=== PATIENT | male | born 1960 | race Caucasian/White ===

== ENCOUNTER 2024-09-21 01:57 | Inpatient (IN) | payer MEDICARE, SELFPAY ==
[2024-09-20 20:35] VITALS: BP 150/52; BMI 21.8
[2024-09-20 20:38] VITALS: BP 150/52
[2024-09-20 20:47] LABS: % Basophils 0.3 % (0-2); % Eosinophils 0.1 % (0-6); % Immature Granulocytes 0.7 % (0-0.5); % Lymphocytes 2.8 % (20.5-51.1); % Monocytes 12.5 % (1.7-9.3); % Neutrophils 83.6 % (42.2-75.2); Absolute Immature Granulocytes 0.1 10^3/uL (0-0.05); Absolute Lymphocytes 0.3 10^3/uL (1.2-3.4); Absolute Monocytes 1.5 10^3/uL (0.1-0.6); Absolute Neutrophils 10.2 10^3/uL (1.4-6.5); Hematocrit 26.8 % (39.0-52.0); Hemoglobin 9.3 g/dL (13.0-18.0); Mean Corp Hgb Conc. 34.7 g/dL (33.0-37.0); Mean Corpuscular Hgb 34.1 pg (27.0-31.0); Mean Corpuscular Volume 98.2 fL (80.0-94.0); Mean Platelet Volume 9.6 fL (7.4-10.4); Nucleated Red Blood Cells % 0 % (-); Platelet Count 142 10^3/uL (130-400); Red Blood Cell Count 2.73 10^6/uL (4.70-6.10); White Blood Cell Count 12.2 10^3/uL (4.8-10.8)
--- NOTE | 2024-09-20 20:51 | ED.GENMED ---
History of Present Illness
<Aline Escalante PA-C - Last Filed: 09/21/24 03:09>
General
Chief Complaint: Weakness
Source: patient
Exam Limitations: none
Time Seen by Provider: 09/20/24 20:35
Nursing documentation reviewed up to this point in time: agreed with
History of Present Illness
History of Present Illness:
This is a 64-year-old male with past medical history of CHF, end-stage renal disease on dialysis MWF, metastatic squamous cell cancer on chemo presenting today with concern altered mental status and fever. Family reports that he was just
discharged from [facility] yesterday and stayed there for a week for shortness of breath and high blood pressure. [facility] when his family went to visit him and started to notice that he felt warm and was not
acting right. Patient's family member took his temperature at the time he notices temperature was 100.1. He started to appear lethargic fatigue. They noticed he was hypoxic in the high 80s to low 90s on room air and was placed on 2 L via nasal
cannula. Usually does not wear oxygen at baseline. Patient reports that he has diffuse bodyaches and mild shortness of breath but he denies chest pain, trouble swallowing. Family also reports that when they visited, he had an episode of vomiting
as well. He denies any dark tarry stools, denies any rectal bleeding. Patient makes minimal urine at baseline
Past History
<Aline Escalante PA-C - Last Filed: 09/21/24 03:09>
Past History
ED Past Medical History: CHF, HTN and Renal failure (on dialysis)
Social History
Tobacco: Smoker (cigars)
Alcohol: None
Personal: Single
Living: with roommate
Employment: Not employed
Review of Systems
<Aline Escalante PA-C - Last Filed: 09/21/24 03:09>
Review of Systems
All Other Systems: ROS reviewed and negative except as documented in HPI and ROS
Phy Exam
<Aline Escalante PA-C - Last Filed: 09/21/24 03:09>
Physical Exam
Physical Exam:
General: Patient is chronically ill appearing, but in no acute distress
Skin: Warm and dry, no rashes or lesions
Head: Normocephalic, atraumatic
Eyes: Sclera non-icteric. EOMs intact.
Cardiac: Regular rate and rhythm, systolic murmur noted
Peripheral Vascular: No lower extremity swelling or edema
Pulm: Normal respiratory effort, no wheezes, rales, rhonchi
Abdomen: No abdominal tenderness to palpation
Musculoskeletal: No pain with range of motion of the bilateral lower extremities, no palpable bony deformities
Neuro: CN II-XII intact, no focal neurologic deficits.
Psychiatric: Appropriate mood and affect.
Course
<Aline Escalante PA-C - Last Filed: 09/21/24 03:09>
Orders/Labs/Results
Orders:
Orders
09/20/24 20:41
Alcohol Urgent
Complete Blood Count/With Diff Urgent
Comprehensive Metabolic Panel Urgent
Lipase Urgent
Comment: ADD ON
09/20/24 21:12
CR Chest - 2 Views Urgent
Comment:
Reason For Exam: hypoxia, shortness of breath,
09/20/24 21:13
Add On- LAB Urgent
Tests Added?: lipase
CT Head W/o Iv Contrast Urgent
Comment:
Reason For Exam: altered mental status
09/20/24 21:24
US Abdomen Complete/Upper Urgent
Comment:
Reason For Exam: vomiting, elevated lfts
09/20/24 21:42
COVID-19 Antigen Urgent
Source: Nasal Swab
Influenza A+B Rapid Molecular Urgent
FLAKO Source: Nasal Swab
Specimen Description:
09/20/24 22:36
Acetaminophen [Tylenol] 1,000 mg .ROUTE .STK-MED ONE
09/20/24 22:38
Acetaminophen [Tylenol] 1,000 mg PO NOW STA
09/20/24 22:41
Acetaminophen [Tylenol/Feverall] 650 mg .ROUTE .STK-MED ONE
09/20/24 22:43
Acetaminophen [Tylenol/Feverall] 650 mg RECTAL NOW STA
09/20/24 22:46
CT Abd/pel Without Iv Or Oral Urgent
Comment:
Reason For Exam: fever, vomiting, transient belly pain
09/20/24 22:59
Blood Culture Routine
FLAKO Source: Blood/Venous
Specimen Description:
Blood Culture Urgent
FLAKO Source: Blood/Venous
Specimen Description:
Rapid Strep Group A Urgent
FLAKO Source: Throat/Pharynx
Specimen Description:
Date Specimen was Collected: 09/20/24
Time Specimen was Collected: 22:57
09/20/24 23:10
Lactic Acid Q4H
Comment: CANCEL 2nd LACTIC ACID IF 1st LACTIC ACID IS LESS THAN 2
09/20/24 23:44
Urinalysis Reflex To Culture Urgent
Date Specimen was Collected: 09/20/24
Time Specimen was Collected: 23:42
Urine Microscopic Reflex Cult Urgent
09/21/24 00:06
Cefepime HCl [Maxipime] 2,000 mg IV NOW STA
09/21/24 00:19
Vancomycin [Vancocin] 1,500 mg 0.9% Sodium Chloride 500 ml [Nss] 500 ml IV NOW
09/21/24 00:37
Sterile Water [Sterile Water For Injection] 10 ml .ROUTE .STK-MED ONE
09/21/24 00:42
Ammonia Urgent
09/21/24 01:30
Admit/Transfer Patient As Directed
Co-Sign Provider:
Level of Care: Inpatient admission
Assign to:: IMU- Intermediate Care
Physician / Group: hospitalist
Diagnosis: fever with encephalopathy
Reason for Hospitalization: fever
Expected length of stay greater than two midnights?: Yes
ELOS- Estimated Length of Stay in days: 2
I certify the patient meets the requirements for IP care: Yes
PRN Pain Medication Management As Directed
May give lesser potent ordered pain med per pt: Yes
preference::
Protocol:: Medication orders for pain may be administered in a
manner that supports deferring to patient preference
when the pt is:
- Requesting an ordered lesser potent pain medication.
Least to most potent pain medications are defined
as: acetaminophen < NSAID < tramadol < opioids
(morphine, oxycodone, hydromorphone).
- Requesting a lesser dose of the same medication IF
ORDERED.
- Requesting a less intrusive route of administration
if both routes are prescribed by the provider (PO <
IV).
09/21/24 01:32
Code Status As Directed
Resuscitation Status: Full Code
09/21/24 01:39
Add On- LAB Stat
Tests Added?: alcohol level
09/21/24 02:45
Acetaminophen [Tylenol/Feverall] 650 mg RECTAL Q6HPRN PRN
Ondansetron Injectable [Zofran] 4 mg IV Q6HPRN PRN
VANCOMYCIN Pharmacy to Dose [VANCOCIN Pharmacy to Dose] 1 each Pharmacy To Prepare [Call Pharmacy To Prepare] 0 ml IV PER PROTOCOL
09/21/24 02:45
Consult Notification Routine
Specialty to Notify: Gastroenterology
Consult Notification Routine
Specialty to Notify: Infectious Disease
Consult Notification Routine
Specialty to Notify: Nephrology
GASTROINTESTINAL CONSULT Routine
Consulting Provider: Lukas Martinez
Was physician already notified: No
Reason for consult: Transaminitis of unknown etiology
INFECTIOUS DISEASE CONSULT Routine
Consulting Provider: Kristel Martin
Was physician already notified: No
Reason for consult: fever with unknown source
NEPHROLOGY CONSULT Routine
Consulting Provider: Issac Hernandez
Was physician already notified: No
Reason for consult: ESRD M/W/F here for fever, source undetermined
Legionella Urinary Antigen Routine
FLAKO Source: Urine
Specimen Description:
Respiratory Culture/Gram Stain Urgent
FLAKO Source: Sputum
Specimen Description:
Strep pneumoniae Antigen Routine
FLAKO Source: Urine
Specimen Description:
Activity As Directed
Activity Level: Out of Bed-Early Mobility
Intake/ Output As Directed
Frequency: Per unit guidelines
Vital Signs As Directed
Frequency: Per unit guidelines
Weight As Directed
Frequency: Once
Comment: on admission
O2 Therapy [RESP] Routine
Nasal Cannula Liter Flow: 2 LPM
Titrate/Wean O2 to maintain O2 sat greater than (%): 93
Special Instructions: Wean as tolerated
Pulse Ox/cont/shift [RESP] Routine
Quantity: 1
Special Instructions: notify provider if SPO2 < 91%
Pt Eval And Treat Routine
Activity Level: With Assistance
Speech Therapy Eval & Treat Routine
DX Deep Vein Thrombosis Video Routine
09/21/24 Breakfast
NPO
Allow oral meds: Yes
Allow clear liquids: Sips of Clears
Basic Metabolic Panel IN AM
Complete Blood Count/No Diff IN AM
Hepatitis A Antibody, Total IN AM
Hepatitis A IgM Antibody IN AM
Hepatitis B Core Ab, IgM IN AM
Hepatitis B Core Ab, Total IN AM
Hepatitis B Surface Antibody IN AM
Hepatitis B Surface Antigen IN AM
Hepatitis C Antibody IN AM
LFT [Xgnny-Ketu-Hllojvg] IN AM
Lactate Level [Lactic Acid] IN AM
Lipid Profile [Cardiovascular Evaluation] IN AM
Procalcitonin IN AM
PCT Algorithmm Indication: Respiratory
MetroNIDAZOLE 500 MG/100 ML [Flagyl 500 mg] 100 ml IV Q12H
09/21/24 08:00
Amlodipine [Norvasc] 10 mg PO DAILY
Aspirin Low Dose EC [Aspir Low (Enteric Coated)] 81 mg PO BID
Atorvastatin [Lipitor] 80 mg PO DAILY
Clonidine [Catapres] 0.2 mg PO TID
Heparin 5,000 units SC Q8
ISOSORBIDE MONOnitrate ER [Imdur (Extended Release)] 30 mg PO DAILY
Metoprolol Xl [Toprol Xl] 50 mg PO BID
Tamsulosin [Flomax] 0.4 mg PO BID
Valsartan [Diovan] 320 mg PO DAILY
ferric citrate [Auryxia] See Dose Instructions PO BID
vibegron [Gemtesa] See Dose Instructions PO DAILY
09/21/24 18:00
Cefepime HCl [Maxipime] 1,000 mg IV QPM
Abnormal Lab Results
09/20/24 09/20/24 09/20/24
20:41 23:10 23:44
WBC 12.2 H 10^3/uL
(4.8-10.8)
RBC 2.73 L 10^6/uL
(4.70-6.10)
Hgb 9.3 L g/dL
(13.0-18.0)
Hct 26.8 L %
(39.0-52.0)
MCV 98.2 H fL
(80.0-94.0)
MCH 34.1 H pg
(27.0-31.0)
RDW 17.0 H %
(11.5-14.5)
Abs Immat Gran (auto) 0.1 H 10^3/uL
(0-0.05)
Absolute Neuts (auto) 10.2 H 10^3/uL
(1.4-6.5)
Absolute Lymphs (auto) 0.3 L 10^3/uL
(1.2-3.4)
Absolute Monos (auto) 1.5 H 10^3/uL
(0.1-0.6)
Immature Gran % 0.7 H %
(0-0.5)
Neutrophils % 83.6 H %
(42.2-75.2)
Lymphocytes % 2.8 L %
(20.5-51.1)
Monocytes % 12.5 H %
(1.7-9.3)
Sodium 128 L mmol/L
(135-145)
Chloride 93 L mmol/L
(98-107)
BUN 51 H mg/dl
(9-20)
Creatinine 4.8 H* mg/dL
(0.7-1.3)
Glucose 128 H mg/dl
(70-99)
Lactic Acid 0.5 L mmol/L
(0.7-2.0)
AST 336 H U/L
(17-59)
ALT 186 H U/L
(0-50)
Alkaline Phosphatase 127 H U/L
(38-126)
Ammonia
Total Protein 5.8 L g/dl
(6.3-8.2)
Albumin 3.4 L g/dl
(3.5-5.0)
Ur Occult Blood Reflex 4+ A
(Negative)
Urine RBC 7-10 A /HPF
(0-2)
Urine Bacteria (Reflex) Few A
(Negative)
Urine Glucose 1+ A
(Negative)
Urine Albumin (Reflex) 3+ A
(Neg - Trace)
09/21/24
00:42
WBC
RBC
Hgb
Hct
MCV
MCH
RDW
Abs Immat Gran (auto)
Absolute Neuts (auto)
Absolute Lymphs (auto)
Absolute Monos (auto)
Immature Gran %
Neutrophils %
Lymphocytes %
Monocytes %
Sodium
Chloride
BUN
Creatinine
Glucose
Lactic Acid
AST
ALT
Alkaline Phosphatase
Ammonia < 9 L umol/L
(9-30)
Total Protein
Albumin
Ur Occult Blood Reflex
Urine RBC
Urine Bacteria (Reflex)
Urine Glucose
Urine Albumin (Reflex)
09/20/24 20:41
09/20/24 20:41
Vital Signs
Initial and Last Documented VS:
Initial Vital Signs
Temp Pulse Resp BP Pulse Ox
98.8 F 73 24 150/52 99
09/20/24 20:35 09/20/24 20:35 09/20/24 20:35 09/20/24 20:35 09/20/24 20:35
Last Documented Vital Signs
Temp Pulse Resp BP Pulse Ox
101.3 F H 74 17 148/54 99
09/21/24 00:51 09/21/24 02:00 09/21/24 02:00 09/21/24 02:00 09/21/24 02:00
<Raymodn Hunter, DO - Last Filed: 09/20/24 23:03>
Orders/Labs/Results
Orders:
Orders
09/20/24 20:41
Alcohol Urgent
Complete Blood Count/With Diff Urgent
Comprehensive Metabolic Panel Urgent
Lipase Urgent
Comment: ADD ON
09/20/24 21:12
CR Chest - 2 Views Urgent
Comment:
Reason For Exam: hypoxia, shortness of breath,
09/20/24 21:13
Add On- LAB Urgent
Tests Added?: lipase
CT Head W/o Iv Contrast Urgent
Comment:
Reason For Exam: altered mental status
09/20/24 21:24
US Abdomen Complete/Upper Urgent
Comment:
Reason For Exam: vomiting, elevated lfts
09/20/24 21:42
COVID-19 Antigen Urgent
Source: Nasal Swab
Influenza A+B Rapid Molecular Urgent
FLAKO Source: Nasal Swab
Specimen Description:
09/20/24 22:36
Acetaminophen [Tylenol] 1,000 mg .ROUTE .STK-MED ONE
09/20/24 22:38
Acetaminophen [Tylenol] 1,000 mg PO NOW STA
09/20/24 22:41
Acetaminophen [Tylenol/Feverall] 650 mg .ROUTE .STK-MED ONE
09/20/24 22:43
Acetaminophen [Tylenol/Feverall] 650 mg RECTAL NOW STA
09/20/24 22:46
CT Abd/pel Without Iv Or Oral Urgent
Comment:
Reason For Exam: fever, vomiting, transient belly pain
09/20/24 22:59
Blood Culture Routine
FLAKO Source: Blood/Venous
Specimen Description:
Blood Culture Urgent
FLAKO Source: Blood/Venous
Specimen Description:
Rapid Strep Group A Urgent
FLAKO Source: Throat/Pharynx
Specimen Description:
Date Specimen was Collected: 09/20/24
Time Specimen was Collected: 22:57
09/20/24 23:10
Lactic Acid Q4H
Comment: CANCEL 2nd LACTIC ACID IF 1st LACTIC ACID IS LESS THAN 2
09/20/24 23:44
Urinalysis Reflex To Culture Urgent
Date Specimen was Collected: 09/20/24
Time Specimen was Collected: 23:42
Urine Microscopic Reflex Cult Urgent
09/21/24 00:06
Cefepime HCl [Maxipime] 2,000 mg IV NOW STA
09/21/24 00:19
Vancomycin [Vancocin] 1,500 mg 0.9% Sodium Chloride 500 ml [Nss] 500 ml IV NOW
09/21/24 00:37
Sterile Water [Sterile Water For Injection] 10 ml .ROUTE .STK-MED ONE
09/21/24 00:42
Ammonia Urgent
09/21/24 01:30
Admit/Transfer Patient As Directed
Co-Sign Provider:
Level of Care: Inpatient admission
Assign to:: IMU- Intermediate Care
Physician / Group: hospitalist
Diagnosis: fever with encephalopathy
Reason for Hospitalization: fever
Expected length of stay greater than two midnights?: Yes
ELOS- Estimated Length of Stay in days: 2
I certify the patient meets the requirements for IP care: Yes
PRN Pain Medication Management As Directed
May give lesser potent ordered pain med per pt: Yes
preference::
Protocol:: Medication orders for pain may be administered in a
manner that supports deferring to patient preference
when the pt is:
- Requesting an ordered lesser potent pain medication.
Least to most potent pain medications are defined
as: acetaminophen < NSAID < tramadol < opioids
(morphine, oxycodone, hydromorphone).
- Requesting a lesser dose of the same medication IF
ORDERED.
- Requesting a less intrusive route of administration
if both routes are prescribed by the provider (PO <
IV).
09/21/24 01:32
Code Status As Directed
Resuscitation Status: Full Code
09/21/24 01:39
Add On- LAB Stat
Tests Added?: alcohol level
09/21/24 02:45
Acetaminophen [Tylenol/Feverall] 650 mg RECTAL Q6HPRN PRN
Ondansetron Injectable [Zofran] 4 mg IV Q6HPRN PRN
VANCOMYCIN Pharmacy to Dose [VANCOCIN Pharmacy to Dose] 1 each Pharmacy To Prepare [Call Pharmacy To Prepare] 0 ml IV PER PROTOCOL
09/21/24 02:45
Consult Notification Routine
Specialty to Notify: Gastroenterology
Consult Notification Routine
Specialty to Notify: Infectious Disease
Consult Notification Routine
Specialty to Notify: Nephrology
GASTROINTESTINAL CONSULT Routine
Consulting Provider: Lukas Martinez
Was physician already notified: No
Reason for consult: Transaminitis of unknown etiology
INFECTIOUS DISEASE CONSULT Routine
Consulting Provider: Kristel Martin
Was physician already notified: No
Reason for consult: fever with unknown source
NEPHROLOGY CONSULT Routine
Consulting Provider: Issac Hernandez
Was physician already notified: No
Reason for consult: ESRD M/W/F here for fever, source undetermined
Legionella Urinary Antigen Routine
FLAKO Source: Urine
Specimen Description:
Respiratory Culture/Gram Stain Urgent
FLAKO Source: Sputum
Specimen Description:
Strep pneumoniae Antigen Routine
FLAKO Source: Urine
Specimen Description:
Activity As Directed
Activity Level: Out of Bed-Early Mobility
Intake/ Output As Directed
Frequency: Per unit guidelines
Vital Signs As Directed
Frequency: Per unit guidelines
Weight As Directed
Frequency: Once
Comment: on admission
O2 Therapy [RESP] Routine
Nasal Cannula Liter Flow: 2 LPM
Titrate/Wean O2 to maintain O2 sat greater than (%): 93
Special Instructions: Wean as tolerated
Pulse Ox/cont/shift [RESP] Routine
Quantity: 1
Special Instructions: notify provider if SPO2 < 91%
Pt Eval And Treat Routine
Activity Level: With Assistance
Speech Therapy Eval & Treat Routine
DX Deep Vein Thrombosis Video Routine
09/21/24 Breakfast
NPO
Allow oral meds: Yes
Allow clear liquids: Sips of Clears
Basic Metabolic Panel IN AM
Complete Blood Count/No Diff IN AM
Hepatitis A Antibody, Total IN AM
Hepatitis A IgM Antibody IN AM
Hepatitis B Core Ab, IgM IN AM
Hepatitis B Core Ab, Total IN AM
Hepatitis B Surface Antibody IN AM
Hepatitis B Surface Antigen IN AM
Hepatitis C Antibody IN AM
LFT [Enjkg-Awav-Yohvthu] IN AM
Lactate Level [Lactic Acid] IN AM
Lipid Profile [Cardiovascular Evaluation] IN AM
Procalcitonin IN AM
PCT Algorithmm Indication: Respiratory
MetroNIDAZOLE 500 MG/100 ML [Flagyl 500 mg] 100 ml IV Q12H
09/21/24 08:00
Amlodipine [Norvasc] 10 mg PO DAILY
Aspirin Low Dose EC [Aspir Low (Enteric Coated)] 81 mg PO BID
Atorvastatin [Lipitor] 80 mg PO DAILY
Clonidine [Catapres] 0.2 mg PO TID
Heparin 5,000 units SC Q8
ISOSORBIDE MONOnitrate ER [Imdur (Extended Release)] 30 mg PO DAILY
Metoprolol Xl [Toprol Xl] 50 mg PO BID
Tamsulosin [Flomax] 0.4 mg PO BID
Valsartan [Diovan] 320 mg PO DAILY
ferric citrate [Auryxia] See Dose Instructions PO BID
vibegron [Gemtesa] See Dose Instructions PO DAILY
09/21/24 18:00
Cefepime HCl [Maxipime] 1,000 mg IV QPM
Abnormal Lab Results
09/20/24 09/20/24 09/20/24
20:41 23:10 23:44
WBC 12.2 H 10^3/uL
(4.8-10.8)
RBC 2.73 L 10^6/uL
(4.70-6.10)
Hgb 9.3 L g/dL
(13.0-18.0)
Hct 26.8 L %
(39.0-52.0)
MCV 98.2 H fL
(80.0-94.0)
MCH 34.1 H pg
(27.0-31.0)
RDW 17.0 H %
(11.5-14.5)
Abs Immat Gran (auto) 0.1 H 10^3/uL
(0-0.05)
Absolute Neuts (auto) 10.2 H 10^3/uL
(1.4-6.5)
Absolute Lymphs (auto) 0.3 L 10^3/uL
(1.2-3.4)
Absolute Monos (auto) 1.5 H 10^3/uL
(0.1-0.6)
Immature Gran % 0.7 H %
(0-0.5)
Neutrophils % 83.6 H %
(42.2-75.2)
Lymphocytes % 2.8 L %
(20.5-51.1)
Monocytes % 12.5 H %
(1.7-9.3)
Sodium 128 L mmol/L
(135-145)
Chloride 93 L mmol/L
(98-107)
BUN 51 H mg/dl
(9-20)
Creatinine 4.8 H* mg/dL
(0.7-1.3)
Glucose 128 H mg/dl
(70-99)
Lactic Acid 0.5 L mmol/L
(0.7-2.0)
AST 336 H U/L
(17-59)
ALT 186 H U/L
(0-50)
Alkaline Phosphatase 127 H U/L
(38-126)
Ammonia
Total Protein 5.8 L g/dl
(6.3-8.2)
Albumin 3.4 L g/dl
(3.5-5.0)
Ur Occult Blood Reflex 4+ A
(Negative)
Urine RBC 7-10 A /HPF
(0-2)
Urine Bacteria (Reflex) Few A
(Negative)
Urine Glucose 1+ A
(Negative)
Urine Albumin (Reflex) 3+ A
(Neg - Trace)
09/21/24
00:42
WBC
RBC
Hgb
Hct
MCV
MCH
RDW
Abs Immat Gran (auto)
Absolute Neuts (auto)
Absolute Lymphs (auto)
Absolute Monos (auto)
Immature Gran %
Neutrophils %
Lymphocytes %
Monocytes %
Sodium
Chloride
BUN
Creatinine
Glucose
Lactic Acid
AST
ALT
Alkaline Phosphatase
Ammonia < 9 L umol/L
(9-30)
Total Protein
Albumin
Ur Occult Blood Reflex
Urine RBC
Urine Bacteria (Reflex)
Urine Glucose
Urine Albumin (Reflex)
09/20/24 20:41
09/20/24 20:41
Vital Signs
Initial and Last Documented VS:
Initial Vital Signs
Temp Pulse Resp BP Pulse Ox
98.8 F 73 24 150/52 99
09/20/24 20:35 09/20/24 20:35 09/20/24 20:35 09/20/24 20:35 09/20/24 20:35
Last Documented Vital Signs
Temp Pulse Resp BP Pulse Ox
101.3 F H 74 17 148/54 99
09/21/24 00:51 09/21/24 02:00 09/21/24 02:00 09/21/24 02:00 09/21/24 02:00
<Aline Escalante PA-C - Last Filed: 09/21/24 03:09>
MDM/Problems Addressed
Differential Diagnosis Includes:
ddx include pneumonia, UTI, bacteremia, cholecystitis
MDM/Problems Addressed:
This is a 64-year-old male with past medical history of CHF, end-stage renal disease on dialysis MWF, metastatic squamous cell cancer on chemo presenting today with concern altered mental status and fever. On exam he is acutely ill-appearing. He
has a rectal fever of 101.3. He has a leukocytosis. His LFTs are elevated. Based on CAT scan, urine, and chest x-ray, is not clear etiology to his fever at this time at this time, bacteremia definitely a possibility. Suspect hypoxia and new
oxygen requirement likely related to pleural effusions and CHF. CT of the head negative for any acute intracranial abnormality. Will refer for admission start antibiotics.
Chronic conditions affecting care:
chf, htn, hlp, metastatic cancer
<Aline Escalante PA-C - Last Filed: 09/21/24 03:09>
*Radiology
Radiology exam reviewed: preliminary read by ED provider (no acute abnormality)
*Pulse Oximetry
Patient hypoxic: yes
*Critical Care Note
Total Time (30-74mins, 75-104mins- exclusive of procedures): Not Applicable
Data Reviewed
Review of Other/Old Records Reveals: Records (Reviewed previous records, reviewed discharge summary from 01/25/2022 patient seen for dyspnea seen for acute heart failure exacerbation)
ED Attending Note
<Aline Escalante PA-C - Last Filed: 09/21/24 03:09>
-
Portions of this chart may have been created with voice recognition software.� Occasional wrong word or��sound alike� substitutions may have occurred due to the inherent limitations of voice recognition software.
<Raymond Hunter DO - Last Filed: 09/20/24 23:03>
ED Attending Note
Patient seen and examined by attending physician: Yes
ED Attending Note:
I reviewed and agree with history and treatment plan by Aline Escalante. My exam revealed 64-year-old male ill-appearing, AV fistula left arm, lungs clear. Fever of unclear etiology. Chest x-ray, CT head, ultrasound abdomen no acute findings.
Will treat with empiric antibiotics, admit to hospitalist. CT abdomen pelvis pending.
Discharge Plan
Departure
Patient Disposition: Admit
Date of Disposition: 09/21/24
Time of Disposition: 01:01
Admit to: Med/Surg
Presentation/result/management discussed w/ accepting MD/DO: Hospitalist
Condition: Fair
Discharge Problem:
Fever of unknown origin, Hyponatremia
Interventions
Interventions:
*Risk Screen - Suicide Last Done: 09/20/24 20:35
*General Assessment Last Done: 09/20/24 20:35
*Neglect/Abuse Screening Last Done: 09/20/24 20:35
*ED- Fall Risk Assessment Last Done: 09/20/24 20:35
*ED COVID-19 Vaccine History Last Done: 09/20/24 20:35
*Nursing Disposition Last Done: 09/21/24 02:15
ED- Cardiac Assessment Last Done: 09/20/24 20:57
ED- Neurological Assessment Last Done: 09/20/24 20:43
ED- Pulmonary Assessment Last Done: 09/20/24 20:57
Discharge Date and Time
Discharge Date/Time: 09/21/24 02:35
[2024-09-20 21:00] VITALS: BP 148/48
[2024-09-20 21:07] LABS: ALT (SGPT) 186 U/L (0-50); AST (SGOT) 336 U/L (17-59); Albumin 3.4 g/dl (3.5-5.0); Alkaline Phosphatase 127 U/L (38-126); Blood Urea Nitrogen 51 mg/dl (9-20); Calcium 10.2 mg/dl (8.4-10.2); Carbon Dioxide 23 mmol/L (22-30); Chloride 93 mmol/L (98-107); Estimated Creatinine Clearance 14 ml/min; Glucose 128 mg/dl (70-99); Potassium 4.6 mmol/L (3.5-5.1); Sodium 128 mmol/L (135-145); Total Bilirubin 0.7 mg/dl (0.2-1.3); Total Protein 5.8 g/dl (6.3-8.2); eGFR 12.79
[2024-09-20 21:28] LABS: Lipase 39 U/L (23-300)
[2024-09-20 22:05] LABS: COVID-19 Antigen Negative (Negative)
[2024-09-20] MEDS: TYLENOL/FEVERALL 650 MG RECTAL (22:43)
[2024-09-20 22:50] VITALS: BP 164/57
[2024-09-20 23:56] LABS: Lactic Acid 0.5 mmol/L (0.7-2.0)
[2024-09-21] VITALS (33 sets, daily range): BP systolic 115–197; BP diastolic 43–95; PULSE 63; O2SAT 100; BMI 20.8
[2024-09-21 00:11] LABS: Urine Albumin 3+ (Neg - Trace); Urine Bilirubin Negative (Negative); Urine Character Clear (Clear); Urine Color Yellow; Urine Glucose 1+ (Negative); Urine Ketone Negative (Negative); Urine Leukocyte Negative (Negative); Urine Nitrite Negative (Negative); Urine Occult Blood 4+ (Negative); Urine Urobilinogen Negative (Neg - 1+)
[2024-09-21] MEDS: MAXIPIME 2000 MG IV (00:43)
[2024-09-21] MEDS: VANCOCIN 530 MG IV (00:50)
[2024-09-21 00:55] LABS: Urine Amorphous Seen
[2024-09-21 00:56] LABS: Urine Bacteria Few (Negative)
--- NOTE | 2024-09-21 00:56 | EDRN ---
Pt's friend, Itz, requesting call from case management when pt is ready for rehab. Itz's phone number is [phone].
[2024-09-21 01:06] LABS: Ammonia < 9 umol/L (9-30)
--- NOTE | 2024-09-21 01:15 | HPS.HSE ---
Family Physician
-
Family Physician: Shamar Allen
Chief Complaint
-
Fever, weakness
History of Present Illness
This is a 64-year-old with past medical history significant for hypertension, hyperlipidemia, history of renal disease on hemodialysis Tuesday, BPH, diastolic CHF who presents to the emergency department with fever and weakness.
Patient unable to provide any history. He is arousable but immediately goes back to sleep. [facility]. Patient has history of squamous cell carcinoma with mets, ESRD on dialysis Tuesday and Tuesday and was
recently discharged from [facility] 2 days ago for uncontrolled hypertension and shortness of breath. Was transferred to rehab. 1 day after arrival in rehab he started having fever and altered mental status. According to son the patient has
been more sleepy and difficulty to arouse at night but worked more awake during the day. Could not elevate any localizing symptoms. Patient unable to give me any additional history.
In the emergency department he was febrile to 101.3, blood pressure was 140/50 with a pulse of 68 and he was satting at 100% on 2 L. Initial studies shows negative COVID and flu test. Chest x-ray shows no acute infiltrates with abnormal vessel
caliber. CT of the head was negative for any acute intracranial process. There was an old lacunar infarct which is unchanged from prior. He had a white count of 12.2, hemoglobin was 9.3 with a plate of 43. Sodium was 128 potassium 4.6 chloride
and bicarb were normal. BUN and creatinine were 51 and 4.8 consistent with his ESRD. Glucose was normal. He had elevations in AST 336 and ALT 26 with alk phos of 126.
Medical History
Past Medical History
Past Medical History: Reports Other
Additional Past Medical History:
Hypertension
ESRD on HD
Past Surgical History: Reports Other
Additional Past Surgical History:
LUE AVF
Bilateral Wrist ORIF
Lumbar Surgery x 2
Spine Stimulator
Multiple Skin Cancer Excisions
Social History
Tobacco: Smoker (Current every day smoker. 2 cigars.)
Alcohol: None
Drug: None
Family History
Family History: Not pertinent and Other (Father: COPD Mother: CAD)
Allergies / Home Medications
Allergies reflects when Allergies were last updated in [employer].
Home Medications with original date entered in [employer]
Allergy/Medication List:
Allergies
Allergy/AdvReac Type Severity Reaction Status Date / Time
No Known Allergies Allergy Verified 04/10/22 07:05
Home Medications
clonidine HCl 0.2 mg tablet 0.2 mg PO TID #90 tabs 01/25/22
amlodipine 10 mg tablet 10 mg PO DAILY 09/20/24
aspirin 81 mg tablet,delayed release 81 mg PO BID 09/20/24
atorvastatin 80 mg tablet 80 mg PO DAILY 09/20/24
epoetin raina-epbx 4,000 unit/mL injection solution (Retacrit) 4,000 unit SC MOWEFR 09/20/24
ferric citrate 210 mg iron tablet (Auryxia) 210 mg PO BID 09/20/24
isosorbide mononitrate 30 mg tablet,extended release 24 hr 30 mg PO DAILY 09/20/24
magnesium oxide 400 mg PO HS 09/20/24
metoprolol succinate 50 mg tablet,extended release 24 hr 50 mg PO BID 09/20/24
mirtazapine 15 mg tablet 15 mg PO HS 09/20/24
ropinirole 0.25 mg tablet 0.25 mg PO HS 09/20/24
tamsulosin 0.4 mg capsule 0.4 mg PO BID 09/20/24
trospium 20 mg tablet 20 mg PO BID 09/20/24
valsartan 320 mg tablet 320 mg PO DAILY 09/20/24
vibegron 75 mg tablet (Gemtesa) 75 mg PO DAILY 09/20/24
Review of Systems
-
Unable to obtain full review of systems at this time due to: Patient Non-verbal
Physical Exam
Vital Signs
Vital Signs
Temp Pulse Resp BP Pulse Ox
101.3 F H 68 16 146/48 100
09/21/24 00:51 09/21/24 00:45 09/21/24 00:45 09/21/24 00:00 09/21/24 00:45
Physical Exam
General: No Apparent Distress and Appears Chronically Ill
HEENT: NormoCephalic, Anicteric, Moist mucous membranes, Neck Nontender and Oxygen; No Pharyngeal Erythema
Respiratory: Clear
Cardiac: S1/S2 and Regular Rhythm
Breast: Deferred by me
GI: Soft, Non Tender, Non Distended and Normal Bowel Sounds
Rectal: Deferred by Provider
Genito-urinary: No costovertebral tender
Musculoskeletal: No Clubbing, No Cyanosis and No Edema
Skin: Warm
Neuro: Nonfocal/grossly intact and Other (obtunded. GCS = 9)
Hematologic/Lymphatic: No Lymphadenopathy
Psych: Calm
Laboratory Results
-
09/20/24 20:41
09/20/24 20:41
Laboratory Results
Lactic Acid Cancelled 09/21/24 03:15
Total Bilirubin 0.7 mg/dl (0.2-1.3) 09/20/24 20:41
AST 336 U/L (17-59) H 09/20/24 20:41
ALT 186 U/L (0-50) H 09/20/24 20:41
Alkaline Phosphatase 127 U/L (38-126) H 09/20/24 20:41
Lipase 39 U/L (23-300) 09/20/24 20:41
Data Reviewed
-
Diagnostic Radiology: Image Personally Visualized and interpreted
CT Scan: Report Reviewed by me
Ultrasound: Report Reviewed by me
Medical Tests (Nuc Med, Echo, EKG etc): Image Personally Visualized and interpreted
Lab Data: Labs Reviewed by me
Old Records: Reviewed
Impression/Plan
-
IMPRESSION:
64-year-old male with end-stage renal disease on hemodialysis Tuesday was [facility] with episode of fever and altered mental status. Workup in the ED is unremarkable with respect to the fever and source of
infection. UA was clear, chest x-ray shows no acute infiltrates, CT of the head was negative, COVID and flu test were negative. He has elevated LFTs however the CT of the abdomen pelvis shows normal liver and gallbladder without any ascites and no
evidence of appendicitis or diverticulitis however this is without contrast. A right upper abdominal ultrasound shows some stones and sludge in the gallbladder but no gallbladder wall thickening or pericholecystic fluid. Negative sonographic
Quintana sign. My abdominal exam was likewise benign. He is on 2 L likely because of his mental status but lungs are clear and he shows no infiltrates. U/A ngative. Appears quite chronically ill.
PLAN:
1. Fever - Unknown source with associated hypoactive encephalopathy
- admit to IMU due to poor mental status
- blood cultures sent
- source given h/o ESRD on HD could possibly remain blood stream infection, check esr/crp for endocarditis
- check procalcitonin for respiratory infection
- IV vancomycin and cefepime/flagyl for now
- consider LP in am if negative cultures and no improvement
- Infectious disease consultation
2. Encephalopathy - Toxic metabolic suspected. Ammonia negative. No offending drugs
- monitor airway protection in IMU for now
- abx as above
- npo for now
- speech and swallow eval in am
3. Transaminitis - Unclear etiology. AST/ALT ratio with negative bili suggestive of ETOH but no known h/o. No ductal changes, small stones and sludge. Cannot rule out transient gall stones. ?congestive hepatopathy
- check etoh level
- tylenol level
- acute hepatitis panel
- trend LFTs
- additional viral panel per GI
- GI consult.
4. ESRD
- nephrology consult for HD tomorrow
- npo for now
- continue bp management
5. HTN
- continue bp management per home regimen with hold parameters
DVT PPX - heparin sq
Code status - Full Code
[2024-09-21 02:14] LABS: Alcohol None Detected
[2024-09-21] MEDS: OFIRMEV 100 IV (03:06)
[2024-09-21 04:43] LABS: Hematocrit 26.3 % (39.0-52.0); Hemoglobin 9.3 g/dL (13.0-18.0); Mean Corp Hgb Conc. 35.4 g/dL (33.0-37.0); Mean Corpuscular Volume 98.9 fL (80.0-94.0); Mean Platelet Volume 10.3 fL (7.4-10.4); Platelet Count 149 10^3/uL (130-400); Red Blood Cell Count 2.66 10^6/uL (4.70-6.10); Red Cell Dist. Width 16.7 % (11.5-14.5); White Blood Cell Count 13.5 10^3/uL (4.8-10.8)
[2024-09-21 05:00] LABS: Lactic Acid 0.7 mmol/L (0.7-2.0)
[2024-09-21 05:11] LABS: ALT (SGPT) 214 U/L (0-50); AST (SGOT) 333 U/L (17-59); Albumin 3.2 g/dl (3.5-5.0); Alkaline Phosphatase 126 U/L (38-126); Blood Urea Nitrogen 55 mg/dl (9-20); Calcium 10.1 mg/dl (8.4-10.2); Carbon Dioxide 23 mmol/L (22-30); Chloride 95 mmol/L (98-107); Direct Bilirubin 0.6 mg/dl (0.0-0.4); Estimated Creatinine Clearance 13 ml/min; Glucose 101 mg/dl (70-99); HDL Cholesterol 45 mg/dl; LDL Cholesterol, Calculated 50 mg/dl; Potassium 4.8 mmol/L (3.5-5.1); Sodium 129 mmol/L (135-145); Total Bilirubin 0.8 mg/dl (0.2-1.3); Total Cholesterol 121 mg/dl (50-199); Total Protein 5.5 g/dl (6.3-8.2); Triglyceride 134 mg/dl (10-149); Very Low Density Lipoprotein 26 mg/dl (0-30); eGFR 11.62
[2024-09-21 05:12] LABS: Procalcitonin 7.64 ng/ml (0.0-0.25)
[2024-09-21 05:33] LABS: Hepatitis B Surface Antigen Negative (Negative)
[2024-09-21] MEDS: FLAGYL 500 MG 100 IV (05:33)
[2024-09-21 05:39] LABS: Hepatitis A IgM Antibody Negative (Negative); Hepatitis B Core Ab, IgM Negative (Negative)
[2024-09-21 05:51] LABS: Hepatitis A Antibody, Total Negative (Negative); Hepatitis B Surface Antibody Negative; Hepatitis C Antibody Negative (Negative)
--- NOTE | 2024-09-21 05:56 | PTCARENOTE ---
Received pt from ED at 02:28. Pt aaox3, lethargic/drowsy. Able to answer some questions but quickly falls back asleep. NSR on monitor. Murmur noted. Lungs diminished on RA, SaO2 95%. Oliguric d/t ESRD. +bowel sounds. Stage 2 pressure sore in gluteal
cleft. Silicone border foam applied. Rectal temp upon arrival 101.5. Pt with chills/rigors. Orders received for IV offirmev. IV offirmev given. Repeat rectal temp 101.1. Pt states he feels 'a little better', appears slightly diaphoretic and without
chills/rigors. PATROL JUDGE notified via tiger text.
--- NOTE | 2024-09-21 06:32 | PTCARENOTE ---
Orders received for cooling blanket to keep pt temp below 100.4F.
--- NOTE | 2024-09-21 07:13 | CON.GI ---
Consultation
-
Date/Time Consultation Performed: 09/21/24
Performing Provider: Trent Martinez MD
Reason for Consultation: elevated LFT
Medical History
Chief Complaint / HPI
Chief Complaint: Fever
History of Present Illness:
The patient is a 64-year-old male with past medical history as noted who presents from rehab with fever. He was recently hospitalized at [facility] with hypertension and shortness of breath, went to rehab though was found to have somnolence and
fever. He has had persistent fevers here with a Tmax of 101.5. He is somnolent though arousable and appropriate. He denies any significant abdominal pain. He states that he is never had any GI issues in the past. He was eating well and states
that he has a 'cast iron stomach '. No reports of diarrhea, melena or hematochezia.
Past Medical History
Past Medical History: Other (Diastolic CHF, end-stage renal disease on hemodialysis, hypertension, high cholesterol, metastatic squamous cell carcinoma)
Past Surgical History: Other (Spinal stimulator, skin cancer excisions, lumbar surgery, wrist surgery)
Social History
Tobacco: Smoker
Alcohol: None
Drug: None
Family History
Family History: Reviewed & Not Pertinent
Allergies / Home Medications
Allergy/AdvReac Type Severity Reaction Status Date / Time
No Known Allergies Allergy Verified 04/10/22 07:05
�Medication �Instructions �Recorded
clonidine HCl 0.2 mg tablet 0.2 mg PO TID #90 tabs 01/25/22
amlodipine 10 mg tablet 10 mg PO DAILY 09/20/24
aspirin 81 mg tablet,delayed 81 mg PO BID 09/20/24
release
atorvastatin 80 mg tablet 80 mg PO DAILY 09/20/24
epoetin raina-epbx 4,000 unit/mL 4,000 unit SC MOWEFR 09/20/24
injection solution (Retacrit)
ferric citrate 210 mg iron tablet 210 mg PO BID 09/20/24
(Auryxia)
isosorbide mononitrate 30 mg 30 mg PO DAILY 09/20/24
tablet,extended release 24 hr
magnesium oxide 400 mg PO HS 09/20/24
metoprolol succinate 50 mg 50 mg PO BID 09/20/24
tablet,extended release 24 hr
mirtazapine 15 mg tablet 15 mg PO HS 09/20/24
ropinirole 0.25 mg tablet 0.25 mg PO HS 09/20/24
tamsulosin 0.4 mg capsule 0.4 mg PO BID 09/20/24
trospium 20 mg tablet 20 mg PO BID 09/20/24
valsartan 320 mg tablet 320 mg PO DAILY 09/20/24
vibegron 75 mg tablet (Gemtesa) 75 mg PO DAILY 09/20/24
Review of Systems
-
All other systems: A 12 pt ROS was Negative except as stated above in HPI
Vital Signs
Temp Pulse Resp BP Pulse Ox
101.1 F H 74 17 148/54 95
09/21/24 05:40 09/21/24 02:00 09/21/24 02:00 09/21/24 02:00 09/21/24 04:01
Physical Exam
Exam
General: NAD, oriented though somnolent
HEENT: MMM, anicteric, no lymphadenopathy
Heart: Regular, 4/6 systolic murmurs
Lungs: CTA bilaterally
Abdomen: normal bowel sounds, soft, no tenderness, no rebound or guarding, no masses, bruits or ascites, minimal ecchymoses at site of probable heparin injections
Extremeties: no edema
Skin: no rashes
Results
WBC 13.5 10^3/uL (4.8-10.8) H 09/21/24 04:13
Hgb 9.3 g/dL (13.0-18.0) L 09/21/24 04:13
Hct 26.3 % (39.0-52.0) L 09/21/24 04:13
MCV 98.9 fL (80.0-94.0) H 09/21/24 04:13
Plt Count 149 10^3/uL (130-400) 09/21/24 04:13
Absolute Neuts (auto) 10.2 10^3/uL (1.4-6.5) H 09/20/24 20:41
Sodium 129 mmol/L (135-145) L 09/21/24 04:13
Potassium 4.8 mmol/L (3.5-5.1) 09/21/24 04:13
Chloride 95 mmol/L (98-107) L 09/21/24 04:13
Carbon Dioxide 23 mmol/L (22-30) 09/21/24 04:13
BUN 55 mg/dl (9-20) H 09/21/24 04:13
Creatinine 5.2 mg/dL (0.7-1.3) H* 09/21/24 04:13
Calcium 10.1 mg/dl (8.4-10.2) 09/21/24 04:13
Total Bilirubin 0.8 mg/dl (0.2-1.3) 09/21/24 04:13
AST 333 U/L (17-59) H 09/21/24 04:13
ALT 214 U/L (0-50) H 09/21/24 04:13
Alkaline Phosphatase 126 U/L (38-126) 09/21/24 04:13
Lipase 39 U/L (23-300) 09/20/24 20:41
Hepatitis A IgM Ab Negative (Negative) 09/21/24 04:13
Hepatitis A Ab Total Negative (Negative) 09/21/24 04:13
Hep Bs Antibody Negative 09/21/24 04:13
Hep B Core IgM Ab Negative (Negative) 09/21/24 04:13
Hepatitis C Antibody Negative (Negative) 09/21/24 04:13
Diagnostic Image Results:
Preliminary CT scan reports no acute abnormality within the abdomen pelvis, normal gallbladder and appendix, moderate stool burden.
Ultrasound showed small gallbladder stones and sludge though no wall thickening.
Prior GI Procedures:
EGD:
Colonoscopy:
Assessment / Plan
-
1. Elevated LFTs: In a predominant necroinflammatory pattern, in the setting of fever, with no significant abdominal pain and benign exam, with no suggestion of cholecystitis or duct dilation on imaging, likely reactionary and secondary to systemic
infection. Given his loud murmur concern for endocarditis/bacteremia. Flu and COVID were negative. At this point will await hepatitis panel, culture data and continue to trend LFTs and supportive care. Primary GI source of infection including
cholecystitis seems much less likely.
-
-
Thank you for consultation and allowing me to participate in the patient's care. Please call the search engine optimization strategist GI physician during the after hours with any questions or concerns.
[2024-09-21] MEDS: CATAPRES 0.2 MG PO ×3 (08:35→20:58)
[2024-09-21] MEDS: IMDUR (EXTENDED RELEASE) 30 MG PO (08:35)
[2024-09-21] MEDS: FLOMAX 0.4 MG PO ×2 (08:36→20:55)
[2024-09-21] MEDS: LIPITOR 80 MG PO (08:36)
[2024-09-21] MEDS: NORVASC 10 MG PO (08:36)
[2024-09-21] MEDS: HEPARIN 5000 UNITS SC ×2 (08:36→17:14)
[2024-09-21] MEDS: ASPIR LOW (ENTERIC COATED) 81 MG PO ×2 (08:36→20:55)
[2024-09-21] MEDS: TOPROL XL 50 MG PO ×2 (08:36→20:55)
[2024-09-21] MEDS: DIOVAN 320 MG PO (08:36)
--- NOTE | 2024-09-21 08:40 | W.PN.HOSP.TC ---
Today's Communication/Plan
-
IV antibiotics. ID consult
Assessment / Plan
Assessment / Plan
Physical exam:
General: Acutely ill
HEENT: Normocephalic, Atraumatic and Moist Mucous Membranes
Respiratory: Clear to Auscultation; Negative Wheezes, Rales or Rhonchi
Cardiac: Regular Rhythm and S1/S2
GI: Soft, Nontender and Nondistended
Musculoskeletal: No Clubbing, No Cyanosis and No Edema
Neuro: Awake, Alert and Oriented, no gross neurological deficit
Psych: Calm
A/P:
1. Fever - Unknown source with associated hypoactive encephalopathy
- admit to IMU. Some improvement noted
- blood cultures sent
- source given h/o ESRD on HD could possibly remain blood stream infection, check esr/crp for endocarditis
- checked procalcitonin and elevated at 7.64 but also end-stage renal disease
- IV vancomycin and cefepime/flagyl for now
- Infectious disease consultation
2. Encephalopathy - Toxic metabolic suspected. Ammonia negative. No offending drugs
- monitor airway protection in IMU for now
- abx as above
- speech and swallow eval--> okay to start diet today
3. Elevated LFTs
- check etoh level and undetectable
- acute hepatitis panel pending
- trend LFTs
- additional viral panel per GI
- GI consult appreciated
4. ESRD
- nephrology consult for HD--> plan for HD this afternoon
- continue bp management
5. HTN
- continue bp management per home regimen with hold parameters
DVT PPX - heparin sq
Code status - Full Code
Anticipated Discharge: > 48 hours
Subjective/Interval History
-
Date of Service: September 21, 2024
Patient is alert this morning. Patient feels tired overall. No fever.
Objective Data
-
Labs:
Laboratory Results
09/20/24 09/21/24
20:41 04:13
WBC 12.2 H 13.5 H
Hgb 9.3 L 9.3 L
Hct 26.8 L 26.3 L
Plt Count 142 149
Sodium 128 L 129 L
Potassium 4.6 4.8
Chloride 93 L 95 L
Carbon Dioxide 23 23
BUN 51 H 55 H
Creatinine 4.8 H* 5.2 H*
Glucose 128 H 101 H
Calcium 10.2 10.1
Total Bilirubin 0.7 0.8
AST 336 H 333 H
ALT 186 H 214 H
Alkaline Phosphatase 127 H 126
Vital Signs:
Vital Signs
Temp Pulse Resp BP Pulse Ox
101.1 F H 62 18 144/55 90
09/21/24 05:40 09/21/24 08:36 09/21/24 06:00 09/21/24 08:36 09/21/24 06:00
--- NOTE | 2024-09-21 09:10 | W.CON.NEPH ---
Consultation
-
Date/Time Consultation Requested: 09/21/2024 7:00 AM
Date/Time Consultation Performed: 09/21/2024 9:10 AM
Requesting Provider: Dr. Goncalves
Performing Provider: Dr. Mace
Reason for Consultation: End-stage renal disease
Medical History
-
Chief Complaint: End-stage renal disease
History of Present Illness:
The patient is a 64-year-old male with a past medical history of end-stage renal disease every Tuesday and Tuesday. He has a history of multidrug resistant hypertension maintained on amlodipine clonidine, metoprolol, and valsartan. He is
maintained on statin therapy beta-brent therapy and Imdur in the setting of coronary artery disease. The patient presented to the emergency room with fever and weakness. The patient was barely arousable at time of arrival to the emergency room.
He had recently been discharged at [facility] 2 days prior for uncontrolled hypertension and shortness of breath. He was then transferred to a rehab. 1 day after arrival to the rehab he started having fevers and altered mental status. In the
emergency room he was febrile at 101.3 and viral serologies were negative. Blood cultures are pending and nephrology was consulted for end-stage renal disease management. Of note, patient reported to me that he has been treated with chemotherapy
at [facility] for basal cell carcinoma. He stated that he stopped his chemotherapy approximately 2 weeks ago when he developed sudden significant swelling in all 4 extremities.
Past Medical History
ESRD
Multidrug-resistant hypertension
Anemia
Nephrolithiasis
Has history of spinal cord
Left upper extremity AV
Bilateral wrist ORIF
History of lumbar surgery
Multiple skin cancer excision
Social History
No current tobacco or alcohol abuse
Family History
Family History: Not Pertinent
Allergies / Home Medications
Allergy/AdvReac Type Severity Reaction Status Date / Time
No Known Allergies Allergy Verified 04/10/22 07:05
�Medication �Instructions �Recorded �Confirmed �Type
clonidine HCl 0.2 mg tablet 0.2 mg PO TID #90 tabs 01/25/22 09/20/24 Rx
amlodipine 10 mg tablet 10 mg PO DAILY 09/20/24 09/20/24 History
aspirin 81 mg tablet,delayed 81 mg PO BID 09/20/24 09/20/24 History
release
atorvastatin 80 mg tablet 80 mg PO DAILY 09/20/24 09/20/24 History
epoetin raina-epbx 4,000 unit/mL 4,000 unit SC MOWEFR 09/20/24 09/20/24 History
injection solution (Retacrit)
ferric citrate 210 mg iron tablet 210 mg PO BID 09/20/24 09/20/24 History
(Auryxia)
isosorbide mononitrate 30 mg 30 mg PO DAILY 09/20/24 09/20/24 History
tablet,extended release 24 hr
magnesium oxide 400 mg PO HS 09/20/24 09/20/24 History
metoprolol succinate 50 mg 50 mg PO BID 09/20/24 09/20/24 History
tablet,extended release 24 hr
mirtazapine 15 mg tablet 15 mg PO HS 09/20/24 09/20/24 History
ropinirole 0.25 mg tablet 0.25 mg PO HS 09/20/24 09/20/24 History
tamsulosin 0.4 mg capsule 0.4 mg PO BID 09/20/24 09/20/24 History
trospium 20 mg tablet 20 mg PO BID 09/20/24 09/20/24 History
valsartan 320 mg tablet 320 mg PO DAILY 09/20/24 09/20/24 History
vibegron 75 mg tablet (Gemtesa) 75 mg PO DAILY 09/20/24 09/20/24 History
Review of Systems
-
All other systems: Negative unless noted
Constitutional: Fever and Other (Weakness)
Neurological: Other (Decreased mental status on presentation)
Physical Exam
Vital Signs
Vital Signs
Temp Pulse Resp BP Pulse Ox
98.5 F 62 18 144/55 90
09/21/24 08:45 09/21/24 08:36 09/21/24 06:00 09/21/24 08:36 09/21/24 06:00
Lab Results
09/21/24 04:13
09/21/24 04:13
WBC 13.5 10^3/uL (4.8-10.8) H 09/21/24 04:13
RBC 2.66 10^6/uL (4.70-6.10) L 09/21/24 04:13
Hgb 9.3 g/dL (13.0-18.0) L 09/21/24 04:13
Hct 26.3 % (39.0-52.0) L 09/21/24 04:13
Plt Count 149 10^3/uL (130-400) 09/21/24 04:13
Sodium 129 mmol/L (135-145) L 09/21/24 04:13
Potassium 4.8 mmol/L (3.5-5.1) 09/21/24 04:13
Chloride 95 mmol/L (98-107) L 09/21/24 04:13
Carbon Dioxide 23 mmol/L (22-30) 09/21/24 04:13
BUN 55 mg/dl (9-20) H 09/21/24 04:13
Creatinine 5.2 mg/dL (0.7-1.3) H* 09/21/24 04:13
eGFR 11.62 09/21/24 04:13
Glucose 101 mg/dl (70-99) H 09/21/24 04:13
Calcium 10.1 mg/dl (8.4-10.2) 09/21/24 04:13
Albumin 3.2 g/dl (3.5-5.0) L 09/21/24 04:13
Physical Exam
General: AOx3, cachectic, NAD
HEENT: PERRL, EOMI, Anicteric, Conjunctivae Clear, Ear/Nose Intact, Hearing Normal, Oropharynx Clear/Moist, Dentition Intact, Facial Symmetry, Neck Supple, Neck: Trachea Midline, No JVD and No Thyromegaly, no Bruits
Respiratory: Clear to auscultation bilaterally with normal lung exersion
Cardiac: S1/S2 and Regular Rate/Rhythm
Breast: Deferred by me
Abdomen: Soft, Nontender, Nondistended, Normal Bowel Sounds and No Hepatosplenomegaly
Rectal: Deferred by Provider
Genito-urinary: No Costovertebral Tenderness
Extremities: No Clubbing, No Cyanosis and No Edema
Skin: No Rash or open lesions
Neuro: Nonfocal/Grossly Intact, CN II-XII (Intact) and Strength (Musculoskeletal exam 5 out of 5 both upper and lower extremities)
Hematologic/Lymphatic: No Cervical Lymphadenopathy, No Submandibular Lymphadenopathy and No Supraclavicular Lymphadenopathy
Psych: Mood/afflect flat, Insight/judgement good and Appropriate
Vascular: plus 1 pedal and radial pulses
Vascular Access: AVF (Left upper extremity: Good thrill and bruit)
Assessment/Plan
-
Impression:
ESRD MWF
Fever of unknown origin
Encephalopathy
Multidrug resistant hypertension
Elevated LFTs
Anemia of chronic kidney disease
Basal cell carcinoma metastatic origin: last chemotherapy 2 weeks prior from [facility]
Plan:
Hemodialysis will be provided today orders provided
KAYLA therapy will be provided for anemia of chronic kidney disease
Blood cultures pending re: fever of unknown origin no readily identified source at this time
Broad-spectrum antibiotics were provided appropriate renal dosage
Maintain current oral antihypertensive medications for blood pressure control in addition to dry weight on dialysis
Fluid restriction to be placed for hyponatremia in setting of ESRD
--- NOTE | 2024-09-21 10:40 | PTOTSP ---
Dysphagia Evaluation
Patient with history of dysphagia w/ recent video swallow study at [facility] (results unknown; contacted [employer] dept. for details). Patient with acute on chronic dysphagia risk factors including encephalopathy and squamous cell cancer with
mets on chemo.
W/ clinical bedside swallow eval, oral stage suspected to be WFL. Mild signs/reports concerning for pharyngeal dysphagia though cannot determine severity bedside.
Recommend:
1. IDDSI Level 5 Minced and Moist Solids, Thin Liquids
2. Medications: as best tolerated
3. General aspiration and reflux precautions
4. Oral care 3-5x daily
5. Dysphagia tx at the acute care level to determine if/when diet advancement appropriate and/or if repeat video swallow study warranted
--- NOTE | 2024-09-21 11:16 | PHA.VAN.IN ---
Assessment
- Assessment
Renal Function: Patient has ESRD, on chronic Hemodialysis
Hemodialysis Schedule: MWF
Maximum Temperature: 101.1
Minimum Temperature: 98.5
Concomitant Antimicrobials: cefepime
Plan
- Plan
Initial / Loading Dose: vancomycin 1500 mg x 1
Maintenance Regimen: dose by level- vancomycin 500 mg on 09/21 post dialysis
MRSA Screen: Ordered per protocol
Pharmacokinetics Vancomycin I
- -
Patient Age: 64
Patient Sex: Male
Vancomycin Day #: 1
Indication: Pulmonary/Respiratory
Requesting Provider: Dr. Myrick
Pertinent Antimicrobial Allergies:
nkda
Height / Weight:
Height 5 ft 7 in
Actual Weight 60.1 kg
IBW in k.1
Pertinent Past Medical History: basal cell carcinoma
- Vital Signs / Lab Results
Temp Pulse Resp BP Pulse Ox
98.5 F 62 15 144/55 97
09/21/24 08:45 09/21/24 08:36 09/21/24 08:00 09/21/24 08:36 09/21/24 08:00
Lab Results - Hematology
09/20/24 09/21/24
20:41 04:13
WBC 12.2 H 13.5 H
Lab Results - Chemistry
09/20/24 09/21/24
20:41 04:13
BUN 51 H 55 H
Creatinine 4.8 H* 5.2 H*
Estimated Creat Clear 14 13
Albumin 3.4 L 3.2 L
09/20/24 09/21/24 09/21/24
23:10 03:15 04:13
Lactic Acid 0.5 L Cancelled 0.7
Lab Results - Urine
09/20/24
23:44
Urine Nitrite (Reflex) Negative
Leukocyte Esterase Rfl Negative
Urine WBC (Reflex) 3-5
Ur Squamous Epith Cells 6-10
Urine Bacteria (Reflex) Few A
Microbiology Results
09/20/24 22:59 Streptococcus Rapid Screen - Final
Throat/Pharynx Rapid Strep Screen (Group A) Negative
09/20/24 21:42 Influenza Types A & B (PRIYA) - Final
Nasal Swab Negative for Influenza A & B, NAAT
Negative results must be combined with clinical observations
and patient history.
Nucleic Acid Amplification test (NAAT)performed on the
[employer] platform.
--- NOTE | 2024-09-21 12:05 | CON.ID ---
Consultation
-
Date/Time Consultation Requested: September 21, 2024 0245
Date/Time Consultation Performed: September 21 2024 1200
Requesting Provider: Dr. Joe Myrick
Performing Provider: Dr. Tayler Bliss
Reason for Consultation: Fever with unknown source
Chief Complaint / Past History
Chief Complaint
Weakness
History of Present Illness
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
was recently hospitalized at [facility] for a week due to hypertension and then was discharged to rehab. When he arrived at rehab, patient noted to be febrile with decreased mental status. He was therefore sent to [facility] yesterday.
Temperature was 101.2, white count of 12.2. Lactic acid normal. LFTs elevated. Head CT no acute pathology. CT of the abdomen pelvis no acute pathology. Chest x-ray no opacification. He is currently on vancomycin, cefepime, metronidazole.
Patient reports he has not been feeling well since being on oral chemotherapy. He complains of edema of upper and lower extremities. He complains of weakness. He has not been able to keep his food down with emesis especially with acidic foods.
He has chronic cough for 6 months. No headache. No sore throat. No sinus congestion. No chest pain. No abdominal pain or diarrhea. He makes very little urine.
Past History
Additional Past Medical History:
ESRD on HD via LUE AVF
Skin Cancer SCC with mets to lymph nodes and left upper lung failed immunetherpy, now on oral chemo at [facility]
HTN
HLD
HFpEF
Bilateral Wrist ORIF
Spine stimulator
Lumbar surgery x 2
Skin cancer excision.
Allergy History:
No Known Allergies Allergy (Verified 04/10/22 07:05)
Medications Reviewed: Yes
Current Antibiotics:
Vancomycin
Cefepime
Metronidazole
Social History
Tobacco: Smoker (2 cigs a day)
Alcohol: None
Living: Retirement
Family History
Family History: Not Pertinent
Review of Systems
Review of Systems
General: Change in Appetite
HEENT: Negative Sinus Problems, Headache or Pharyngitis
Cardiovascular: Edema; Negative Chest Pain
Gasteroenterology: Vomiting; Negative Diarrhea
Genital / Urological: Negative Flank Pain
Endocrine: Weakness and Fatigue
Neurological: Negative Dizziness
All systems: All other systems were reviewed and were negative
Vital Signs
Temp Pulse Resp BP Pulse Ox
98.5 F 59 19 128/50 100
09/21/24 08:45 09/21/24 11:22 09/21/24 11:22 09/21/24 11:22 09/21/24 11:22
Selected Entries
09/21/24
03:10
Temp 101.5 F H
Physical Exam
Physical Exam
Constitutional: Chronically Ill
Head: Other (No frontal or max or sinus tenderness)
Eyes: No Conjunctival Hemorrhage and Sclera Anicteric
Pharynx: Benign
Cardiovascular: Regular Rate, S1/S2 and Murmur
Pulmonary: Clear
Gastrointestinal: Soft, Non Tender, Non Distended and Normal Bowel Sounds
Extremities: Edema (Upper and lower extremities)
Neurological: AO x 3; Negative Meningeal Signs
Lab / Diagnostic Study Results
09/21/24 04:13
09/21/24 04:13
Abs Immat Gran (auto) 0.1 10^3/uL (0-0.05) H 09/20/24 20:41
Absolute Neuts (auto) 10.2 10^3/uL (1.4-6.5) H 09/20/24 20:41
Absolute Lymphs (auto) 0.3 10^3/uL (1.2-3.4) L 09/20/24 20:41
Absolute Monos (auto) 1.5 10^3/uL (0.1-0.6) H 09/20/24 20:41
Absolute Basos (auto) 0.0 10^3/uL (0-0.2) 09/20/24 20:41
Immature Gran % 0.7 % (0-0.5) H 09/20/24 20:41
Neutrophils % 83.6 % (42.2-75.2) H 09/20/24 20:41
Lymphocytes % 2.8 % (20.5-51.1) L 09/20/24 20:41
Monocytes % 12.5 % (1.7-9.3) H 09/20/24 20:41
Eosinophils % 0.1 % (0-6) 09/20/24 20:41
Basophils % 0.3 % (0-2) 09/20/24 20:41
Lactic Acid 0.7 mmol/L (0.7-2.0) 09/21/24 04:13
Procalcitonin 7.64 ng/ml (0.0-0.25) H* 09/21/24 04:13
Ur Squamous Epith Cells 6-10 /LPF (Few) 09/20/24 23:44
Microbiology Results
Micro:
09/20/24 22:59 Streptococcus Screen (FLAKO) - Preliminary
Throat/Pharynx Culture in Progress
Streptococcus Rapid Screen - Final
Rapid Strep Screen (Group A) Negative
09/21/24 04:18 MRSA Screen - Pending
Nose
09/20/24 22:59 Blood Culture - Pending
Blood/Venous
09/20/24 22:59 Blood Culture - Pending
Blood/Venous
09/20/24 21:42 Influenza Types A & B (PRIYA) - Final
Nasal Swab Negative for Influenza A & B, NAAT
Negative results must be combined with clinical observations
and patient history.
Nucleic Acid Amplification test (NAAT)performed on the
[employer] NOW platform.
09/20/24 CT a/p: No acute CT abnormalities identified to explain the patient's symptoms . No evidence of intestinal obstruction, bowel inflammatory process, nephrolithiasis, hydronephrosis, cholecystitis, or abscess formation. Trace bilateral
pleural effusions, left greater than right. Minimal bibasilar airspace consolidation, most likely representing subsegmental atelectasis. Pneumonia should be excluded clinically. Mild diffuse soft tissue anasarca. Aneurysm of the abdominal aorta,
measuring up to 3.5 cm in diameter. Heavy arterial vascular calcification diffusely. Mild bilateral renal cortical atrophy. Multiple cystic lesions, including bilateral hyperattenuating renal lesions, which may represent hemorrhagic cysts but are
incompletely characterized without IV contrast. Consider elective renal ultrasound to further characterize.
09/20/24 ABD US: Small gallbladder stones and sludge. No gallbladder wall thickening or findings to suggest biliary tract dilatation. Negative sonographic Quintana's sign.
09/20/[address]: Small old lacunar infarct again seen in the left caudate head. No acute intracranial abnormality.
Assessment / Plan
# Fever
# Leukocytosis
# Toxic metabolic encephalopathy resolved
# Skin ca SCC with mets to LN, AJITH on po chemo at [facility]
# ESRD on HD via LUE AVF
- Ordered TTE for heart murmur (unknown if new )
- Follow blood cx's
-Can continue Vanco, cefepime.
-DC metronidazole,
-Follow temps, wbc
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
ESRD on HD via LUE AVF
Skin Cancer SCC with mets to lymph nodes and left upper lung failed immunetherpy, now on oral chemo at [facility]
HTN
HLD
HFpEF
Bilateral Wrist ORIF
Spine stimulator
Lumbar surgery x 2
Skin cancer excision.
--- NOTE | 2024-09-21 13:13 | W.PN.NEPH.HD ---
Assessment
-
patient seen on HD
sbp 145 at current u/f
HD via AVF
Progress Note - Hemodialysis
-
Date of Service: September 21, 2024
Duration: 30 minutes and 3 hours
Potassium Bath: 2
Opti-Dialyzer: 160
Ultrafiltration: Other (1 to 2 kg)
Blood Flow: 400
Dialysate Flow: 600
Heparin: none
EPO: 6K
[2024-09-21] MEDS: RETACRIT 4000 UNITS IV (14:11)
--- NOTE | 2024-09-21 16:30 | CM ---
Patient from [facility] with Hx ESRD on HD with Dx Fever, hypoactive encephalopathy, Elevated LFTs. O2 2L. Receiving IV Abx. PT/OT; required assist of 2, recommend skilled rehab.
Spoke with Adm Jennas [facility];
the patient came to their facility from [facility] and was only there for 24-36 hrs before he was sent to .
He was there for short term rehab.
The patient resides with a friend in a 2 story house with 2nd floor setup and was independent prior to his last hospital admission and drives.
Patient was scheduled to be transported from [facility] to [facility] for HD.
Jenna shares that patient had recently made a decision to stop chemo.
Jenna needs to be contacted prior to the patient returning.
The for report [phone], fax [phone].
Plan follow up with patient to confirm agreement to return to [facility] for rehab.
[2024-09-21] MEDS: STERILE WATER FOR INJECTION 10 ML IV (17:15)
[2024-09-21] MEDS: MAXIPIME 1000 MG IV (17:15)
[2024-09-21] MEDS: VANCOCIN HCL 500 MG 100 IV (17:15)
[2024-09-21] MEDS: TYLENOL 650 MG PO (17:55)
--- NOTE | 2024-09-21 18:15 | PTCARENOTE ---
Dr. Goncalves made aware that patients rectal temp is 100.5 and patient symptomatic stating that he is 'freezing'. MD ordered PO tylenol. PO tylenol given per order. Care ongoing.
--- NOTE | 2024-09-21 18:15 | PTCARENOTE ---
Patient AOx3. Patient lethargic/drowsy at times but arouses to voice. HD completed during shift. Patient is oliguric. BP stable NSR-Sinus dee on monitor. Murmur noted. Echo completed during shift. Patient on 2L NC. Speech consult and recommended
for IDDSI 5. Patients family at bedside throughout shift. Frequent rectal temps done throughout shift. Call chery within reach, bed in lowest position, and bed of wheels locked.
--- NOTE | 2024-09-21 19:42 | PTCARENOTE ---
Patient febrile at 102.1 rectally after Tylenol administration. Cooling blanket applied with rectal probe in place. Patient was able to eat dinner. Slightly drowsy at the moment but arousable to verbal stimuli. Son at bedside. Call chery within reach.
[2024-09-22] VITALS (17 sets, daily range): BP systolic 106–189; BP diastolic 28–71; BMI 20.7
[2024-09-22] MEDS: HEPARIN 5000 UNITS SC ×3 (01:58→17:36)
[2024-09-22] MEDS: TYLENOL 650 MG PO ×2 (02:05→12:31)
[2024-09-22 04:58] LABS: Hematocrit 26.4 % (39.0-52.0); Hemoglobin 8.8 g/dL (13.0-18.0); Mean Corp Hgb Conc. 33.3 g/dL (33.0-37.0); Mean Corpuscular Hgb 33.2 pg (27.0-31.0); Mean Corpuscular Volume 99.6 fL (80.0-94.0); Mean Platelet Volume 10.2 fL (7.4-10.4); Platelet Count 143 10^3/uL (130-400); Red Blood Cell Count 2.65 10^6/uL (4.70-6.10); Red Cell Dist. Width 17.2 % (11.5-14.5)
[2024-09-22 05:11] LABS: ALT (SGPT) 191 U/L (0-50); AST (SGOT) 234 U/L (17-59); Albumin 2.9 g/dl (3.5-5.0); Alkaline Phosphatase 142 U/L (38-126); Blood Urea Nitrogen 37 mg/dl (9-20); Calcium 9.8 mg/dl (8.4-10.2); Carbon Dioxide 29 mmol/L (22-30); Chloride 96 mmol/L (98-107); Estimated Creatinine Clearance 18 ml/min; Glucose 108 mg/dl (70-99); Potassium 3.7 mmol/L (3.5-5.1); Sodium 132 mmol/L (135-145); Total Bilirubin 0.7 mg/dl (0.2-1.3); Total Protein 5.2 g/dl (6.3-8.2); eGFR 18.69
[2024-09-22 05:35] LABS: % Basophils 0.7 % (0-2); % Eosinophils 1.1 % (0-6); % Immature Granulocytes 0.9 % (0-0.5); % Lymphocytes 12.3 % (20.5-51.1); % Monocytes 16.3 % (1.7-9.3); % Neutrophils 68.7 % (42.2-75.2); Absolute Basophils 0.1 10^3/uL (0-0.2); Absolute Eosinophils 0.1 10^3/uL (0-0.7); Absolute Immature Granulocytes 0.1 10^3/uL (0-0.05); Absolute Monocytes 1.3 10^3/uL (0.1-0.6); Absolute Neutrophils 5.5 10^3/uL (1.4-6.5); Nucleated Red Blood Cells % 0 % (-)
--- NOTE | 2024-09-22 07:29 | W.PN.HOSP.TC ---
Today's Communication/Plan
-
IV antibiotics. Repeat blood cultures. MRI of the brain
Assessment / Plan
Assessment / Plan
Physical exam:
General: Acutely ill
HEENT: Normocephalic, Atraumatic and Moist Mucous Membranes
Respiratory: Clear to Auscultation; Negative Wheezes, Rales or Rhonchi
Cardiac: Regular Rhythm and S1/S2, systolic murmur
GI: Soft, Nontender and Nondistended
Musculoskeletal: No Clubbing, No Cyanosis and No Edema
Neuro: Awake, Alert and Oriented, generalized weakness,?RUE weakness.
Psych: Calm
A/P:
Sepsis due to Staphylococcus aureus bacteremia:
Blood cultures with Staph aureus
Repeat blood cultures
Continue IV antibiotics per ID (on IV cefepime and discontinued vancomycin)
ID consulted appreciated
Waiting for echocardiogram
Plan for MRI of the brain-discussed with nephrology and okay from neurostandpoint especially with newer agents of gadolinium. Discussed with radiology and they would prefer within 24 hours of dialysis. Patient has a spine stimulator so we will
need to figure out details prior to test.
Discussed with son over the phone today
End-stage renal disease on hemodialysis:
Hemodialysis per nephrology-neck session on Tuesday
History of skin cancer with mets to lymph nodes and left upper lobe lung on chemotherapy/immunotherapy
Hypertension:
Antihypertensives adjustment as needed
Toxic metabolic encephalopathy:
Likely related to current infection but needs to rule out stroke and or embolic events of the brain
Continue to monitor
Diet per speech therapy
CT of the head unremarkable
Plan for MRI if possible
Elevated LFTs:
Continue to monitor trend
GI input appreciated and GI does not feel obstructive pattern or source of infection
Hyponatremia:
Fluid restriction and dialysis
Anemia of chronic disease:
KAYLA
Monitor hemoglobin closely
Hyperlipidemia:
Hold statin due to elevated LFTs
BPH:
On Flomax
History of aortic stenosis:
Update echo
DVT prophylaxis:
Heparin SQ
CODE STATUS:
Full code
Total time spent on today's encounter was 52 minutes which included time spent in counseling the patient/family regarding diagnosis and treatment plan as listed above, goals of care, and symptom management. Case was discussed with nursing staff,
specialists, and care coordinators/case management. All labs and imaging personally reviewed by me. Remainder the time spent in detailed review of previous records, lab data, imaging, and other medical provider documentation.
Anticipated Discharge: > 48 hours
Subjective/Interval History
-
Date of Service: September 22, 2024
Patient alert but fluctuates with lethargy on and off per RN report. Generalized weakness and some in right upper extremity also fluctuating. Afebrile today
Objective Data
-
Labs:
Laboratory Results
09/22/24
03:42
WBC 8.0
Hgb 8.8 L
Hct 26.4 L
Plt Count 143
Sodium 132 L
Potassium 3.7
Chloride 96 L
Carbon Dioxide 29
BUN 37 H
Creatinine 3.5 H
Glucose 108 H
Calcium 9.8
Total Bilirubin 0.7
AST 234 H
ALT 191 H
Alkaline Phosphatase 142 H
Vital Signs:
Vital Signs
Temp Pulse Resp BP Pulse Ox
97.9 F 58 14 153/55 100
09/22/24 07:29 09/22/24 06:00 09/22/24 06:00 09/22/24 06:00 09/22/24 06:00
I&O
09/21/24 09/22/24 09/23/24
06:59 06:59 06:59
Output Total 450 / 450
Balance -450 / -450
--- NOTE | 2024-09-22 08:05 | W.PN.GI.CBS2 ---
Today's Communication / Plan
-
Please see assessment and plan for details.
Assessment / Plan
-
1. Elevated LFTs: In a predominant necroinflammatory pattern, in the setting of fever, with no significant abdominal pain and benign exam, with no suggestion of cholecystitis or duct dilation on imaging, likely reactionary and secondary to systemic
infection, blood cultures now positive for Staph aureus. Given his loud murmur concern for endocarditis with bacteremia. Hepatitis panel negative, LFTs are improving.
At this point we will hold on further GI workup, will sign off for now, please call back with any further questions.
Subjective
Subjective
Date of Service: September 22, 2024
Patient feeling better, fever curve decreasing, blood cultures positive for Staph aureus. Is more alert this morning, denies any abdominal pain.
Objective
Data Reviewed
Laboratory Data:
Laboratory Results
09/22/24 03:42
09/22/24 03:42
Laboratory Results
Total Bilirubin 0.7 mg/dl (0.2-1.3) 09/22/24 03:42
AST 234 U/L (17-59) H 09/22/24 03:42
ALT 191 U/L (0-50) H 09/22/24 03:42
Alkaline Phosphatase 142 U/L (38-126) H 09/22/24 03:42
Lipase 39 U/L (23-300) 09/20/24 20:41
Vital Signs and I&O:
Vital Signs
Temp Pulse Resp BP Pulse Ox
97.9 F 58 14 153/55 100
09/22/24 07:29 09/22/24 06:00 09/22/24 06:00 09/22/24 06:00 09/22/24 06:00
I&O
09/21/24 09/22/24 09/23/24
06:59 06:59 06:59
Output Total 450 / 450
Balance -450 / -450
Physical Exam
Physical Exam
General: NAD
Abdomen: normal bowel sounds, soft, no tenderness, no masses or bruits, no ascites
--- NOTE | 2024-09-22 09:07 | W.PN.NEPH.PH ---
Today's Communication / Plan
-
Next dialysis will be provided for Tuesday
Provide IV hydralazine as needed
Vancomycin provided for staph bacteremia
Assessment/Plan
-
Impression:
ESRD MWF
Fever of unknown origin
Encephalopathy
Multidrug resistant hypertension
Elevated LFTs
Anemia of chronic kidney disease
Basal cell carcinoma metastatic origin: last chemotherapy 2 weeks prior from [place]
Staph bacteremia
Plan:
Hemodialysis will be provided on Tuesday
KAYLA therapy will be provided for anemia of chronic kidney disease
Blood cultures pending re: fever of unknown origin no readily identified source at this time
Broad-spectrum antibiotics were provided appropriate renal dosage
Maintain current oral antihypertensive medications for blood pressure control in addition to dry weight on dialysis, will provide IV hydralazine as needed
Fluid restriction to be placed for hyponatremia in setting of ESRD
Antibiotic therapy directed at Staph bacteremia with vancomycin
-
-
Date of Service: September 22, 2024
CC / HPI / ROS
-
Chief Complaint:
ESRD
History of Present Illness:
ESRD Tuesday from
Blood pressure remains chronically elevated on multidrug
Review of Systems:
No chest pain or shortness of breath
Febrile
Labs
-
Labs:
WBC 8.0 10^3/uL (4.8-10.8) 09/22/24 03:42
RBC 2.65 10^6/uL (4.70-6.10) L 09/22/24 03:42
Hgb 8.8 g/dL (13.0-18.0) L 09/22/24 03:42
Hct 26.4 % (39.0-52.0) L 09/22/24 03:42
Plt Count 143 10^3/uL (130-400) 09/22/24 03:42
Sodium 132 mmol/L (135-145) L 09/22/24 03:42
Potassium 3.7 mmol/L (3.5-5.1) 09/22/24 03:42
Chloride 96 mmol/L (98-107) L 09/22/24 03:42
Carbon Dioxide 29 mmol/L (22-30) 09/22/24 03:42
BUN 37 mg/dl (9-20) H 09/22/24 03:42
Creatinine 3.5 mg/dL (0.7-1.3) H 09/22/24 03:42
eGFR 18.69 09/22/24 03:42
Glucose 108 mg/dl (70-99) H 09/22/24 03:42
Calcium 9.8 mg/dl (8.4-10.2) 09/22/24 03:42
Albumin 2.9 g/dl (3.5-5.0) L 09/22/24 03:42
Physical Exam
-
Vital Signs:
Vital Signs
Temp Pulse Resp BP Pulse Ox
97.9 F 63 18 189/65 100
09/22/24 07:29 09/22/24 08:00 09/22/24 08:00 09/22/24 08:00 09/22/24 08:00
Cardiovascular:: Regular rate and rhythm
Respiratory:: Bilateral: Coarse
Lung Excursion:: Normal
Abdomen:: Nontender and Soft
Bowel Sounds:: Normal
Extremity Edema:: None: Bilateral:
Sampson Catheter: No
Other Findings::
LUE AV fistula
[2024-09-22] MEDS: DIOVAN 320 MG PO (09:25)
[2024-09-22] MEDS: ASPIR LOW (ENTERIC COATED) 81 MG PO ×2 (09:25→21:14)
[2024-09-22] MEDS: IMDUR (EXTENDED RELEASE) 30 MG PO (09:25)
[2024-09-22] MEDS: TOPROL XL 50 MG PO ×2 (09:25→21:12)
[2024-09-22] MEDS: NORVASC 10 MG PO (09:25)
[2024-09-22] MEDS: CATAPRES 0.2 MG PO (09:27)
[2024-09-22] MEDS: FLOMAX 0.4 MG PO ×2 (09:27→21:12)
[2024-09-22] MEDS: LIPITOR 80 MG PO (09:29)
--- NOTE | 2024-09-22 10:28 | W.PN.ID1 ---
Date of Service
Date of Service: September 22, 2024
Today's Communication
RUE weakness. Recommend MRI brain to assess for embolic CVA.
Assessment / Plan
# S. aureus bacteremia
# Fever
# Leukocytosis - resolved
# Toxic metabolic encephalopathy resolved
# Skin ca SCC with mets to LN, AJITH on po chemo at [facility]
# ESRD on HD via LUE AVF
# hx Aortic stenosis
- Ordered TTE on 09/21, not yet done
- Repeat blood cx's x 2 in am
- RUE weakness. Recommend MRI brain to assess for embolic CVA.
-DC Vancomycin
-Continue cefepime.
-Follow temps
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
ESRD on HD via LUE AVF
Skin Cancer SCC with mets to lymph nodes and left upper lung failed immunetherpy, now on oral chemo at [facility]
HTN
HLD
HFpEF
Aortic stenosis
Bilateral Wrist ORIF
Spine stimulator
Lumbar surgery x 2
Skin cancer excision.
Chief Complaint
-: Fever and Bacteremia
Subjective / Review of Systems
c/o RUE weakness. Spilled his coffee today.
Vital Signs / Physical Exam
Vital Signs
Vital Signs
Temp Pulse Resp BP Pulse Ox
97.9 F 63 18 189/65 100
09/22/24 07:29 09/22/24 08:00 09/22/24 08:00 09/22/24 08:00 09/22/24 08:00
Physical Exam
Constitutional: Acutely Ill and Chronically Ill
Eyes: Sclera Anicteric
Cardiovascular: Regular Rate, S1/S2 and Murmur
Gastrointestinal: Soft, Non Tender, Non Distended and Normal Bowel Sounds
Genito-Urinary: Negative CVA Tenderness
Extremities: Negative Edema
Neurological: AO x 3; Negative Meningeal Signs
Objective Data
Lab Data
Lab Results
09/22/24 03:42
09/22/24 03:42
Estimated Creat Clear 18 ml/min 09/22/24 03:42
Lactic Acid 0.7 mmol/L (0.7-2.0) 09/21/24 04:13
Total Bilirubin 0.7 mg/dl (0.2-1.3) 09/22/24 03:42
AST 234 U/L (17-59) H 09/22/24 03:42
ALT 191 U/L (0-50) H 09/22/24 03:42
Alkaline Phosphatase 142 U/L (38-126) H 09/22/24 03:42
Most recent labs reviewed.
Micro Results:
09/20/24 22:59 Streptococcus Screen (FLAKO) - Final
Throat/Pharynx No Beta Hemolytic Streptococci Isolated
Streptococcus Rapid Screen - Final
Rapid Strep Screen (Group A) Negative
09/21/24 04:18 MRSA Screen - Final
Nose No Methicillin Resistant Staphylococcus aureus isolated.
09/22/24 03:57 Legionella Urinary Antigen - Final
Urine Negative for Legionella pneumophila Serogroup 1 antigen.
A negative result does not rule out the possiblity of
Legionella infection due to other serogroups or species of
Legionella. Clinical correlation is recommended.
Streptococcus pneumoniae Antigen (M - Final
Negative for Streptococcus pneumoniae antigen.
A negative result does not exclude infection with
Streptococcus pneumoniae. Clinical correlation is
recommended.
09/20/24 22:59 Blood Culture - Preliminary
Blood/Venous Staphylococcus aureus
Gram Stain - Final
09/20/24 22:59 Blood Culture - Preliminary
Blood/Venous Positive culture in progress
Gram Stain - Final
09/20/24 21:42 Influenza Types A & B (PRIYA) - Final
Nasal Swab Negative for Influenza A & B, NAAT
Negative results must be combined with clinical observations
and patient history.
Nucleic Acid Amplification test (NAAT)performed on the
[employer] NOW platform.
09/20/24 CT a/p: No acute CT abnormalities identified to explain the patient's symptoms . No evidence of intestinal obstruction, bowel inflammatory process, nephrolithiasis, hydronephrosis, cholecystitis, or abscess formation. Trace bilateral
pleural effusions, left greater than right. Minimal bibasilar airspace consolidation, most likely representing subsegmental atelectasis. Pneumonia should be excluded clinically. Mild diffuse soft tissue anasarca. Aneurysm of the abdominal aorta,
measuring up to 3.5 cm in diameter. Heavy arterial vascular calcification diffusely. Mild bilateral renal cortical atrophy. Multiple cystic lesions, including bilateral hyperattenuating renal lesions, which may represent hemorrhagic cysts but are
incompletely characterized without IV contrast. Consider elective renal ultrasound to further characterize.
09/20/24 ABD US: Small gallbladder stones and sludge. No gallbladder wall thickening or findings to suggest biliary tract dilatation. Negative sonographic Quintana's sign.
09/20/[address]: Small old lacunar infarct again seen in the left caudate head. No acute intracranial abnormality.
Care Review
Plan reviewed with: Physician (Dr. Goncalves)
[2024-09-22] MEDS: MAXIPIME 1000 MG IV (17:36)
[2024-09-22] MEDS: STERILE WATER FOR INJECTION 10 ML IV (17:36)
--- NOTE | 2024-09-22 23:27 | PTCARENOTE ---
Pt received from previous RN. Pt AAOx3. Drowsy, arousable to verbal stimuli. Family at bedside visiting. pt had large soft BM on BSC. afebrile a this time, cooling blanket off, temp 98.3 orally. Assessment as documented. Call light in reach.
[2024-09-23] VITALS (16 sets, daily range): BP systolic 121–195; BP diastolic 41–69; BMI 20.5
[2024-09-23] MEDS: HEPARIN 5000 UNITS SC ×4 (00:52→22:57)
[2024-09-23] MEDS: APRESOLINE 10 MG IV (03:59)
[2024-09-23 05:56] LABS: % Basophils 0.7 % (0-2); % Eosinophils 2.1 % (0-6); % Immature Granulocytes 0.5 % (0-0.5); % Lymphocytes 13.7 % (20.5-51.1); % Monocytes 17.2 % (1.7-9.3); % Neutrophils 65.8 % (42.2-75.2); Absolute Basophils 0.1 10^3/uL (0-0.2); Absolute Eosinophils 0.2 10^3/uL (0-0.7); Absolute Lymphocytes 1.2 10^3/uL (1.2-3.4); Absolute Monocytes 1.5 10^3/uL (0.1-0.6); Absolute Neutrophils 5.8 10^3/uL (1.4-6.5); Hematocrit 29.4 % (39.0-52.0); Hemoglobin 10.1 g/dL (13.0-18.0); Mean Corp Hgb Conc. 34.4 g/dL (33.0-37.0); Mean Corpuscular Hgb 34.1 pg (27.0-31.0); Mean Corpuscular Volume 99.3 fL (80.0-94.0); Mean Platelet Volume 10.3 fL (7.4-10.4); Nucleated Red Blood Cells % 0 % (-); Platelet Count 171 10^3/uL (130-400); Red Blood Cell Count 2.96 10^6/uL (4.70-6.10); Red Cell Dist. Width 16.9 % (11.5-14.5); White Blood Cell Count 8.9 10^3/uL (4.8-10.8)
[2024-09-23 06:39] LABS: ALT (SGPT) 207 U/L (0-50); AST (SGOT) 250 U/L (17-59); Albumin 3.2 g/dl (3.5-5.0); Alkaline Phosphatase 186 U/L (38-126); Blood Urea Nitrogen 62 mg/dl (9-20); Calcium 10.3 mg/dl (8.4-10.2); Carbon Dioxide 25 mmol/L (22-30); Chloride 94 mmol/L (98-107); Estimated Creatinine Clearance 14 ml/min; Glucose 90 mg/dl (70-99); Potassium 4.2 mmol/L (3.5-5.1); Sodium 131 mmol/L (135-145); Total Bilirubin 0.8 mg/dl (0.2-1.3); Total Protein 5.7 g/dl (6.3-8.2); eGFR 13.46
--- NOTE | 2024-09-23 08:22 | W.PN.NEPH.PH ---
Today's Communication / Plan
-
dialysis tomorrow
Assessment/Plan
-
Impression:
ESRD MWF
Fever of unknown origin
Encephalopathy
Multidrug resistant hypertension
Elevated LFTs
Anemia of chronic kidney disease
Basal cell carcinoma metastatic origin: last chemotherapy 2 weeks prior from [facility]
Staph bacteremia
Plan:
Hemodialysis will be provided on Tuesday, orders provided
KAYLA therapy will be provided for anemia of chronic kidney disease
Blood cultures pending re: fever of unknown origin no readily identified source at this time
Broad-spectrum antibiotics were provided appropriate renal dosage
Maintain current oral antihypertensive medications for blood pressure control in addition to dry weight on dialysis, will provide IV hydralazine as needed
Fluid restriction placed for hyponatremia in setting of ESRD
Antibiotic therapy directed at Staph bacteremia with cefepime
-
-
Date of Service: September 23, 2024
CC / HPI / ROS
-
Chief Complaint:
ESRD
History of Present Illness:
ESRD Tuesday
Blood pressure remains chronically elevated on multidrug
remains
Review of Systems:
No chest pain or shortness of breath
Febrile
Labs
-
Labs:
WBC 8.9 10^3/uL (4.8-10.8) 09/23/24 05:39
RBC 2.96 10^6/uL (4.70-6.10) L 09/23/24 05:39
Hgb 10.1 g/dL (13.0-18.0) L 09/23/24 05:39
Hct 29.4 % (39.0-52.0) L 09/23/24 05:39
Plt Count 171 10^3/uL (130-400) 09/23/24 05:39
Sodium 131 mmol/L (135-145) L 09/23/24 05:39
Potassium 4.2 mmol/L (3.5-5.1) 09/23/24 05:39
Chloride 94 mmol/L (98-107) L 09/23/24 05:39
Carbon Dioxide 25 mmol/L (22-30) 09/23/24 05:39
BUN 62 mg/dl (9-20) H 09/23/24 05:39
Creatinine 4.6 mg/dL (0.7-1.3) H* 09/23/24 05:39
eGFR 13.46 09/23/24 05:39
Glucose 90 mg/dl (70-99) 09/23/24 05:39
Calcium 10.3 mg/dl (8.4-10.2) H 09/23/24 05:39
Albumin 3.2 g/dl (3.5-5.0) L 09/23/24 05:39
Physical Exam
-
Vital Signs:
Vital Signs
Temp Pulse Resp BP Pulse Ox
97.9 F 76 13 172/69 99
09/23/24 03:00 09/23/24 06:01 09/23/24 06:01 09/23/24 06:01 09/23/24 06:01
Cardiovascular:: Regular rate and rhythm
Respiratory:: Bilateral: CTA
Lung Excursion:: Normal
Abdomen:: Nontender and Soft
Bowel Sounds:: Normal
Extremity Edema:: None: Bilateral:
Sampson Catheter: No
[2024-09-23] MEDS: DIOVAN 320 MG PO (08:52)
[2024-09-23] MEDS: FLOMAX 0.4 MG PO (08:55)
[2024-09-23] MEDS: NORVASC 10 MG PO (08:55)
[2024-09-23] MEDS: ASPIR LOW (ENTERIC COATED) 81 MG PO (08:55)
[2024-09-23] MEDS: IMDUR (EXTENDED RELEASE) 30 MG PO (08:55)
[2024-09-23] MEDS: TOPROL XL 50 MG PO (08:56)
--- NOTE | 2024-09-23 08:58 | W.PN.HOSP.TC ---
Today's Communication/Plan
-
IV antibiotics. Chest x-ray. Oxygen supplementation.
Assessment / Plan
Assessment / Plan
Physical exam:
General: Acutely ill
HEENT: Normocephalic, Atraumatic and Moist Mucous Membranes
Respiratory: Coarse crackles in the bases; Negative Wheezes or Rhonchi
Cardiac: Regular Rhythm and S1/S2, systolic murmur
GI: Soft, Nontender and Nondistended
Musculoskeletal: No Clubbing, No Cyanosis and No Edema
Neuro: Awake, Alert alternating with lethargy on and off and remains oriented, generalized weakness, RUE weakness.
Psych: Calm
A/P:
Sepsis due to Staphylococcus aureus bacteremia:
Blood cultures with Staph aureus
Repeat blood cultures
Continue IV antibiotics per ID (on IV cefepime and discontinued vancomycin)
ID consulted appreciated
Waiting for echocardiogram
WBC 13.5-->8.9
Discussed with son over the phone yesterday
Discussed with ex- at bedside today
Will have him n.p.o. for today and plan to do swallowing study tomorrow in the setting of concerns for active aspiration.
Acute hypoxic respiratory failure:
Worsening hypoxia suspect related to aspiration pneumonia
Obtain chest x-ray
I was going to add anaerobic coverage with metronidazole but ID recommends to hold off.
Continue supplemental oxygen
If there is an element of volume overload he will receive hemodialysis tomorrow.
Will have him n.p.o. for today and plan to do swallowing study tomorrow in the setting of concerns for active aspiration.
Right upper extremity weakness and toxic-metabolic encephalopathy:
Could be related to current infection but needs to rule out stroke and or embolic events of the brain
CT head unremarkable upon admission
Plan for MRI of the brain-discussed with nephrology and okay from neuro standpoint especially with newer agents of gadolinium. Discussed with radiology and they would prefer within 24 hours of dialysis. Patient has a spine stimulator so we will
need to figure out details prior to test. Request has been sent to Kuldeep and family also looking for information.
End-stage renal disease on hemodialysis:
Hemodialysis per nephrology-neck session on Tuesday
History of skin cancer with mets to lymph nodes and left upper lobe lung on chemotherapy/immunotherapy
Hypertension:
Antihypertensives adjustment have been done by nephrology.
Continue to monitor and adjust accordingly.
Elevated LFTs:
Continue to monitor trend
GI input appreciated and GI does not feel obstructive pattern or source of infection
Hyponatremia:
Fluid restriction and dialysis
Anemia of chronic disease:
KAYLA
Monitor hemoglobin closely
Hyperlipidemia:
Hold statin due to elevated LFTs
BPH:
On Flomax
History of aortic stenosis:
Update echo
DVT prophylaxis:
Heparin SQ
CODE STATUS:
Full code
Total time spent on today's encounter was 52 minutes which included time spent in counseling the patient/family regarding diagnosis and treatment plan as listed above, goals of care, and symptom management. Case was discussed with nursing staff,
specialists, and care coordinators/case management. All labs and imaging personally reviewed by me. Remainder the time spent in detailed review of previous records, lab data, imaging, and other medical provider documentation.
Anticipated Discharge: > 48 hours
Subjective/Interval History
-
Date of Service: September 23, 2024
Patient more short of breath and hypoxic this morning. Mental status fluctuated as well. Afebrile
Objective Data
-
Labs:
Laboratory Results
09/23/24
05:39
WBC 8.9
Hgb 10.1 L
Hct 29.4 L
Plt Count 171
Sodium 131 L
Potassium 4.2
Chloride 94 L
Carbon Dioxide 25
BUN 62 H
Creatinine 4.6 H*
Glucose 90
Calcium 10.3 H
Total Bilirubin 0.8
AST 250 H
ALT 207 H
Alkaline Phosphatase 186 H
Vital Signs:
Vital Signs
Temp Pulse Resp BP Pulse Ox
98.1 F 76 13 172/69 99
09/23/24 07:31 09/23/24 06:01 09/23/24 06:01 09/23/24 06:01 09/23/24 06:01
I&O
09/22/24 09/23/24 09/24/24
06:59 06:59 06:59
Output Total 450 / 450 425 / 425
Balance -450 / -450 -425 / -425
--- NOTE | 2024-09-23 10:22 | PTCARENOTE ---
Pt with difficulty swallowing pills with sips of water, coughing. Improved once pills whole crushed in applesauce. Pt placed on 2L overnight as he desaturated while asleep. Increased to 4L this AM.While eating breakfast pt's O2 sat dropped to 70s on
4L NC. Increased to 6L, Notified Dr. Goncalves. Stat chest X ray ordered.
--- NOTE | 2024-09-23 11:27 | W.PN.ID1 ---
Date of Service
Date of Service: September 23, 2024
Today's Communication
TTE tomorrow.
MRI brain pending.
Continue cefepime.
Assessment / Plan
# S. aureus (MSSA) bacteremia
# Fever - resolved
# Leukocytosis - resolved
# Hypoxia
# Toxic metabolic encephalopathy resolved
# Skin ca SCC with mets to LN, AJITH on po chemo at [facility]
# ESRD on HD via [facility] AV[facility]
# hx Aortic stenosis
- Suspect IE
- Ordered TTE on 09/21, to be done tomorrow.
- New CHF on CXR is concern
- RUE weakness. Awaiting MRI brain to assess for embolic CVA.
- Follow repeat blood cx's x 2
-Continue cefepime (has ENGINEERING GEOLOGIST penetration as compared to cefazolin)
-Follow closely
#Conditions SCANNING TECH
ESRD on HD via LUE AVF
Skin Cancer SCC with mets to lymph nodes and left upper lung failed immunetherpy, now on oral chemo at [facility]
HTN
HLD
HFpEF
Aortic stenosis
Bilateral Wrist ORIF
Spine stimulator
Lumbar surgery x 2
Skin cancer excision.
Chief Complaint
-: Fever and Bacteremia
Subjective / Review of Systems
Feels weak.
Vital Signs / Physical Exam
Vital Signs
Vital Signs
Temp Pulse Resp BP Pulse Ox
98.1 F 61 13 176/60 98
09/23/24 07:31 09/23/24 08:56 09/23/24 06:01 09/23/24 08:56 09/23/24 10:10
Physical Exam
Constitutional: Acutely Ill and Chronically Ill
Eyes: Sclera Anicteric
Cardiovascular: Regular Rate, S1/S2 and Murmur
Pulmonary: Rales
Gastrointestinal: Soft, Non Tender and Non Distended
Genito-Urinary: Negative CVA Tenderness
Extremities: Edema
Neurological: AO x 3
Objective Data
Lab Data
Lab Results
09/23/24 05:39
09/23/24 05:39
Estimated Creat Clear 14 ml/min 09/23/24 05:39
Lactic Acid 0.7 mmol/L (0.7-2.0) 09/21/24 04:13
Total Bilirubin 0.8 mg/dl (0.2-1.3) 09/23/24 05:39
AST 250 U/L (17-59) H 09/23/24 05:39
ALT 207 U/L (0-50) H 09/23/24 05:39
Alkaline Phosphatase 186 U/L (38-126) H 09/23/24 05:39
Most recent labs reviewed.
Micro Results:
09/20/24 22:59 Blood Culture - Final
Blood/Venous S aureus-Methicillin Sensitive
Gram Stain - Final
09/20/24 22:59 Blood Culture - Final
Blood/Venous S aureus-Methicillin Sensitive
Gram Stain - Final
09/23/24 06:34 Blood Culture - Pending
Blood/Venous
09/23/24 05:39 Blood Culture - Pending
Blood/Venous
09/20/24 22:59 Streptococcus Screen (FLAKO) - Final
Throat/Pharynx No Beta Hemolytic Streptococci Isolated
Streptococcus Rapid Screen - Final
Rapid Strep Screen (Group A) Negative
09/21/24 04:18 MRSA Screen - Final
Nose No Methicillin Resistant Staphylococcus aureus isolated.
09/22/24 03:57 Legionella Urinary Antigen - Final
Urine Negative for Legionella pneumophila Serogroup 1 antigen.
A negative result does not rule out the possiblity of
Legionella infection due to other serogroups or species of
Legionella. Clinical correlation is recommended.
Streptococcus pneumoniae Antigen (M - Final
Negative for Streptococcus pneumoniae antigen.
A negative result does not exclude infection with
Streptococcus pneumoniae. Clinical correlation is
recommended.
09/20/24 21:42 Influenza Types A & B (PRIYA) - Final
Nasal Swab Negative for Influenza A & B, NAAT
Negative results must be combined with clinical observations
and patient history.
Nucleic Acid Amplification test (NAAT)performed on the
[employer] platform.
09/23/24 CXR: Diffusely increased interstitial markings, increasing from previous radiograph 3 days ago. Findings are highly suggestive of interstitial pulmonary edema pattern.
09/20/24 CT a/p: No acute CT abnormalities identified to explain the patient's symptoms . No evidence of intestinal obstruction, bowel inflammatory process, nephrolithiasis, hydronephrosis, cholecystitis, or abscess formation. Trace bilateral
pleural effusions, left greater than right. Minimal bibasilar airspace consolidation, most likely representing subsegmental atelectasis. Pneumonia should be excluded clinically. Mild diffuse soft tissue anasarca. Aneurysm of the abdominal aorta,
measuring up to 3.5 cm in diameter. Heavy arterial vascular calcification diffusely. Mild bilateral renal cortical atrophy. Multiple cystic lesions, including bilateral hyperattenuating renal lesions, which may represent hemorrhagic cysts but are
incompletely characterized without IV contrast. Consider elective renal ultrasound to further characterize.
09/20/24 ABD US: Small gallbladder stones and sludge. No gallbladder wall thickening or findings to suggest biliary tract dilatation. Negative sonographic Quintana's sign.
09/20/[address]: Small old lacunar infarct again seen in the left caudate head. No acute intracranial abnormality.
Care Review
Plan reviewed with: Physician (Dr. Goncalves)
[2024-09-23] MEDS: MAXIPIME 1000 MG IV (16:49)
[2024-09-23] MEDS: STERILE WATER FOR INJECTION 10 ML IV (16:49)
--- NOTE | 2024-09-23 17:42 | PTCARENOTE ---
Pt had visitor, Eliceo, who was his roommate. Eliceo came out of room stating that he is looking to get patient to sign financial POA paperwork. RN informed him that we do not assist in that piece nor can we witness paperwork. RN notified son upon his
arrival and he is not in agreement with this. In addition, he reported that this person, Eliceo, called the family and friends stating that pt was unresponsive so they all rushed here. this is not true. Pt is responsive and his condition and mental
status has not changed today. He remains with some slow speech but has been able to form complete sentences this afternoon. Sampson placed as ordered for acute retention.
[2024-09-23] MEDS: ASPIR LOW (ENTERIC COATED) PO (19:35)
[2024-09-23] MEDS: TOPROL XL PO (19:35)
[2024-09-23] MEDS: FLOMAX PO (19:35)
[2024-09-23] MEDS: LOPRESSOR 5 MG IV (19:44)
--- NOTE | 2024-09-23 21:36 | PTCARENOTE ---
Received patient from previous RN. Patient AAOx3 but having trouble finding words at times. NSR on monitor. 4L NC sating at 99%. Strict NPO no meds or sips of clears. reece in place draining yellow urine. HD tomorrow. Patient had multiple family
members at bedside. Patient resting in bed with call chery in reach.
[2024-09-24] VITALS (39 sets, daily range): BP systolic 116–195; BP diastolic 47–104; BMI 20.3
[2024-09-24] MEDS: LOPRESSOR 5 MG IV ×2 (02:12→16:47)
[2024-09-24 05:07] LABS: % Basophils 0.5 % (0-2); % Eosinophils 0.9 % (0-6); % Immature Granulocytes 0.6 % (0-0.5); % Lymphocytes 10.9 % (20.5-51.1); % Monocytes 12.7 % (1.7-9.3); % Neutrophils 74.4 % (42.2-75.2); Absolute Basophils 0.1 10^3/uL (0-0.2); Absolute Eosinophils 0.1 10^3/uL (0-0.7); Absolute Immature Granulocytes 0.1 10^3/uL (0-0.05); Absolute Lymphocytes 1.1 10^3/uL (1.2-3.4); Absolute Monocytes 1.3 10^3/uL (0.1-0.6); Absolute Neutrophils 7.4 10^3/uL (1.4-6.5); Hematocrit 29.1 % (39.0-52.0); Mean Corp Hgb Conc. 34.4 g/dL (33.0-37.0); Mean Corpuscular Hgb 33.8 pg (27.0-31.0); Mean Corpuscular Volume 98.3 fL (80.0-94.0); Mean Platelet Volume 10.3 fL (7.4-10.4); Nucleated Red Blood Cells % 0 % (-); Platelet Count 194 10^3/uL (130-400); Red Blood Cell Count 2.96 10^6/uL (4.70-6.10); Red Cell Dist. Width 16.8 % (11.5-14.5); White Blood Cell Count 9.9 10^3/uL (4.8-10.8)
[2024-09-24 05:39] LABS: ALT (SGPT) 152 U/L (0-50); AST (SGOT) 146 U/L (17-59); Alkaline Phosphatase 160 U/L (38-126); Blood Urea Nitrogen 76 mg/dl (9-20); Calcium 10.3 mg/dl (8.4-10.2); Carbon Dioxide 25 mmol/L (22-30); Chloride 96 mmol/L (98-107); Estimated Creatinine Clearance 12 ml/min; Glucose 91 mg/dl (70-99); Potassium 4.6 mmol/L (3.5-5.1); Sodium 131 mmol/L (135-145); Total Bilirubin 0.7 mg/dl (0.2-1.3); Total Protein 5.3 g/dl (6.3-8.2); eGFR 11.62
--- NOTE | 2024-09-24 08:24 | W.PN.HOSP.TC ---
Addendum entered and electronically signed by Farzana Turcios MD 09/24/24 16:11:
# Stage 2 gluteal cleft pressure injury, POA
Original Note:
Today's Communication/Plan
-
see A/P
Assessment / Plan
Assessment / Plan
A/P:
# Sepsis due to MSSA bacteremia:
Repeat blood cultures from 09/23 so far negative, Check blood culture 09/24
Continue IV antibiotics per ID (currently on IV cefepime and discontinued vancomycin)
Waiting for echocardiogram
Leucocytosis has resolved
# Acute hypoxic respiratory failure:
# Worsening hypoxia suspect related to aspiration pneumonia
Continue supplemental oxygen
chest x-ray from 09/23: Diffusely increased interstitial markings, increasing from previous radiograph 3 days ago. Findings are highly suggestive of interstitial pulmonary edema pattern.
Cont HD for overload
Check VSE for concern of active aspiration.
# Right upper extremity weakness and toxic-metabolic encephalopathy
# presentation with word finding difficulty
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
acute change in mental status could be related to current infection but needs to rule out stroke and or embolic events of the brain
CT head upon admission was unremarkable
Plan for MRI of the brain-discussed with nephrology and okay from neuro standpoint especially with newer agents of gadolinium. Discussed with radiology and they would prefer within 24 hours of dialysis. Patient has a spine stimulator so we will
need to figure out details prior to test. Request has been sent to Kuldeep and family also looking for information.
# End-stage renal disease on hemodialysis:
Hemodialysis per nephrology
# History of skin cancer with mets to lymph nodes and left upper lobe lung on chemotherapy/immunotherapy
# Hypertension:
Antihypertensives adjustment per nephrology. Continue to monitor and adjust accordingly.
# Elevated LFT suspect related to sepsis
LFT improving
Abd US unrevealing
Continue to monitor LFT
GI input appreciated and GI does not feel obstructive pattern or source of infection
# Hyponatremia
Sodium level 131 today
Fluid restriction and dialysis
# Anemia of chronic disease:
KAYLA
Monitor hemoglobin closely
# Hyperlipidemia:
Hold statin due to elevated LFTs
# BPH on Flomax
# acute urinary retention
Placed on reece 09/23
consider voiding trial in a few days
# History of aortic stenosis:
Update echo
DVT prophylaxis: Heparin SQ
CODE STATUS: Full code
DW RN
DW sons in persons. Answered all questions
total time spent 51 min
Anticipated Discharge: > 48 hours
Subjective/Interval History
-
Date of Service: September 24, 2024
Objective Data
-
Labs:
Laboratory Results
09/24/24
04:42
WBC 9.9
Hgb 10.0 L
Hct 29.1 L
Plt Count 194
Sodium 131 L
Potassium 4.6
Chloride 96 L
Carbon Dioxide 25
BUN 76 H
Creatinine 5.2 H*
Glucose 91
Calcium 10.3 H
Total Bilirubin 0.7
AST 146 H
ALT 152 H
Alkaline Phosphatase 160 H
Vital Signs:
Vital Signs
Temp Pulse Resp BP Pulse Ox
36.7 C 68 21 164/56 100
09/24/24 03:15 09/24/24 06:00 09/24/24 06:00 09/24/24 06:00 09/24/24 06:00
I&O
09/23/24 09/24/24 09/25/24
06:59 06:59 06:59
Intake Total 120 / 120
Output Total 425 / 425 550 / 550
Balance -425 / -425 -430 / -430
Review of Systems
-
History Source: Patient
All other systems: Reviewed and negative
Physical Exam
-
General: Well Developed, Well Nourished, Comfortable, Conversant and Appears Chronically Ill
HEENT: Normocephalic, Atraumatic, Moist Mucous Membranes and Oxygen (3L NC)
Respiratory: Clear to Auscultation and Non Labored Respirations; Negative Accessory Resp Muscle Use
Cardiac: Regular Rhythm and S1/S2; Negative Murmur or Rub
GI: Soft, Nontender, Nondistended and Normal Bowel Sounds
Musculoskeletal: No Clubbing, No Cyanosis and No Edema
Neuro: Awake and Alert
Psych: Calm
Data Reviewed
-
CT Scan: Report Reviewed by me
Labs: Labs Reviewed by me
--- NOTE | 2024-09-24 09:42 | CON.NEURO ---
Consultation
Order
Date of Consultation: 09/24/24
Requesting Provider: Farzana Turcios MD
Reason for Consult: Expressive aphasia
Neurology Consultation Note.
HPI: This is a 64-year-old man who presented to [facility] on 09/20/2024 with fever and encephalopathy and was found to have MSSA sepsis/aspiration pneumonia and respiratory failure. Neurology consultation was requested for an
evaluation and management of right arm weakness expressive aphasia.
According to patient's son Mr. Koehler was noted to have right hand weakness while eating on 09/18/2024. He continued to be spilling coffee on himself and had difficulty expressing himself.
On , he was 'almost normal', feeding himself, standing, and pivoting. By Tuesday, he had improved, having full conversations and completing dialysis. Mr. Koehler reportedly fell twice at [facility] on 09/21/2024.
The patient's condition has been fluctuating. On Tuesday morning, he was fluent and normal, but by Tuesday evening, his condition had deteriorated. His daughter reports that he was not conversant last night and not fluent yesterday at 5 PM, though
slightly better than his current state.
Review of vital signs was notable for hypertension up to 189/70 and fever of 39.1 C on 09/21/2024).
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
TTE- Interatrial septum is intact with no evidence of shunting by color flow Doppler.
EKG: Not available
PDMP:Zolpidem Tartrate 5 Mg�10 tabs filled in on 07/13/2024.
Labs: Sodium�131, creatinine�5.2, glucose�normal, AST�146, ALT�152, LDL�50
MAR: cefepime
PMH: basal cell carcinoma(was on Odomzo , moderate aortic stenosis, ESRD on HD, HTN, DLP, HFpEF, BPH, medication nonadherence
PSH: Spinal stimulator, lumbar surgeries, bilateral wrist ORIF, Mohs surgery, LUE AVF
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
FH: Both parents�COPD
All:NKDA
ROS: Limited due to aphasia
General: Well developed. In no acute distress.
Cardio: Regular rate and rhythm without murmur. Extremities are without cyanosis or edema.
Neuro:
Mental Status: Awake, attends to examiner. Severe expressive greater than receptive aphasia. Follows simple requests intermittently. Mimics.
Cranial Nerves: Pupils are equally round and reactive to light. EOMs full. Blinks to threat bilaterally. No ptosis. No nystagmus. Face symmetric. Normal hearing AU. The palate elevated well. SCMs and traps 5/5. Tongue midline. No
dysarthria.
Motor: Mild right hemiparesis
Reflexes: Limited exam due to cooperation
Sensory: Unable due to aphasia
Coordination: No tremors, clonic movement
Gait: deferred
Assessment and Plan:
I. Left MCA syndrome.
II. Encephalopathy (vascular, infectious, metabolic)
III. Basal cell carcinoma
-Continue Telemetry monitoring
-Please repeat CT head without contrast if brain MRI is not feasible
-Routine EEG
-EKG
-Please obtain medical records from [facility] and [facility]
-Continue aspirin 81 mg once a day
-Will follow
I personally reviewed all radiology and labs along with past medical records pertinent to current medical problems. Total time spent in patient care is 60 minutes.
Thank you for allowing us to participate in the care of this patient. We will continue to follow. Please do not hesitate to contact us with any questions or concerns.
Subjective/Objective
Subjective Data
Date of Service: September 24, 2024
Objective Data
Vital Signs
Temp Pulse Resp BP Pulse Ox
36.7 C 69 22 167/47 99
09/24/24 03:15 09/24/24 08:00 09/24/24 08:00 09/24/24 08:00 09/24/24 08:00
Lab Results
09/24/24 04:42
09/24/24 04:42
Sodium 131 mmol/L (135-145) L 09/24/24 04:42
Potassium 4.6 mmol/L (3.5-5.1) 09/24/24 04:42
BUN 76 mg/dl (9-20) H 09/24/24 04:42
Glucose 91 mg/dl (70-99) 09/24/24 04:42
Calcium 10.3 mg/dl (8.4-10.2) H 09/24/24 04:42
LDL Cholesterol, Calc 50 mg/dl 09/21/24 04:13
Patient Allergies
No Known Allergies Allergy (Verified 04/10/22 07:05)
Medications
-
Active Medications
Generic Name Dose Route Start Last Admin
Trade Name Freq PRN Reason Stop Dose Admin
Acetaminophen 650 mg 09/21/24 17:31 09/22/24 12:31
Acetaminophen 325 Mg Tablet PO 10/19/24 17:30 650 mg
Q4HPRN PRN Administration
mild pain ot temp> 100.4 F
Amlodipine Besylate 10 mg 09/21/24 08:00 09/23/24 08:55
Amlodipine 10 Mg Tablet PO 10/19/24 07:59 10 mg
DAILY JASMINE Administration
Aspirin 81 mg 09/21/24 08:00 09/23/24 19:35
Aspirin 81 Mg (Enteric Coated) Tablet PO 10/19/24 07:59 Not Given
BID JASMINE
Atorvastatin Calcium 80 mg 09/21/24 08:00 09/22/24 09:29
Atorvastatin (Lipitor) 80 Mg Tablet PO 10/19/24 07:59 80 mg
DAILY JASMINE Administration
Cefepime HCl 1,000 mg 09/21/24 18:00 09/23/24 16:49
Cefepime Hcl 1,000 Mg/11.3 Ml Vial IV 1,000 mg
QPM JASMINE Administration
Clonidine HCl 0.2 mg 09/24/24 08:00
Clonidine 0.1 Mg Tablet PO 10/22/24 07:59
TID JASMINE
Heparin Sodium 5,000 units 09/21/24 08:00 09/23/24 22:57
Heparin 5,000 Units/Ml 1 Ml Vial SC 10/19/24 07:59 5,000 units
Q8 JASMINE Administration
Hydralazine HCl 10 mg 09/22/24 09:12 09/23/24 03:59
Hydralazine 20 Mg/Ml Vial IV 10/20/24 09:11 10 mg
Q6HPRN PRN Administration
sbp greater then 175
Isosorbide Mononitrate 30 mg 09/21/24 08:00 09/23/24 08:55
Isosorbide Mononitrate 30 Mg Extended Release Tablet PO 10/19/24 07:59 30 mg
DAILY JASMINE Administration
Mannitol 12.5 grams 09/24/24 08:00
Mannitol 25% (12.5 Grams/50 Ml) Vial IV 09/24/24 23:59
HD-Q1HPRN PRN
SBP < 90 mmHg
Metoprolol Succinate 50 mg 09/21/24 08:00 09/23/24 19:35
Metoprolol 50 Mg Extended Release Tablet PO 10/19/24 07:59 Not Given
BID JASMINE
Metoprolol Tartrate 5 mg 09/24/24 01:29 09/24/24 02:12
Metoprolol 5 Mg/5 Ml Vial IV 10/22/24 01:28 5 mg
Q4HPRN PRN Administration
SBP >160
Ferric Citrate [ 0 mg 09/21/24 08:00
Auryxia] 210 Mg Iron PO 10/19/24 07:59
Tablet Po Bid BID JASMINE
Patient's Own Med- 0 unit 03/30/25 08:00
Vibegron (Gemtesa) PO 10/21/24 07:59
75mg Po Daily DAILY JASMINE
Ondansetron HCl 4 mg 09/21/24 13:01
Ondansetron 4 Mg/2 Ml Vial IV 10/19/24 13:00
Q6HPRN PRN
Nausea
Sodium Chloride 0 flush 09/21/24 03:00
Sodium Chloride 0.9% (Flush) Syringe IV 10/19/24 02:59
PER PROTOCOL JASMINE
Sodium Chloride 10 ml 09/24/24 08:00
Sodium Chloride (4 Meq/Ml) 30 Ml Vial *For Hemodialysis* IV 09/24/24 23:59
HD-Q1HPRN PRN
cramps
Sterile Water 10 ml 09/21/24 18:00 09/23/24 16:49
Sterile Water For Injection 10 Ml Vial IV 10/19/24 17:59 10 ml
QPM JASMINE Administration
Tamsulosin HCl 0.4 mg 09/21/24 08:00 09/23/24 19:35
Tamsulosin 0.4 Mg Capsule PO 10/19/24 07:59 Not Given
BID JASMINE
Valsartan 320 mg 09/21/24 08:00 09/23/24 08:52
Valsartan 160 Mg Tablet PO 10/19/24 07:59 320 mg
DAILY JASMINE Administration
Home Medications
�Medication �Instructions �Recorded
clonidine HCl 0.2 mg tablet 0.2 mg PO TID #90 tabs 01/25/22
amlodipine 10 mg tablet 10 mg PO DAILY Blood Pressure 09/20/24
aspirin 81 mg tablet,delayed 81 mg PO BID Blood Clot 09/20/24
release Prevention/Tx
atorvastatin 80 mg tablet 80 mg PO DAILY High Cholesterol 09/20/24
epoetin raina-epbx 4,000 unit/mL 4,000 unit SC MOWEFR Kidney Disease 09/20/24
injection solution (Retacrit)
ferric citrate 210 mg iron tablet 210 mg PO BID Supplement 09/20/24
(Auryxia)
isosorbide mononitrate 30 mg 30 mg PO DAILY Blood Pressure 09/20/24
tablet,extended release 24 hr
magnesium oxide 400 mg PO HS Electrolyte Repletion 09/20/24
metoprolol succinate 50 mg 50 mg PO BID Heart 09/20/24
tablet,extended release 24 hr Disease/Condition
mirtazapine 15 mg tablet 15 mg PO HS Mental Health/Anxiety 09/20/24
ropinirole 0.25 mg tablet 0.25 mg PO HS Mental Health/Anxiety 09/20/24
tamsulosin 0.4 mg capsule 0.4 mg PO BID Urinary Issue 09/20/24
trospium 20 mg tablet 20 mg PO BID Urinary Issue 09/20/24
valsartan 320 mg tablet 320 mg PO DAILY Blood Pressure 09/20/24
vibegron 75 mg tablet (Gemtesa) 75 mg PO DAILY 09/20/24
Vital Signs and Labs
-
Vital Signs and Labs:
Vital Signs
Temp Pulse Resp BP Pulse Ox
36.7 C 69 22 167/47 99
09/24/24 03:15 09/24/24 08:00 09/24/24 08:00 09/24/24 08:00 09/24/24 08:00
Lab Results
09/24/24 04:42
09/24/24 04:42
Sodium 131 mmol/L (135-145) L 09/24/24 04:42
Potassium 4.6 mmol/L (3.5-5.1) 09/24/24 04:42
BUN 76 mg/dl (9-20) H 09/24/24 04:42
Glucose 91 mg/dl (70-99) 09/24/24 04:42
Calcium 10.3 mg/dl (8.4-10.2) H 09/24/24 04:42
LDL Cholesterol, Calc 50 mg/dl 09/21/24 04:13
Medications
-
Medications:
Generic Name Dose Route Start Last Admin
Trade Name Freq PRN Reason Stop Dose Admin
Acetaminophen 650 mg 09/21/24 17:31 09/22/24 12:31
Acetaminophen 325 Mg Tablet PO 10/19/24 17:30 650 mg
Q4HPRN PRN Administration
mild pain ot temp> 100.4 F
Amlodipine Besylate 10 mg 09/21/24 08:00 09/23/24 08:55
Amlodipine 10 Mg Tablet PO 10/19/24 07:59 10 mg
DAILY JASMINE Administration
Aspirin 81 mg 09/21/24 08:00 09/23/24 19:35
Aspirin 81 Mg (Enteric Coated) Tablet PO 10/19/24 07:59 Not Given
BID JASMINE
Atorvastatin Calcium 80 mg 09/21/24 08:00 09/22/24 09:29
Atorvastatin (Lipitor) 80 Mg Tablet PO 10/19/24 07:59 80 mg
DAILY JASMINE Administration
Cefepime HCl 1,000 mg 09/21/24 18:00 09/23/24 16:49
Cefepime Hcl 1,000 Mg/11.3 Ml Vial IV 1,000 mg
QPM JSAMINE Administration
Clonidine HCl 0.2 mg 09/24/24 08:00
Clonidine 0.1 Mg Tablet PO 10/22/24 07:59
TID JASMINE
Heparin Sodium 5,000 units 09/21/24 08:00 09/23/24 22:57
Heparin 5,000 Units/Ml 1 Ml Vial SC 10/19/24 07:59 5,000 units
Q8 JASMINE Administration
Hydralazine HCl 10 mg 09/22/24 09:12 09/23/24 03:59
Hydralazine 20 Mg/Ml Vial IV 10/20/24 09:11 10 mg
Q6HPRN PRN Administration
sbp greater then 175
Isosorbide Mononitrate 30 mg 09/21/24 08:00 09/23/24 08:55
Isosorbide Mononitrate 30 Mg Extended Release Tablet PO 10/19/24 07:59 30 mg
DAILY JASMINE Administration
Mannitol 12.5 grams 09/24/24 08:00
Mannitol 25% (12.5 Grams/50 Ml) Vial IV 09/24/24 23:59
HD-Q1HPRN PRN
SBP < 90 mmHg
Metoprolol Succinate 50 mg 09/21/24 08:00 09/23/24 19:35
Metoprolol 50 Mg Extended Release Tablet PO 10/19/24 07:59 Not Given
BID JASMINE
Metoprolol Tartrate 5 mg 09/24/24 01:29 09/24/24 02:12
Metoprolol 5 Mg/5 Ml Vial IV 10/22/24 01:28 5 mg
Q4HPRN PRN Administration
SBP >160
Ferric Citrate [ 0 mg 09/21/24 08:00
Auryxia] 210 Mg Iron PO 10/19/24 07:59
Tablet Po Bid BID JASMINE
Patient's Own Med- 0 unit 09/23/24 08:00
Vibegron (Gemtesa) PO 10/21/24 07:59
75mg Po Daily DAILY JASMINE
Ondansetron HCl 4 mg 09/21/24 13:01
Ondansetron 4 Mg/2 Ml Vial IV 10/19/24 13:00
Q6HPRN PRN
Nausea
Sodium Chloride 0 flush 09/21/24 03:00
Sodium Chloride 0.9% (Flush) Syringe IV 10/19/24 02:59
PER PROTOCOL JASMINE
Sodium Chloride 10 ml 09/24/24 08:00
Sodium Chloride (4 Meq/Ml) 30 Ml Vial *For Hemodialysis* IV 09/24/24 23:59
HD-Q1HPRN PRN
cramps
Sterile Water 10 ml 09/21/24 18:00 09/23/24 16:49
Sterile Water For Injection 10 Ml Vial IV 10/19/24 17:59 10 ml
QPM JASMINE Administration
Tamsulosin HCl 0.4 mg 09/21/24 08:00 09/23/24 19:35
Tamsulosin 0.4 Mg Capsule PO 10/19/24 07:59 Not Given
BID JASMINE
Valsartan 320 mg 09/21/24 08:00 09/23/24 08:52
Valsartan 160 Mg Tablet PO 10/19/24 07:59 320 mg
DAILY JASMINE Administration
Home Medications
-
Home Medications
clonidine HCl 0.2 mg tablet 0.2 mg PO TID #90 tabs 01/25/22
amlodipine 10 mg tablet 10 mg PO DAILY Blood Pressure 09/20/24
aspirin 81 mg tablet,delayed release 81 mg PO BID Blood Clot Prevention/Tx 09/20/24
atorvastatin 80 mg tablet 80 mg PO DAILY High Cholesterol 09/20/24
epoetin raina-epbx 4,000 unit/mL injection solution (Retacrit) 4,000 unit SC MOWEFR Kidney Disease 09/20/24
ferric citrate 210 mg iron tablet (Auryxia) 210 mg PO BID Supplement 09/20/24
isosorbide mononitrate 30 mg tablet,extended release 24 hr 30 mg PO DAILY Blood Pressure 09/20/24
magnesium oxide 400 mg PO HS Electrolyte Repletion 09/20/24
metoprolol succinate 50 mg tablet,extended release 24 hr 50 mg PO BID Heart Disease/Condition 09/20/24
mirtazapine 15 mg tablet 15 mg PO HS Mental Health/Anxiety 09/20/24
ropinirole 0.25 mg tablet 0.25 mg PO HS Mental Health/Anxiety 09/20/24
tamsulosin 0.4 mg capsule 0.4 mg PO BID Urinary Issue 09/20/24
trospium 20 mg tablet 20 mg PO BID Urinary Issue 09/20/24
valsartan 320 mg tablet 320 mg PO DAILY Blood Pressure 09/20/24
vibegron 75 mg tablet (Gemtesa) 75 mg PO DAILY 09/20/24
[2024-09-24] MEDS: DIOVAN PO (10:46)
[2024-09-24] MEDS: FLOMAX PO ×2 (10:46→20:08)
[2024-09-24] MEDS: ASPIR LOW (ENTERIC COATED) PO ×2 (10:46→20:08)
[2024-09-24] MEDS: HEPARIN 5000 UNITS SC ×3 (10:46→23:29)
[2024-09-24] MEDS: IMDUR (EXTENDED RELEASE) PO (10:47)
[2024-09-24] MEDS: TOPROL XL PO ×2 (10:47→20:09)
[2024-09-24] MEDS: NORVASC PO (10:47)
--- NOTE | 2024-09-24 11:16 | PTCARENOTE ---
Rec'd pt this AM with worsening aphasia some dysarthia. Speech therapy reported pt had worsening aphasia. Notified MD, neuro consult called. Stroke protocal initialed. NIHSS completed. Neuro to bedside for eval. Pt unable to have MRI until info
regarding spinal stim rec'd. NPO. VSE completed. Pt for HD today
--- NOTE | 2024-09-24 11:42 | PTOTSP ---
Videofluoroscopic swallow study
Summary: Mild-moderate oral/pharyngeal dysphagia.
+Aspiration with an ineffective cough with thin liquids via straw
+Deep penetration of mildly thick cleared with spontaneous throat clear and/or with the swallow
Per discussion with hospitalist, given acute changes in status (aphasic, difficulty following commands), consider temporary NPO. Will trial PO with CONSERVATION OFFICER if/when appropriate to determine if appropriate for diet.
Recommend:
1. NPO pending further medical work up
2. Medications: crushed in puree if medically cleared
3. Oral care 3-5x daily
4. Hold aspiration risk hydration protocol due to lethargy and AMS
5. Dysphagia tx at the acute care level to determine if/when diet advancement appropriate.
--- NOTE | 2024-09-24 13:11 | W.PN.ID1 ---
Date of Service
Date of Service: September 24, 2024
Today's Communication
Recommend BILLIE.
Assessment / Plan
# S. aureus (MSSA) bacteremia
# Fever - resolved
# Leukocytosis - resolved
# Hypoxia
# Toxic metabolic encephalopathy resolved
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
# ESRD on HD via LUE AVF
# hx Aortic stenosis
- Suspect IE
- TTE: thickened AV, moderate , no gross vegetation
- Recommend BILLIE
- RUE weakness. Awaiting MRI brain
- Repeat blood cx's neg to date
-Continue cefepime pending BILLIE, Brain MRI (has [facility] [employer] CONSULTANT penetration as compared to cefazolin)
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
ESRD on HD via LUE AVF
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
HTN
HLD
HFpEF
Aortic stenosis
Bilateral Wrist ORIF
Spine stimulator
Lumbar surgery x 2
Skin cancer excision.
Chief Complaint
-: Fever and Bacteremia
Subjective / Review of Systems
Feels weak and tired.
Vital Signs / Physical Exam
Vital Signs
Vital Signs
Temp Pulse Resp BP Pulse Ox
98.0 F 69 22 167/47 97
09/24/24 03:15 09/24/24 08:00 09/24/24 08:00 09/24/24 08:00 09/24/24 10:54
Physical Exam
Constitutional: Acutely Ill and Chronically Ill
Eyes: Sclera Anicteric
Cardiovascular: Regular Rate, S1/S2 and Murmur
Pulmonary: Coarse
Gastrointestinal: Soft, Non Tender and Non Distended
Genito-Urinary: Negative CVA Tenderness
Extremities: Edema
Neurological: AO x 3
Objective Data
Lab Data
Lab Results
09/24/24 04:42
09/24/24 04:42
Estimated Creat Clear 12 ml/min 09/24/24 04:42
Lactic Acid 0.7 mmol/L (0.7-2.0) 09/21/24 04:13
Total Bilirubin 0.7 mg/dl (0.2-1.3) 09/24/24 04:42
AST 146 U/L (17-59) H 09/24/24 04:42
ALT 152 U/L (0-50) H 09/24/24 04:42
Alkaline Phosphatase 160 U/L (38-126) H 09/24/24 04:42
Most recent labs reviewed.
Micro Results:
09/24/24 11:47 Blood Culture - Pending
Blood/Venous
09/23/24 06:34 Blood Culture - Preliminary
Blood/Venous No Growth in 24 hours- Final report to follow
09/23/24 05:39 Blood Culture - Preliminary
Blood/Venous No Growth in 24 hours- Final report to follow
09/20/24 22:59 Blood Culture - Final
Blood/Venous S aureus-Methicillin Sensitive
Gram Stain - Final
09/20/24 22:59 Blood Culture - Final
Blood/Venous S aureus-Methicillin Sensitive
Gram Stain - Final
09/20/24 22:59 Streptococcus Screen (FLAKO) - Final
Throat/Pharynx No Beta Hemolytic Streptococci Isolated
Streptococcus Rapid Screen - Final
Rapid Strep Screen (Group A) Negative
09/21/24 04:18 MRSA Screen - Final
Nose No Methicillin Resistant Staphylococcus aureus isolated.
09/22/24 03:57 Legionella Urinary Antigen - Final
Urine Negative for Legionella pneumophila Serogroup 1 antigen.
A negative result does not rule out the possiblity of
Legionella infection due to other serogroups or species of
Legionella. Clinical correlation is recommended.
Streptococcus pneumoniae Antigen (M - Final
Negative for Streptococcus pneumoniae antigen.
A negative result does not exclude infection with
Streptococcus pneumoniae. Clinical correlation is
recommended.
09/20/24 21:42 Influenza Types A & B (PRIYA) - Final
Nasal Swab Negative for Influenza A & B, NAAT
Negative results must be combined with clinical observations
and patient history.
Nucleic Acid Amplification test (NAAT)performed on the
[employer] platform.
09/23/24 CXR: Diffusely increased interstitial markings, increasing from previous radiograph 3 days ago. Findings are highly suggestive of interstitial pulmonary edema pattern.
09/20/24 CT a/p: No acute CT abnormalities identified to explain the patient's symptoms . No evidence of intestinal obstruction, bowel inflammatory process, nephrolithiasis, hydronephrosis, cholecystitis, or abscess formation. Trace bilateral
pleural effusions, left greater than right. Minimal bibasilar airspace consolidation, most likely representing subsegmental atelectasis. Pneumonia should be excluded clinically. Mild diffuse soft tissue anasarca. Aneurysm of the abdominal aorta,
measuring up to 3.5 cm in diameter. Heavy arterial vascular calcification diffusely. Mild bilateral renal cortical atrophy. Multiple cystic lesions, including bilateral hyperattenuating renal lesions, which may represent hemorrhagic cysts but are
incompletely characterized without IV contrast. Consider elective renal ultrasound to further characterize.
09/20/24 ABD US: Small gallbladder stones and sludge. No gallbladder wall thickening or findings to suggest biliary tract dilatation. Negative sonographic Quintana's sign.
09/20/[address]: Small old lacunar infarct again seen in the left caudate head. No acute intracranial abnormality.
Care Review
Plan reviewed with: Physician
Total Time Spent with Patient (in minutes): Dr. Farzana Turcios
--- NOTE | 2024-09-24 13:49 | W.PN.NEPH.HD ---
Assessment
-
pt seen during HD
BP are high, clinically not vol overload
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
abx per ID
hold KAYLA as hb 10 with above setting
resume anti HTN meds post HD
LFTs improving
AVF functions well
d/w nursing
Progress Note - Hemodialysis
-
Date of Service: September 24, 2024
Duration: 30 minutes and 3 hours
Potassium Bath: 2
Calcium Bath: 2.5
Opti-Dialyzer: 160
Ultrafiltration: Other (1-2kg)
Blood Flow: 400
Dialysate Flow: 600
Heparin: no
EPO: no
--- NOTE | 2024-09-24 14:29 | CON.CAR ---
Addendum entered and electronically signed by Melo Mae DO 09/24/24 17:40:
I saw and examined the patient.
The Beam Machine Operator's note was reviewed and I agree with the note.
Comment:
Plan:
Patient with MSSA bacteremia. Patient afebrile since 09/21. Echo does not show evidence vegetation. Blood cultures 09/23 no growth.
Infectious disease recommended BILLIE
Discussed BILLIE with patient and son. Patient remains lethargic and somewhat confused. Son agrees to BILLIE.
Potential BILLIE 09/25.
There is some degree of valvular heart disease. Records requested. We did discuss aortic stenosis noted on echocardiogram during this admission.
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 Peguero
Original Note:
Consultation
Consultation Request
Date/Time Consultation Requested: 09/24/2024
Date/Time Consultation Performed: 09/24/2024
Requesting Provider: Dr. Turcios
Performing Provider: Herminia Hatfield PA-C for Dr. Mae
Reason for Consultation: MSSA bacteremia, need for BILLIE
Medical History
-
History of Present Illness:
HPI: Bryon is a 64 year old male with PMH of ESRD on HD, chronic HFpEF, CAD, HTN, HLD, skin cancer, and spinal stimulator. He presented to [facility] for evaluation of fever and weakness with altered mental status. He was admitted with fever of unknown
origin. Blood cultures from 09/20 returned positive for MSSA, however no clear source has been identified. There is concern for endocarditis, prompting cardiology evaluation. He has been on antibiotics per ID recommendations, and has been afebrile
since 09/21. Echo completed on 09/21 showed no clear vegetation, however given suspicion for endocarditis, cardiology consulted for BILLIE. He otherwise has been stable from a cardiac standpoint this admission. CXR 09/23 concerning for pulmonary edema,
however given ESRD, volume management is through HD. Seen while on HD and reports no current cardiac complaints. Spoke with patient's son who reported patient follows w/ Dr. Peguero at [facility].
PMH:
ESRD on HD
Chronic HFpEF
CAD
HTN
HLD
Skin cancer w/ mets to lymph notes and lung, on chemo at [facility]3]
Spinal stimulator
Past Medical History
Past Medical History: Other (In HPI)
Social History
Tobacco: Smoker
Alcohol: None
Drug: None
Family History
Family History: Reviewed & Not Pertinent
Allergies / Home Medications
Allergy/AdvReac Type Severity Reaction Status Date / Time
No Known Allergies Allergy Verified 04/10/22 07:05
�Medication �Instructions �Recorded �Confirmed �Type
clonidine HCl 0.2 mg tablet 0.2 mg PO TID #90 tabs 01/25/22 09/20/24 Rx
amlodipine 10 mg tablet 10 mg PO DAILY Blood Pressure 09/20/24 09/20/24 History
aspirin 81 mg tablet,delayed 81 mg PO BID Blood Clot 09/20/24 09/20/24 History
release Prevention/Tx
atorvastatin 80 mg tablet 80 mg PO DAILY High Cholesterol 09/20/24 09/20/24 History
epoetin raina-epbx 4,000 unit/mL 4,000 unit SC MOWEFR Kidney Disease 09/20/24 09/20/24 History
injection solution (Retacrit)
ferric citrate 210 mg iron tablet 210 mg PO BID Supplement 09/20/24 09/20/24 History
(Auryxia)
isosorbide mononitrate 30 mg 30 mg PO DAILY Blood Pressure 09/20/24 09/20/24 History
tablet,extended release 24 hr
magnesium oxide 400 mg PO HS Electrolyte Repletion 09/20/24 09/20/24 History
metoprolol succinate 50 mg 50 mg PO BID Heart 09/20/24 09/20/24 History
tablet,extended release 24 hr Disease/Condition
mirtazapine 15 mg tablet 15 mg PO HS Mental Health/Anxiety 09/20/24 09/20/24 History
ropinirole 0.25 mg tablet 0.25 mg PO HS Mental Health/Anxiety 09/20/24 09/20/24 History
tamsulosin 0.4 mg capsule 0.4 mg PO BID Urinary Issue 09/20/24 09/20/24 History
trospium 20 mg tablet 20 mg PO BID Urinary Issue 09/20/24 09/20/24 History
valsartan 320 mg tablet 320 mg PO DAILY Blood Pressure 09/20/24 09/20/24 History
vibegron 75 mg tablet (Gemtesa) 75 mg PO DAILY Urinary Issue 09/20/24 09/20/24 History
Review of Systems
-
History Source: Patient and Family
All other systems: Negative unless noted
Physical Exam
Vital Signs
Temp Pulse Resp BP Pulse Ox
98.0 F 67 22 184/62 98
09/24/24 03:15 09/24/24 13:15 09/24/24 13:15 09/24/24 13:15 09/24/24 13:15
Lab Results
09/24/24 04:42
09/24/24 04:42
Physical Exam
General: No Apparent Distress
HEENT: Normocephalic and Moist Mucous Membranes
Respiratory: Clear and Non Labored Respirations
Cardiac: Regular Rhythm
Musculoskeletal: No Clubbing, No Cyanosis and No Edema
Skin: Warm and Dry
Neuro: Awake and Alert
Psych: Calm
Impression / Plan
-
PCP: Dr. Allen
Professional Programmer Analyst: Dr. Peguero ([facility])
Impression:
ESRD on HD
Chronic HFpEF
CAD
HTN
HLD
Skin cancer w/ mets to lymph notes and lung, on chemo at [facility]3]
Spinal stimulator
ECHO 09/21/2024: EF 70 to 75%, biatrial dilation, mild MR, mild TR, moderate AAS with peak/mean gradients 49/24 mmHg, estimated PAP 62 mmHg
Plan:
-Presented with fever and weakness. Admitted w/ MSSA bacteremia. Continues on abx per ID.
-Echo 09/21 with no clear evidence of vegetation, however given unclear source of bacteremia w/ concern for endocarditis, cardiology consulted for BILLIE.
-Discussed BILLIE with patient and sons who were in room. Agreeable to proceed.
-Will plan for BILLIE in AM 09/25.
-Check EKG. In SR on review of telemetry.
-Otherwise has been stable from cardiac standpoint. CXR 09/23 concerning for pulmonary edema, continue volume management via HD.
-Repeat blood cultures from 09/23 remain negative. Continue to follow.
-MRI of brain ordered given change in mental status, however son notes we are awaiting information from Kuldeep regarding spinal stimulator prior to MRI. CT of head unremarkable.
-BP stable, continue amlodipine, Toprol, valsartan, clonidine and Imdur.
-Continue aspirin, atorvastatin.
-Cardiology records have been requested from Dr. Peguero.
HPI: Bryon is a 64 year old male with PMH of ESRD on HD, chronic HFpEF, CAD, HTN, HLD, skin cancer, and spinal stimulator. He presented to [facility] for evaluation of fever and weakness with altered mental status. He was admitted with fever of unknown
origin. Blood cultures from 09/20 returned positive for MSSA, however no clear source has been identified. There is concern for endocarditis, prompting cardiology evaluation. He has been on antibiotics per ID recommendations, and has been afebrile
since 09/21. Echo completed on 09/21 showed no clear vegetation, however given suspicion for endocarditis, cardiology consulted for BILLIE. He otherwise has been stable from a cardiac standpoint this admission. CXR 09/23 concerning for pulmonary edema,
however given ESRD, volume management is through HD. Seen while on HD and reports no current cardiac complaints. Spoke with patient's son who reported patient follows w/ Dr. Peguero at [facility].
Data Reviewed
-
Radiology: Report Reviewed by me
Medical Tests (Nuc Med, Echo etc): Report Reviewed by me
Labs: Labs Reviewed by me
Old Records: Requested
--- NOTE | 2024-09-24 15:23 | PN.CDI ---
CDI
- -
CDI:
Physician Documentation Request
Admit Date: 09/21/24 01:57
Dear Doctor Karolina,
Patient admitted with sepsis.
09/21 Nursing skin assessment, 'Stage 2 gluteal cleft pressure injury, POA'
Physician documentation of the type and location of wounds is required for compliant documentation. Based on the above clinical findings and your assessment, please provide the following in your progress note:
Type (etiology) of ulcer/wound:
- Pressure (decubitus) ulcer
- Other
- Unable to determine
For a pressure ulcer, please also include the stage* of the ulcer:
- Stage 1 - Skin intact, non-blanchable redness
- Stage 2 - Partial thickness loss of dermis, includes intact or open blister
- Stage 3 - Full thickness tissue not including bone, tendon or muscle
- Stage 4 - Full thickness tissue loss, including exposed bone, tendon or muscle
- Unstageable - Full thickness loss in which the base of the ulcer is covered by slough (yellow, allen, poole, green or brown) and/or eschar (allen, brown or black) in the wound bed.
- Unable to determine
Use of terms such as suspected, likely, concern for, or probable (associated with a specific diagnosis that is being evaluated, monitored, or treated as if it exists) are acceptable and can be coded in the inpatient setting, when documented at the
time of discharge.
Thank you,
Dolly SANTAMARIA,RN,CCDS
CDI Specialist
Available via [place] text
Please use your independent medical judgment in providing your response.
*Source: National Pressure Ulcer Advisory Panel (NPUAP)
--- NOTE | 2024-09-24 16:22 | CM ---
Chart reviewed family at bedside, per updated notes today patient with worsening aphasia per notes, neuro consulted, plan is for skilled placement when stable, [facility] with HD at [facility]. Needs follow up.
Plan; To follow with patient progress.
[2024-09-24] MEDS: STERILE WATER FOR INJECTION 10 ML IV (18:11)
[2024-09-24] MEDS: MAXIPIME 1000 MG IV (18:11)
[2024-09-24] MEDS: APRESOLINE 10 MG IV (19:46)
--- NOTE | 2024-09-24 20:11 | PTCARENOTE ---
Pt remains NPO for now. plan for BILLIE in AM. tolerated HD well, BP elevated, unable to take PO meds. family at bedside throughout the day. Extensive education provided to family throughout the shift. MD team also updated family on plan of care.
Family discussing if pt may be hospice appropriate. RN provided support and informed them that those resources would be available to them if appropriate. Encouraged them to discuss options with medical team following the completion of the various
pending evaluations.
[2024-09-24] MEDS: MORPHINE SULFATE 2 MG IV (21:09)
[2024-09-25] VITALS (21 sets, daily range): BP systolic 155–197; BP diastolic 49–77; PULSE 98; O2SAT 97; BMI 19.2
[2024-09-25] MEDS: LOPRESSOR 5 MG IV ×4 (00:24→20:15)
--- NOTE | 2024-09-25 00:51 | PTCARENOTE ---
Pt had complaints of pain in beginning of shift. Pt saying pain in 'legs' and cant sleep. Night SMALL PARTS ASSEMBLER made aware, one time order for Morphine 2mg placed. Reassessment Pt had positive results and was able to get rest. Pt becoming frustrated with stroke
scale when it comes to speaking. Difficult to tell if Pt frustrated and not speaking at times or unable. When asked Pt able to give eye roll and get out 'yes' at times when asked if eye roll is because he is frustrated. Pt answering yes and no
question by squeezing RN's hand and speaking a times. Family at bed side until later evening then went home to allow Pt time to sleep. Pt BP remains hypertensive , PRN medications used. Assessment care and vitals as charted.
[2024-09-25] MEDS: MORPHINE SULFATE 2 MG IV ×2 (02:14→12:05)
--- NOTE | 2024-09-25 02:21 | PTCARENOTE ---
Pt able to yell out 'YO' to get attention from RN. Pt making needs known that he is having pain again in legs and back. Night HIM ASSISTANT placed order for Q6 Morphine 2mg prn mod pain. Pt agreeable to medication at this time.
[2024-09-25] MEDS: APRESOLINE 10 MG IV ×3 (03:42→18:10)
[2024-09-25 05:08] LABS: Hematocrit 31.6 % (39.0-52.0); Hemoglobin 10.7 g/dL (13.0-18.0); Mean Corp Hgb Conc. 33.9 g/dL (33.0-37.0); Mean Corpuscular Hgb 33.4 pg (27.0-31.0); Mean Corpuscular Volume 98.8 fL (80.0-94.0); Mean Platelet Volume 10.1 fL (7.4-10.4); Platelet Count 240 10^3/uL (130-400); Red Cell Dist. Width 16.7 % (11.5-14.5); White Blood Cell Count 9.2 10^3/uL (4.8-10.8)
[2024-09-25 05:27] LABS: ALT (SGPT) 133 U/L (0-50); AST (SGOT) 129 U/L (17-59); Albumin 3.3 g/dl (3.5-5.0); Alkaline Phosphatase 170 U/L (38-126); Blood Urea Nitrogen 40 mg/dl (9-20); Calcium 10.1 mg/dl (8.4-10.2); Carbon Dioxide 25 mmol/L (22-30); Chloride 97 mmol/L (98-107); Estimated Creatinine Clearance 15 ml/min; Glucose 64 mg/dl (70-99); Magnesium 2.2 mg/dl (1.6-2.3); Potassium 3.9 mmol/L (3.5-5.1); Sodium 137 mmol/L (135-145); Total Bilirubin 0.8 mg/dl (0.2-1.3); Total Protein 5.7 g/dl (6.3-8.2); eGFR 16.93
[2024-09-25 06:22] LABS: Glucose - Point of Care 73 mg/dl (70-99)
--- NOTE | 2024-09-25 07:46 | W.PN.HOSP.TC ---
Today's Communication/Plan
-
see A/P
Assessment / Plan
Assessment / Plan
A/P:
# Sepsis due to MSSA bacteremia:
Repeat blood cultures from 09/23 negative, follow blood culture from 09/24
Continue IV antibiotic per ID (currently on IV cefepime and discontinued vancomycin)
TTE did not show vegetation, BILLIE 09/25 also negative for vegetation
Leucocytosis has resolved
# Acute hypoxic respiratory failure:
# Worsening hypoxia suspect related to aspiration pneumonia
Continue supplemental oxygen
chest x-ray from 09/23: Diffusely increased interstitial markings, increasing from previous radiograph 3 days ago. Findings are highly suggestive of interstitial pulmonary edema pattern.
Cont HD for overload
s/p VSE 09/24, but due to worsening MS, will keep NPO for now
# acute metabolic encephalopathy
# presentation with word finding difficulty
# Right upper extremity weakness
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
acute change in mental status could be related to current infection but needs to rule out stroke and or embolic events of the brain
CT head on admission 09/[address] was un[address]
Repeat CT head 09/24 again showed No acute intracranial abnormalities.
Pending MRI brain-discussed with nephrology and okay from neuro standpoint especially with newer agents of gadolinium. Discussed with radiology and they would prefer within 24 hours of dialysis. Patient has a spine stimulator so we will need to
figure out details prior to test.
Neuro on board
# End-stage renal disease on hemodialysis:
Hemodialysis per nephrology
# History of skin cancer with mets to lymph nodes and left upper lobe lung on chemotherapy/immunotherapy
# Hypertension:
Antihypertensives adjustment per nephrology. Continue to monitor and adjust accordingly.
# Elevated LFT suspect related to sepsis
Abd US unrevealing
LFT improving , continue to monitor LFT
GI input appreciated and GI does not feel obstructive pattern or source of infection
# Hyponatremia, resolved
Sodium level 137 today
Fluid restriction and dialysis
# Anemia of chronic disease:
KAYLA
Monitor hemoglobin closely
# Hyperlipidemia:
Hold statin due to elevated LFTs
# BPH on Flomax
# acute urinary retention
Placed on reece 09/23
consider voiding trial in a few days
# History of aortic stenosis
DVT prophylaxis: Heparin SQ
CODE STATUS: Full code
DW RN
DW ID/Card
DW son in persons. Answered all questions
total time spent 51 min
Anticipated Discharge: > 48 hours
Subjective/Interval History
-
Date of Service: September 25, 2024
Objective Data
-
Labs:
Laboratory Results
09/25/24
04:00
WBC 9.2
Hgb 10.7 L
Hct 31.6 L
Plt Count 240 D
Sodium 137
Potassium 3.9
Chloride 97 L
Carbon Dioxide 25
BUN 40 H
Creatinine 3.8 H
Glucose 64 L
Calcium 10.1
Total Bilirubin 0.8
AST 129 H
ALT 133 H
Alkaline Phosphatase 170 H
Vital Signs:
Vital Signs
Temp Pulse Resp BP Pulse Ox
36.6 C 88 26 186/57 97
09/25/24 07:27 09/25/24 07:06 09/25/24 07:06 09/25/24 07:06 09/25/24 07:06
I&O
09/24/24 09/25/24 09/26/24
06:59 06:59 06:59
Intake Total 120 / 120 0 / 0
Output Total 550 / 550 1325 / 1325
Balance -430 / -430 -1325 / -1325
Review of Systems
-
Unable to obtain full review of systems at this time due to: Patient Non-verbal
History Source: Patient
Physical Exam
-
General: Well Developed, Well Nourished, Comfortable and Appears Chronically Ill; Negative Conversant
HEENT: Normocephalic, Atraumatic and Moist Mucous Membranes
Respiratory: Clear to Auscultation and Non Labored Respirations; Negative Accessory Resp Muscle Use
Cardiac: Regular Rhythm and S1/S2; Negative Murmur or Rub
GI: Soft, Nontender, Nondistended and Normal Bowel Sounds
Musculoskeletal: No Clubbing, No Cyanosis and No Edema
Neuro: Awake
Psych: Calm; Negative Intact Judgement/Insight
Data Reviewed
-
CT Scan: Report Reviewed by me
Labs: Labs Reviewed by me
[2024-09-25] MEDS: HEPARIN SC (08:00)
--- NOTE | 2024-09-25 08:10 | PTCARENOTE ---
Patient sent to BILLIE on stretcher with volunteer. Report given by nightshift RN to procedure area. NIH performed with previous RN and prior to transport, see flowsheet. Assessment, care and VS as charted.
[2024-09-25] MEDS: FLOMAX PO (10:33)
[2024-09-25] MEDS: DIOVAN PO (10:33)
[2024-09-25] MEDS: ASPIR LOW (ENTERIC COATED) PO (10:33)
[2024-09-25] MEDS: TOPROL XL PO (10:34)
[2024-09-25] MEDS: NORVASC PO (10:34)
[2024-09-25] MEDS: IMDUR (EXTENDED RELEASE) PO (10:34)
--- NOTE | 2024-09-25 11:02 | W.PN.UPDATE ---
Update Note
Progress Note Update
BILLIE
- procedure reviewed and risks reviewed with elpidio and son. Phone cosnent from minesh
BILLIE performed. No clear evidence of endocarditis
fu; re[prt tp follow
--- NOTE | 2024-09-25 12:10 | PTCARENOTE ---
Patient back from BILLIE. Pt reports back pain. BP elevated. Pt given Morphine and Hydralazine IV, see MAR. Pt still NPO. Speech to work with patient today. Neuro check WNL, see flowsheet. Family at bedside updated.
--- NOTE | 2024-09-25 12:12 | W.PN.ID1 ---
Date of Service
Date of Service: September 25, 2024
Today's Communication
Transition cefepime to cefazolin 2/2/3g MWF with dialysis.
Assessment / Plan
# S. aureus (MSSA) bacteremia (2 sets), unclear source
# Fever - resolved
# Leukocytosis - resolved
# Skin ca SCC with mets to LN, AJITH on po chemo at [facility]
# ESRD on HD via LUE AVF
# hx Aortic stenosis
- TTE: thickened AV, moderate , no gross vegetation
- BILLIE: no endocarditis
- Repeat blood cx's neg to date (09/23, 09/24)
-Transition cefepime to cefazolin 2/2/3g MWF with dialysis.
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
ESRD on HD via LUE AVF
Skin Cancer SCC with mets to lymph nodes and left upper lung failed immunotherapy, now on oral chemo at [facility]
HTN
HLD
HFpEF
Aortic stenosis
Bilateral Wrist ORIF
Spine stimulator
Lumbar surgery x 2
Skin cancer excision.
Chief Complaint
-: Fever and Bacteremia
Vital Signs / Physical Exam
Vital Signs
Vital Signs
Temp Pulse Resp BP Pulse Ox
98.2 F 79 24 195/66 95
09/25/24 12:01 09/25/24 12:04 09/25/24 10:00 09/25/24 12:04 09/25/24 10:00
Physical Exam
Constitutional: Chronically Ill
Eyes: Sclera Anicteric
Cardiovascular: Regular Rate, S1/S2 and Murmur
Pulmonary: Coarse
Gastrointestinal: Soft, Non Tender and Non Distended
Genito-Urinary: Negative CVA Tenderness
Extremities: Edema
Objective Data
Lab Data
Lab Results
09/25/24 04:00
09/25/24 04:00
Estimated Creat Clear 15 ml/min 09/25/24 04:00
Lactic Acid 0.7 mmol/L (0.7-2.0) 09/21/24 04:13
Total Bilirubin 0.8 mg/dl (0.2-1.3) 09/25/24 04:00
AST 129 U/L (17-59) H 09/25/24 04:00
ALT 133 U/L (0-50) H 09/25/24 04:00
Alkaline Phosphatase 170 U/L (38-126) H 09/25/24 04:00
Most recent labs reviewed.
Micro Results:
09/24/24 11:47 Blood Culture - Preliminary
Blood/Venous No Growth in 24 hours- Final report to follow
09/23/24 06:34 Blood Culture - Preliminary
Blood/Venous No Growth in 48 hours- Final report to follow
09/23/24 05:39 Blood Culture - Preliminary
Blood/Venous No Growth in 48 hours- Final report to follow
09/20/24 22:59 Blood Culture - Final
Blood/Venous S aureus-Methicillin Sensitive
Gram Stain - Final
09/20/24 22:59 Blood Culture - Final
Blood/Venous S aureus-Methicillin Sensitive
Gram Stain - Final
09/20/24 22:59 Streptococcus Screen (FLAKO) - Final
Throat/Pharynx No Beta Hemolytic Streptococci Isolated
Streptococcus Rapid Screen - Final
Rapid Strep Screen (Group A) Negative
09/21/24 04:18 MRSA Screen - Final
Nose No Methicillin Resistant Staphylococcus aureus isolated.
09/22/24 03:57 Legionella Urinary Antigen - Final
Urine Negative for Legionella pneumophila Serogroup 1 antigen.
A negative result does not rule out the possiblity of
Legionella infection due to other serogroups or species of
Legionella. Clinical correlation is recommended.
Streptococcus pneumoniae Antigen (M - Final
Negative for Streptococcus pneumoniae antigen.
A negative result does not exclude infection with
Streptococcus pneumoniae. Clinical correlation is
recommended.
09/20/24 21:42 Influenza Types A & B (PRIYA) - Final
Nasal Swab Negative for Influenza A & B, NAAT
Negative results must be combined with clinical observations
and patient history.
Nucleic Acid Amplification test (NAAT)performed on the
[employer] platform.
09/23/24 CXR: Diffusely increased interstitial markings, increasing from previous radiograph 3 days ago. Findings are highly suggestive of interstitial pulmonary edema pattern.
09/20/24 CT a/p: No acute CT abnormalities identified to explain the patient's symptoms . No evidence of intestinal obstruction, bowel inflammatory process, nephrolithiasis, hydronephrosis, cholecystitis, or abscess formation. Trace bilateral
pleural effusions, left greater than right. Minimal bibasilar airspace consolidation, most likely representing subsegmental atelectasis. Pneumonia should be excluded clinically. Mild diffuse soft tissue anasarca. Aneurysm of the abdominal aorta,
measuring up to 3.5 cm in diameter. Heavy arterial vascular calcification diffusely. Mild bilateral renal cortical atrophy. Multiple cystic lesions, including bilateral hyperattenuating renal lesions, which may represent hemorrhagic cysts but are
incompletely characterized without IV contrast. Consider elective renal ultrasound to further characterize.
09/20/24 ABD US: Small gallbladder stones and sludge. No gallbladder wall thickening or findings to suggest biliary tract dilatation. Negative sonographic Quintana's sign.
09/20/[address]: Small old lacunar infarct again seen in the left caudate head. No acute intracranial abnormality.
Care Review
Plan reviewed with: Physician (Dr. Farzana Turcios)
--- NOTE | 2024-09-25 12:22 | W.PN.CARDCBS ---
Today's Communication / Plan
-
BILLIE negative for vegetation
Outpatient follow-up with his central office installer regarding moderate aortic stenosis.
Please recall if needed peer
Impression / Plan
-
.
PCP: Dr. Allen
Executive Steward: Dr. Peguero ([facility])
Impression:
MSSA bacteremia
ESRD on HD
Chronic HFpEF
CAD
HTN
HLD
Skin cancer w/ mets to lymph notes and lung, on chemo at [facility]
Spinal stimulator
ECHO 09/21/2024: EF 70 to 75%, biatrial dilation, mild MR, mild TR, moderate AAS with peak/mean gradients 49/24 mmHg, estimated PAP 62 mmHg
Plan:
BILLIE no evidence of vegetation.
Patient afebrile since 09/21. 2D Echo does not show evidence vegetation.
Blood cultures 09/23 no growth.
Outpt follow up with his central office installer regarding his mod on echo. EF is preserved.
Patient outside central office installer is at [facility] Dr. Peguero
BP stable, continue amlodipine, Toprol, valsartan, clonidine and Imdur.
Continue aspirin, atorvastatin.
Please recall if needed
HPI: Bryon is a 64 year old male with PMH of ESRD on HD, chronic HFpEF, CAD, HTN, HLD, skin cancer, and spinal stimulator. He presented to [facility] for evaluation of fever and weakness with altered mental status. He was admitted with fever of unknown
origin. Blood cultures from 09/20 returned positive for MSSA, however no clear source has been identified. There is concern for endocarditis, prompting cardiology evaluation. He has been on antibiotics per ID recommendations, and has been afebrile
since 09/21. Echo completed on 09/21 showed no clear vegetation, however given suspicion for endocarditis, cardiology consulted for BILLIE. He otherwise has been stable from a cardiac standpoint this admission. CXR 09/23 concerning for pulmonary edema,
however given ESRD, volume management is through HD. Seen while on HD and reports no current cardiac complaints. Spoke with patient's son who reported patient follows w/ Dr. Peguero at [facility].
Progress Note - Executive Steward
Subjective
Date of Service: September 25, 2024
Pt seen and examined. No complaints. No chest pain or shortness of breath.
Objective
Labs:
09/25/24 04:00
09/25/24 04:00
Labs
Hgb 10.7 g/dL (13.0-18.0) L 09/25/24 04:00
Hct 31.6 % (39.0-52.0) L 09/25/24 04:00
Plt Count 240 10^3/uL (130-400) D 09/25/24 04:00
Sodium 137 mmol/L (135-145) 09/25/24 04:00
Potassium 3.9 mmol/L (3.5-5.1) 09/25/24 04:00
BUN 40 mg/dl (9-20) H 09/25/24 04:00
Creatinine 3.8 mg/dL (0.7-1.3) H 09/25/24 04:00
Glucose 64 mg/dl (70-99) L 09/25/24 04:00
Vital Signs and I&O:
Vital Signs
Temp Pulse Resp BP Pulse Ox
98.2 F 79 24 195/66 95
09/25/24 12:01 09/25/24 12:04 09/25/24 10:00 09/25/24 12:04 09/25/24 10:00
Vital Signs
Temp Pulse Resp BP Pulse Ox
98.2 F 79 24 195/66 95
09/25/24 12:01 09/25/24 12:04 09/25/24 10:00 09/25/24 12:04 09/25/24 10:00
Intake & Output
09/23/24 09/24/24 09/25/24 09/26/24
06:59 06:59 06:59 06:59
Intake Total 120 / 120 0 / 0
Output Total 425 / 425 550 / 550 1325 / 1325
Balance -425 / -425 -430 / -430 -1325 / -1325
Physical Exam
Physical Exam
General: No acute distress, AAOX3
Neck: Negative JVD
Heart: Regular, Negative S3 positive S1/S2, Negative S4, No murmur
Lungs: CTA b/l, negative wheezes/rales/rhonchi
Abd: Positive BS, NT/ND, neg rebound/rigidity/guarding
Ext: Negative cyanosis/clubbing/edema
Neuro: nonfocal
--- NOTE | 2024-09-25 14:19 | W.PN.NEPH.PH ---
Today's Communication / Plan
-
HD tomorrow
Assessment/Plan
-
Impression:
ESRD MWF
Fever of unknown origin
Encephalopathy
Multidrug resistant hypertension
Elevated LFTs
Anemia of chronic kidney disease
Basal cell carcinoma metastatic origin: last chemotherapy 2 weeks prior from [facility]
Staph bacteremia
Plan:
MSSA bacteremia of unclear source
BILLIE neg for vegetation, mod
abx per ID
EEG in progress
BP are high but NPO, on IV meds, should resume clonidine when resumes PO
HD tomorrow
LFTs improving
ok for gentle IVF if he remains NPO
d/w brother who is thinking GOC based on pt progress
d/w nursing
-
-
Date of Service: September 25, 2024
CC / HPI / ROS
-
Chief Complaint:
ESRD
History of Present Illness:
ESRD Tuesday
Blood pressure remains chronically elevated on multidrug
remains NPO
BILLIE neg for veg
Review of Systems:
afebrile
drowsy, not communication, back from [facility]
non oliguric alvino reece
Labs
-
Labs:
WBC 9.2 10^3/uL (4.8-10.8) 09/25/24 04:00
RBC 3.20 10^6/uL (4.70-6.10) L 09/25/24 04:00
Hgb 10.7 g/dL (13.0-18.0) L 09/25/24 04:00
Hct 31.6 % (39.0-52.0) L 09/25/24 04:00
Plt Count 240 10^3/uL (130-400) D 09/25/24 04:00
Sodium 137 mmol/L (135-145) 09/25/24 04:00
Potassium 3.9 mmol/L (3.5-5.1) 09/25/24 04:00
Chloride 97 mmol/L (98-107) L 09/25/24 04:00
Carbon Dioxide 25 mmol/L (22-30) 09/25/24 04:00
BUN 40 mg/dl (9-20) H 09/25/24 04:00
Creatinine 3.8 mg/dL (0.7-1.3) H 09/25/24 04:00
eGFR 16.93 09/25/24 04:00
Glucose 64 mg/dl (70-99) L 09/25/24 04:00
Calcium 10.1 mg/dl (8.4-10.2) 09/25/24 04:00
Albumin 3.3 g/dl (3.5-5.0) L 09/25/24 04:00
Physical Exam
-
Vital Signs:
Vital Signs
Temp Pulse Resp BP Pulse Ox
98.2 F 110 15 186/72 95
09/25/24 12:01 09/25/24 14:03 09/25/24 13:00 09/25/24 14:03 09/25/24 13:00
Cardiovascular:: Regular rate and rhythm
Respiratory:: Bilateral: CTA
Lung Excursion:: Normal
Abdomen:: Nontender and Soft
Bowel Sounds:: Normal
Extremity Edema:: None: Bilateral:
Reece Catheter: Yes
[2024-09-25 15:20] LABS: Hepatitis B Core Ab, Total Negative (Negative)
--- NOTE | 2024-09-25 15:45 | PTOTSP ---
Speech Therapy Evaluation:
Given concern for L CVA with right arm weakness and expressive aphasia, the Quick Aphasia Battery (QAB) form 1 was administered. Pt scored as follows:
Word comprehension: 8.33
Sentence comprehension: 7.08
Word findin.75
Grammatical construction: 7.25
Speech motor programmin.00
Repetition: 8.33
Readin.17
QAB overall: 8.07 - mild
Impression: Pt earned an overall score of 8.07 on the QAB, indicative of mild aphasia per parameters of this assessment. Pt demonstrated deficits in word comprehension, sentence comprehension, word finding, grammatical construction, repetition, and
reading. Of note, majority of points were lost on assessment given frequent perseverations of previous answers. Pt also distractible (pulling at lines) and impulsive with frequent redirections required, likely impacting overall score. Pt would
benefit from ongoing tx at acute care level to target the aforementioned deficits.
Recommend:
1. Ongoing assessment/tx at acute care level for language skills.
2. Monitor imaging (MRI) when completed
[2024-09-25] MEDS: HEPARIN 5000 UNITS SC ×2 (16:17→23:14)
[2024-09-25] MEDS: STERILE WATER FOR INJECTION IV (17:37)
--- NOTE | 2024-09-25 18:00 | PTCARENOTE ---
Patient was cleared for a pureed diet for dinner. Per family in the room, patient took a few bites of his food and appeared to dry heave. Pt denies any nausea at this time. But patient was able to keep down orange juice.
[2024-09-25] MEDS: ANCEF 2.5 MG IV (18:10)
[2024-09-25] MEDS: ZOFRAN 4 MG IV (19:19)
[2024-09-25] MEDS: FLOMAX 0.4 MG PO (20:14)
[2024-09-25] MEDS: ASPIR LOW (ENTERIC COATED) 81 MG PO (20:14)
[2024-09-25] MEDS: COREG 25 MG PO (20:14)
--- NOTE | 2024-09-25 21:42 | PTCARENOTE ---
Patient aao x2-3 at start of shift. Patient lethargic and noted to be falling asleep during assessment at times, awakens to verbal stimuli and answers questions appropriately with time. Slow to respond at times. Max Baldwin at bedside along with other
family members. Patient denies pain. Vomited x1 at start of shift. Previous rn administered prn zofran with positive results. Patient able to tolerate NTL water and medications crushed in applesauce. Max Baldwin informs RN that patient previously
taking melatonin to assist with sleep, and found it to be helpful. RN contacted BRANDIN Tsai. Order placed for PRN Melatonin. Instructed family on aspiration precautions and encouraged feeding small amounts more frequently, rather than a
large amount at 1 time. Understanding verbalized. NIH 14 at start of shift. NSR on the monitor. Weak/positive pulses throughout, no edema noted. Pox 96% on ra. Breathing shallow. BS active, reece cath patent and draining clear, yellow urine. Patient
has right hand int. Family remains at bedside, call chery within reach. Will continue to monitor patient closely.
[2024-09-25] MEDS: MELATONIN 5 MG PO (21:57)
[2024-09-26] VITALS (39 sets, daily range): BP systolic 144–208; BP diastolic 32–74; BMI 19.2
[2024-09-26] MEDS: APRESOLINE 10 MG IV (01:05)
[2024-09-26] MEDS: LOPRESSOR 5 MG IV ×2 (04:15→17:09)
[2024-09-26 04:49] LABS: Hematocrit 30.2 % (39.0-52.0); Hemoglobin 10.3 g/dL (13.0-18.0); Mean Corp Hgb Conc. 34.1 g/dL (33.0-37.0); Mean Corpuscular Hgb 33.9 pg (27.0-31.0); Mean Corpuscular Volume 99.3 fL (80.0-94.0); Mean Platelet Volume 10.1 fL (7.4-10.4); Platelet Count 243 10^3/uL (130-400); Red Blood Cell Count 3.04 10^6/uL (4.70-6.10); Red Cell Dist. Width 16.7 % (11.5-14.5); White Blood Cell Count 12.5 10^3/uL (4.8-10.8)
[2024-09-26 05:29] LABS: ALT (SGPT) 104 U/L (0-50); AST (SGOT) 91 U/L (17-59); Albumin 3.2 g/dl (3.5-5.0); Alkaline Phosphatase 148 U/L (38-126); Blood Urea Nitrogen 57 mg/dl (9-20); Calcium 11.1 mg/dl (8.4-10.2); Carbon Dioxide 28 mmol/L (22-30); Chloride 99 mmol/L (98-107); Estimated Creatinine Clearance 11 ml/min; Glucose 87 mg/dl (70-99); Magnesium 2.5 mg/dl (1.6-2.3); Potassium 4.5 mmol/L (3.5-5.1); Sodium 139 mmol/L (135-145); Total Bilirubin 0.8 mg/dl (0.2-1.3); Total Protein 5.7 g/dl (6.3-8.2); eGFR 11.11
[2024-09-26] MEDS: ZOFRAN 4 MG IV (06:17)
--- NOTE | 2024-09-26 06:28 | PTCARENOTE ---
RN assisted patient with sip of NTL water this am, patient instantly vomited up moderate amount of dark brown, thin liquid bile. PRN Zofran administered. Mouth swabbed once vomiting resolved. With difficulty finding words, patient states, 'what I've
been trying to tell people for the last 2 days. My wrists were swollen to double this size', (wraps right hand around left wrist). Patient HTN continues throughout overnight shift. PRN metoprolol and prn hydralazine administered per order. Patient
currently resting in bed with HOB elevated, basin at side, call chery within reach.
--- NOTE | 2024-09-26 07:53 | EEG.RPT ---
Electroencephalogram Report
Recording
Date of EE09/25/24
Type of EEG: Routine
Length of EEG recordin minutes
Done with Video Recording: Yes
Patient Status: Inpatient
Recording Conditions: Awake and Drowsy
Hyperventilation Performed: No
Photic Stimulation Performed: Yes
Report
LESS THAN 1 HOUR EEG REPORT
GREATER THAN 1 HOUR EEG INTERPRETATION:
Moderately abnormal EEG for age in wakefulness through drowsiness due to episodic diffuse bihemispheric slowing and frontally predominant triphasic waves.
CLINICAL CORRELATION:
This study was suggestive of diffuse cortical dysfunction without focal abnormality which may be metabolic in origin. No clear seizure activity was recorded.
Clinical correlation is advised.
METHODS:
A 21 channel digitized electroencephalogram (EEG) was performed in the Clinical Neurophysiology Laboratory. The 10/20 international system of electrode placement was used with ECG and lateral/vertical eye movements recorded. Video was recorded.
QUALITY OF STUDY:
Fair
ELECTROENCEPHALOGRAPHER IMPRESSION(S):
Background
There was a medium amplitude at times well-organized anterior-posterior voltage gradient of theta activity at maximum
There were no significant asymmetries of background activity noted.
Sleep
Drowsiness present
Photic Stimulation
Failed to activate the record.
Abnormal EEG Activity
Frequently seen were bursts of frontally predominant generalizing triphasic waves at times in trains of up to 4 seconds.
ECG
Normal sinus rhythm
[2024-09-26] MEDS: ASPIR LOW (ENTERIC COATED) PO (07:55)
[2024-09-26] MEDS: COREG 25 MG PO ×2 (07:56→21:18)
[2024-09-26] MEDS: FLOMAX 0.4 MG PO ×2 (07:56→21:18)
[2024-09-26] MEDS: NORVASC 10 MG PO (07:56)
[2024-09-26] MEDS: DIOVAN 320 MG PO (07:56)
[2024-09-26] MEDS: IMDUR (EXTENDED RELEASE) PO (07:56)
[2024-09-26] MEDS: HEPARIN 5000 UNITS SC ×3 (07:57→22:46)
--- NOTE | 2024-09-26 08:29 | W.PN.HOSP.TC ---
Today's Communication/Plan
-
see A/P
Assessment / Plan
Assessment / Plan
A/P:
# Sepsis due to MSSA bacteremia:
Repeat blood cultures from 09/23 negative, follow blood culture from 09/24
Continue IV antibiotic per ID, now on cefazolin MWF with dialysis.
TTE did not show vegetation, BILLIE 09/25 also negative for vegetation
# acute metabolic encephalopathy
# presentation with word finding difficulty
# Right upper extremity weakness
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
acute change in mental status could be related to current infection but needs to rule out stroke and or embolic events of the brain
CT head on admission 09/[address]peat [address] head 09/24 again showed no acute intracranial abnormalities.
Not been able to get MRI brain due to previous spine stimulator
EEG report noted, showed abnormal pattern
Neuro on board
MS improving, today awake and conversant, although not completely orientated (able to tell date/year and place)
# Acute hypoxic respiratory failure, resolved
# Worsening hypoxia suspect related to aspiration pneumonia
weaned back to RA
chest x-ray from 09/23: Diffusely increased interstitial markings, increasing from previous radiograph 3 days ago. Findings are highly suggestive of interstitial pulmonary edema pattern.
Cont HD for overload
s/p VSE 09/24
diet was slowly advanced to puree and mild thick liquid, but per RN, pt may have cough out dark material, concern for hematemesis
Add PPI IV BID
Make NPO again
GI CS
# End-stage renal disease on hemodialysis:
Hemodialysis per nephrology
# History of skin cancer with mets to lymph nodes and left upper lobe lung on chemotherapy/immunotherapy
# Hypertension:
Antihypertensives adjustment per nephrology. Continue to monitor and adjust accordingly.
# Elevated LFT suspect related to sepsis
Abd US unrevealing
LFT improving , continue to monitor LFT
GI input appreciated and GI does not feel obstructive pattern or source of infection
# Hyponatremia, resolved
Sodium level 139 today
Fluid restriction and dialysis
# Anemia of chronic disease:
KAYLA
Monitor hemoglobin closely
# Hyperlipidemia:
Hold statin due to elevated LFTs
# BPH on Flomax
# acute urinary retention
Placed on reece 09/23
voiding trial started 09/26
# History of aortic stenosis
DVT prophylaxis: Heparin SQ
CODE STATUS: Full code
DW RN
DW GI
DW son in persons. Answered all questions
total time spent 51 min
Anticipated Discharge: > 48 hours
Subjective/Interval History
-
Date of Service: September 26, 2024
Objective Data
-
Labs:
Laboratory Results
09/26/24
04:26
WBC 12.5 H
Hgb 10.3 L
Hct 30.2 L
Plt Count 243
Sodium 139
Potassium 4.5
Chloride 99
Carbon Dioxide 28
BUN 57 H
Creatinine 5.4 H*
Glucose 87
Calcium 11.1 H
Total Bilirubin 0.8
AST 91 H
ALT 104 H
Alkaline Phosphatase 148 H
Vital Signs:
Vital Signs
Temp Pulse Resp BP Pulse Ox
36.7 C 79 14 170/56 92
09/26/24 03:14 09/26/24 07:56 09/26/24 07:00 09/26/24 07:56 09/26/24 07:00
I&O
09/25/24 09/26/24 09/27/24
06:59 06:59 06:59
Intake Total 0 / 0
Output Total 1325 / 1325 200 / 200
Balance -1325 / -1325 -200 / -200
Review of Systems
-
History Source: Patient
All other systems: Reviewed and negative
Physical Exam
-
General: Well Developed, Comfortable, Conversant and Appears Chronically Ill
HEENT: Normocephalic, Atraumatic and Moist Mucous Membranes
Respiratory: Clear to Auscultation and Non Labored Respirations; Negative Accessory Resp Muscle Use
Cardiac: Regular Rhythm and S1/S2; Negative Murmur or Rub
GI: Soft, Nontender, Nondistended and Normal Bowel Sounds
Musculoskeletal: No Clubbing, No Cyanosis and No Edema
Neuro: Awake
Psych: Calm and Intact Judgement/Insight (limited )
Data Reviewed
-
CT Scan: Report Reviewed by me
Labs: Labs Reviewed by me
[2024-09-26] MEDS: PROTONIX IV 40 MG IV ×2 (09:51→21:19)
[2024-09-26] MEDS: NSS (PRESERVATIVE FREE) 10 ML IV ×2 (09:51→21:19)
--- NOTE | 2024-09-26 11:12 | CM ---
CM reviewed chart, received call from fred Sams at [facility]. Per Flaquita, patient was at their facility about 24 hrs before coming to [facility]. Flaquita reports patient does receive dialysis and will need to be able to
sit in a wheelchair van for transport to dialysis when medically stable. Per chart, discharge >48 hours. CM will continue to follow for all discharge planning needs.
Plan; likely return to [facility] when medically stable, no insurance auth required.
[2024-09-26] MEDS: EMLA CREAM 1 GRAM TOPICAL (11:58)
--- NOTE | 2024-09-26 12:00 | PTCARENOTE ---
Assumed care of patient this morning. Pt's aphasia appeared improved since last assessment, NIH 14, see flowsheet. Pt able to take medications in applesauce this morning without any nausea or vomiting. Pt drowsy this afternoon. Pt's son's at the
bedside this morning, both updated and questions answered to RN ability. Assessment, care and VS as charted.
--- NOTE | 2024-09-26 12:28 | W.PN.GI.CBS2 ---
Addendum entered and electronically signed by Flaquita Redmond DO 09/26/24 14:52:
The patient was seen and examined by me independently in collaboration with the nurse practitioner.
Past medical history/social history/medications/allergies/family history reviewed.
Lab data and imaging data reviewed.
Bryon Plata is a 64-year-old male admitted with MSSA bacteremia, unclear source, previously seen earlier in hospital admission for elevated LFTs attributed to sepsis. GI reconsulted for concern for hematemesis witnessed by nursing. He was
started on a pur�ed diet yesterday, had dark emesis that was concerning for blood. Hemoglobin has remained stable. He does admit to being constipated, no bowel movement within the last few days.
It is unclear if material in emesis was even blood at all, I have a low suspicion for an active or brisk GI bleed, it is reassuring that he has had no bowel movements. Agree with abdominal x-ray to assess stool burden. No plans for endoscopic
evaluation at this time. PPI IV BID (just added this morning). Trend H&H. Supportive care. Avoid NSAIDs. Can reconsider EGD if concern for active/brisk GI bleeding/drops in hemoglobin.
Original Note:
Today's Communication / Plan
-
Etiology of bacteremia unclear remain on on abx
now with concern for vomiting some dinner then dark emesis early this am
Etiology related to constipation (last stool 09/22), UGI bleeding, GERD, neuro related with mental status issues vs other
hbg stable 10.3 cont to follow
cont PPI BID -- just added this am
no vomitng last few hours will allow clear diet as starting HD now
will check Abd X ray to eval for constipation
LFTs's trending down
hx colonoscopy years ago no prior EGD
if persistent vomiting dark emesis may need to consider EGD
NSAID avoidance
remains on SQ heparin if further vomiting would hold
for MRI brain
Assessment / Plan
-
Pt is a 64-year-old male with hx CHF, ESRD on HD, HTN, hypercholesterolemia, aortic stenosis, spinal stimulator, skin CA, prior lumbar surgery with admission with fever and somnolence. He is noted with MSSA bacteremia with sepsis with neg BILLIE
for vegetation and unclear source. Pt was also noted with metabolic encephalopathy, word finding difficulty, hypoxemia with aspiration PNA, initially asked to see for increased LFT's likely sepsis related and LFT are improving. Now asked to see
for hematemesis. Pt recent wt loss per family and was taking sonidegib for skin CA.
09/20/24- US Abdomen Complete/Upper*
IMPRESSION: Small gallbladder stones and sludge. No gallbladder wall thickening or findings to suggest biliary tract dilatation. Negative sonographic Quintana's sign.
Findings suggesting some bilateral chronic medical renal disease as well as bilateral simple renal cysts.
MILD ANEURYSMAL DILATATION OF THE DISTAL ABDOMINAL AORTA AT 3.4 CM.
09/20/24 CT Abd/pel Without Iv Or Oral
1. No acute CT abnormalities identified to explain the patient's symptoms .
2. No evidence of intestinal obstruction, bowel inflammatory process, nephrolithiasis, hydronephrosis, cholecystitis, or abscess formation.
3. Trace bilateral pleural effusions, left greater than right. Minimal bibasilar airspace consolidation, most likely representing subsegmental atelectasis. Pneumonia should be excluded clinically.
4. Mild diffuse soft tissue anasarca.
5. Aneurysm of the abdominal aorta, measuring up to 3.5 cm in diameter. Heavy arterial vascular calcification diffusely.
6. Mild bilateral renal cortical atrophy. Multiple cystic lesions, including bilateral hyperattenuating renal lesions, which may represent hemorrhagic cysts but are incompletely characterized without IV contrast. Consider elective renal ultrasound
to further characterize.
-hematemesis
-mild chronic anemia
-increased LFT's
-MSSA bacteremia with sepsis unclear source
-metabolic encephalopathy
-hypoxemia
-skin CA with recent oral chemo Sonidegib- pt stopped prior to admission with concern for side effects
-recent wt loss
other med problems:
-ESRD on HD
-HTN
-hypercholesterolemia
-spinal stimulator
-skin CA
-prior lumbar surgery
-hx aortic stenosis
PLAN:
Etiology of bacteremia unclear remain on on abx
now with concern for vomiting some dinner then dark emesis early this am
Etiology related to constipation (last stool 09/22), UGI bleeding, GERD, neuro related with mental status issues vs other
hbg stable 10.3 cont to follow
cont PPI BID -- just added this am
no vomitng last few hours will allow clear diet as starting HD now
will check Abd X ray to eval for constipation
LFTs's trending down
hx colonoscopy years ago no prior EGD
if persistent vomiting dark emesis may need to consider EGD
NSAID avoidance
remains on SQ heparin if further vomiting would hold
for MRI brain
Subjective
Subjective
Date of Service: September 26, 2024
Asked to see for vomiting dark material, changed to NPO, last stool 09/22 brown stool
Objective
Data Reviewed
Laboratory Data:
Laboratory Results
09/26/24 04:26
09/26/24 04:26
Laboratory Results
Magnesium 2.5 mg/dl (1.6-2.3) H 09/26/24 04:26
Total Bilirubin 0.8 mg/dl (0.2-1.3) 09/26/24 04:26
AST 91 U/L (17-59) H 09/26/24 04:26
ALT 104 U/L (0-50) H 09/26/24 04:26
Alkaline Phosphatase 148 U/L (38-126) H 09/26/24 04:26
Lipase 39 U/L (23-300) 09/20/24 20:41
Vital Signs and I&O:
Vital Signs
Temp Pulse Resp BP Pulse Ox
98 F 81 15 177/60 95
09/26/24 07:05 09/26/24 10:00 09/26/24 10:00 09/26/24 10:00 09/26/24 10:00
I&O
09/25/24 09/26/24 09/27/24
06:59 06:59 06:59
Intake Total 0 / 0
Output Total 1325 / 1325 200 / 200
Balance -1325 / -1325 -200 / -200
Physical Exam
Physical Exam
HEENT: Anicteric and Moist mucous membranes
Cardiology: Normal Sinus Rhythm
Pulmonary: Clear
GI: Soft, Non Distended and Non Tender
Neuro: Other (drifting off in conversation )
--- NOTE | 2024-09-26 13:31 | W.PN.NEPH.HD ---
Assessment
-
Patient seen on dialysis
Systolic blood pressure 163 at current UF
I am attempting to take the patient's dry weight down each treatment in regards to his uncontrolled hypertension
Unfortunately he is maxed on 4 classes of antihypertensives and remains hypertensive
I am unsure what else I have to offer and I am hesitant to initiate peripheral vasodilator therapy given fluctuating hemodynamics with dialysis
Progress Note - Hemodialysis
-
Date of Service: September 26, 2024
Duration: 30 minutes and 3 hours
Potassium Bath: 2
Calcium Bath: 2.5
Opti-Dialyzer: 160
Ultrafiltration: Other (1kg)
Blood Flow: 400
Dialysate Flow: 600
Heparin: none
EPO: none
--- NOTE | 2024-09-26 13:52 | PTCARENOTE ---
Addendum entered by Libby Quintana RN 09/26/24 18:23:
Per MRI dept, pt's spinal stimulator surgery was in 2008. Spinal stimulators from that time are not MRI compatible. updated. Brain MRI cancelled.
Addendum entered by Libby Quintana RN 09/26/24 14:34:
Records faxed to our MRI dept for compatibility of his spinal stimulator by albert huertas.
Original Note:
Fax records received from [facility] - made aware records are on the front of the chart.
--- NOTE | 2024-09-26 14:14 | W.PN.ID1 ---
Date of Service
Date of Service: September 26, 2024
Today's Communication
- Son is finding out if spine stimulator is MRI compatible.
- If MRI feasible, consider MRI thoracic, lumbar spine with contrast.
Assessment / Plan
# S. aureus (MSSA) bacteremia (2 sets), unclear source
# Fever - resolved
# Leukocytosis - resolved
# Change in mental status, weakness
# Skin ca SCC with mets to LN, AJITH on po chemo at [facility]
# ESRD on HD via LUE AVF
# hx Aortic stenosis
# Chronic back pain s/p Spine stimulator
- TTE: thickened AV, moderate , no gross vegetation
- BILLIE: no endocarditis
- Repeat blood cx's neg to date (09/23, 09/24)
-Continue cefazolin 2/2/3g MWF after dialysis (d6)
- Son is finding out if spine stimulator is MRI compatible.
If MRI feasible, consider MRI thoracic, lumbar spine with contrast.
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
ESRD on HD via LUE AVF
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
-failed immunotherapy, placed on oral chemo 4 to 8 weeks ago at [facility] pt self-discontinued chemo 09/11/24
HTN
HLD
HFpEF
Aortic stenosis
Bilateral Wrist ORIF
Chronic back pain s/p Spine stimulator (2013)
Skin cancer excision.
Chief Complaint
-: Bacteremia
Subjective / Review of Systems
Son is at bedside. Pt lethargic today.
Had back pain with bed transfer.
Vital Signs / Physical Exam
Vital Signs
Vital Signs
Temp Pulse Resp BP Pulse Ox
98 F 81 15 177/60 95
09/26/24 11:05 09/26/24 10:00 09/26/24 10:00 09/26/24 10:00 09/26/24 10:00
Physical Exam
Constitutional: Chronically Ill
Eyes: Sclera Anicteric
Cardiovascular: Regular Rate, S1/S2 and Murmur (RUSB)
Pulmonary: Clear (anteriorly)
Gastrointestinal: Soft, Non Tender and Non Distended
Genito-Urinary: Negative CVA Tenderness
Extremities: Edema
Neurological: Other (lethargic)
Objective Data
Lab Data
Lab Results
09/26/24 04:26
09/26/24 04:26
Estimated Creat Clear 11 ml/min 09/26/24 04:26
Lactic Acid 0.7 mmol/L (0.7-2.0) 09/21/24 04:13
Total Bilirubin 0.8 mg/dl (0.2-1.3) 09/26/24 04:26
AST 91 U/L (17-59) H 09/26/24 04:26
ALT 104 U/L (0-50) H 09/26/24 04:26
Alkaline Phosphatase 148 U/L (38-126) H 09/26/24 04:26
Most recent labs reviewed.
Micro Results:
09/24/24 11:47 Blood Culture - Preliminary
Blood/Venous No Growth in 48 hours- Final report to follow
09/23/24 06:34 Blood Culture - Preliminary
Blood/Venous No Growth in 72 hours- Final report to follow
09/23/24 05:39 Blood Culture - Preliminary
Blood/Venous No Growth in 72 hours- Final report to follow
09/20/24 22:59 Blood Culture - Final
Blood/Venous S aureus-Methicillin Sensitive
Gram Stain - Final
09/20/24 22:59 Blood Culture - Final
Blood/Venous S aureus-Methicillin Sensitive
Gram Stain - Final
09/20/24 22:59 Streptococcus Screen (FLAKO) - Final
Throat/Pharynx No Beta Hemolytic Streptococci Isolated
Streptococcus Rapid Screen - Final
Rapid Strep Screen (Group A) Negative
09/21/24 04:18 MRSA Screen - Final
Nose No Methicillin Resistant Staphylococcus aureus isolated.
09/22/24 03:57 Legionella Urinary Antigen - Final
Urine Negative for Legionella pneumophila Serogroup 1 antigen.
A negative result does not rule out the possiblity of
Legionella infection due to other serogroups or species of
Legionella. Clinical correlation is recommended.
Streptococcus pneumoniae Antigen (M - Final
Negative for Streptococcus pneumoniae antigen.
A negative result does not exclude infection with
Streptococcus pneumoniae. Clinical correlation is
recommended.
09/20/24 21:42 Influenza Types A & B (PRIYA) - Final
Nasal Swab Negative for Influenza A & B, NAAT
Negative results must be combined with clinical observations
and patient history.
Nucleic Acid Amplification test (NAAT)performed on the
[employer] platform.
09/23/24 CXR: Diffusely increased interstitial markings, increasing from previous radiograph 3 days ago. Findings are highly suggestive of interstitial pulmonary edema pattern.
09/20/24 CT a/p: No acute CT abnormalities identified to explain the patient's symptoms . No evidence of intestinal obstruction, bowel inflammatory process, nephrolithiasis, hydronephrosis, cholecystitis, or abscess formation. Trace bilateral
pleural effusions, left greater than right. Minimal bibasilar airspace consolidation, most likely representing subsegmental atelectasis. Pneumonia should be excluded clinically. Mild diffuse soft tissue anasarca. Aneurysm of the abdominal aorta,
measuring up to 3.5 cm in diameter. Heavy arterial vascular calcification diffusely. Mild bilateral renal cortical atrophy. Multiple cystic lesions, including bilateral hyperattenuating renal lesions, which may represent hemorrhagic cysts but are
incompletely characterized without IV contrast. Consider elective renal ultrasound to further characterize.
09/20/24 ABD US: Small gallbladder stones and sludge. No gallbladder wall thickening or findings to suggest biliary tract dilatation. Negative sonographic Quintana's sign.
09/20/[address]: Small old lacunar infarct again seen in the left caudate head. No acute intracranial abnormality.
[2024-09-26] MEDS: STERILE WATER FOR INJECTION IV (16:57)
[2024-09-26] MEDS: ANCEF 10 IV (17:09)
[2024-09-26] MEDS: ASPIR LOW (ENTERIC COATED) 81 MG PO (21:19)
[2024-09-26 22:08] LABS: Glucose - Point of Care 131 mg/dl (70-99)
--- NOTE | 2024-09-26 23:24 | PTCARENOTE ---
Assumed care of pt from petey CORDOBA. Pt aaox3. [facility] 14 (see worklist). NSR on monitor. 96% on RA. Assessment and vitals as documented. Hygiene completed. Pt resting in bed with call chery in reach.
[2024-09-27] VITALS (28 sets, daily range): BP systolic 100–193; BP diastolic 45–117; PULSE 75–89; O2SAT 98–100
[2024-09-27] MEDS: APRESOLINE 10 MG IV (01:07)
[2024-09-27] MEDS: LOPRESSOR 5 MG IV (04:25)
[2024-09-27 04:26] LABS: Hematocrit 32.1 % (39.0-52.0); Hemoglobin 10.7 g/dL (13.0-18.0); Mean Corp Hgb Conc. 33.3 g/dL (33.0-37.0); Mean Corpuscular Hgb 33.1 pg (27.0-31.0); Mean Corpuscular Volume 99.4 fL (80.0-94.0); Mean Platelet Volume 9.2 fL (7.4-10.4); Platelet Count 277 10^3/uL (130-400); Red Blood Cell Count 3.23 10^6/uL (4.70-6.10); Red Cell Dist. Width 16.7 % (11.5-14.5); White Blood Cell Count 12.9 10^3/uL (4.8-10.8)
[2024-09-27 04:50] LABS: ALT (SGPT) 55 U/L (0-50); AST (SGOT) 73 U/L (17-59); Albumin 3.1 g/dl (3.5-5.0); Alkaline Phosphatase 139 U/L (38-126); Blood Urea Nitrogen 30 mg/dl (9-20); Calcium 10.5 mg/dl (8.4-10.2); Carbon Dioxide 30 mmol/L (22-30); Chloride 100 mmol/L (98-107); Estimated Creatinine Clearance 17 ml/min; Glucose 84 mg/dl (70-99); Magnesium 2.3 mg/dl (1.6-2.3); Potassium 3.8 mmol/L (3.5-5.1); Sodium 140 mmol/L (135-145); Total Bilirubin 0.7 mg/dl (0.2-1.3); Total Protein 5.6 g/dl (6.3-8.2); eGFR 19.35
--- NOTE | 2024-09-27 07:47 | W.PN.GI.CBS2 ---
Addendum entered and electronically signed by Flaquita Redmond DO 09/27/24 09:43:
The patient was seen and examined by me independently in collaboration with the nurse practitioner.
Past medical history/social history/medications/allergies/family history reviewed.
Lab data and imaging data reviewed.
No episodes of emesis in last 24 hours. Hgb never dropped.
Continue PPI BID
Okay to advance diet
Abdominal xray with fecal burden-- agree with bowel regimen, miralax + senna qHs
GI will sign off, please call with questions or if concern for active GI bleeding.
Original Note:
Today's Communication / Plan
-
Etiology of bacteremia unclear remain on abx- work up per ID
unclear if vomiting was bloody vs bilious --no further vomiting overnight and feeling hungry this am
will advance back to renal diet
Etiology related to constipation (last stool 09/22), UGI bleeding/gastritis , GERD, neuro related with mental status issues vs other
hbg stable 10.7 today cont to follow
cont PPI BID -- just added 09/26
abd x ray mil stool burden- non obstructive pattern last stool 09/22
add miralax daily with extra dose later today and senna HS
LFTs's trending down - sepsis related
hx colonoscopy years ago no prior EGD
if persistent vomiting dark emesis/drop in hbg may need to consider EGD but hold for now with stable hbg and no recurrent vomiting
NSAID avoidance
remains on SQ heparin if further vomiting would hold
per nursing staff unable to do MRI brain with spinal stimulator in place
Assessment / Plan
-
Pt is a 64-year-old male with hx CHF, ESRD on HD, HTN, hypercholesterolemia, aortic stenosis, spinal stimulator, skin CA, prior lumbar surgery with admission with fever and somnolence. He is noted with MSSA bacteremia with sepsis with neg BILLIE
for vegetation and unclear source. Pt was also noted with metabolic encephalopathy, word finding difficulty, hypoxemia with aspiration PNA, initially asked to see for increased LFT's likely sepsis related and LFT are improving. Now asked to see
for hematemesis. Pt recent wt loss per family and was taking sonidegib for skin CA.
09/20/24- US Abdomen Complete/Upper*
IMPRESSION: Small gallbladder stones and sludge. No gallbladder wall thickening or findings to suggest biliary tract dilatation. Negative sonographic Quintana's sign.
Findings suggesting some bilateral chronic medical renal disease as well as bilateral simple renal cysts.
MILD ANEURYSMAL DILATATION OF THE DISTAL ABDOMINAL AORTA AT 3.4 CM.
09/20/24 CT Abd/pel Without Iv Or Oral
1. No acute CT abnormalities identified to explain the patient's symptoms .
2. No evidence of intestinal obstruction, bowel inflammatory process, nephrolithiasis, hydronephrosis, cholecystitis, or abscess formation.
3. Trace bilateral pleural effusions, left greater than right. Minimal bibasilar airspace consolidation, most likely representing subsegmental atelectasis. Pneumonia should be excluded clinically.
4. Mild diffuse soft tissue anasarca.
5. Aneurysm of the abdominal aorta, measuring up to 3.5 cm in diameter. Heavy arterial vascular calcification diffusely.
6. Mild bilateral renal cortical atrophy. Multiple cystic lesions, including bilateral hyperattenuating renal lesions, which may represent hemorrhagic cysts but are incompletely characterized without IV contrast. Consider elective renal ultrasound
to further characterize.
09/26/24 abd X ray -Nonobstructive bowel gas pattern. Barium from prior swallow study is present within the colon. There is a mild colonic stool burden.
-coffee ground emesis
-mild chronic anemia
-increased LFT's
-MSSA bacteremia with sepsis unclear source
-metabolic encephalopathy
-hypoxemia
-skin CA with mets lymph nodes and left upper lung recent oral chemo Sonidegib- pt stopped prior to admission with concern for side effects
-recent wt loss
other med problems:
-ESRD on HD
-HTN
-hypercholesterolemia
-spinal stimulator
-skin CA
-prior lumbar surgery
-hx aortic stenosis
PLAN:
Etiology of bacteremia unclear remain on abx- work up per ID
unclear if vomiting was bloody vs bilious --no further vomiting overnight and feeling hungry this am
will advance back to renal diet
Etiology related to constipation (last stool 09/22), UGI bleeding/gastritis , GERD, neuro related with mental status issues vs other
hbg stable 10.7 today cont to follow
cont PPI BID -- just added 09/26
abd x ray mil stool burden- non obstructive pattern last stool 09/22
add miralax daily with extra dose later today and senna HS
LFTs's trending down - sepsis related
hx colonoscopy years ago no prior EGD
if persistent vomiting dark emesis/drop in hbg may need to consider EGD but hold for now with stable hbg and no recurrent vomiting
NSAID avoidance
remains on SQ heparin if further vomiting would hold
per nursing staff unable to do MRI brain with spinal stimulator in place
Subjective
Subjective
Date of Service: September 27, 2024
no stools overnight, no further vomiting and feeling hungry today
Objective
Data Reviewed
Laboratory Data:
Laboratory Results
09/27/24 04:04
09/27/24 04:04
Laboratory Results
Magnesium 2.3 mg/dl (1.6-2.3) 09/27/24 04:04
Total Bilirubin 0.7 mg/dl (0.2-1.3) 09/27/24 04:04
AST 73 U/L (17-59) H 09/27/24 04:04
ALT 55 U/L (0-50) H 09/27/24 04:04
Alkaline Phosphatase 139 U/L (38-126) H 09/27/24 04:04
Lipase 39 U/L (23-300) 09/20/24 20:41
Vital Signs and I&O:
Vital Signs
Temp Pulse Resp BP Pulse Ox
98.2 F 75 11 136/48 98
09/27/24 04:30 09/27/24 05:00 09/27/24 05:00 09/27/24 05:00 09/27/24 05:00
I&O
09/26/24 09/27/24 09/28/24
06:59 06:59 06:59
Output Total 200 / 200 1100 / 1100
Balance -200 / -200 -1100 / -1100
Physical Exam
Physical Exam
HEENT: Anicteric and Moist mucous membranes
Cardiology: Normal Sinus Rhythm
Pulmonary: Clear
GI: Soft, Non Distended and Tender (diffuse )
Extremities: No Edema
Neuro: Non Focal (more conversant today asking for food )
[2024-09-27] MEDS: MIRALAX PO (08:00)
--- NOTE | 2024-09-27 08:04 | W.PN.HOSP.TC ---
Today's Communication/Plan
-
see A/P
Assessment / Plan
Assessment / Plan
A/P:
# Sepsis due to MSSA bacteremia:
Repeat blood cultures from 09/23 negative, follow blood culture from 09/24
Continue IV antibiotic per ID, now on cefazolin MWF with dialysis.
TTE did not show vegetation, BILLIE 09/25 also negative for vegetation
# acute metabolic encephalopathy
# presentation with word finding difficulty
# Right upper extremity weakness
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
acute change in mental status could be related to current infection but needs to rule out stroke and or embolic events of the brain
CT head on admission 09/[address] head 09/24 again showed no acute intracranial abnormalities.
Not been able to get MRI brain due to spine stimulator not compatible
EEG report noted, showed abnormal pattern
Neuro on board
MS improving, today even more awake and conversant
# Acute hypoxic respiratory failure, resolved
# Worsening hypoxia suspect related to aspiration pneumonia
weaned back to RA
chest x-ray from 09/23: Diffusely increased interstitial markings, increasing from previous radiograph 3 days ago. Findings are highly suggestive of interstitial pulmonary edema pattern.
Cont HD for overload
s/p VSE 09/24
diet was slowly advanced to puree and mild thick liquid, pt had hematemesis with dark material, which has not recurred
Added PPI IV BID
readvance diet to puree
appreciate GI input
# End-stage renal disease on hemodialysis:
Hemodialysis per nephrology
# History of skin cancer with mets to lymph nodes and left upper lobe lung on chemotherapy/immunotherapy
# Hypertension:
Antihypertensives adjustment per nephrology. Continue to monitor and adjust accordingly.
# Elevated LFT suspect related to sepsis
Abd US unrevealing
LFT improving , continue to monitor LFT
GI input appreciated and GI does not feel obstructive pattern or source of infection
# Hyponatremia, resolved
Fluid restriction and dialysis
# Anemia of chronic disease:
KAYLA
Monitor hemoglobin closely
# Hyperlipidemia:
Hold statin due to elevated LFTs
# BPH on Flomax
# acute urinary retention
Placed on reece 09/23
voiding trial started 09/26
# History of aortic stenosis
DVT prophylaxis: Heparin SQ
CODE STATUS: Full code
DW GI
DW son Denny on the phone
total time spent 51 min
Anticipated Discharge: > 48 hours
Subjective/Interval History
-
Date of Service: September 27, 2024
Objective Data
-
Labs:
Laboratory Results
09/27/24
04:04
WBC 12.9 H
Hgb 10.7 L
Hct 32.1 L
Plt Count 277
Sodium 140
Potassium 3.8
Chloride 100
Carbon Dioxide 30
BUN 30 H
Creatinine 3.4 H
Glucose 84
Calcium 10.5 H
Total Bilirubin 0.7
AST 73 H
ALT 55 H
Alkaline Phosphatase 139 H
Vital Signs:
Vital Signs
Temp Pulse Resp BP Pulse Ox
36.8 C 75 11 136/48 98
09/27/24 04:30 09/27/24 05:00 09/27/24 05:00 09/27/24 05:00 09/27/24 05:00
I&O
09/26/24 09/27/24 09/28/24
06:59 06:59 06:59
Output Total 200 / 200 1100 / 1100
Balance -200 / -200 -1100 / -1100
Review of Systems
-
History Source: Patient
All other systems: Reviewed and negative
Physical Exam
-
General: Well Developed, Comfortable, Conversant and Appears Chronically Ill
HEENT: Normocephalic, Atraumatic and Moist Mucous Membranes
Respiratory: Clear to Auscultation and Non Labored Respirations; Negative Accessory Resp Muscle Use
Cardiac: Regular Rhythm and S1/S2; Negative Murmur or Rub
GI: Soft, Nontender, Nondistended and Normal Bowel Sounds
Musculoskeletal: No Clubbing, No Cyanosis and No Edema
Neuro: Awake
Psych: Calm and Intact Judgement/Insight (improved)
Data Reviewed
-
CT Scan: Report Reviewed by me
Labs: Labs Reviewed by me
[2024-09-27] MEDS: PROTONIX IV 40 MG IV ×2 (08:19→20:40)
[2024-09-27] MEDS: NSS (PRESERVATIVE FREE) 10 ML IV ×2 (08:20→20:40)
[2024-09-27] MEDS: DIOVAN 320 MG PO (08:20)
[2024-09-27] MEDS: HEPARIN 5000 UNITS SC ×3 (08:21→23:01)
[2024-09-27] MEDS: ASPIR LOW (ENTERIC COATED) 81 MG PO ×2 (08:22→20:39)
[2024-09-27] MEDS: IMDUR (EXTENDED RELEASE) 30 MG PO (08:22)
[2024-09-27] MEDS: COREG 25 MG PO ×2 (08:23→20:39)
[2024-09-27] MEDS: FLOMAX 0.4 MG PO ×2 (08:23→20:39)
[2024-09-27] MEDS: NORVASC 10 MG PO (08:23)
--- NOTE | 2024-09-27 08:56 | PTCARENOTE ---
PT AAOx3, thirsty and hungry . Speaking clearly and oriented. trying to void states its always difficult
--- NOTE | 2024-09-27 09:06 | W.PN.NEPH.PH ---
Today's Communication / Plan
-
Dialysis tomorrow orders provide
Assessment/Plan
-
Impression:
ESRD MWF
Fever of unknown origin
Encephalopathy
Multidrug resistant hypertension
Elevated LFTs
Anemia of chronic kidney disease
Basal cell carcinoma metastatic origin: last chemotherapy 2 weeks prior from [place]
Staph bacteremia
Plan:
MSSA bacteremia of unclear source: maintained on Cefazoliln
BILLIE neg for vegetation, mod
abx per ID,
EEG in progress
BP more reasonable now that p.o. medications back, clonidine remains held, will restart at lower dose
HD tomorrow ,orders provided
LFTs improving
ok for gentle IVF if he remains NPO
d/w brother who is thinking GOC based on pt progress
d/w nursing
-
-
Date of Service: September 27, 2024
CC / HPI / ROS
-
Chief Complaint:
ESRD
History of Present Illness:
ESRD Tuesday
Blood pressure remains chronically elevated on multidrug
Remains on cefazolin for MSSA bacteremia
BILLIE neg for veg
Review of Systems:
afebrile
drowsy, not communication, back from BILLIE
non oliguric alvino reece
Labs
-
Labs:
WBC 12.9 10^3/uL (4.8-10.8) H 09/27/24 04:04
RBC 3.23 10^6/uL (4.70-6.10) L 09/27/24 04:04
Hgb 10.7 g/dL (13.0-18.0) L 09/27/24 04:04
Hct 32.1 % (39.0-52.0) L 09/27/24 04:04
Plt Count 277 10^3/uL (130-400) 09/27/24 04:04
Sodium 140 mmol/L (135-145) 09/27/24 04:04
Potassium 3.8 mmol/L (3.5-5.1) 09/27/24 04:04
Chloride 100 mmol/L (98-107) 09/27/24 04:04
Carbon Dioxide 30 mmol/L (22-30) 09/27/24 04:04
BUN 30 mg/dl (9-20) H 09/27/24 04:04
Creatinine 3.4 mg/dL (0.7-1.3) H 09/27/24 04:04
eGFR 19.35 09/27/24 04:04
Glucose 84 mg/dl (70-99) 09/27/24 04:04
Calcium 10.5 mg/dl (8.4-10.2) H 09/27/24 04:04
Albumin 3.1 g/dl (3.5-5.0) L 09/27/24 04:04
Physical Exam
-
Vital Signs:
Vital Signs
Temp Pulse Resp BP Pulse Ox
98.1 F 88 11 147/68 98
09/27/24 07:47 09/27/24 08:23 09/27/24 05:00 09/27/24 08:23 09/27/24 05:00
Cardiovascular:: Regular rate and rhythm
Respiratory:: Bilateral: CTA
Lung Excursion:: Normal
Abdomen:: Nontender and Soft
Bowel Sounds:: Normal
Extremity Edema:: None: Bilateral:
Reece Catheter: Yes
--- NOTE | 2024-09-27 09:50 | PTOTSP ---
Speech Language Pathology
Pt seen for dysphagia tx. Reviewed results/recommendations from VSE completed earlier in week. Significantly improved alertness and cognitive status noted this date. P.O. trials of puree, regular solids, and thin liquids provided. Adequate
mastication, bolus formation, and A-P transit noted with no oral residue. No overt signs of aspiration. RN reported med pass earlier this date with meds whole with thin liquids without difficulty.
Recommend:
(1) Upgrade to regular solids/thin liquids
(2) General aspiration precautions
(3) Meds as tolerated
(4) [employer] to follow to ensure diet tolerance. Further language tx to be determined based on neurology input given significant improvement noted
--- NOTE | 2024-09-27 10:07 | W.PN.ID1 ---
Date of Service
Date of Service: September 27, 2024
Today's Communication
-Continue cefazolin 2/2/3g MWF after dialysis x 2 weeks+v from neg bcx's, last dose on 10/08/24.
- Infusion sheet for dialysis submitted to case management.
Assessment / Plan
# S. aureus (MSSA) bacteremia (2 sets), unclear source
# Fever - resolved
# Leukocytosis - resolved
# Change in mental status- resolved
# Skin ca SCC with mets to LN, AJITH on po chemo at [facility]
# ESRD on HD via LUE AVF
# hx Aortic stenosis
# Chronic back pain s/p Spine stimulator (placed , used once only). Spine stimulator is not MRI comapatible.
- TTE: thickened AV, moderate , no gross vegetation
- BILLIE: no endocarditis
- Repeat blood cx's neg to date (09/23, 09/24)
- Pt now AOx3. He reports no worsening of chronic back pain. Exam unremarkable. No suspicion for discitis at this time.
-Continue cefazolin 2/2/3g MWF after dialysis x 2 weeks+v from neg bcx's, last dose on 10/08/24.
- Infusion sheet for dialysis submitted to case management.
#Conditions [employer]
ESRD on HD via LUE AVF
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
-failed immunotherapy, placed on oral chemo 4 to 8 weeks ago at [facility]; pt self-discontinued chemo 09/11/24
HTN
HLD
HFpEF
Aortic stenosis
Bilateral Wrist ORIF
Chronic back pain s/p Spine stimulator (, used once, not MRI compatible).
Skin cancer excision.
Chief Complaint
-: Bacteremia
Subjective / Review of Systems
Sister at bedside.
Pt alert today. Feels much improved. No nausea today.
No recent worsening of chronic back pain.
Spine stimulator in placed since (never in use).
Vital Signs / Physical Exam
Vital Signs
Vital Signs
Temp Pulse Resp BP Pulse Ox
98.1 F 88 11 147/68 98
09/27/24 07:47 09/27/24 08:23 09/27/24 05:00 09/27/24 08:23 09/27/24 05:00
Physical Exam
Constitutional: No Acute Distress, Comfortable, Non-toxic and Cachetic
Eyes: Sclera Anicteric
Cardiovascular: Regular Rate, S1/S2 and Murmur
Pulmonary: Clear
Gastrointestinal: Soft, Non Tender, Non Distended and Decreased Bowel Sounds
Genito-Urinary: Negative CVA Tenderness
Extremities: Negative Edema
Musculoskeletal: Negative Spinal Tenderness (no point tenderness C/T/L spine. Left lower spinal stimulator site without erytema/induration/tenderness.)
Neurological: AO x 3
Objective Data
Lab Data
Lab Results
09/27/24 04:04
09/27/24 04:04
Estimated Creat Clear 17 ml/min 09/27/24 04:04
Lactic Acid 0.7 mmol/L (0.7-2.0) 09/21/24 04:13
Total Bilirubin 0.7 mg/dl (0.2-1.3) 09/27/24 04:04
AST 73 U/L (17-59) H 09/27/24 04:04
ALT 55 U/L (0-50) H 09/27/24 04:04
Alkaline Phosphatase 139 U/L (38-126) H 09/27/24 04:04
Most recent labs reviewed.
Micro Results:
09/23/24 06:34 Blood Culture - Preliminary
Blood/Venous No Growth in 4 days- Final report to follow
09/23/24 05:39 Blood Culture - Preliminary
Blood/Venous No Growth in 4 days- Final report to follow
09/24/24 11:47 Blood Culture - Preliminary
Blood/Venous No Growth in 48 hours- Final report to follow
09/20/24 22:59 Blood Culture - Final
Blood/Venous S aureus-Methicillin Sensitive
Gram Stain - Final
09/20/24 22:59 Blood Culture - Final
Blood/Venous S aureus-Methicillin Sensitive
Gram Stain - Final
09/20/24 22:59 Streptococcus Screen (FLAKO) - Final
Throat/Pharynx No Beta Hemolytic Streptococci Isolated
Streptococcus Rapid Screen - Final
Rapid Strep Screen (Group A) Negative
09/21/24 04:18 MRSA Screen - Final
Nose No Methicillin Resistant Staphylococcus aureus isolated.
09/22/24 03:57 Legionella Urinary Antigen - Final
Urine Negative for Legionella pneumophila Serogroup 1 antigen.
A negative result does not rule out the possiblity of
Legionella infection due to other serogroups or species of
Legionella. Clinical correlation is recommended.
Streptococcus pneumoniae Antigen (M - Final
Negative for Streptococcus pneumoniae antigen.
A negative result does not exclude infection with
Streptococcus pneumoniae. Clinical correlation is
recommended.
09/20/24 21:42 Influenza Types A & B (PRIYA) - Final
Nasal Swab Negative for Influenza A & B, NAAT
Negative results must be combined with clinical observations
and patient history.
Nucleic Acid Amplification test (NAAT)performed on the
[employer] platform.
09/23/24 CXR: Diffusely increased interstitial markings, increasing from previous radiograph 3 days ago. Findings are highly suggestive of interstitial pulmonary edema pattern.
09/20/24 CT a/p: No acute CT abnormalities identified to explain the patient's symptoms . No evidence of intestinal obstruction, bowel inflammatory process, nephrolithiasis, hydronephrosis, cholecystitis, or abscess formation. Trace bilateral
pleural effusions, left greater than right. Minimal bibasilar airspace consolidation, most likely representing subsegmental atelectasis. Pneumonia should be excluded clinically. Mild diffuse soft tissue anasarca. Aneurysm of the abdominal aorta,
measuring up to 3.5 cm in diameter. Heavy arterial vascular calcification diffusely. Mild bilateral renal cortical atrophy. Multiple cystic lesions, including bilateral hyperattenuating renal lesions, which may represent hemorrhagic cysts but are
incompletely characterized without IV contrast. Consider elective renal ultrasound to further characterize.
09/20/24 ABD US: Small gallbladder stones and sludge. No gallbladder wall thickening or findings to suggest biliary tract dilatation. Negative sonographic Quintana's sign.
09/20/[address]: Small old lacunar infarct again seen in the left caudate head. No acute intracranial abnormality.
[2024-09-27] MEDS: CATAPRES 0.1 MG PO ×2 (10:12→20:39)
--- NOTE | 2024-09-27 10:41 | W.PN.NEURO.1 ---
Today's Communication / Plan
-
.
Subjective/Objective
Subjective Data
Date of Service: September 27, 2024
Neurology follow-up note
HPI: Mr. Koehler reports no complaints. He denies having headache, motor or sensory deficits. No history of epilepsy.
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
BILLIE(09/25/2024) no evidence of shunting across the anterior septum by color-flow Doppler or by saline contrast/bubble study.
Routine EEG (09/26/2024)�generalized slowing.
PMH: basal cell carcinoma(was on Odomzo , moderate aortic stenosis, ESRD on HD, HTN, DLP, HFpEF, BPH, medication nonadherence
PSH: Spinal stimulator, lumbar surgeries, bilateral wrist ORIF, Mohs surgery, LUE AVF
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
FH: Both parents�COPD
All:NKDA
ROS: Negative for headache, motor or sensory deficits
General: Well developed. In no acute distress.
Cardio: Regular rate and rhythm without murmur. Extremities are without cyanosis or edema.
Neuro:
Mental Status: Awake, oriented to self, location, time.
Cranial Nerves: Pupils are equally round and reactive to light. EOMs full. Blinks to threat bilaterally. No ptosis. No nystagmus. Face symmetric. Normal hearing AU. The palate elevated well. SCMs and traps 5/5. Tongue midline. No
dysarthria.
Motor: Mild right hemiparesis
Reflexes: Limited exam due to cooperation
Sensory: Unable due to aphasia
Coordination: No tremors, clonic movement
Gait: deferred
Assessment and Plan:
I. Transient aphasia. Differential diagnosis includes vascular versus ictal(cefepime is known to cause seizures)
II. Transient encephalopathy
III. Basal cell carcinoma
-Continue Telemetry monitoring
-Please obtain medical records from [facility] and [facility]
-Continue aspirin 81 mg once a day
-Outpatient Holter monitoring
-Outpatient neurology follow-up
-Case was discussed with patient's exposed
I personally reviewed all radiology and labs along with past medical records pertinent to current medical problems. Total time spent in patient care is 35 minutes.
Thank you for allowing us to participate in the care of this patient. Please do not hesitate to contact us with any questions or concerns.
Objective Data
Vital Signs
Temp Pulse Resp BP Pulse Ox
36.7 C 89 11 138/65 98
09/27/24 07:47 09/27/24 10:12 09/27/24 05:00 09/27/24 10:12 09/27/24 05:00
Lab Results
09/27/24 04:04
09/27/24 04:04
Sodium 140 mmol/L (135-145) 09/27/24 04:04
Potassium 3.8 mmol/L (3.5-5.1) 09/27/24 04:04
BUN 30 mg/dl (9-20) H 09/27/24 04:04
Glucose 84 mg/dl (70-99) 09/27/24 04:04
Calcium 10.5 mg/dl (8.4-10.2) H 09/27/24 04:04
LDL Cholesterol, Calc 50 mg/dl 09/21/24 04:13
Patient Allergies
No Known Allergies Allergy (Verified 04/10/22 07:05)
Vital Signs and Labs
-
Vital Signs and Labs:
Vital Signs
Temp Pulse Resp BP Pulse Ox
36.7 C 89 11 138/65 98
09/27/24 07:47 09/27/24 10:12 09/27/24 05:00 09/27/24 10:12 09/27/24 05:00
Lab Results
09/27/24 04:04
09/27/24 04:04
Sodium 140 mmol/L (135-145) 09/27/24 04:04
Potassium 3.8 mmol/L (3.5-5.1) 09/27/24 04:04
BUN 30 mg/dl (9-20) H 09/27/24 04:04
Glucose 84 mg/dl (70-99) 09/27/24 04:04
Calcium 10.5 mg/dl (8.4-10.2) H 09/27/24 04:04
LDL Cholesterol, Calc 50 mg/dl 09/21/24 04:13
Medications
-
Medications:
Generic Name Dose Route Start Last Admin
Trade Name Freq PRN Reason Stop Dose Admin
Acetaminophen 650 mg 09/21/24 17:31 09/22/24 12:31
Acetaminophen 325 Mg Tablet PO 10/19/24 17:30 650 mg
Q4HPRN PRN Administration
mild pain ot temp> 100.4 F
Amlodipine Besylate 10 mg 09/21/24 08:00 09/27/24 08:23
Amlodipine 10 Mg Tablet PO 10/19/24 07:59 10 mg
DAILY JASMINE Administration
Aspirin 81 mg 09/21/24 08:00 09/27/24 08:22
Aspirin 81 Mg (Enteric Coated) Tablet PO 10/19/24 07:59 81 mg
BID JASMINE Administration
Atorvastatin Calcium 80 mg 09/21/24 08:00 09/22/24 09:29
Atorvastatin (Lipitor) 80 Mg Tablet PO 10/19/24 07:59 80 mg
DAILY JASMINE Administration
Bisacodyl 10 mg 09/27/24 07:48
Bisacodyl 10 Mg Rectal Suppository RECTAL 10/25/24 07:47
DAILYPRN PRN
constipation
Carvedilol 25 mg 09/25/24 20:00 09/27/24 08:23
Carvedilol 25 Mg Tablet PO 10/23/24 19:59 25 mg
BID JASMINE Administration
Clonidine HCl 0.2 mg 09/24/24 08:00
Clonidine 0.1 Mg Tablet PO 10/22/24 07:59
TID JASMINE
Clonidine HCl 0.1 mg 09/27/24 10:00 09/27/24 10:12
Clonidine 0.1 Mg Tablet PO 10/25/24 09:59 0.1 mg
BID JASMINE Administration
Epoetin Syd-epbx 4,000 units 09/28/24 08:00
Epoetin Syd-Epbx (Retacrit) 4,000 Units/Ml Vial IV 09/28/24 08:01
HD-ONCE ONE
Heparin Sodium 5,000 units 09/21/24 08:00 09/27/24 08:21
Heparin 5,000 Units/Ml 1 Ml Vial SC 10/19/24 07:59 5,000 units
Q8 JASMINE Administration
Hydralazine HCl 10 mg 09/22/24 09:12 09/27/24 01:07
Hydralazine 20 Mg/Ml Vial IV 10/20/24 09:11 10 mg
Q6HPRN PRN Administration
sbp greater then 175
Cefazolin Sodium 2 grams in 10 mls @ 120 mls/hr 09/26/24 18:00 09/26/24 17:09
Ancef IV 10 mls
MoWe@1800 JASMINE Administration
Cefazolin Sodium 3,000 mg/ 15 mls @ 180 mls/hr 09/28/24 18:00
Device IV
FR@1800 JASMINE
Isosorbide Mononitrate 30 mg 09/21/24 08:00 09/27/24 08:22
Isosorbide Mononitrate 30 Mg Extended Release Tablet PO 10/19/24 07:59 30 mg
DAILY JASMINE Administration
Lidocaine/Prilocaine 1 gram 09/26/24 11:42 09/26/24 11:58
Lidocaine 2.5%/Prilocaine 2.5% (Cream) 5 Gram Tube TOPICAL 10/24/24 11:41 1 gram
PRN PRN Administration
1/2 hr pre HD
Mannitol 12.5 grams 09/28/24 08:00
Mannitol 25% (12.5 Grams/50 Ml) Vial IV 09/28/24 23:59
HD-Q1HPRN PRN
SBP < 90 mmHg
Melatonin 5 mg 09/25/24 20:04 09/25/24 21:57
Melatonin 5 Mg Tablet PO 10/23/24 20:03 5 mg
HSPRN PRN Administration
insomnia
Metoprolol Tartrate 5 mg 09/24/24 01:29 09/27/24 04:25
Metoprolol 5 Mg/5 Ml Vial IV 10/22/24 01:28 5 mg
Q4HPRN PRN Administration
SBP >160
Morphine Sulfate 1 mg 09/25/24 15:46
Morphine 2 Mg/Ml Syringe IV 10/09/24 02:04
Q6HPRN PRN
mod pain
Ferric Citrate [ 0 mg 09/21/24 08:00
Auryxia] 210 Mg Iron PO 10/19/24 07:59
Tablet Po Bid BID JASMINE
Patient's Own Med- 0 unit 09/23/24 08:00
Vibegron (Gemtesa) PO 10/21/24 07:59
75mg Po Daily DAILY JASMINE
Ondansetron HCl 4 mg 09/21/24 13:01 09/26/24 06:17
Ondansetron 4 Mg/2 Ml Vial IV 10/19/24 13:00 4 mg
Q6HPRN PRN Administration
Nausea
Pantoprazole Sodium 40 mg 09/26/24 09:00 09/27/24 08:19
Pantoprazole Sodium 40 Mg/10 Ml Vial IV 10/24/24 08:59 40 mg
BID JASMINE Administration
Polyethylene Glycol 17 grams 09/27/24 08:00
Polyethylene Glycol Powder 17 Grams Packet PO 10/25/24 07:59
DAILY JASMINE
Polyethylene Glycol 17 grams 09/27/24 17:00
Polyethylene Glycol Powder 17 Grams Packet PO 09/27/24 17:01
ONCE ONE
Sennosides 17.2 mg 09/27/24 22:00
Sennosides (Senokot) 8.6 Mg Tablet PO 10/25/24 21:59
HS JASMINE
Sodium Chloride 0 flush 09/21/24 03:00
Sodium Chloride 0.9% (Flush) Syringe IV 10/19/24 02:59
PER PROTOCOL JASMINE
Sodium Chloride 10 ml 09/26/24 09:00 09/27/24 08:20
Sodium Chloride 0.9% (Preservative Free) 10 Ml Vial IV 10/24/24 08:59 10 ml
BID JASMINE Administration
Sodium Chloride 10 ml 09/28/24 08:00
Sodium Chloride (4 Meq/Ml) 30 Ml Vial *For Hemodialysis* IV 09/28/24 23:59
HD-Q1HPRN PRN
cramps
Sterile Water 10 ml 09/21/24 18:00 09/26/24 16:57
Sterile Water For Injection 10 Ml Vial IV 10/19/24 17:59 Not Given
QPM JASMINE
Tamsulosin HCl 0.4 mg 09/21/24 08:00 09/27/24 08:23
Tamsulosin 0.4 Mg Capsule PO 10/19/24 07:59 0.4 mg
BID JASMINE Administration
Valsartan 320 mg 09/21/24 08:00 09/27/24 08:20
Valsartan 160 Mg Tablet PO 10/19/24 07:59 320 mg
DAILY JASMINE Administration
Home Medications
-
Home Medications
clonidine HCl 0.2 mg tablet 0.2 mg PO TID #90 tabs 01/25/22
amlodipine 10 mg tablet 10 mg PO DAILY Blood Pressure 09/20/24
aspirin 81 mg tablet,delayed release 81 mg PO BID Blood Clot Prevention/Tx 09/20/24
atorvastatin 80 mg tablet 80 mg PO DAILY High Cholesterol 09/20/24
epoetin syd-epbx 4,000 unit/mL injection solution (Retacrit) 4,000 unit SC MOWEFR Kidney Disease 09/20/24
ferric citrate 210 mg iron tablet (Auryxia) 210 mg PO BID Supplement 09/20/24
isosorbide mononitrate 30 mg tablet,extended release 24 hr 30 mg PO DAILY Blood Pressure 09/20/24
magnesium oxide 400 mg PO HS Electrolyte Repletion 09/20/24
metoprolol succinate 50 mg tablet,extended release 24 hr 50 mg PO BID Heart Disease/Condition 09/20/24
mirtazapine 15 mg tablet 15 mg PO HS Mental Health/Anxiety 09/20/24
ropinirole 0.25 mg tablet 0.25 mg PO HS Mental Health/Anxiety 09/20/24
tamsulosin 0.4 mg capsule 0.4 mg PO BID Urinary Issue 09/20/24
trospium 20 mg tablet 20 mg PO BID Urinary Issue 09/20/24
valsartan 320 mg tablet 320 mg PO DAILY Blood Pressure 09/20/24
vibegron 75 mg tablet (Gemtesa) 75 mg PO DAILY Urinary Issue 09/20/24
[2024-09-27] MEDS: MIRALAX 17 GRAMS PO (15:37)
[2024-09-27] MEDS: STERILE WATER FOR INJECTION IV (15:45)
--- NOTE | 2024-09-27 16:22 | CM ---
Addendum entered by Janelle Pathak RN 09/27/24 16:48:
Receiving IV Abx.
Script received from Dr Bliss today for cefazolin 2g IV Q Mon, Wed, Fri with dialysis, last dose 10/08/24.
Plan possible [facility] for rehab and IV Abx.
Original Note:
Patient from [facility] with Hx ESRD on HD with Dx Sepsis due to MSSA bacteremia, presented with altered mental status & word finding difficulty, RUE weakness, worsening hypoxia suspect aspiration pneumonia, Per nurse; AAOx3, speech clear.
ST - diet upgraded. PT; acute v skilled rehab. OT; acute rehab.
Spoke with patient's son Denny; discussed rehab options acute vs skilled and explained levels of care AR vs SNF. Denny says patient resides in [place] and most family is in [place]. He is hoping patient can go to [facility] for rehab. Son
inquired if patient could receive HD at [facility] - informed him yes [facility] accepts patients needing HD. Patient is setup at [facility]. 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 He plans on discussing discharge destinations with his brother and sister.
Discussed family preference for [facility] with Dr Turcios - she will consult physiatry tomorrow.
Spoke with [facility]ia[facility]; they do accept HD patients at both [facility] and [facility], however [place] currently has no HD spots open, and [place] currently has no available beds.
Referral placed for [facility].
Plan follow up with [facility] for acceptance.
Plan possible [facility] when medically ready.
--- NOTE | 2024-09-27 17:34 | PTCARENOTE ---
Pt has not voiuded yet and is sure he will. He states he always has a hard time. Does not want to be straight cath.
[2024-09-27] MEDS: MELATONIN 5 MG PO (20:38)
[2024-09-27] MEDS: SENOKOT 17.2 MG PO (20:39)
--- NOTE | 2024-09-27 23:13 | PTCARENOTE ---
Received patient from previous shift. Patient AAOX3 but can be forgetful at times. Patient stated that he is not concerned about not voiding because this is normal for him because he is HD patient. Patient states he usually will void once a day and
does not want straight cath. Patient is getting HD tomorrow. Assessment and vitals as documented. call chery in reach.
[2024-09-28] VITALS (28 sets, daily range): BP systolic 103–183; BP diastolic 48–78
[2024-09-28 08:16] LABS: Hematocrit 29.3 % (39.0-52.0); Hemoglobin 9.9 g/dL (13.0-18.0); Mean Corp Hgb Conc. 33.8 g/dL (33.0-37.0); Mean Corpuscular Hgb 33.8 pg (27.0-31.0); Mean Platelet Volume 9.8 fL (7.4-10.4); Platelet Count 311 10^3/uL (130-400); Red Blood Cell Count 2.93 10^6/uL (4.70-6.10); Red Cell Dist. Width 16.7 % (11.5-14.5); White Blood Cell Count 9.9 10^3/uL (4.8-10.8)
--- NOTE | 2024-09-28 08:25 | W.PN.HOSP.TC ---
Today's Communication/Plan
-
see A/P
Dispo plan to [facility]
PMR consulted
Assessment / Plan
Assessment / Plan
A/P:
# Sepsis due to MSSA bacteremia:
Repeat blood cultures from 09/23 negative, follow blood culture from 09/24
TTE did not show vegetation, BILLIE 09/25 also negative for vegetation
Continue IV antibiotic per ID, now on cefazolin MWF with dialysis, last dose on 10/08/24.
# acute metabolic encephalopathy, resolved
# presentation with word finding difficulty, resolved
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
acute change in mental status could be related to current infection but needs to rule out stroke and or embolic events of the brain
CT head on admission 09/[address] head 09/24 again showed no acute intracranial abnormalities.
Not able to get MRI brain due to spine stimulator not compatible
EEG report noted, showed abnormal pattern during the time of his confusion
Neuro on board
MS improved and back to baseline, now awake and conversant, AOx3
# Acute hypoxic respiratory failure, resolved
# Worsening hypoxia suspect related to aspiration pneumonia, resolved
weaned back to RA
diet advanced to regular and thin liquid with improved MS
Cont added PPI IV BID
GI was consulted for possible hematemesis which has resolved
# End-stage renal disease on hemodialysis:
Hemodialysis per nephrology
# History of skin cancer with mets to lymph nodes and left upper lobe lung on chemotherapy/immunotherapy
# Hypertension:
Antihypertensives adjustment per nephrology. Continue to monitor and adjust accordingly.
Added back clonidine 0.1 BID
# Elevated LFT suspect related to sepsis
Abd US unrevealing
LFT improving , continue to monitor LFT
GI input appreciated and GI does not feel obstructive pattern or source of infection
# Hyponatremia, resolved
Fluid restriction and dialysis
# Anemia of chronic disease:
KAYLA
Monitor hemoglobin closely
# Hyperlipidemia:
Hold statin due to elevated LFTs
# BPH on Flomax
# acute urinary retention
Placed on reece 09/23
voiding trial started 09/26
# History of aortic stenosis
DVT prophylaxis: Heparin SQ
CODE STATUS: Full code
Dispo: PT recc Acute, PMR consulted
DW myra Baldwin on the phone
total time spent 51 min
Anticipated Discharge: > 48 hours
Subjective/Interval History
-
Date of Service: September 28, 2024
Objective Data
-
Labs:
Laboratory Results
09/28/24
07:59
WBC 9.9
Hgb 9.9 L
Hct 29.3 L
Plt Count 311
Sodium Pending
Potassium Pending
Chloride Pending
Carbon Dioxide Pending
BUN Pending
Creatinine Pending
Glucose Pending
Calcium Pending
Total Bilirubin Pending
AST Pending
ALT Pending
Alkaline Phosphatase Pending
Vital Signs:
Vital Signs
Temp Pulse Resp BP Pulse Ox
36.6 C 79 13 152/54 97
09/28/24 04:44 09/28/24 03:00 09/28/24 03:00 09/28/24 03:00 09/28/24 03:00
I&O
09/27/24 09/28/24 09/29/24
06:59 06:59 06:59
Output Total 1100 / 1100
Balance -1100 / -1100
Review of Systems
-
History Source: Patient
All other systems: Reviewed and negative
Physical Exam
-
General: Well Developed, Comfortable, Conversant and Appears Chronically Ill
HEENT: Normocephalic, Atraumatic and Moist Mucous Membranes
Respiratory: Clear to Auscultation and Non Labored Respirations; Negative Accessory Resp Muscle Use
Cardiac: Regular Rhythm and S1/S2; Negative Murmur or Rub
GI: Soft, Nontender, Nondistended and Normal Bowel Sounds
Musculoskeletal: No Clubbing, No Cyanosis and No Edema
Neuro: Awake and Alert
Psych: Calm and Intact Judgement/Insight
Data Reviewed
-
CT Scan: Report Reviewed by me
Labs: Labs Reviewed by me
[2024-09-28 08:40] LABS: ALT (SGPT) 16 U/L (0-50); AST (SGOT) 56 U/L (17-59); Albumin 3.1 g/dl (3.5-5.0); Alkaline Phosphatase 131 U/L (38-126); Blood Urea Nitrogen 53 mg/dl (9-20); Calcium 10.7 mg/dl (8.4-10.2); Carbon Dioxide 30 mmol/L (22-30); Chloride 96 mmol/L (98-107); Estimated Creatinine Clearance 12 ml/min; Glucose 85 mg/dl (70-99); Potassium 4.2 mmol/L (3.5-5.1); Sodium 135 mmol/L (135-145); Total Bilirubin 0.6 mg/dl (0.2-1.3); Total Protein 5.6 g/dl (6.3-8.2)
[2024-09-28] MEDS: RETACRIT 4000 UNITS IV (09:00)
[2024-09-28] MEDS: PROTONIX IV 40 MG IV (09:08)
[2024-09-28] MEDS: NSS (PRESERVATIVE FREE) 10 ML IV (09:09)
[2024-09-28] MEDS: ASPIR LOW (ENTERIC COATED) 81 MG PO ×2 (09:09→20:25)
[2024-09-28] MEDS: FLOMAX 0.4 MG PO ×2 (09:09→20:25)
--- NOTE | 2024-09-28 09:45 | CON.MD ---
Documented by User: Alexa Sarmiento DO, Resident 09/28/24 12:00
Consultation - Medical
-
Referring Provider: Farzana Turcios
Chief Complaint: bacteremia
History of Present Illness:�64yo M pmh HFpEF, HTN, ESRD on MWF dialysis, basal cell carcinoma with mets presented to ED on 09/20 for fever and altered mental status. Negative flu, covid, no acute cardiopulmonary process on chest XR, no acute
intracranial abnormality on head CT. A systolic murmur was noted in the ED. Pt started on IV vancomycin, cefepime, and flagyl, ID consulted. 2 weeks prior to ED visit, pt stopped chemotherapy at [facility] due to swelling in all four extremities.
09/21 TTE revealed LVEF 70-75%, pulm artery htn, no evidence of vegetation. Blood cx grew MSSA. Vancomycin d/c'ed. Concerned for silent aspiration, mod barium swallow revealed aspiration with thin liquid barium by straw. Pt developed a stage 2
gluteal cleft pressure injury. Neurology consulted for RUE weakness that started on 09/18 while eating, and expressive aphasia that started 09/23. Unable to get MRI brain due to previous spine stimulator. 09/[address] revealed no acute intracranial
abnormalities. 09/25 BILLIE revealed LVEF 60-65%, moderate aortic stenosis, and no evidence of vegetation. ID transitioned abx to cefazolin 2/2/3g MWF w dialysis, last dose scheduled for 10/08/24. 09/26 EEG was moderately abnormal, but no clear seizure
activity reported.
Past Medical History:�HFpEF, MDR HTN, HLD, ESRD on MWF dialysis, BPH, basal cell carcinoma with mets
Procedure History:�LUE AVF
Bilateral Wrist ORIF
Lumbar Surgery x 2
Spine Stimulator
Multiple Skin Cancer Excisions
Family History:�father COPD, mother CAD
Social History:
Functional Level Premorbidly:�Independent
Functional Level Currently:�ambulates 50 ft w walker, assist of 1, min assistance
Tobacco:�current, smokes 2 cigars/day. Reports he is quitting with this hospitalization.
Alcohol: Denies
Drug use: Denies
Lives with: with roommate
24-hour assistance available:�yes
Number of floors: 2
# steps to enter:�1
# steps to second floor:�12
Potential First floor set up:yes
Driving: yes
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
�
Allergies
Allergy/AdvReac Type Severity Reaction Status Date / Time
No Known Allergies Allergy Verified 04/10/22 07:05
Home Medications
clonidine HCl 0.2 mg tablet 0.2 mg PO TID #90 tabs 01/25/22
amlodipine 10 mg tablet 10 mg PO DAILY Blood Pressure 09/20/24
aspirin 81 mg tablet,delayed release 81 mg PO BID Blood Clot Prevention/Tx 09/20/24
atorvastatin 80 mg tablet 80 mg PO DAILY High Cholesterol 09/20/24
epoetin raina-epbx 4,000 unit/mL injection solution (Retacrit) 4,000 unit SC MOWEFR Kidney Disease 09/20/24
ferric citrate 210 mg iron tablet (Auryxia) 210 mg PO BID Supplement 09/20/24
isosorbide mononitrate 30 mg tablet,extended release 24 hr 30 mg PO DAILY Blood Pressure 09/20/24
magnesium oxide 400 mg PO HS Electrolyte Repletion 09/20/24
metoprolol succinate 50 mg tablet,extended release 24 hr 50 mg PO BID Heart Disease/Condition 09/20/24
mirtazapine 15 mg tablet 15 mg PO HS Mental Health/Anxiety 09/20/24
ropinirole 0.25 mg tablet 0.25 mg PO HS Mental Health/Anxiety 09/20/24
tamsulosin 0.4 mg capsule 0.4 mg PO BID Urinary Issue 09/20/24
trospium 20 mg tablet 20 mg PO BID Urinary Issue 09/20/24
valsartan 320 mg tablet 320 mg PO DAILY Blood Pressure 09/20/24
vibegron 75 mg tablet (Gemtesa) 75 mg PO DAILY Urinary Issue 09/20/24
Review of Systems:
Constitutional: (x) Normal _
�Eye: (x) Normal _
�Ear/Nose/Throat: (x) Normal _
�Respiratory: (x) Normal _
�Cardiovascular: (x) Normal _
�Gastrointestinal: (x) Normal _
�Genitourinary: (x) Normal _
�Musculoskeletal: weakness
�Integumentary: (x) Normal _
�Neurologic: (x) Normal�_
�Psychiatric: (x) Normal _
�Endocrine: (x) Normal _
�Hematologic/Lymphatic: (x) Normal _
�Allergic/Immunologic: (x) Normal _
Vitals:
BP 152/54
HR 79
RR 13
T 97.9 F
SpO2 97%
Physical Exam:
General Appearance/Observation: Well-developed, well-nourished individual in no apparent distress.
Pain/Comfort Assessment: Denies�
Mood/Affect: Appropriate
Integumentary/Operative Site:
� �Pressure Ulcer Evaluation: absent over heels.
� �Other Type of Wound: absent
� �
Eyes: Conjunctiva/Lids: normal� � �Pupils: pupils equal round and reactive to light and Accommodation
Ears/Nose/Throat: oral mucosa moist,� throat clear.� � � � � � � Lips/Teeth/Gums: normal
Neck: No muscle spasm or tenderness
Cardiovascular: Heart: regular, systolic heart murmur
Pulses: dorsalis pedis 2+ bilaterally
Respiratory: Respiratory Effort/Chest Expansion: normal� � � � �Auscultation: clear to auscultation bilaterally
Gastrointestinal: abdomen not tender, no distension, normal abdominal bowel sounds
Genitourinary: No Sampson
Rectal Exam: Deferred
Extremities: Edema: None Cyanosis: None Trophic changes: digital clubbing
Neurology Exam:
Orientation: Alert, Oriented to self, Time, Place
Memory: Intact immediately and at 3 minutes
Higher cortical function
Repetition: Intact
Comprehension: Intact
Two step command: Intact
Naming: Intact
Cranial Nerves:
� �CNII: Pupillary light reflex: Intact� � Visual Field: Intact
� �CN III, IV, : Extraocular muscles: Intact�
� �CN V: Facial Sensation at Forehead: Intact, Maxilla: Intact, Mandible: Intact�
� �CN VII: Facial movement: Symmetric
� �CN VIII: Hearing: Normal
� �CN IX/X: Speech & swallow: Normal, Position of Uvula: Midline
� �CN XI: Shoulder shrug: Symmetric
� �CN XII: Tongue protrusion: Midline
Sensory:
� �Light touch: Intact in bilateral upper and lower extremities
Reflexes:
� �Biceps: 2+ bilaterally
� �Brachioradialis: 2+ bilaterally
� �Triceps: 2+ bilaterally
� �Patellar: 2+ bilaterally
� �Achilles: 2+ bilaterally
� �Babinski: Down going bilaterally
� �Clonus: None
� �Carlos: Negative bilaterally
Cerebellar: Dysmetria/Ataxia: unable to stand
Musculoskeletal:
�Motor: (Manual muscle scale 0-5)
LUE: deferred due to pt receiving dialysis in this arm
RUE: 4/5
b/l hip flexors: 3/5
b/l plantarflexion: 3/5
b/l dorsiflexion 3/5
Tone: Normal in all extremities
Range of Motion: Passively within normal limits in all extremities
Diagnostic Results: as per HPI
Assessment
Sepsis secondary to MSSA bacteremia
Toxic metabolic encephalopathy
Transaminitis
stage 2 gluteal cleft pressure injury
HFpEF
MDR HTN
HLD
ESRD on MWF dialysis
BPH
squamous cell carcinoma with mets
anemia of chronic disease
aortic stenosis
hypercalcemia
Plan�
PM&R PT/OT to increase independence with ADLs, improve balance, coordination, endurance, strength, mobility, community reintegration, decreased burden of care on others and family education.
MSSA bacteremia:
- cefazolin 2/2/3g MWF w dialysis, last dose scheduled for 10/08/24
HTN: continue medications, monitor closely
HLD: Statin
CHF: EF 60-65%, beta brent, monitor fluid status
Pressure ulcers:� Vitamin C, zinc, multivitamin.� Weight shifts in wheelchair and bed.� Roho cushion.� Pressure-relief boots.� Lotrimin to fungal rash over buttocks and inguinal region.
Anemia: Likely multifactorial.� Continue to monitor.
Psych: Monitor mood, adjust medications as needed.�
Skin: monitor for pressure sores/rashes/lesions.
Pain: acetaminophen or oxycodone as needed.
GI Prophylaxis: PPI
DVT Prophylaxis: SCDs
Safety: Continue to reinforce assistance with all transfers.
Code Status:� Full code
Functional and Medical Goals: Modified Independent with ADL�s, ambulation, transfers
SUMMARY
Things that must be addressed in Hospital prior to discharge:
1.� � Blood pressure must be less than 180 systolic and 100 diastolic for 24 hours before being stable for transfer to SNF.
Discharge Destination: SNF

Documented by User: Marciano Connelly MD 09/28/24 13:18
Consultation - Medical
-
Referring Provider: Farzana Turcios
Chief Complaint: Bacteremia
History of Present Illness:�64 yo M PMH HFpEF, HTN, ESRD on MWF dialysis, basal cell carcinoma with mets presented to ED on 09/20 for fever and altered mental status. Negative flu, covid, no acute cardiopulmonary process on chest XR, no acute
intracranial abnormality on head CT. A systolic murmur was noted in the ED. Pt started on IV vancomycin, cefepime, and flagyl, ID consulted. 2 weeks prior to ED visit, pt stopped chemotherapy at [facility] due to swelling in all four extremities.
09/21 TTE revealed LVEF 70-75%, pulm artery htn, no evidence of vegetation. Blood cx grew MSSA. Vancomycin d/c'ed. Concerned for silent aspiration, mod barium swallow revealed aspiration with thin liquid barium by straw. Pt developed a stage 2
gluteal cleft pressure injury. Neurology consulted for RUE weakness that started on 09/18 while eating, and expressive aphasia that started 09/23. Unable to get MRI brain due to previous spine stimulator. 09/[address] revealed no acute intracranial
abnormalities. 09/25 BILLIE revealed LVEF 60-65%, moderate aortic stenosis, and no evidence of vegetation. ID transitioned abx to cefazolin //3g MWF w dialysis, last dose scheduled for 10/08/24. 09/26 EEG was moderately abnormal, but no clear seizure
activity reported.
Past Medical History:�HFpEF, MDR HTN, HLD, ESRD on MWF dialysis, BPH, basal cell carcinoma with mets
Procedure History:�
LUE AVF
Bilateral Wrist ORIF
Lumbar Surgery x 2
Spine Stimulator
Multiple Skin Cancer Excisions
Family History:�father COPD, mother CAD
Social History:
Functional Level Premorbidly:�Independent
Functional Level Currently:�ambulates 50 ft w walker, assist of 1, min assistance
Tobacco:�current, smokes 2 cigars/day. Reports he is quitting with this hospitalization.
Alcohol: Denies
Drug use: Denies
Lives with: with roommate
24-hour assistance available:�yes
Number of floors: 2
# steps to enter:�1
# steps to second floor:�12
Potential First floor set up:yes
Driving: yes
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
Allergies
Allergy/AdvReac Type Severity Reaction Status Date / Time
No Known Allergies Allergy Verified 04/10/22 07:05
Home Medications
clonidine HCl 0.2 mg tablet 0.2 mg PO TID #90 tabs 01/25/22
amlodipine 10 mg tablet 10 mg PO DAILY Blood Pressure 09/20/24
aspirin 81 mg tablet,delayed release 81 mg PO BID Blood Clot Prevention/Tx 09/20/24
atorvastatin 80 mg tablet 80 mg PO DAILY High Cholesterol 09/20/24
epoetin raina-epbx 4,000 unit/mL injection solution (Retacrit) 4,000 unit SC MOWEFR Kidney Disease 09/20/24
ferric citrate 210 mg iron tablet (Auryxia) 210 mg PO BID Supplement 09/20/24
isosorbide mononitrate 30 mg tablet,extended release 24 hr 30 mg PO DAILY Blood Pressure 09/20/24
magnesium oxide 400 mg PO HS Electrolyte Repletion 09/20/24
metoprolol succinate 50 mg tablet,extended release 24 hr 50 mg PO BID Heart Disease/Condition 09/20/24
mirtazapine 15 mg tablet 15 mg PO HS Mental Health/Anxiety 09/20/24
ropinirole 0.25 mg tablet 0.25 mg PO HS Mental Health/Anxiety 09/20/24
tamsulosin 0.4 mg capsule 0.4 mg PO BID Urinary Issue 09/20/24
trospium 20 mg tablet 20 mg PO BID Urinary Issue 09/20/24
valsartan 320 mg tablet 320 mg PO DAILY Blood Pressure 09/20/24
vibegron 75 mg tablet (Gemtesa) 75 mg PO DAILY Urinary Issue 09/20/24
Review of Systems:
Constitutional: (x) abNormal _fatigue
�Eye: (x) Normal _
�Ear/Nose/Throat: (x) Normal _
�Respiratory: (x) Normal _
�Cardiovascular: (x) Normal _
�Gastrointestinal: (x) Normal _
�Genitourinary: (x) Normal _
�Musculoskeletal: general weakness
�Integumentary: (x) Normal _
�Neurologic: (x) Normal�_
�Psychiatric: (x) Normal _
�Endocrine: (x) Normal _
�Hematologic/Lymphatic: (x) Normal _
�Allergic/Immunologic: (x) Normal _
Vitals:
BP 152/54
HR 79
RR 13
T 97.9 F
SpO2 97%
Temp Pulse Resp BP Pulse Ox
97.8 F 92 15 148/61 100
09/28/24 11:07 09/28/24 12:08 09/28/24 11:27 09/28/24 12:08 09/28/24 11:27
Height 5 ft 7 in
Actual Weight 55.6 kg
Body Mass Index (BMI) 19.2
Physical Exam:
General Appearance/Observation: Well-developed, well-nourished male in no apparent distress.
Pain/Comfort Assessment: Denies�
Mood/Affect: Appropriate
Integumentary/Operative Site: Left arm AV fistula
� �Pressure Ulcer Evaluation: absent over heels.
� �
Eyes: Conjunctiva/Lids: normal� � �Pupils: pupils equal round and reactive to light
Ears/Nose/Throat: oral mucosa slightly dry,� throat clear.� � � � � � � Lips/Teeth/Gums: normal
Cardiovascular: Heart: regular, systolic heart murmur
Pulses: dorsalis pedis 2+ bilaterally
Respiratory: Respiratory Effort/Chest Expansion: normal� � � � �Auscultation: clear to auscultation bilaterally
Gastrointestinal: abdomen not tender, no distension, normal abdominal bowel sounds
Genitourinary: No Sampson
Rectal Exam: Deferred
Extremities: Edema: None Cyanosis: None Trophic changes: digital clubbing
Neurology Exam:
Orientation: Alert, Oriented to self, Time, Place
Memory: Intact for recent medical concerns
Comprehension: Intact
Two step command: Intact
Cranial Nerves:
� �CNII: Pupillary light reflex: Intact� �
� �CN III, IV, : Extraocular muscles: Intact�
� �CN VII: Facial movement: Symmetric
� �CN VIII: Hearing: Normal
� �CN IX/X: Speech & swallow: Normal, Position of Uvula: Midline
� �CN XI: Shoulder shrug: Symmetric
� �CN XII: Tongue protrusion: Midline
Sensory:
� �Light touch: Intact in bilateral upper and lower extremities
Reflexes:
� �Biceps: 2+ bilaterally
� �Brachioradialis: 2+ bilaterally
� �Triceps: 2+ bilaterally
� �Patellar: 2+ right, 0 left
� �Achilles: 0 bilaterally
� �Babinski: Down going bilaterally
� �Clonus: None
� �Carlos: Negative bilaterally
Musculoskeletal:�Motor: (Manual muscle scale 0-5)
B/L UE: 5/5 bilateral biceps, wrist extension, finger flexion. 4/5 elbow extension and hand intrinsics
b/l hip flexors: 2+/5, 2/5 right
Bilateral knee extension: 5/5
b/l plantarflexion: 4/5
b/l dorsiflexion 4/5
Tone: Normal in all extremities
Range of Motion: Passively within normal limits in all extremities
Diagnostic Results: as per HPI
Assessment
Sepsis secondary to MSSA bacteremia
Toxic metabolic encephalopathy
Transaminitis
stage 2 gluteal cleft pressure injury
HFpEF
MDR HTN
HLD
ESRD on MWF dialysis
BPH
squamous cell carcinoma with mets
anemia of chronic disease
aortic stenosis
hypercalcemia
64 yo M PMH (�HFpEF, MDR HTN, HLD, ESRD on MWF dialysis, BPH, basal cell carcinoma with mets) 09/20 for fever and altered mental status with MSSA bacteremia, with hospital stay complicated by dysphagia, stage 2 gluteal cleft pressure injury, RUE
weakness and expressive aphasia with CT head with no acute intracranial abnormalities resulting in ADL and ambulatory dysfunction.
Plan�
PM&R: PT/OT to increase independence with ADLs, improve balance, coordination, endurance, strength, mobility, community reintegration, decreased burden of care on others and family education.
MSSA bacteremia:
- cefazolin 2/2/3g MWF w dialysis, last dose scheduled for 10/08/24
HTN: Amlodipine, carvedilol, clonidine, isosorbide mononitrate, metoprolol, valsartan, monitor
HLD: Statin
ESRD on HD: Per nephrology
CHF: EF 60-65%, beta brent, monitor fluid status
Pressure ulcers:� Vitamin C, zinc, multivitamin.� Weight shifts in wheelchair and bed.� Roho cushion.� Consider pressure-relief boots. Monitor for fungal infection, if present trial clotrimazole twice a day.
Macrocytic anemia: Likely multifactorial including renal disease.� Continue to monitor.
Psych: Monitor mood, medications as needed.�
Skin: monitor for pressure sores/rashes/lesions.
Bowel: MiraLAX, senna
Bladder: On dialysis with decreased output, on Flomax 0.4 mg twice daily.
Pain: acetaminophen as needed.
GI Prophylaxis: PPI
DVT Prophylaxis: SCDs and heparin
Safety: Continue to reinforce assistance with all transfers.
Code Status:� Full code
Functional and Medical Goals: Modified Independent with ADL�s, ambulation, transfers
Discharge Destination: SNF after extensive discussion with patient regarding differences in facilities. He continues to make significant progress before he is ready for discharge, it is possibly could go home with home care.
SUMMARY
Discharge Destination: SNF after extensive discussion with patient regarding differences in facilities. He continues to make significant progress before he is ready for discharge, it is possibly could go home with home care.
MSSA bacteremia: - cefazolin 2/2/3g MWF w dialysis, last dose scheduled for 10/08/24
Pressure ulcers:� Vitamin C, zinc, multivitamin.� Weight shifts in wheelchair and bed.� Roho cushion.� Consider pressure-relief boots. Monitor for fungal infection, if present trial clotrimazole twice a day.
I personally performed a history and physical exam of the patient and discussed management with the resident. I reviewed the resident's note and agree with the documented findings and plan of care HPI/CC. Physical exam and plan adjusted to reflect
my exam and plan. A total of 60bminutes were spent with the patient preparing for the evaluation, obtaining history, performing examination and evaluation, counseling, data review, case management, care coordination, mill order scheduler, and EMR
documentation.
--- NOTE | 2024-09-28 10:03 | W.PN.NEPH.HD ---
Assessment
-
Seen on dialysis tolerated treatment
Progress Note - Hemodialysis
-
Date of Service: September 28, 2024
Duration: 30 minutes and 3 hours
Potassium Bath: 2
Calcium Bath: 2.5
Opti-Dialyzer: 160
Ultrafiltration: Other (1kg)
Blood Flow: 400
Dialysate Flow: 600
Heparin: none
EPO: none
--- NOTE | 2024-09-28 10:14 | W.PN.ID1 ---
Date of Service
Date of Service: September 28, 2024
Today's Communication
- Continue cefazolin 2/2/3g MWF after dialysis x 2 weeks+ from neg bcx's, last dose on 10/08/24.
- Check weekly CBC, CMP while on cefazolin
- Infusion sheet for dialysis submitted to case management.
ID will sign off. Call prn.
Assessment / Plan
# S. aureus (MSSA) bacteremia (2 sets), unclear source
# Fever - resolved
# Leukocytosis - resolved
# Change in mental status- resolved
# Skin ca SCC with mets to LN, AJITH on po chemo at [facility]
# ESRD on HD via LUE AVF
# hx Aortic stenosis
# Chronic back pain s/p Spine stimulator (placed , used once only). Spine stimulator is not MRI comapatible.
- TTE: thickened AV, moderate , no gross vegetation
- BILLIE: no endocarditis
- Repeat blood cx's neg to date (09/23, 09/24)
- Pt now AOx3. He reports no worsening of chronic back pain. Exam unremarkable. No suspicion for discitis at this time.
- Continue cefazolin 2/2/3g MWF after dialysis x 2 weeks+ from neg bcx's, last dose on 10/08/24.
- Check weekly CBC, CMP while on cefazolin
- Infusion sheet for dialysis submitted to case management.
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
ESRD on HD via LUE AVF
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
-failed immunotherapy, placed on oral chemo 4 to 8 weeks ago at [facility]; pt self-discontinued chemo 09/11/24
HTN
HLD
HFpEF
Aortic stenosis
Bilateral Wrist ORIF
Chronic back pain s/p Spine stimulator (, used once, not MRI compatible).
Skin cancer excision.
ID will sign off.
Chief Complaint
-: Bacteremia
Subjective / Review of Systems
Feels much improved. Ambulated yesterday. No worsening back pain.
Vital Signs / Physical Exam
Vital Signs
Vital Signs
Temp Pulse Resp BP Pulse Ox
97.9 F 79 13 152/54 97
09/28/24 04:44 09/28/24 03:00 09/28/24 03:00 09/28/24 03:00 09/28/24 03:00
Physical Exam
Constitutional: No Acute Distress and Comfortable
Cardiovascular: Regular Rate, S1/S2 and Murmur (4/6 RUSB)
Pulmonary: Clear
Gastrointestinal: Soft, Non Tender, Non Distended and Normal Bowel Sounds
Extremities: Negative Edema
Musculoskeletal: Negative Spinal Tenderness
Neurological: AO x 3
Objective Data
Lab Data
Lab Results
09/28/24 07:59
09/28/24 07:59
Estimated Creat Clear 12 ml/min 09/28/24 07:59
Lactic Acid 0.7 mmol/L (0.7-2.0) 09/21/24 04:13
Total Bilirubin 0.6 mg/dl (0.2-1.3) 09/28/24 07:59
AST 56 U/L (17-59) 09/28/24 07:59
ALT 16 U/L (0-50) 09/28/24 07:59
Alkaline Phosphatase 131 U/L (38-126) H 09/28/24 07:59
Most recent labs reviewed.
Micro Results:
09/23/24 06:34 Blood Culture - Final
Blood/Venous No Growth - Final Report
09/23/24 05:39 Blood Culture - Final
Blood/Venous No Growth - Final Report
09/24/24 11:47 Blood Culture - Preliminary
Blood/Venous No Growth in 72 hours- Final report to follow
09/20/24 22:59 Blood Culture - Final
Blood/Venous S aureus-Methicillin Sensitive
Gram Stain - Final
09/20/24 22:59 Blood Culture - Final
Blood/Venous S aureus-Methicillin Sensitive
Gram Stain - Final
09/20/24 22:59 Streptococcus Screen (FLAKO) - Final
Throat/Pharynx No Beta Hemolytic Streptococci Isolated
Streptococcus Rapid Screen - Final
Rapid Strep Screen (Group A) Negative
09/21/24 04:18 MRSA Screen - Final
Nose No Methicillin Resistant Staphylococcus aureus isolated.
09/22/24 03:57 Legionella Urinary Antigen - Final
Urine Negative for Legionella pneumophila Serogroup 1 antigen.
A negative result does not rule out the possiblity of
Legionella infection due to other serogroups or species of
Legionella. Clinical correlation is recommended.
Streptococcus pneumoniae Antigen (M - Final
Negative for Streptococcus pneumoniae antigen.
A negative result does not exclude infection with
Streptococcus pneumoniae. Clinical correlation is
recommended.
09/20/24 21:42 Influenza Types A & B (PRIYA) - Final
Nasal Swab Negative for Influenza A & B, NAAT
Negative results must be combined with clinical observations
and patient history.
Nucleic Acid Amplification test (NAAT)performed on the
[employer] platform.
09/23/24 CXR: Diffusely increased interstitial markings, increasing from previous radiograph 3 days ago. Findings are highly suggestive of interstitial pulmonary edema pattern.
09/20/24 CT a/p: No acute CT abnormalities identified to explain the patient's symptoms . No evidence of intestinal obstruction, bowel inflammatory process, nephrolithiasis, hydronephrosis, cholecystitis, or abscess formation. Trace bilateral
pleural effusions, left greater than right. Minimal bibasilar airspace consolidation, most likely representing subsegmental atelectasis. Pneumonia should be excluded clinically. Mild diffuse soft tissue anasarca. Aneurysm of the abdominal aorta,
measuring up to 3.5 cm in diameter. Heavy arterial vascular calcification diffusely. Mild bilateral renal cortical atrophy. Multiple cystic lesions, including bilateral hyperattenuating renal lesions, which may represent hemorrhagic cysts but are
incompletely characterized without IV contrast. Consider elective renal ultrasound to further characterize.
09/20/24 ABD US: Small gallbladder stones and sludge. No gallbladder wall thickening or findings to suggest biliary tract dilatation. Negative sonographic Quintana's sign.
09/20/[address]: Small old lacunar infarct again seen in the left caudate head. No acute intracranial abnormality.
--- NOTE | 2024-09-28 11:31 | PTCARENOTE ---
Patient pleasant, AAOx3, states he feels stronger. NSR on monitor. VSS. Getting HD now. Oliguric. To get up to chair after HD. Patient with no complaints. Making needs known. Will continue to closely monitor.
[2024-09-28] MEDS: HEPARIN 5000 UNITS SC ×3 (12:07→23:34)
[2024-09-28] MEDS: MIRALAX 17 GRAMS PO (12:07)
[2024-09-28] MEDS: NORVASC 10 MG PO (12:08)
[2024-09-28] MEDS: DIOVAN 320 MG PO (12:08)
[2024-09-28] MEDS: CATAPRES 0.1 MG PO ×2 (12:08→20:50)
[2024-09-28] MEDS: IMDUR (EXTENDED RELEASE) 30 MG PO (12:08)
[2024-09-28] MEDS: COREG 25 MG PO ×2 (12:08→20:50)
--- NOTE | 2024-09-28 15:51 | CM ---
Patient from [facility] with Hx ESRD on HD with Dx Sepsis due to MSSA bacteremia, presented with AMS & word finding difficulty, RUE weakness. Room air. Receiving IV Abx. Seen by Physiatry today; recommends SNF. PT recommends acute v
skilled rehab. OT recommends acute rehab. Transferred from IMU to 4W.
Spoke with patient and son Denny; patient and son aware [facility] declined him and SNF was recommended. The patient would like to go home rather than go to SNF for rehab - son wishes to discuss with the family. Reviewed therapy notes with Denny. Son
expressed concern that patient was driving himself to HD and there are no family available to take him at present. Patient not sure he would agree to return to [facility]. He prefers to go home with [facility].
Spoke with Frances, nurse [facility] (cell [phone], [facility] [phone], fax [phone]); faxed script for IV cefazolin days of dialysis till 10/08- Frances confirmed it was received. Frances is aware of plan for discharge back to
[facility] probably 10/01.
Spoke with Jenna, [facility]; informed her patient is agreeing to return to their SNF for rehab- she can accept on Sunday 10/01.
Plan follow up with [facility] for acceptance.
Plan probable [facility] 10/01 with Outpatient [facility] HD with IV cefazolin at dialysis.
[2024-09-28] MEDS: ANCEF 15 MG IV (17:17)
[2024-09-28] MEDS: STERILE WATER FOR INJECTION IV (17:18)
[2024-09-28] MEDS: PROTONIX 40 MG PO (20:25)
[2024-09-28] MEDS: SENOKOT 17.2 MG PO (21:32)
[2024-09-29 03:01] VITALS: BP 104/56
[2024-09-29 06:00] VITALS: BMI 19.0
[2024-09-29 07:44] LABS: Hematocrit 28.5 % (39.0-52.0); Hemoglobin 9.6 g/dL (13.0-18.0); Mean Corp Hgb Conc. 33.7 g/dL (33.0-37.0); Mean Corpuscular Hgb 33.9 pg (27.0-31.0); Mean Corpuscular Volume 100.7 fL (80.0-94.0); Mean Platelet Volume 9.8 fL (7.4-10.4); Platelet Count 282 10^3/uL (130-400); Red Blood Cell Count 2.83 10^6/uL (4.70-6.10); Red Cell Dist. Width 16.3 % (11.5-14.5); White Blood Cell Count 7.5 10^3/uL (4.8-10.8)
[2024-09-29 07:45] VITALS: BP 137/64
[2024-09-29 07:55] LABS: ALT (SGPT) 13 U/L (0-50); AST (SGOT) 51 U/L (17-59); Albumin 3.3 g/dl (3.5-5.0); Alkaline Phosphatase 128 U/L (38-126); Blood Urea Nitrogen 34 mg/dl (9-20); Calcium 10.5 mg/dl (8.4-10.2); Carbon Dioxide 32 mmol/L (22-30); Chloride 94 mmol/L (98-107); Estimated Creatinine Clearance 15 ml/min; Glucose 83 mg/dl (70-99); Potassium 3.9 mmol/L (3.5-5.1); Sodium 135 mmol/L (135-145); Total Bilirubin 0.4 mg/dl (0.2-1.3); Total Protein 5.8 g/dl (6.3-8.2); eGFR 16.41
[2024-09-29] MEDS: ASPIR LOW (ENTERIC COATED) 81 MG PO ×2 (08:40→20:17)
[2024-09-29] MEDS: PROTONIX 40 MG PO ×2 (08:40→20:17)
[2024-09-29] MEDS: IMDUR (EXTENDED RELEASE) 30 MG PO (08:40)
[2024-09-29] MEDS: DIOVAN 320 MG PO (08:40)
[2024-09-29] MEDS: FLOMAX 0.4 MG PO ×2 (08:40→20:17)
[2024-09-29] MEDS: NORVASC 10 MG PO (08:40)
[2024-09-29] MEDS: CATAPRES 0.1 MG PO (08:40)
[2024-09-29] MEDS: MIRALAX 17 GRAMS PO (08:41)
[2024-09-29] MEDS: COREG 25 MG PO (08:41)
[2024-09-29] MEDS: HEPARIN 5000 UNITS SC ×3 (08:41→23:23)
[2024-09-29 11:15] VITALS: BP 117/52
--- NOTE | 2024-09-29 13:39 | W.PN.HOSP.TC ---
Today's Communication/Plan
-
Doing well. He can take a shower.
Assessment / Plan
Assessment / Plan
64 man with sepsis.
A/P:
1. Sepsis due to MSSA bacteremia: resolved
Repeat blood cultures from 09/23 negative, follow blood culture from 09/24
TTE did not show vegetation, BILLIE 09/25 also negative for vegetation
Continue IV antibiotic per ID, now on cefazolin MWF with dialysis, last dose on 10/08/24.
2. acute metabolic encephalopathy, resolved
3. presentation with word finding difficulty, resolved
Per family, pt does not have cognitive/memory impairment at baseline, he was fully functional and works/drives [employer]
Acute change in mental status was likely related to current infection
Repeat CT head 09/24 again showed no acute intracranial abnormalities.
Not able to get MRI brain due to spine stimulator not compatible
EEG report noted, showed abnormal pattern during the time of his confusion
Neuro consulted
MS improved and back to baseline, now awake and conversant, AOx3
4. Acute hypoxic respiratory failure, resolved
5. Worsening hypoxia suspect related to aspiration pneumonia, resolved
weaned back to RA
6. GI issues - stable
diet advanced to regular and thin liquid with improved MS
Cont added PPI IV BID
GI was consulted for possible hematemesis which has resolved
7. End-stage renal disease on hemodialysis:
Hemodialysis per nephrology
8. History of skin cancer with mets to lymph nodes and left upper lobe lung on chemotherapy/immunotherapy
9. Essential Hypertension:
Antihypertensives adjustment per nephrology.
Continue to monitor and adjust accordingly.
Added back clonidine 0.1 BID
10. Elevated LFT suspect related to sepsis
Abd US unrevealing
LFT improving , continue to monitor LFT
GI input appreciated and GI does not feel obstructive pattern or source of infection
11. Hyponatremia, resolved
Continue Fluid restriction and dialysis
12. Anemia of chronic disease:
KAYLA
Monitor hemoglobin closely
13. Hyperlipidemia:
Hold statin due to elevated LFTs
14. BPH on Flomax
15. acute urinary retention
Placed on reece 09/23
voiding trial started 09/26
16. History of aortic stenosis
DVT prophylaxis: Heparin SQ
CODE STATUS: Full code
Dispo: PT recc Acute, PMR consulted
Anticipated Discharge: 24 - 48 hours
Subjective/Interval History
-
Date of Service: September 29, 2024
Feels oK, no changes.
Objective Data
-
Labs:
Laboratory Results
09/29/24
07:03
WBC 7.5
Hgb 9.6 L
Hct 28.5 L
Plt Count 282
Sodium 135
Potassium 3.9
Chloride 94 L
Carbon Dioxide 32 H
BUN 34 H
Creatinine 3.9 H
Glucose 83
Calcium 10.5 H
Total Bilirubin 0.4
AST 51
ALT 13
Alkaline Phosphatase 128 H
Vital Signs:
Vital Signs
Temp Pulse Resp BP Pulse Ox
98.1 F 71 18 117/52 100
09/29/24 11:15 09/29/24 11:15 09/29/24 11:15 09/29/24 11:15 09/29/24 11:15
I&O
09/28/24 09/29/24 09/30/24
06:59 06:59 06:59
Intake Total 240 / 240
Balance 240 / 240
Review of Systems
-
History Source: Patient
All other systems: Reviewed and negative
Physical Exam
-
General: Well Developed, Well Nourished, No Apparent Distress, Comfortable and Appears Chronically Ill
HEENT: Normocephalic, Nose Appears Normal and Ears Appear Normal
Respiratory: Clear to Auscultation
Cardiac: Regular Rhythm, S1/S2 and Murmur
GI: Soft, Nontender and Nondistended
Musculoskeletal: No Clubbing and No Cyanosis
Skin: Warm and Dry
Neuro: Awake, Alert, Oriented and AO x 3
Psych: Calm
Data Reviewed
-
Labs: Labs Reviewed by me
--- NOTE | 2024-09-29 14:16 | W.PN.NEPH.PH ---
Today's Communication / Plan
-
Dialysis Tuesday
Assessment/Plan
-
Impression:
ESRD MWF
Fever of unknown origin
Encephalopathy
Multidrug resistant hypertension
Elevated LFTs
Anemia of chronic kidney disease
Basal cell carcinoma metastatic origin: last chemotherapy 2 weeks prior from [place]
Staph bacteremia
Plan:
MSSA bacteremia of unclear source: maintained on Cefazoliln
BILLIE neg for vegetation, mod
abx per ID,
EEG in progress
BP more reasonable now that p.o. medications back, clonidine remains held, will restart at lower dose
HD tomorrow ,orders provided
LFTs improving
no acute need for dialysis next treatment will be on Tuesday
Cefazolin last dose 10/08 =2/2/3 g Tuesday
-
-
Date of Service: September 29, 2024
CC / HPI / ROS
-
Chief Complaint:
ESRD
History of Present Illness:
ESRD Tuesday
Blood pressure remains chronically elevated on multidrug
Remains on cefazolin for MSSA bacteremia
BILLIE neg for veg
Review of Systems:
afebrile
drowsy, not communication, back from [facility]
non oliguric alvino reece
Labs
-
Labs:
WBC 7.5 10^3/uL (4.8-10.8) 09/29/24 07:03
RBC 2.83 10^6/uL (4.70-6.10) L 09/29/24 07:03
Hgb 9.6 g/dL (13.0-18.0) L 09/29/24 07:03
Hct 28.5 % (39.0-52.0) L 09/29/24 07:03
Plt Count 282 10^3/uL (130-400) 09/29/24 07:03
Sodium 135 mmol/L (135-145) 09/29/24 07:03
Potassium 3.9 mmol/L (3.5-5.1) 09/29/24 07:03
Chloride 94 mmol/L (98-107) L 09/29/24 07:03
Carbon Dioxide 32 mmol/L (22-30) H 09/29/24 07:03
BUN 34 mg/dl (9-20) H 09/29/24 07:03
Creatinine 3.9 mg/dL (0.7-1.3) H 09/29/24 07:03
eGFR 16.41 09/29/24 07:03
Glucose 83 mg/dl (70-99) 09/29/24 07:03
Calcium 10.5 mg/dl (8.4-10.2) H 09/29/24 07:03
Albumin 3.3 g/dl (3.5-5.0) L 09/29/24 07:03
Physical Exam
-
Vital Signs:
Vital Signs
Temp Pulse Resp BP Pulse Ox
98.1 F 71 18 117/52 100
09/29/24 11:15 09/29/24 11:15 09/29/24 11:15 09/29/24 11:15 09/29/24 11:15
Cardiovascular:: Regular rate and rhythm
Respiratory:: Bilateral: CTA
Lung Excursion:: Normal
Abdomen:: Nontender and Soft
Bowel Sounds:: Normal
Extremity Edema:: None: Bilateral:
Reece Catheter: Yes
[2024-09-29 15:55] VITALS: BP 114/49
[2024-09-29] MEDS: STERILE WATER FOR INJECTION IV (17:10)
[2024-09-29 19:40] VITALS: BP 93/66
[2024-09-29] MEDS: COREG PO (20:23)
[2024-09-29] MEDS: CATAPRES PO (20:23)
[2024-09-29] MEDS: SENOKOT 17.2 MG PO (21:59)
[2024-09-29 23:21] VITALS: BP 123/64
[2024-09-30 03:20] VITALS: BP 139/64
[2024-09-30 05:40] VITALS: BMI 19.0
[2024-09-30 07:07] LABS: Hematocrit 28.6 % (39.0-52.0); Hemoglobin 9.8 g/dL (13.0-18.0); Mean Corp Hgb Conc. 34.3 g/dL (33.0-37.0); Mean Corpuscular Hgb 33.8 pg (27.0-31.0); Mean Corpuscular Volume 98.6 fL (80.0-94.0); Mean Platelet Volume 9.8 fL (7.4-10.4); Platelet Count 286 10^3/uL (130-400); Red Cell Dist. Width 16.1 % (11.5-14.5); White Blood Cell Count 7.8 10^3/uL (4.8-10.8)
[2024-09-30 07:50] LABS: ALT (SGPT) 12 U/L (0-50); AST (SGOT) 55 U/L (17-59); Albumin 3.2 g/dl (3.5-5.0); Alkaline Phosphatase 120 U/L (38-126); Blood Urea Nitrogen 49 mg/dl (9-20); Calcium 10.6 mg/dl (8.4-10.2); Carbon Dioxide 29 mmol/L (22-30); Chloride 91 mmol/L (98-107); Estimated Creatinine Clearance 11 ml/min; Glucose 85 mg/dl (70-99); Potassium 4.5 mmol/L (3.5-5.1); Sodium 131 mmol/L (135-145); Total Bilirubin 0.5 mg/dl (0.2-1.3); Total Protein 5.7 g/dl (6.3-8.2); eGFR 11.11
[2024-09-30 07:58] VITALS: BP 130/66
[2024-09-30] MEDS: ASPIR LOW (ENTERIC COATED) 81 MG PO ×2 (08:31→20:06)
[2024-09-30] MEDS: DIOVAN 320 MG PO (08:31)
[2024-09-30] MEDS: PROTONIX 40 MG PO ×2 (08:31→20:06)
[2024-09-30] MEDS: CATAPRES 0.1 MG PO ×2 (08:31→20:06)
[2024-09-30] MEDS: HEPARIN 5000 UNITS SC ×3 (08:34→23:23)
[2024-09-30] MEDS: IMDUR (EXTENDED RELEASE) 30 MG PO (08:34)
[2024-09-30] MEDS: NORVASC 10 MG PO (08:34)
[2024-09-30] MEDS: FLOMAX 0.4 MG PO ×2 (08:34→20:06)
[2024-09-30] MEDS: COREG 25 MG PO ×2 (08:34→20:06)
[2024-09-30] MEDS: MIRALAX 17 GRAMS PO (08:35)
--- NOTE | 2024-09-30 10:30 | W.PN.HOSP.TC ---
Today's Communication/Plan
-
Doing well. Probable discharge tomorrow.
Assessment / Plan
Assessment / Plan
64 man with sepsis.
A/P:
1. Sepsis due to MSSA bacteremia: resolved
Repeat blood cultures from 09/23 negative, follow blood culture from 09/24
TTE did not show vegetation, BILLIE 09/25 also negative for vegetation
Continue IV antibiotic per ID, now on cefazolin MWF with dialysis, last dose on 10/08/24.
See ID note for full duration of abx course.
2. acute metabolic encephalopathy, resolved
3. presentation with word finding difficulty, resolved
Per family, pt does not have cognitive/memory impairment at baseline, he was fully functional and works/drives [employer]
Acute change in mental status was likely related to current infection
Repeat CT head 09/24 again showed no acute intracranial abnormalities.
Not able to get MRI brain due to spine stimulator not compatible
EEG report noted, showed abnormal pattern during the time of his confusion
Neuro consulted
MS improved and back to baseline, now awake and conversant, AOx3
4. Acute hypoxic respiratory failure, resolved
5. Worsening hypoxia suspect related to aspiration pneumonia, resolved
weaned back to RA
6. GI issues - stable
diet advanced to regular and thin liquid with improved MS
Cont added PPI IV BID
GI was consulted for possible hematemesis which has resolved
7. End-stage renal disease on hemodialysis:
Hemodialysis per nephrology
8. History of skin cancer with mets to lymph nodes and left upper lobe lung on chemotherapy/immunotherapy
9. Essential Hypertension:
Antihypertensives adjustment per nephrology.
Continue to monitor and adjust accordingly.
Added back clonidine 0.1 BID
10. Elevated LFT suspect related to sepsis
Abd US unrevealing
LFT improving , continue to monitor LFT
GI input appreciated and GI does not feel obstructive pattern or source of infection
11. Hyponatremia, resolved
Continue Fluid restriction and dialysis
12. Anemia of chronic disease:
KAYLA
Monitor hemoglobin closely
13. Hyperlipidemia:
Hold statin due to elevated LFTs
14. BPH on Flomax
15. acute urinary retention
Placed on reece 09/23
voiding trial started 09/26
16. History of aortic stenosis
DVT prophylaxis: Heparin SQ
CODE STATUS: Full code
Dispo: PT recc Acute, PMR consulted
Anticipated Discharge: Within 24 hours
Subjective/Interval History
-
Date of Service: September 30, 2024
Feels well, no new issues.
Objective Data
-
Labs:
Laboratory Results
09/30/24
06:36
WBC 7.8
Hgb 9.8 L
Hct 28.6 L
Plt Count 286
Sodium 131 L
Potassium 4.5
Chloride 91 L
Carbon Dioxide 29
BUN 49 H
Creatinine 5.4 H*
Glucose 85
Calcium 10.6 H
Total Bilirubin 0.5
AST 55
ALT 12
Alkaline Phosphatase 120
Vital Signs:
Vital Signs
Temp Pulse Resp BP Pulse Ox
97.3 F 83 20 130/66 98
09/30/24 07:58 09/30/24 07:58 09/30/24 07:58 09/30/24 07:58 09/30/24 08:00
I&O
09/29/24 09/30/24 10/01/24
06:59 06:59 06:59
Intake Total 240 / 240 480 / 480
Balance 240 / 240 480 / 480
Review of Systems
-
History Source: Patient
All other systems: Reviewed and negative
Physical Exam
-
General: Well Developed, Well Nourished, No Apparent Distress and Comfortable
HEENT: Nose Appears Normal and Ears Appear Normal
Respiratory: Clear to Auscultation
Cardiac: Regular Rhythm, S1/S2 and Murmur
GI: Soft, Nontender and Nondistended
Musculoskeletal: No Clubbing, No Cyanosis and No Edema
Skin: Warm and Dry
Neuro: Awake, Alert and Oriented
Psych: Calm
Data Reviewed
-
Labs: Labs Reviewed by me
[2024-09-30 11:13] VITALS: BP 149/49
--- NOTE | 2024-09-30 12:21 | W.PN.NEPH.PH ---
Today's Communication / Plan
-
Dialysis tomorrow
Assessment/Plan
-
Impression:
ESRD MWF
Fever of unknown origin
Encephalopathy
Multidrug resistant hypertension
Elevated LFTs
Anemia of chronic kidney disease
Basal cell carcinoma metastatic origin: last chemotherapy 2 weeks prior from [place]
Staph bacteremia
Plan:
MSSA bacteremia of unclear source: maintained on Cefazoliln
BILLIE neg for vegetation, mod
abx per ID,
EEG in progress
BP more reasonable now that p.o. medications back, clonidine remains held, will restart at lower dose
HD tomorrow ,orders provided
LFTs improving
no acute need for dialysis next treatment will be on Tuesday
Cefazolin last dose 10/08 =2/2/3 g Tuesday
-
-
Date of Service: September 30, 2024
CC / HPI / ROS
-
Chief Complaint:
ESRD
History of Present Illness:
ESRD Tuesday
Blood pressure remains chronically elevated on multidrug
Remains on cefazolin for MSSA bacteremia
BILLIE neg for veg
Review of Systems:
afebrile
drowsy, not communication, back from [facility]
non oliguric alvino reece
Labs
-
Labs:
WBC 7.8 10^3/uL (4.8-10.8) 09/30/24 06:36
RBC 2.90 10^6/uL (4.70-6.10) L 09/30/24 06:36
Hgb 9.8 g/dL (13.0-18.0) L 09/30/24 06:36
Hct 28.6 % (39.0-52.0) L 09/30/24 06:36
Plt Count 286 10^3/uL (130-400) 09/30/24 06:36
Sodium 131 mmol/L (135-145) L 09/30/24 06:36
Potassium 4.5 mmol/L (3.5-5.1) 09/30/24 06:36
Chloride 91 mmol/L (98-107) L 09/30/24 06:36
Carbon Dioxide 29 mmol/L (22-30) 09/30/24 06:36
BUN 49 mg/dl (9-20) H 09/30/24 06:36
Creatinine 5.4 mg/dL (0.7-1.3) H* 09/30/24 06:36
eGFR 11.11 09/30/24 06:36
Glucose 85 mg/dl (70-99) 09/30/24 06:36
Calcium 10.6 mg/dl (8.4-10.2) H 09/30/24 06:36
Albumin 3.2 g/dl (3.5-5.0) L 09/30/24 06:36
Physical Exam
-
Vital Signs:
Vital Signs
Temp Pulse Resp BP Pulse Ox
97.1 F 72 18 149/49 100
09/30/24 11:13 09/30/24 11:13 09/30/24 11:13 09/30/24 11:13 09/30/24 11:13
Cardiovascular:: Regular rate and rhythm
Respiratory:: Bilateral: CTA
Lung Excursion:: Normal
Abdomen:: Nontender and Soft
Bowel Sounds:: Normal
Extremity Edema:: None: Bilateral:
Reece Catheter: Yes
[2024-09-30 14:59] VITALS: BP 132/62
--- NOTE | 2024-09-30 15:56 | CM ---
CM reviewed chart, referral placed to [facility], will review with admissions Tuesday regarding ability to accept with outpatient HD. Patient remains on IV antibiotics- will require IV antibiotics upon discharge. CM will continue to follow for
all discharge planning needs.
Plan; probable [facility] SNF 10/01 with [facility]patient [facility] with IV cefazolin at dialysis, please confirm ability to accept with admissions.
[2024-09-30] MEDS: STERILE WATER FOR INJECTION IV (16:43)
[2024-09-30 19:41] VITALS: BP 152/69
[2024-09-30] MEDS: SENOKOT PO (21:03)
[2024-09-30 23:25] VITALS: BP 158/68
[2024-10-01 03:30] VITALS: BP 149/64
[2024-10-01] MEDS: PROTONIX IV 40 MG IV (03:48)
[2024-10-01] MEDS: NSS (PRESERVATIVE FREE) 10 ML IV (03:48)
[2024-10-01 05:11] VITALS: BMI 19.6
[2024-10-01 07:00] VITALS: BP 141/63
[2024-10-01] MEDS: CATAPRES 0.1 MG PO (07:48)
[2024-10-01] MEDS: NORVASC 10 MG PO (07:48)
[2024-10-01] MEDS: MIRALAX 17 GRAMS PO (07:49)
[2024-10-01] MEDS: IMDUR (EXTENDED RELEASE) 30 MG PO (07:49)
[2024-10-01] MEDS: ASPIR LOW (ENTERIC COATED) 81 MG PO (07:49)
[2024-10-01] MEDS: PROTONIX 40 MG PO (07:49)
[2024-10-01] MEDS: FLOMAX 0.4 MG PO (07:49)
[2024-10-01] MEDS: COREG 25 MG PO (07:49)
[2024-10-01] MEDS: HEPARIN 5000 UNITS SC (07:49)
[2024-10-01] MEDS: DIOVAN 320 MG PO (07:49)
[2024-10-01] MEDS: STERILE WATER FOR INJECTION IV (07:51)
[2024-10-01] MEDS: DETROL LA 4 MG PO (07:51)
[2024-10-01 08:21] LABS: Hemoglobin 9.5 g/dL (13.0-18.0); Mean Corp Hgb Conc. 33.9 g/dL (33.0-37.0); Mean Corpuscular Hgb 33.7 pg (27.0-31.0); Mean Corpuscular Volume 99.3 fL (80.0-94.0); Mean Platelet Volume 10.1 fL (7.4-10.4); Platelet Count 303 10^3/uL (130-400); Red Blood Cell Count 2.82 10^6/uL (4.70-6.10); Red Cell Dist. Width 16.1 % (11.5-14.5); White Blood Cell Count 8.3 10^3/uL (4.8-10.8)
[2024-10-01 09:08] LABS: ALT (SGPT) 12 U/L (0-50); AST (SGOT) 54 U/L (17-59); Alkaline Phosphatase 143 U/L (38-126); Blood Urea Nitrogen 69 mg/dl (9-20); Calcium 10.2 mg/dl (8.4-10.2); Carbon Dioxide 27 mmol/L (22-30); Chloride 90 mmol/L (98-107); Estimated Creatinine Clearance 9 ml/min; Glucose 82 mg/dl (70-99); Potassium 4.9 mmol/L (3.5-5.1); Sodium 127 mmol/L (135-145); Total Bilirubin 0.4 mg/dl (0.2-1.3); Total Protein 5.4 g/dl (6.3-8.2); eGFR 9.06
--- NOTE | 2024-10-01 09:16 | W.PN.HOSP.TC ---
Today's Communication/Plan
-
Discharge planning today
Assessment / Plan
Assessment / Plan
Physical exam:
General: Chronically ill
HEENT: Normocephalic, Atraumatic and Moist Mucous Membranes
Respiratory: Clear to Auscultation; Negative Wheezes, Rales or Rhonchi
Cardiac: Regular Rhythm and S1/S2
GI: Soft, Nontender and Nondistended
Musculoskeletal: No Clubbing, No Cyanosis and No Edema
Neuro: Awake, Alert and Oriented, no neurological deficit
Psych: Calm
64 man with sepsis.
A/P:
1. Sepsis due to MSSA bacteremia: resolved
Repeat blood cultures from 09/23 negative, follow blood culture from 09/24
TTE did not show vegetation, BILLIE 09/25 also negative for vegetation
Continue IV antibiotic per ID, now on cefazolin MWF with dialysis, last dose on 10/08/24.
See ID note for full duration of abx course.
2. acute metabolic encephalopathy, resolved
3. presentation with word finding difficulty, resolved
Per family, pt does not have cognitive/memory impairment at baseline, he was fully functional and works/drives [employer]
Acute change in mental status was likely related to current infection
Repeat CT head 09/24 again showed no acute intracranial abnormalities.
Not able to get MRI brain due to spine stimulator not compatible
EEG report noted, showed abnormal pattern during the time of his confusion
Neuro consulted
MS improved and back to baseline, now awake and conversant, AOx3
4. Acute hypoxic respiratory failure, resolved
5. Worsening hypoxia suspect related to aspiration pneumonia, resolved
weaned back to RA
6. GI issues - stable
diet advanced to regular and thin liquid with improved MS
Cont added PPI IV BID changed to oral
GI was consulted for possible hematemesis which has resolved
7. End-stage renal disease on hemodialysis:
Hemodialysis per nephrology
8. History of skin cancer with mets to lymph nodes and left upper lobe lung on chemotherapy/immunotherapy
9. Essential Hypertension:
Antihypertensives adjustment per nephrology.
Continue to monitor and adjust accordingly.
Added back clonidine 0.1 TID
10. Elevated LFT suspect related to sepsis
Abd US unrevealing
LFT improving , continue to monitor LFT
GI input appreciated and GI does not feel obstructive pattern or source of infection
11. Hyponatremia, resolved
Continue Fluid restriction and dialysis
12. Anemia of chronic disease:
KAYLA
Monitor hemoglobin closely
13. Hyperlipidemia:
Hold statin due to elevated LFTs
14. BPH on Flomax
15. acute urinary retention
Placed on reece 09/23
voiding trial started 09/26
16. History of aortic stenosis
DVT prophylaxis: Heparin SQ
CODE STATUS: Full code
Dispo: SNF
Anticipated Discharge: Today
Subjective/Interval History
-
Date of Service: October 01, 2024
No new complaints. Afebrile
Objective Data
-
Labs:
Laboratory Results
10/01/24
07:21
WBC 8.3
Hgb 9.5 L
Hct 28.0 L
Plt Count 303
Sodium 127 L
Potassium 4.9
Chloride 90 L
Carbon Dioxide 27
BUN 69 H
Creatinine 6.4 H*
Glucose 82
Calcium 10.2
Total Bilirubin 0.4
AST 54
ALT 12
Alkaline Phosphatase 143 H
Vital Signs:
Vital Signs
Temp Pulse Resp BP Pulse Ox
98.0 F 80 18 141/63 100
10/01/24 07:00 10/01/24 07:00 10/01/24 07:00 10/01/24 07:00 10/01/24 07:00
I&O
09/30/24 10/01/2425
06:59 06:59 06:59
Intake Total 480 / 480 960 / 960
Balance 480 / 480 960 / 960
[2024-10-01 10:28] VITALS: BP 138/65; O2SAT 99
[2024-10-01 10:41] VITALS: BP 158/65; PULSE 87; O2SAT 98
[2024-10-01 11:00] VITALS: BP 151/62
--- NOTE | 2024-10-01 12:19 | CM ---
Addendum entered by Pat Lima 10/01/24 16:32:
Met with patient and sister at bedside
IMM benefit explained; form signed @ 1627
Sister will transport patient to [facility] via private car after completion of HD therapy ~ 5:00 PM; facility notified
Original Note:
Cleared for discharge to SNF today after HD treatment
Plan: Discharge to SNF @ [facility] for Rehab; facility will support HD during stay; transport to be determined
[facility] for Rehab:
Report # [phone]
--- NOTE | 2024-10-01 12:34 | W.DCSUMMARY ---
Discharge Summary
Discharge Data
Date of Admission: 09/21/24
Date of Discharge: 10/01/24
-
Pending Results: No
Hospital Course
Patient is 64 years old male with history of end-stage renal disease on hemodialysis, skin cancer status post chemo and immunotherapy, hypertension, hyperlipidemia, chronic diastolic CHF, presented to the hospital with altered mental status. He was
found to have fever and leukocytosis and elevated LFTs and sepsis due to unclear source. He was started on broad-spectrum IV antibiotics. ID was consulted. GI consulted as well and nephrology. GI felt there was no obstructive pathology at the
biliary level and that was not the source of infection either. Nephrology continue with his hemodialysis needs. ID did extensive workup but no clear source identified but suspected infective endocarditis. He had TTE initially with no
abnormalities from infectious standpoint but mild MR, mild TR, moderate AAS with peak/mean gradient 49/24 mmHg and estimated PAP 62 mmHg. He also underwent BILLIE with no abnormalities either from infection standpoint but mildly thickened aortic
valve, trace aortic regurgitation, trace mitral regurgitation, mild tricuspid regurgitation. GI reconsulted for hematemesis but there was no need for any endoscopic intervention since patient remained stable and recommended to continue PPI and
bowel regimen for constipation. Patient overall did relatively well but given his long hospitalization he was evaluated for acute rehab versus subacute skilled rehab and it was determined it would be best for him to go to subacute rehab. No other
events were noticed. Patient will be discharged in relatively stable condition today.
Discharge duration: 35 minutes
Discharge Plan
-
Patient Disposition: Longterm/SNF
Discharge Diagnosis/Procedures: Methicillin sensitive Staphylococcus aureus bacteremia. History of skin cancer on chemotherapy. End-stage renal disease on hemodialysis. History of aortic stenosis.
Condition: Fair
Diet: Low Cholesterol and 2 Gram Sodium
Activity: As tolerated
Blood Work: Please PCP to order CBC, BMP within 1 week
Activity Restrictions/Additional Instructions:
Continue cefazolin 2/2/3g IV MWF with dialysis, last dose on 10/08/24.
Weekly CBC and CMP while on cefazolin.
Referrals:
Melo Mae DO [Active] - in four to six weeks
Issac Hernandez DO [Active] - in one to two weeks
Shamar Allen MD [Family Provider] - in less than 1 week
Flaquita Redmond DO [Active] - in four to six weeks
Tayler Bliss MD [Active] - in two to four weeks
Prescriptions:
New
carvedilol 25 mg Tablet
25 mg PO BID 30 Days Qty: 60 0RF
polyethylene glycol 3350 17 gram Powder In Packet
17 g PO DAILY 15 Days Qty: 15 0RF
cefazolin 10 gram Recon Soln
2 g IV MoWe@1800 Qty: 3 0RF
pantoprazole 40 mg Tablet,Delayed Release (Dr/Ec)
40 mg PO BID 30 Days Qty: 60 0RF
CeFAZolin SODIUM [Ancef] 3000 MG
Syringe [Syringe-Pump] 0 ML
180 mls/hr IV FR@1800
Ordered By: Dalton Goncalves MD
Last Taken: 09/28/24 17:17 15 mls
Continued
clonidine HCl 0.2 mg Tablet
0.2 mg PO TID Qty: 90 0RF
atorvastatin 80 mg Tablet
80 mg PO DAILY
isosorbide mononitrate 30 mg Tablet Extended Release 24 Hr
30 mg PO DAILY
aspirin 81 mg Tablet,Delayed Release (Dr/Ec)
81 mg PO BID
tamsulosin 0.4 mg Capsule
0.4 mg PO BID
ropinirole 0.25 mg Tablet
0.25 mg PO HS
amlodipine 10 mg Tablet
10 mg PO DAILY
valsartan 320 mg Tablet
320 mg PO DAILY
mirtazapine 15 mg Tablet
15 mg PO HS
trospium 20 mg Tablet
20 mg PO BID
ferric citrate [Auryxia] 210 mg iron Tablet
210 mg PO BID
Retacrit 4,000 unit/mL Solution
4,000 unit SC MOWEFR
magnesium oxide 400 mg magnesium Tablet
400 mg PO HS
Gemtesa 75 mg Tablet
75 mg PO DAILY
Discontinued
metoprolol succinate 50 mg Tablet Extended Release 24 Hr
50 mg PO BID
Discharge Orders:
Discharge Patient (As Directed); Ordered 10/01/24
Ordered By: Dalton Goncalves
Discharge Date and Time
Discharge Date/Time: 10/01/24 18:01
Print Language: KOSOVAN
[2024-10-01] MEDS: EMLA CREAM 1 GRAM TOPICAL (13:10)
[2024-10-01] MEDS: PREVNAR 20 0.5 ML IM (13:21)
--- NOTE | 2024-10-01 13:49 | W.PN.NEPH.HD ---
Assessment
-
Seen on HD. no complaints. VSS, access ok
for rehab
ancef until 10/08
Progress Note - Hemodialysis
-
Date of Service: October 01, 2024
Duration: 30 minutes and 3 hours
Potassium Bath: 2
Calcium Bath: 2.5
Opti-Dialyzer: 160
Ultrafiltration: Other (0.5)
Blood Flow: 350
Dialysate Flow: 600
Heparin: 0
EPO: 4000 units
[2024-10-01] MEDS: FLEXBUMIN 25% FOR HEMODIALYSIS 12.5 GRAMS IV (14:22)
[2024-10-01] MEDS: MANNITOL 25% 12.5 GRAMS IV (14:24)
[2024-10-01] MEDS: RETACRIT 4000 UNITS IV (14:32)
[2024-10-01 15:00] VITALS: BP 122/56
[2024-10-01] MEDS: HEPARIN SC (15:57)
--- NOTE | 2024-10-02 13:42 | CM ---
Per request, Discharge Summary and Last ID Progress Note faxed to Aga @ [facility]
== END 2024-10-01 18:01 | DRG 871 ==
LOC: 4 WEST ACU 01:57
PROVIDERS: Internal Medicine; Internal Medicine Cardiovascular Disease; Internal Medicine Nephrology; Physician Assistant; Specialist; ADMITTING PHYSICIAN Internal Medicine; ATTENDING PHYSICIAN Hospitalist; CONSULT PHYSICIAN Internal Medicine Gastroenterology; CONSULT PHYSICIAN Nuclear Medicine Nuclear Cardiology; CONSULT PHYSICIAN Physical Medicine & Rehabilitation; CONSULT PHYSICIAN Psychiatry & Neurology Neurology; EMERGENCY PHYSICIAN Emergency Medicine; FAMILY PHYSICIAN Internal Medicine; OTHER PHYSICIAN Internal Medicine Infectious Disease; OTHER PHYSICIAN Specialist
PROC: 5A1D70Z Performance of Urinary Filtration, Intermittent, Less than 6 Hours Per Day (ICD-10-PCS; 2024-09-21)
PROC: B24BZZ4 Ultrasonography of Heart with Aorta, Transesophageal (ICD-10-PCS; 2024-09-25)
PROC: 3E0234Z Introduction of Serum, Toxoid and Vaccine into Muscle, Percutaneous Approach (ICD-10-PCS; 2024-10-01)
DX: A41.01 Sepsis due to Methicillin susceptible Staphylococcus aureus (principal); G93.41 Metabolic encephalopathy; J96.01 Acute respiratory failure with hypoxia; J69.0 Pneumonitis due to inhalation of food and vomit; N18.6 End stage renal disease; I13.2 Hypertensive heart and chronic kidney disease with heart failure and with stage 5 chronic kidney disease, or end stage renal disease; I50.32 Chronic diastolic (congestive) heart failure; Z68.1 Body mass index [BMI] 19.9 or less, adult; C77.9 Secondary and unspecified malignant neoplasm of lymph node, unspecified; C78.02 Secondary malignant neoplasm of left lung; E87.1 Hypo-osmolality and hyponatremia; R47.01 Aphasia; E88.A Wasting disease (syndrome) due to underlying condition; Z99.2 Dependence on renal dialysis; C44.91 Basal cell carcinoma of skin, unspecified; Z79.60 Long term (current) use of unspecified immunomodulators and immunosuppressants; D63.1 Anemia in chronic kidney disease; E78.00 Pure hypercholesterolemia, unspecified; N40.0 Benign prostatic hyperplasia without lower urinary tract symptoms; I35.0 Nonrheumatic aortic (valve) stenosis; Z79.82 Long term (current) use of aspirin; Z82.5 Family history of asthma and other chronic lower respiratory diseases; Z82.49 Family history of ischemic heart disease and other diseases of the circulatory system; Z86.73 Personal history of transient ischemic attack (TIA), and cerebral infarction without residual deficits; Z79.899 Other long term (current) drug therapy; K80.20 Calculus of gallbladder without cholecystitis without obstruction; I1A.0 Resistant hypertension; F17.210 Nicotine dependence, cigarettes, uncomplicated; I25.10 Atherosclerotic heart disease of native coronary artery without angina pectoris; E83.52 Hypercalcemia; B36.9 Superficial mycosis, unspecified; F41.9 Anxiety disorder, unspecified; I27.21 Secondary pulmonary arterial hypertension; L89.302 Pressure ulcer of unspecified buttock, stage 2; Z91.148 Patient's other noncompliance with medication regimen for other reason; Z11.52 Encounter for screening for COVID-19; Z23 Encounter for immunization; Z99.81 Dependence on supplemental oxygen
CPT/HCPCS: 70450; 71045; 71046; 74018; 74176; 74230; 76700; 80053; 80061; 81003; 81015; 82077; 82140; 82248; 82962; 83605; 83690; 83735; 84145; 85025; 85027; 86704; 86705; 86706; 86708; 86709; 86803; 87040; 87070; 87150; 87186; 87205; 87340; 87449; 87502; 87811; 87880; 87899; 90677; 92523; 92526; 92610; 92611; 93005; 93306; 93312; 93320; 93325; 95816; 96365; 96366; 96375; 97116; 97163; 97167; 97530; 97535; 99285; G0009; G0257; P9047; Q5106

== ENCOUNTER 2024-11-11 14:26 | Inpatient (IN) | payer MEDICARE, SELFPAY ==
[2024-11-11] VITALS (13 sets, daily range): BP systolic 150–219; BP diastolic 62–105; BMI 20.8; BMI 20.1
[2024-11-11 09:38] LABS: % Basophils 0.6 % (0-2); % Eosinophils 0.5 % (0-6); % Immature Granulocytes 0.4 % (0-0.5); % Lymphocytes 7.9 % (20.5-51.1); % Monocytes 16.6 % (1.7-9.3); Absolute Basophils 0.1 10^3/uL (0-0.2); Absolute Eosinophils 0.1 10^3/uL (0-0.7); Absolute Immature Granulocytes 0.1 10^3/uL (0-0.05); Absolute Lymphocytes 1.2 10^3/uL (1.2-3.4); Absolute Monocytes 2.6 10^3/uL (0.1-0.6); Absolute Neutrophils 11.4 10^3/uL (1.4-6.5); Hematocrit 39.8 % (39.0-52.0); Hemoglobin 13.2 g/dL (13.0-18.0); Mean Corp Hgb Conc. 33.2 g/dL (33.0-37.0); Mean Corpuscular Hgb 34.4 pg (27.0-31.0); Mean Corpuscular Volume 103.6 fL (80.0-94.0); Mean Platelet Volume 9.6 fL (7.4-10.4); Nucleated Red Blood Cells % 0 % (-); Platelet Count 277 10^3/uL (130-400); Red Blood Cell Count 3.84 10^6/uL (4.70-6.10); Red Cell Dist. Width 15.6 % (11.5-14.5); White Blood Cell Count 15.5 10^3/uL (4.8-10.8)
[2024-11-11 10:19] LABS: ALT (SGPT) 53 U/L (0-50); AST (SGOT) 40 U/L (17-59); Albumin 4.4 g/dl (3.5-5.0); Alkaline Phosphatase 94 U/L (38-126); Blood Urea Nitrogen 63 mg/dl (9-20); Calcium 11.3 mg/dl (8.4-10.2); Carbon Dioxide 26 mmol/L (22-30); Chloride 95 mmol/L (98-107); Glucose 107 mg/dl (70-99); Lipase 146 U/L (23-300); Potassium 5.9 mmol/L (3.5-5.1); Sodium 132 mmol/L (135-145); Total Bilirubin 0.6 mg/dl (0.2-1.3); Total Protein 7.4 g/dl (6.3-8.2); eGFR 12.18
--- NOTE | 2024-11-11 11:24 | ED.GENMED ---
History of Present Illness
<Maria Del Carmen Varela PA-C - Last Filed: 11/11/24 15:43>
General
Chief Complaint: Abdominal Pain
Source: patient
Exam Limitations: none
Time Seen by Provider: 11/11/24 10:52
Nursing documentation reviewed up to this point in time: agreed with
History of Present Illness
History of Present Illness:
Patient is a 64-year-old male with a past medical history of end-stage renal disease on hemodialysis Tuesday/Tuesday/Fridays, skin cancer status postchemotherapy and immunotherapy, hypertension, hyperlipidemia, chronic diastolic congestive heart
failure, recent prolonged hospitalization last month for fever of unknown origin which was thought to be secondary to infective endocarditis but which was then ruled out, who presents to the emergency department for 4 days of left upper abdominal
pain. Patient reports the pain started in his left upper abdomen and then seemed to move across to the mid epigastrium and right upper abdomen. Patient reports that now the pain is back only in the left upper abdomen. He reports that it has
started to radiate into the left side of his mid back and also into his left shoulder and left arm. Patient reports the pain is part worse with deep inspiration. Patient denies anything seems to make the pain better. Patient denies recent fevers,
chills, cough, hemoptysis, nausea, vomiting. He reports that he has intermittent diarrhea and constipation which is normal for him. Patient reports that he does have some known degenerating disks in his back and does suffer with chronic back pain
but notes that this feels different. Patient reports that he is unable to sleep over the past 4 days due to the degree of pain that he has been experiencing and finally decided to come to the emergency department today.
Past History
<Maria Del Carmen Varela PA-C - Last Filed: 11/11/24 15:43>
Past History
ED Past Medical History: CHF, HTN and Renal failure (on dialysis)
Social History
Tobacco: Smoker (cigars)
Alcohol: None
Personal: Single
Living: with roommate
Employment: Not employed
Review of Systems
<Maria Del Carmen Varela PA-C - Last Filed: 11/11/24 15:43>
Review of Systems
Allergies reviewed?: Yes
All Other Systems: ROS reviewed and negative except as documented in HPI and ROS
Constitutional: Reports no symptoms
EENT: Reports no symptoms
Respiratory: Reports other (pain with breathing)
Cardiac: Reports chest pain
ABD/GI: Reports abdominal pain, diarrhea and constipated; Denies nausea or vomiting
: Reports no symptoms
Musculoskeletal: Reports back pain
Skin: Reports no symptoms
Neurological: Reports no symptoms
Endocrine: Reports no symptoms
Hematologic/Lymphatic: Reports no symptoms
Psychiatric: Reports no symptoms
Phy Exam
<Maria Del Carmen Varela PA-C - Last Filed: 11/11/24 15:43>
General Physical Exam
General Presentation: no apparent distress and mild distress (appears uncomfortable due to pain)
General age: appears older than age
General Skin: warm, dry and other (multiple skin lesions to the face)
General Habitus: frail
General Mental: alert
General Hydration: appears well hydrated
ENT Exam
ENT Exam: EOMI, pharynx normal, neck supple and normocephalic
Eye Exam
Eye Exam: PERRL, cornea clear and conjunctiva normal
Cardiovascular Exam
Cardiovascular Exam: regular rate/rhythm, no edema, no murmur and normal peripheral pulses
Pulmonary Exam
Pulmonary Exam: lungs clear, no respiratory distress, no rales, no crackles, no rhonchi, no stridor, no wheezing and no cough
Gastrointestinal Exam
Gastrointestinal Exam: normal bowel sounds, soft, no organomegaly, no pulsatile mass and non distended
Palpation: left upper quadrant: Mild tenderness
Neurological Exam
Neurological Exam: alert, oriented x3, no motor deficits and speech normal
Musculoskeletal Exam
Musculoskeletal Exam: full ROM and no edema
Skin Exam
Skin Exam: normal color, warm/dry, no rash and no petechia
Psychiatric Exam
Psychiatric Exam: normal mood/affect
Course
<Maria Del Carmen Varela PA-C - Last Filed: 11/11/24 15:43>
Orders/Labs/Results
Orders:
Orders
11/11/24 09:04
Electrocardiogram (*1) Urgent
Reason for Study: Abdominal Pain
EKG- Treatment ONCE
11/11/24 09:23
CMP [Comprehensive Metabolic Panel] Urgent
Complete Blood Count/With Diff Urgent
Lipase Urgent
Troponin I Urgent
11/11/24 11:22
CT Chest/abd/pel W Iv Cont Urgent
Comment:
Reason For Exam: pleuritic LUQ pain to left thoracic back/arm
Morphine Sulfate 4 mg IV NOW STA
11/11/24 12:31
Cardiac Monitoring- Treatment ONCE
Calcium Gluconate 1,000 mg IV NOW STA
Dextrose 50%-Water [Dextrose 50% Syringe] 12.5 grams IV [id number] PRN
Dextrose 50%-Water [Dextrose 50% Syringe] 25 grams IV NOW STA
Insulin Human Regular [Novolin R] 10 units IV NOW STA
11/11/24 12:32
Bedside Glucose PRE IV Insulin- HyperK+ NOW
11/11/24 13:59
Sodium Zirconium Cyclosilicate [Lokelma] 10 gram PO NOW STA
11/11/24 14:02
Bedside Glucose POST IV Insulin- HyperK+ Q1HX2,Q2HX2
11/11/24 14:08
Admit/Transfer Patient As Directed
Co-Sign Provider:
Level of Care: Inpatient admission
Assign to:: Telemetry
Physician / Group: vamshi
Diagnosis: splenic infarct
Reason for Telemetry: Arrhythmia
Date to Stop Telemetry: 11/14/24
Time to Stop Telemetry: 11:00
Reason for Hospitalization: splenic infarct
Expected length of stay greater than two midnights?: Yes
ELOS- Estimated Length of Stay in days: 2
I certify the patient meets the requirements for IP care: Yes
Code Status As Directed
Resuscitation Status: Full Code
PRN Pain Medication Management As Directed
May give lesser potent ordered pain med per pt: Yes
preference::
Protocol:: Medication orders for pain may be administered in a
manner that supports deferring to patient preference
when the pt is:
- Requesting an ordered lesser potent pain medication.
Least to most potent pain medications are defined
as: acetaminophen < NSAID < tramadol < opioids
(morphine, oxycodone, hydromorphone).
- Requesting a lesser dose of the same medication IF
ORDERED.
- Requesting a less intrusive route of administration
if both routes are prescribed by the provider (PO <
IV).
11/11/24 14:[address] See Dose Instructions PO NOW STA
Discontinue all Active Warfarin orders?: Yes
Heparin Protocol- PTT Orders As Directed
PTT per Heparin protocol: -Obtain CBC and baseline PTT - if not already collected.
-Obtain PTT 6 hours from start of infusion. Then, every 6 hours until 2 consecutive
PTT's are therapeutic. Then, PTT Daily.
-With each rate change, obtain PTT every 6 hours until 2 consecutive PTT's are
therapeutic. Then, PTT Daily.
Notify MD As Directed
Notify physician if: PTT is greater than or equal to 200.
11/11/24 14:15
Heparin 94689 Units/250 ml 25,000 units in 250 ml IV PER PROTOCOL
Weight to be used for heparin protocol in kilograms (kg):: 60.3
Protocol:: DVT/PE
PTT Goal Range to be used:: PTT 73 to 111 seconds
Order type:: Initial
INITIAL Infusion Dose (UNITS/KG/hr) & then follow protocol:: 18 units/kg/hr
Infusion Dose in UNITS/hr & then follow protocol (UNITS/hr):: 1,100
INFUSION RATE in mL/hr & then follow protocol (mL/hr):: 11
For DVT/PE algorithm, re-bolus for low PTT?: Yes
PTT less than or equal to 64 seconds:: Re-bolus 80 units/kg (max 10,000units). Increase by 200 units/hr
(+ 2mL/hr)
PTT 64.1 to 72.9 seconds:: Re-bolus 40 units/kg (max 5,000 units). Increase by 100 units/hr
(+ 1mL/hr)
PTT 73 to 111 seconds:: Target Range. No change in rate.
PTT 111.1 to 130.9 seconds:: Decrease rate by 100 units/hr (- 1 mL/hr)
PTT 131 to 199.9 seconds:: HOLD for 1 hr. Then decrease by 200 units/hr (- 2mL/hr)
PTT greater than or equal to 200 seconds:: HOLD for 2 hrs & Notify Provider. Then decrease by 200 units/hr
(- 2mL/hr)
Lab follow-up:: Each change, PTT q6h until 2 consecutive are therapeutic. Then
PTT daily.
11/11/24 14:18
Hemodialysis treatment As Directed
Treatment date:: 11/12/24
Treatment type: Hemodialysis
Ultrafiltration (kg): 2-3kg
Treatment time (duration): 3 hours 30 minutes
Use dialysis access:: AVF
Dialyzer:: Optiflux 160
Blood flow rate minimum: 350
Blood flow rate maximum: 450
Dialysis flow rate: 600 mL/min
Dialysate temperature: 37 degrees Celsius
Sodium (Na): 137
Potassium (K): 2
Calcium (Ca): 2.5
Bicarbonate (HCO3): 37
11/11/24 15:[address] See Dose Instructions IV DIRECTED
11/11/24 15:01
Complete Blood Count/No Diff Urgent
Comment: Obtain baseline before beginning heparin infusion if not already collected
PTT Urgent
Comment: Obtain baseline before beginning heparin infusion if not already collected
Potassium Urgent
Comment: draw 2 hours after regular insulin IV administration
11/12/24 07:00
Electrolytes Urgent
Comment: pre-Hemodialysis lab, to be drawn by HD nurse
11/12/24 08:00
Mannitol 25% 12.5 grams IV HD-Q1HPRN PRN
Sodium Chloride [Sodium Chloride 4 Meq/ml For Hemodialysis] 10 ml IV HD-Q1HPRN PRN
11/13/24 06:00
Complete Blood Count/No Diff Q2D
Comment: Notify MD if platelet count is <130,000 or decreases by 50% from baseline
11/14/24 11:00
DC Protocol for Telemetry ONCE
11/15/24 06:00
Complete Blood Count/No Diff Q2D
Comment: Notify MD if platelet count is <130,000 or decreases by 50% from baseline
11/17/24 06:00
Complete Blood Count/No Diff Q2D
Comment: Notify MD if platelet count is <130,000 or decreases by 50% from baseline
11/19/24 06:00
Complete Blood Count/No Diff Q2D
Comment: Notify MD if platelet count is <130,000 or decreases by 50% from baseline
11/21/24 06:00
Complete Blood Count/No Diff Q2D
Comment: Notify MD if platelet count is <130,000 or decreases by 50% from baseline
11/23/24 06:00
Complete Blood Count/No Diff Q2D
Comment: Notify MD if platelet count is <130,000 or decreases by 50% from baseline
11/25/24 06:00
Complete Blood Count/No Diff Q2D
Comment: Notify if platelet count is <130,000 or decreases by 50% from baseline
11/27/24 06:00
Complete Blood Count/No Diff Q2D
Comment: Notify if platelet count is <130,000 or decreases by 50% from baseline
Abnormal Lab Results
11/11/24 11/11/24
09:23 13:55
WBC 15.5 H 10^3/uL
(4.8-10.8)
RBC 3.84 L 10^6/uL
(4.70-6.10)
MCV 103.6 H fL
(80.0-94.0)
MCH 34.4 H pg
(27.0-31.0)
RDW 15.6 H %
(11.5-14.5)
Abs Immat Gran (auto) 0.1 H 10^3/uL
(0-0.05)
Absolute Neuts (auto) 11.4 H 10^3/uL
(1.4-6.5)
Absolute Monos (auto) 2.6 H 10^3/uL
(0.1-0.6)
Lymphocytes % 7.9 L %
(20.5-51.1)
Monocytes % 16.6 H %
(1.7-9.3)
Sodium 132 L mmol/L
(135-145)
Potassium 5.9 H mmol/L
(3.5-5.1)
Chloride 95 L mmol/L
(98-107)
BUN 63 H mg/dl
(9-20)
Creatinine 5.0 H* mg/dL
(0.7-1.3)
Glucose 107 H mg/dl
(70-99)
Calcium 11.3 H mg/dl
(8.4-10.2)
ALT 53 H U/L
(0-50)
POC Glucose 158 H mg/dl
(70-99)
11/11/24 09:23
11/11/24 09:23
Vital Signs
Initial and Last Documented VS:
Initial Vital Signs
Temp Pulse Resp BP Pulse Ox
97.8 F 73 16 191/96 99
11/11/24 09:01 11/11/24 09:01 11/11/24 09:01 11/11/24 09:01 11/11/24 09:01
Last Documented Vital Signs
Temp Pulse Resp BP Pulse Ox
97.8 F 70 15 188/66 96
11/11/24 09:01 11/11/24 11:34 11/11/24 11:34 11/11/24 12:00 11/11/24 11:34
<Dominick Lara, DO - Last Filed: 11/11/24 13:25>
Orders/Labs/Results
Orders:
Orders
11/11/24 09:04
Electrocardiogram (*1) Urgent
Reason for Study: Abdominal Pain
EKG- Treatment ONCE
11/11/24 09:23
CMP [Comprehensive Metabolic Panel] Urgent
Complete Blood Count/With Diff Urgent
Lipase Urgent
Troponin I Urgent
11/11/24 11:22
CT Chest/abd/pel W Iv Cont Urgent
Comment:
Reason For Exam: pleuritic LUQ pain to left thoracic back/arm
Morphine Sulfate 4 mg IV NOW STA
11/11/24 12:31
Cardiac Monitoring- Treatment ONCE
Calcium Gluconate 1,000 mg IV NOW STA
Dextrose 50%-Water [Dextrose 50% Syringe] 12.5 grams IV [id number] PRN
Dextrose 50%-Water [Dextrose 50% Syringe] 25 grams IV NOW STA
Insulin Human Regular [Novolin R] 10 units IV NOW STA
11/11/24 12:32
Bedside Glucose PRE IV Insulin- HyperK+ NOW
11/11/24 13:59
Sodium Zirconium Cyclosilicate [Lokelma] 10 gram PO NOW STA
11/11/24 14:02
Bedside Glucose POST IV Insulin- HyperK+ Q1HX2,Q2HX2
11/11/24 14:08
Admit/Transfer Patient As Directed
Co-Sign Provider:
Level of Care: Inpatient admission
Assign to:: Telemetry
Physician / Group: vamshi
Diagnosis: splenic infarct
Reason for Telemetry: Arrhythmia
Date to Stop Telemetry: 11/14/24
Time to Stop Telemetry: 11:00
Reason for Hospitalization: splenic infarct
Expected length of stay greater than two midnights?: Yes
ELOS- Estimated Length of Stay in days: 2
I certify the patient meets the requirements for IP care: Yes
Code Status As Directed
Resuscitation Status: Full Code
PRN Pain Medication Management As Directed
May give lesser potent ordered pain med per pt: Yes
preference::
Protocol:: Medication orders for pain may be administered in a
manner that supports deferring to patient preference
when the pt is:
- Requesting an ordered lesser potent pain medication.
Least to most potent pain medications are defined
as: acetaminophen < NSAID < tramadol < opioids
(morphine, oxycodone, hydromorphone).
- Requesting a lesser dose of the same medication IF
ORDERED.
- Requesting a less intrusive route of administration
if both routes are prescribed by the provider (PO <
IV).
11/11/24 14:[address] See Dose Instructions PO NOW STA
Discontinue all Active Warfarin orders?: Yes
Heparin Protocol- PTT Orders As Directed
PTT per Heparin protocol: -Obtain CBC and baseline PTT - if not already collected.
-Obtain PTT 6 hours from start of infusion. Then, every 6 hours until 2 consecutive
PTT's are therapeutic. Then, PTT Daily.
-With each rate change, obtain PTT every 6 hours until 2 consecutive PTT's are
therapeutic. Then, PTT Daily.
Notify MD As Directed
Notify physician if: PTT is greater than or equal to 200.
11/11/24 14:15
Heparin 24170 Units/250 ml 25,000 units in 250 ml IV PER PROTOCOL
Weight to be used for heparin protocol in kilograms (kg):: 60.3
Protocol:: DVT/PE
PTT Goal Range to be used:: PTT 73 to 111 seconds
Order type:: Initial
INITIAL Infusion Dose (UNITS/KG/hr) & then follow protocol:: 18 units/kg/hr
Infusion Dose in UNITS/hr & then follow protocol (UNITS/hr):: 1,100
INFUSION RATE in mL/hr & then follow protocol (mL/hr):: 11
For DVT/PE algorithm, re-bolus for low PTT?: Yes
PTT less than or equal to 64 seconds:: Re-bolus 80 units/kg (max 10,000units). Increase by 200 units/hr
(+ 2mL/hr)
PTT 64.1 to 72.9 seconds:: Re-bolus 40 units/kg (max 5,000 units). Increase by 100 units/hr
(+ 1mL/hr)
PTT 73 to 111 seconds:: Target Range. No change in rate.
PTT 111.1 to 130.9 seconds:: Decrease rate by 100 units/hr (- 1 mL/hr)
PTT 131 to 199.9 seconds:: HOLD for 1 hr. Then decrease by 200 units/hr (- 2mL/hr)
PTT greater than or equal to 200 seconds:: HOLD for 2 hrs & Notify Provider. Then decrease by 200 units/hr
(- 2mL/hr)
Lab follow-up:: Each change, PTT q6h until 2 consecutive are therapeutic. Then
PTT daily.
11/11/24 14:18
Hemodialysis treatment As Directed
Treatment date:: 11/12/24
Treatment type: Hemodialysis
Ultrafiltration (kg): 2-3kg
Treatment time (duration): 3 hours 30 minutes
Use dialysis access:: AVF
Dialyzer:: Optiflux 160
Blood flow rate minimum: 350
Blood flow rate maximum: 450
Dialysis flow rate: 600 mL/min
Dialysate temperature: 37 degrees Celsius
Sodium (Na): 137
Potassium (K): 2
Calcium (Ca): 2.5
Bicarbonate (HCO3): 37
11/11/24 15:[address] See Dose Instructions IV DIRECTED
11/11/24 15:01
Complete Blood Count/No Diff Urgent
Comment: Obtain baseline before beginning heparin infusion if not already collected
PTT Urgent
Comment: Obtain baseline before beginning heparin infusion if not already collected
Potassium Urgent
Comment: draw 2 hours after regular insulin IV administration
11/12/24 07:00
Electrolytes Urgent
Comment: pre-Hemodialysis lab, to be drawn by HD nurse
11/12/24 08:00
Mannitol 25% 12.5 grams IV HD-Q1HPRN PRN
Sodium Chloride [Sodium Chloride 4 Meq/ml For Hemodialysis] 10 ml IV HD-Q1HPRN PRN
11/13/24 06:00
Complete Blood Count/No Diff Q2D
Comment: Notify MD if platelet count is <130,000 or decreases by 50% from baseline
11/14/24 11:00
DC Protocol for Telemetry ONCE
11/15/24 06:00
Complete Blood Count/No Diff Q2D
Comment: Notify MD if platelet count is <130,000 or decreases by 50% from baseline
11/17/24 06:00
Complete Blood Count/No Diff Q2D
Comment: Notify MD if platelet count is <130,000 or decreases by 50% from baseline
11/19/24 06:00
Complete Blood Count/No Diff Q2D
Comment: Notify MD if platelet count is <130,000 or decreases by 50% from baseline
11/21/24 06:00
Complete Blood Count/No Diff Q2D
Comment: Notify MD if platelet count is <130,000 or decreases by 50% from baseline
11/23/24 06:00
Complete Blood Count/No Diff Q2D
Comment: Notify MD if platelet count is <130,000 or decreases by 50% from baseline
11/25/24 06:00
Complete Blood Count/No Diff Q2D
Comment: Notify MD if platelet count is <130,000 or decreases by 50% from baseline
11/27/24 06:00
Complete Blood Count/No Diff Q2D
Comment: Notify MD if platelet count is <130,000 or decreases by 50% from baseline
Abnormal Lab Results
11/11/24 11/11/24
09:23 13:55
WBC 15.5 H 10^3/uL
(4.8-10.8)
RBC 3.84 L 10^6/uL
(4.70-6.10)
MCV 103.6 H fL
(80.0-94.0)
MCH 34.4 H pg
(27.0-31.0)
RDW 15.6 H %
(11.5-14.5)
Abs Immat Gran (auto) 0.1 H 10^3/uL
(0-0.05)
Absolute Neuts (auto) 11.4 H 10^3/uL
(1.4-6.5)
Absolute Monos (auto) 2.6 H 10^3/uL
(0.1-0.6)
Lymphocytes % 7.9 L %
(20.5-51.1)
Monocytes % 16.6 H %
(1.7-9.3)
Sodium 132 L mmol/L
(135-145)
Potassium 5.9 H mmol/L
(3.5-5.1)
Chloride 95 L mmol/L
(98-107)
BUN 63 H mg/dl
(9-20)
Creatinine 5.0 H* mg/dL
(0.7-1.3)
Glucose 107 H mg/dl
(70-99)
Calcium 11.3 H mg/dl
(8.4-10.2)
ALT 53 H U/L
(0-50)
POC Glucose 158 H mg/dl
(70-99)
11/11/24 09:23
11/11/24 09:23
Vital Signs
Initial and Last Documented VS:
Initial Vital Signs
Temp Pulse Resp BP Pulse Ox
97.8 F 73 16 191/96 99
11/11/24 09:01 11/11/24 09:01 11/11/24 09:01 11/11/24 09:01 11/11/24 09:01
Last Documented Vital Signs
Temp Pulse Resp BP Pulse Ox
97.8 F 70 15 188/66 96
11/11/24 09:01 11/11/24 11:34 11/11/24 11:34 11/11/24 12:00 11/11/24 11:34
<Maria Del Carmen Varela PA-C - Last Filed: 11/11/24 15:43>
*Critical Care Note
Total Time (30-74mins, 75-104mins- exclusive of procedures): Not Applicable
<Maria Del Carmen Varela PA-C - Last Filed: 11/11/24 15:43>
Update Note
Update Note:
Patient is a 64-year-old male with multiple comorbidities including end-stage renal disease on dialysis, last dialyzed on his usual day 2 days ago, who presents to the emergency department with 4 days of worsening left upper abdominal pain radiating
to the left chest/shoulder/arm. Patient reports pain is worse with inspiration. Notably, the patient was recently admitted for a prolonged period of time for a fever of unknown origin in which no etiology was ever found. On arrival, patient is
hypertensive, afebrile. On exam, patient does appear chronically ill, in mild distress secondary to pain with inspiration with left upper abdominal pain without rebound or guarding. Labs were obtained while patient was in the waiting room and are
notable for a leukocytosis to 17. Patient's BMP is notable for a creatinine of 5 which is secondary to his end-stage renal disease however potassium is elevated at 5.9 and EKG does demonstrate slightly peaked T waves. Case discussed with ED
attending, will temporize the patient's potassium with calcium, insulin, glucose, Lokelma. CT of the chest/abdomen/pelvis does demonstrate evidence of a splenic infarct. Will admit for further evaluation and treatment. Patient signed out to the
hospitalist without complication.
ED Attending Note
<Maria Del Carmen Varela PA-C - Last Filed: 11/11/24 15:43>
-
Portions of this chart may have been created with voice recognition software.� Occasional wrong word or��sound alike� substitutions may have occurred due to the inherent limitations of voice recognition software.
<Dominick Lara DO - Last Filed: 11/11/24 13:25>
ED Attending Note
Patient seen and examined by attending physician: Yes
I performed the substantive portion of visit, reviewed & personally made and approve the management plan that is documented in note by myself or JAMAL.: Yes
ED Attending Note:
Seen with NIA examined independently 64-year-old male chronically ill ESRD few days of left-sided rib pain abdominal pain admitted previously fever of unknown origin, CT scan report reviewed labs reviewed suspect he is going to require admission for
supportive care, analgesia, monitor for any recurrence of fevers meantime we will treat for mild hyperkalemia
Discharge Plan
Departure
Patient Disposition: Admit
Date of Disposition: 11/11/24
Time of Disposition: 13:29
Presentation/result/management discussed w/ accepting MD/DO: Hospitalist
Patient with high blood pressure during this ER visit?: Yes
Covid-19: Not Applicable
Discharge Problem:
Splenic infarct, Hyperkalemia
Interventions
Interventions:
*Risk Screen - Suicide Last Done: 11/11/24 09:01
*General Assessment Last Done: 11/11/24 13:26
*Neglect/Abuse Screening Last Done: 11/11/24 09:01
*ED- Fall Risk Assessment Last Done: 11/11/24 13:26
*ED COVID-19 Vaccine History Last Done: 11/11/24 13:26
[facility] Assessment Last Done: 11/11/24 12:16
[2024-11-11] MEDS: MORPHINE SULFATE 4 MG IV ×2 (11:45→19:41)
[2024-11-11 13:02] LABS: Glucose - Point of Care 99 mg/dl (70-99)
[2024-11-11] MEDS: CALCIUM GLUCONATE 1000 MG IV (13:13)
[2024-11-11] MEDS: DEXTROSE 50% SYRINGE 25 GRAMS IV (13:13)
[2024-11-11] MEDS: NOVOLIN R 10 UNITS IV (13:22)
--- NOTE | 2024-11-11 13:44 | W.CON.NEPH ---
Consultation
-
Date/Time Consultation Requested: 11/11/2024 1:30 PM
Date/Time Consultation Performed: 11/11/2024 1:30 PM
Requesting Provider: Dr. Lara
Performing Provider: Dr. Mace
Reason for Consultation: End-stage renal disease/hyperkalemia
Medical History
-
Chief Complaint: End-stage renal disease/hyperkalemia
History of Present Illness:
The patient is a 64-year-old male with a past medical history of end-stage renal disease every Tuesday and Tuesday in [place]. He has a history of multidrug resistant hypertension maintained on amlodipine clonidine, metoprolol, and
valsartan. He is maintained on statin therapy beta-brent therapy and Imdur in the setting of coronary artery disease. The patient presented to the emergency room with abdominal pain. CT scan of the abdomen pelvis and chest noted a large wedge
shaped splenic infarct small pericardial effusion. The patient has been treated with chemotherapy at [place] for basal cell carcinoma. He presents to the emergency department for 4 days of left upper abdominal pain. Patient reports the pain
started in his left upper abdomen and then seemed to move across to the mid epigastrium and right upper abdomen. Patient reports that now the pain is back only in the left upper abdomen. He reports that it has started to radiate into the left side
of his mid back and also into his left shoulder and left arm. Patient reports the pain is part worse with deep inspiration. Patient denies anything seems to make the pain better. Patient denies recent fevers, chills, cough, hemoptysis, nausea,
vomiting. He reports that he has intermittent diarrhea and constipation which is normal for him. Patient reports that he does have some known degenerating disks in his back and does suffer with chronic back pain but notes that this feels
different. Patient reports that he is unable to sleep over the past 4 days due to the degree of pain that he has been experiencing and finally decided to come to the emergency department today. Nephrology was consulted for end-stage renal disease
management.
Past Medical History
ESRD
Multidrug-resistant hypertension
Anemia
Nephrolithiasis
Has history of spinal cord
Left upper extremity AV
Bilateral wrist ORIF
History of lumbar surgery
Multiple skin cancer excision
Social History
No current tobacco or alcohol abuse
Family History
Family History: Not Pertinent
Allergies / Home Medications
Allergy/AdvReac Type Severity Reaction Status Date / Time
No Known Allergies Allergy Verified 04/10/22 07:05
�Medication �Instructions �Recorded �Confirmed �Type
clonidine HCl 0.2 mg tablet 0.2 mg PO TID #90 tabs 01/25/22 09/20/24 Rx
amlodipine 10 mg tablet 10 mg PO DAILY Blood Pressure 09/20/24 09/20/24 History
aspirin 81 mg tablet,delayed 81 mg PO BID Blood Clot 09/20/24 09/20/24 History
release Prevention/Tx
atorvastatin 80 mg tablet 80 mg PO DAILY High Cholesterol 09/20/24 09/20/24 History
epoetin raina-epbx 4,000 unit/mL 4,000 unit SC MOWEFR Kidney Disease 09/20/24 09/20/24 History
injection solution (Retacrit)
ferric citrate 210 mg iron tablet 210 mg PO BID Supplement 09/20/24 09/20/24 History
(Auryxia)
isosorbide mononitrate 30 mg 30 mg PO DAILY Blood Pressure 09/20/24 09/20/24 History
tablet,extended release 24 hr
magnesium oxide 400 mg PO HS Electrolyte Repletion 09/20/24 09/20/24 History
mirtazapine 15 mg tablet 15 mg PO HS Mental Health/Anxiety 09/20/24 09/20/24 History
ropinirole 0.25 mg tablet 0.25 mg PO HS Mental Health/Anxiety 09/20/24 09/20/24 History
tamsulosin 0.4 mg capsule 0.4 mg PO BID Urinary Issue 09/20/24 09/20/24 History
trospium 20 mg tablet 20 mg PO BID Urinary Issue 09/20/24 09/20/24 History
valsartan 320 mg tablet 320 mg PO DAILY Blood Pressure 09/20/24 09/20/24 History
vibegron 75 mg tablet (Gemtesa) 75 mg PO DAILY Urinary Issue 09/20/24 09/20/24 History
carvedilol 25 mg tablet 25 mg PO BID 30 days #60 tabs 10/01/24 Rx
pantoprazole 40 mg tablet,delayed 40 mg PO BID 30 days #60 tabs 10/01/24 Rx
release
polyethylene glycol 3350 17 gram 17 g PO DAILY 15 days #15 ea 10/01/24 Rx
oral powder packet
Review of Systems
-
History Source: Patient
All other systems: Negative unless noted
Respiratory: Other (Pleuritic chest pain with inspiration)
Cardiac: Chest Pain
Abdomen/GI: Abdominal Pain, Vomiting and Diarrhea
Musculoskeletal: Other (Back pain)
Physical Exam
Vital Signs
Vital Signs
Temp Pulse Resp BP Pulse Ox
97.8 F 70 15 188/66 96
11/11/24 09:01 11/11/24 11:34 11/11/24 11:34 11/11/24 12:00 11/11/24 11:34
Lab Results
11/11/24 09:23
WBC 15.5 10^3/uL (4.8-10.8) H 11/11/24 09:23
RBC 3.84 10^6/uL (4.70-6.10) L 11/11/24 09:23
Hgb 13.2 g/dL (13.0-18.0) 11/11/24 09:23
Hct 39.8 % (39.0-52.0) 11/11/24 09:23
Plt Count 277 10^3/uL (130-400) 11/11/24 09:23
Sodium 132 mmol/L (135-145) L 11/11/24 09:23
Chloride 95 mmol/L (98-107) L 11/11/24 09:
Carbon Dioxide 26 mmol/L (22-30) 11/11/24 09:
BUN 63 mg/dl (9-20) H 11/11/24 09:
Creatinine 5.0 mg/dL (0.7-1.3) H* 11/11/24 09:
eGFR 12.18 11/11/24 09:
Glucose 107 mg/dl (70-99) H 11/11/24:
Calcium 11.3 mg/dl (8.4-10.2) H 11/11/24:
Albumin 4.4 g/dl (3.5-5.0) 11/11/24 09:
Physical Exam
General: AOx3, Nontoxic , distressed secondary to pain
HEENT: PERRL, EOMI, Anicteric, Conjunctivae Clear, Ear/Nose Intact, Hearing Normal, Oropharynx Clear/dry, Dentition Intact, Facial Symmetry, Neck Supple, Neck: Trachea Midline, No JVD and No Thyromegaly, no Bruits
Respiratory: Clear to auscultation bilaterally with normal lung excursion
Cardiac: S1/S2 and Regular Rate/Rhythm
Breast: Deferred by me
Abdomen: Soft, Nontender, Nondistended, Normal Bowel Sounds and No Hepatosplenomegaly
Rectal: Deferred by Provider
Genito-urinary: No Costovertebral Tenderness
Extremities: No Clubbing, No Cyanosis and No Edema
Skin: Lesions encompassing face arms and hands
Neuro: Nonfocal/Grossly Intact, CN II-XII (Intact) and Strength (Musculoskeletal exam 5 out of 5 both upper and lower extremities)
Hematologic/Lymphatic: No Cervical Lymphadenopathy, No Submandibular Lymphadenopathy and No Supraclavicular Lymphadenopathy
Psych: Mood/afflect flat , Insight/judgement good and Appropriate
Vascular: plus 2 pedal and radial pulses
Vascular Access: AVF (Left upper extremity AV fistula with good thrill and bruit)
Data Reviewed
-
Radiology: Report Reviewed by me (CT scan report reviewed notes splenic infarct)
Labs: Labs Reviewed by me (BMP CBC)
Old Records: Reviewed (Reviewed previous nephrology consult in EMR from August 2024 for ESRD)
Assessment/Plan
-
Impression:
Abdominal/Chest/Back pain with splenic infarct
ESRD MWF
Multidrug resistant hypertension
Hyperkalemia
Elevated LFTs
Anemia of chronic kidney disease
Basal cell carcinoma metastatic origin: last chemotherapy 2 weeks prior from [place]
Hx of Staph bacteremia (09/18)
Plan:
-Can treat hyperkalemia with Lokelma 10 g 3 doses
-No acute requirement for dialysis
-Dialysis will be provided tomorrow and orders have been provided
-KAYLA therapy will be provided for anemia
-Maintain appropriate dietary restriction of sodium potassium and fluid restriction of 1500 cc/day
-Maintain current oral antihypertensives in setting of hypertension
-Hypertension has been longstanding and very difficult to control
-Can use hydralazine 10 mg IV every 6 hours for systolic blood pressure greater than 170
-Will require anticoagulation for splenic infarct
[2024-11-11 13:56] LABS: Glucose - Point of Care 158 mg/dl (70-99)
--- NOTE | 2024-11-11 14:14 | HPS.HSE ---
Addendum entered and electronically signed by Benny Love MD 11/11/24 18:49:
Morphine for pain. Held valsartan.
Original Note:
Family Physician
-
Family Physician: NOT KNOW UNKNOWN - PT DOES
Chief Complaint
-
abdominal pain
History of Present Illness
64-year-old male past medical history of ESRD on hemodialysis, diastolic CHF, skin cancer status post chemotherapy/immunotherapy, hypertension, hyperlipidemia, presenting with 4 days of left upper abdominal pain. Pain started in the left upper
abdomen moved across to the mid epigastrium and right upper abdomen. Pain is now only in the left upper abdomen. It has started to radiate to the left side of the mid back left shoulder and left arm. Pain is worse with deep inspiration. Nothing
makes it better. Patient denies any fevers or chills, cough, coughing up blood, nausea or vomiting. He has intermittent diarrhea and constipation which is normal for him. Currently has constipation.
Patient does have chronic back pain secondary to degenerative disc disease but unable to sleep over the past few days due to back pain which prompted him to come to the emergency room.
Patient was recently admitted for fever and leukocytosis and elevated LFTs and sepsis with MSSA bacteremia unclear source. She was treated with cefazolin. Patient was treated with broad-spectrum IV antibiotics and ID was consulted. GI and
nephrology were also consulted. GI did not feel there was any obstructive pathology at the biliary level. ID did extensive workup without any clear source identified suspected infective endocarditis. Patient had TTE with no abnormalities apart
from MR, mild TR and moderate AAS and underwent BILLIE without any abnormalities. GI was concern for hematemesis but there is no need for any endoscopic intervention.
He took himself off of oral chemotherapy 3 months ago because of back pain.
He denies smoking or alcohol use at this time.
Medical History
Past Medical History
Past Medical History: Reports Other (ESRD on hemodialysis, diastolic CHF, skin cancer status post chemotherapy/immunotherapy, hypertension, hyperlipidemia)
Past Surgical History: Reports None
Social History
Tobacco: Non-smoker
Alcohol: None
Drug: None
Family History
Family History: Not pertinent
Allergies / Home Medications
Allergies reflects when Allergies were last updated in [employer].
Home Medications with original date entered in [employer]
Allergy/Medication List:
Allergies
Allergy/AdvReac Type Severity Reaction Status Date / Time
No Known Allergies Allergy Verified 04/10/22 07:05
Home Medications
clonidine HCl 0.2 mg tablet 0.2 mg PO TID #90 tabs 01/25/22
amlodipine 10 mg tablet 10 mg PO DAILY Blood Pressure 09/20/24
aspirin 81 mg tablet,delayed release 81 mg PO BID Blood Clot Prevention/Tx 09/20/24
atorvastatin 80 mg tablet 80 mg PO DAILY High Cholesterol 09/20/24
epoetin raina-epbx 4,000 unit/mL injection solution (Retacrit) 4,000 unit SC MOWEFR Kidney Disease 09/20/24
ferric citrate 210 mg iron tablet (Auryxia) 210 mg PO BID Supplement 09/20/24
isosorbide mononitrate 30 mg tablet,extended release 24 hr 30 mg PO DAILY Blood Pressure 09/20/24
magnesium oxide 400 mg PO HS Electrolyte Repletion 09/20/24
mirtazapine 15 mg tablet 15 mg PO HS Mental Health/Anxiety 09/20/24
ropinirole 0.25 mg tablet 0.25 mg PO HS Mental Health/Anxiety 09/20/24
tamsulosin 0.4 mg capsule 0.4 mg PO BID Urinary Issue 09/20/24
trospium 20 mg tablet 20 mg PO BID Urinary Issue 09/20/24
valsartan 320 mg tablet 320 mg PO DAILY Blood Pressure 09/20/24
vibegron 75 mg tablet (Gemtesa) 75 mg PO DAILY Urinary Issue 09/20/24
carvedilol 25 mg tablet 25 mg PO BID 30 days #60 tabs 10/01/24
pantoprazole 40 mg tablet,delayed release 40 mg PO BID 30 days #60 tabs 10/01/24
polyethylene glycol 3350 17 gram oral powder packet 17 g PO DAILY 15 days #15 ea 10/01/24
Review of Systems
-
History Source: Patient
A 12 point ROS was completed and negative except as noted: Yes
Constitutional: Reports No Symptoms
EENT: Reports No Symptoms
Respiratory: Reports No Symptoms
Cardiac: Reports No Symptoms
Abdomen/GI: Reports No Symptoms
: Reports No Symptoms
Musculoskeletal: Reports No Symptoms
Skin: Reports No Symptoms
Neurological: Reports No Symptoms
Endocrine: Reports No Symptoms
Hematologic/Lymphatic: Reports No Symptoms
Psych: Reports No Symptoms
Physical Exam
Vital Signs
Vital Signs
Temp Pulse Resp BP Pulse Ox
97.8 F 70 15 188/66 96
11/11/24 09:01 11/11/24 11:34 11/11/24 11:34 11/11/24 12:00 11/11/24 11:34
Physical Exam
General: Well Developed, Well Nourished and No Apparent Distress
HEENT: NormoCephalic, Moist mucous membranes and Atraumatic
Respiratory: Clear
Cardiac: S1/S2 and Regular Rhythm; No Murmur or Rub
GI: Soft, Non Tender, Non Distended and Normal Bowel Sounds; No Organomegaly
Rectal: Deferred by Provider
Musculoskeletal: No Clubbing, No Cyanosis and No Edema
Skin: No Rash
Neuro: Nonfocal/grossly intact
Laboratory Results
-
Laboratory Results
Total Bilirubin 0.6 mg/dl (0.2-1.3) 11/11/24 09:23
AST 40 U/L (17-59) 11/11/24 09:23
ALT 53 U/L (0-50) H 11/11/24 09:23
Alkaline Phosphatase 94 U/L (38-126) 11/11/24 09:23
Troponin I 0.020 ng/ml 11/11/24 09:23
Lipase 146 U/L (23-300) 11/11/24 09:23
Data Reviewed
-
Lab Data: Labs Reviewed by me
Old Records: Reviewed
Impression/Plan
-
IMPRESSION:
PLAN:
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
-Leukocytosis
-CT chest abdomen pelvis shows large wedge-shaped infarction in the central spleen, present in the basilar left lower lobe favored to represent atelectasis, lymphadenopathy in the prevascular mediastinum in the upper retroperitoneum be reactive or
neoplastic, small pericardial effusion
- Unclear etiology could be underlying myeloproliferative disease versus autoimmune condition versus embolic phenomena versus atypical infection
-Heparin drip, stop aspirin
- Oncology consulted
- No fever anymore or signs of infection at this time
# Hypertensive urgency
- Continue losartan, amlodipine, Coreg, clonidine
- Needs dialysis
- As needed hydralazine
# Hyperkalemia
#ESRD on hemodialysis
-No signs of volume overload
- Given dextrose, calcium gluconate,
- EKG shows normal sinus rhythm, peaked T waves
-Lokelma to be given
- Nephrology consulted and for dialysis tomorrow
# Constipation
- Continue bowel regimen
Recent MSSA bacteremia unclear source
- Was evaluated with echocardiogram/BILLIE which was largely unremarkable
- There was no suspicion for discitis
History of aortic stenosis
Diastolic CHF
- Continue isosorbide mononitrate
- Continue Coreg
Skin cancer status post chemotherapy/immunotherapy with metastases to lymph nodes and left upper lobe lung
- Took himself off of oral chemotherapy 3 months ago
Essential hypertension
- Continue amlodipine
Hyperlipidemia
- Continue statin
Anxiety/depression
- Continue mirtazapine
Chronic back pain with spinal stimulator
- Not MRI compatible
Anemia of chronic disease
- Continue iron supplement
BPH
- Continue tamsulosin, trospium,
Full code
DVT prophylaxis�heparin drip
Renal diet
[2024-11-11] MEDS: LOKELMA 10 GRAM PO (14:53)
[2024-11-11 15:13] LABS: Hemoglobin 11.9 g/dL (13.0-18.0); Mean Corpuscular Hgb 34.7 pg (27.0-31.0); Mean Platelet Volume 9.4 fL (7.4-10.4); Platelet Count 262 10^3/uL (130-400); Red Blood Cell Count 3.43 10^6/uL (4.70-6.10); Red Cell Dist. Width 15.6 % (11.5-14.5)
[2024-11-11 15:22] LABS: APTT 42.4 Sec (23.4-35.0); Potassium 5.2 mmol/L (3.5-5.1)
[2024-11-11] MEDS: HEPARIN 25000 UNITS/250 ML IV (16:18)
[2024-11-11 16:27] LABS: Glucose - Point of Care 63 mg/dl (70-99)
[2024-11-11 16:46] LABS: Glucose - Point of Care 85 mg/dl (70-99)
[2024-11-11 16:46] LABS: Glucose - Point of Care 41 mg/dl (70-99)
[2024-11-11 17:22] LABS: Glucose 92 mg/dl (70-99)
--- NOTE | 2024-11-11 18:09 | PTCARENOTE ---
Patient admitted from ED, ambulated from stretcher to bed. AAOx3 complaining of 8/10 LUQ abdominal pain, MD notified. Heparin gtt running at 11 ml/hr through R AC IV. Oriented patient to room and plan of care. Call chery within reach.
[2024-11-11 18:24] LABS: Glucose - Point of Care 87 mg/dl (70-99)
[2024-11-11] MEDS: TOPROL XL 50 MG PO (19:39)
[2024-11-11] MEDS: ASPIR LOW (ENTERIC COATED) 81 MG PO (19:40)
[2024-11-11] MEDS: FLOMAX 0.4 MG PO (19:40)
[2024-11-11 19:56] LABS: Glucose - Point of Care 86 mg/dl (70-99)
[2024-11-11] MEDS: DILAUDID 0.5 MG IV (21:19)
[2024-11-11] MEDS: APRESOLINE 5 MG IV (21:20)
[2024-11-11] MEDS: CATAPRES 0.3 MG PO (21:20)
[2024-11-11 23:02] LABS: APTT 44.6 Sec (23.4-35.0)
[2024-11-11] MEDS: HEPARIN 4800 UNITS IV (23:12)
[2024-11-11] MEDS: MELATONIN 10 MG PO (23:43)
[2024-11-11] MEDS: REQUIP 0.25 MG PO (23:43)
[2024-11-11] MEDS: APRESOLINE 50 MG PO (23:44)
[2024-11-11] MEDS: SENOKOT 8.6 MG PO (23:44)
[2024-11-12] MEDS: MORPHINE SULFATE 4 MG IV (02:30)
[2024-11-12 02:35] LABS: Glucose - Point of Care 87 mg/dl (70-99)
[2024-11-12] MEDS: APRESOLINE 5 MG IV (03:05)
[2024-11-12 03:07] VITALS: BP 186/83
[2024-11-12 05:45] VITALS: BMI 20.1
[2024-11-12 05:51] LABS: % Basophils 0.9 % (0-2); % Eosinophils 0.5 % (0-6); % Immature Granulocytes 0.3 % (0-0.5); % Lymphocytes 8.4 % (20.5-51.1); % Monocytes 13.1 % (1.7-9.3); % Neutrophils 76.8 % (42.2-75.2); Absolute Basophils 0.1 10^3/uL (0-0.2); Absolute Eosinophils 0.1 10^3/uL (0-0.7); Absolute Immature Granulocytes 0.1 10^3/uL (0-0.05); Absolute Lymphocytes 1.3 10^3/uL (1.2-3.4); Absolute Neutrophils 11.6 10^3/uL (1.4-6.5); Hematocrit 42.3 % (39.0-52.0); Hemoglobin 13.8 g/dL (13.0-18.0); Mean Corp Hgb Conc. 32.6 g/dL (33.0-37.0); Mean Corpuscular Hgb 33.7 pg (27.0-31.0); Mean Corpuscular Volume 103.4 fL (80.0-94.0); Mean Platelet Volume 9.3 fL (7.4-10.4); Nucleated Red Blood Cells % 0 % (-); Platelet Count 288 10^3/uL (130-400); Red Blood Cell Count 4.09 10^6/uL (4.70-6.10); Red Cell Dist. Width 15.7 % (11.5-14.5); White Blood Cell Count 15.1 10^3/uL (4.8-10.8)
[2024-11-12 06:18] LABS: ALT (SGPT) 43 U/L (0-50); AST (SGOT) 27 U/L (17-59); Albumin 4.5 g/dl (3.5-5.0); Alkaline Phosphatase 109 U/L (38-126); Blood Urea Nitrogen 72 mg/dl (9-20); Calcium 10.8 mg/dl (8.4-10.2); Carbon Dioxide 20 mmol/L (22-30); Chloride 95 mmol/L (98-107); Estimated Creatinine Clearance 10 ml/min; Glucose 91 mg/dl (70-99); Potassium 5.9 mmol/L (3.5-5.1); Sodium 132 mmol/L (135-145); Total Bilirubin 0.7 mg/dl (0.2-1.3); Total Protein 7.5 g/dl (6.3-8.2); eGFR 9.23
[2024-11-12 06:19] LABS: APTT 45.3 Sec (23.4-35.0)
[2024-11-12] MEDS: HEPARIN 4800 UNITS IV ×2 (06:31→14:12)
[2024-11-12 07:00] VITALS: BP 190/80
[2024-11-12] MEDS: FLOMAX 0.4 MG PO ×2 (08:50→20:02)
[2024-11-12] MEDS: ASPIR LOW (ENTERIC COATED) 81 MG PO ×2 (08:50→20:02)
[2024-11-12] MEDS: KEPPRA 750 MG PO (08:50)
[2024-11-12] MEDS: LIPITOR 80 MG PO (08:50)
[2024-11-12] MEDS: ZETIA 10 MG PO (08:50)
[2024-11-12] MEDS: IMDUR (EXTENDED RELEASE) 30 MG PO (08:50)
[2024-11-12] MEDS: PLAVIX 75 MG PO (08:50)
[2024-11-12] MEDS: APRESOLINE 50 MG PO ×3 (09:07→23:21)
[2024-11-12] MEDS: CATAPRES 0.3 MG PO ×2 (09:08→23:21)
[2024-11-12] MEDS: NORVASC 10 MG PO (09:08)
[2024-11-12] MEDS: TOPROL XL 50 MG PO ×2 (09:08→20:02)
--- NOTE | 2024-11-12 10:28 | CON.ONC ---
Impression
Impression
64-year-old male with past medical history of metastatic basal cell carcinoma currently being managed for splenic infarct
Plan
Plan
� Consider myeloproliferative disease versus autoimmune etiology versus infection for cause of infarct
� Consider CBC and peripheral smear, LAP score, PCR/FISH for workup of myeloproliferative disease
� Continue heparin drip and hold aspirin
� Continue all other care per primary medical team
Patient History
History of Present Illness
64-year-old male with past medical history of ESRD on hemodialysis, diastolic CHF, basal cell cancer metastasized to left neck lymph nodes and left upper lung per patient status post chemotherapy and immunotherapy at [place], hypertension,
hyperlipidemia who presented to [facility] with 4 days of abdominal pain. CT showed large wedge-shaped infarction in the central spleen, present in the basilar left lower lobe favored to represent atelectasis, lymphadenopathy in the
prevascular mediastinum in the upper retroperitoneum be reactive or neoplastic, small pericardial effusion and patient was started on heparin drip and aspirin was held. He has a history of stroke 10+ years ago and took himself off of oral
chemotherapy 3 months ago due to back pain.
He reports of ongoing left upper quadrant pain due to splenic infarct. He reports no other acute events or symptoms currently. He has a history of constipation, reports last bowel movement was 3 days ago. He has some hesitation/ difficulty with
urination which also is not a new problem. He states that he is having to strain when having a bowel movement or passing urine.
Patient Medication
�Medication �Instructions �Recorded �Confirmed �Last Taken �Type
amlodipine 10 mg tablet 10 mg PO DAILY Blood Pressure 09/20/24 11/11/24 11/11/24 History
aspirin 81 mg tablet,delayed 81 mg PO BID Blood Clot 09/20/24 11/11/24 11/11/24 History
release Prevention/Tx
atorvastatin 80 mg tablet 80 mg PO DAILY High Cholesterol 09/20/24 11/11/24 11/11/24 History
isosorbide mononitrate 30 mg 30 mg PO DAILY Blood Pressure 09/20/24 11/11/24 11/11/24 History
tablet,extended release 24 hr
ropinirole 0.25 mg tablet 0.25 mg PO HS Mental Health/Anxiety 09/20/24 11/11/24 11/10/24 History
tamsulosin 0.4 mg capsule 0.4 mg PO BID Urinary Issue 09/20/24 11/11/24 11/11/24 08:00 History
valsartan 320 mg tablet 320 mg PO DAILY Blood Pressure 09/20/24 11/11/24 11/11/24 History
clonidine HCl 0.3 mg tablet 0.3 mg PO TID Blood Pressure 11/11/24 11/11/24 11/11/24 08:00 History
clopidogrel 75 mg tablet 75 mg PO DAILY Blood Clot 11/11/24 11/11/24 11/11/24 History
Prevention/Tx
ezetimibe 10 mg tablet 10 mg PO DAILY High Cholesterol 11/11/24 11/11/24 11/11/24 History
hydralazine 50 mg tablet 50 mg PO Q8H Blood Pressure 11/11/24 11/11/24 11/11/24 08:00 History
levetiracetam 750 mg tablet 750 mg PO DAILY Neurological 11/11/24 11/11/24 11/11/24 History
Condition
melatonin 10 mg tablet 30 mg PO HS Sleep 11/11/24 11/11/24 11/10/24 History
metoprolol succinate 50 mg 50 mg PO BID Heart 11/11/24 11/11/24 11/11/24 08:00 History
tablet,extended release 24 hr Disease/Condition
sennosides 8.6 mg tablet (senna) 8.6 mg PO HS 11/11/24 11/11/24 11/10/24 History
Active Medications
Generic Name Dose Route Start Last Admin
Trade Name Freq PRN Reason Stop Dose Admin
Amlodipine Besylate 10 mg 11/12/24 08:00 11/12/24 09:08
Amlodipine 10 Mg Tablet PO 12/10/24 07:59 10 mg
DAILY JASMINE Administration
Aspirin 81 mg 11/11/24 20:00 11/12/24 08:50
Aspirin 81 Mg (Enteric Coated) Tablet PO 12/09/24 19:59 81 mg
BID JASMINE Administration
Atorvastatin Calcium 80 mg 11/12/24 08:00 11/12/24 08:50
Atorvastatin (Lipitor) 80 Mg Tablet PO 12/10/24 07:59 80 mg
DAILY JASMINE Administration
Clonidine HCl 0.3 mg 11/11/24 22:00 11/12/24 09:08
Clonidine 0.3 Mg Tablet PO 12/09/24 21:59 0.3 mg
TID JASMINE Administration
Clopidogrel Bisulfate 75 mg 11/12/24 08:00 11/12/24 08:50
Clopidogrel 75 Mg Tablet PO 12/10/24 07:59 75 mg
DAILY JASMINE Administration
Dextrose 12.5 grams 11/11/24 12:31
Dextrose 50% (0.5 Grams/Ml) 50 Ml Syringe IV 12/09/24 12:30
[id number] PRN
hypoglycemia (BG < 70 mg/dL)
Protocol
Ezetimibe 10 mg 11/12/24 08:00 11/12/24 08:50
Ezetimibe (Zetia) 10 Mg Tablet PO 12/10/24 07:59 10 mg
DAILY JASMINE Administration
Heparin Sodium 4,800 units 11/11/24 14:58 11/12/24 06:31
Heparin 80 Units/Kg Iv Rebolus IV 12/09/24 14:57 4,800 units
PRN PRN Administration
PTT < OR = 64 seconds
Heparin Sodium 2,400 units 11/11/24 14:59
Heparin 40 Units/Kg Iv Rebolus IV 12/09/24 14:58
PRN PRN
PTT = 64.1 to 72.9 seconds
Hydralazine HCl 5 mg 11/11/24 17:38 11/12/24 03:05
Hydralazine 20 Mg/Ml Vial IV 12/09/24 17:37 5 mg
Q6HPRN PRN Administration
SBP>170
Hydralazine HCl 50 mg 11/12/24 00:00 11/12/24 09:07
Hydralazine 50 Mg Tablet PO 12/10/24 00:00 50 mg
Q8 JASMINE Administration
Hydromorphone HCl 0.5 mg 11/12/24 10:13
Hydromorphone 0.5 Mg/0.5 Ml Syringe IV 11/26/24 10:12
Q3HPRN PRN
severe pain
Heparin Sodium 25,000 units in 250 mls @ 0 mls/hr 11/11/24 14:15 11/11/24 16:18
Heparin 68212 Units/250 Ml IV 250 mls
PER PROTOCOL JASMINE Administration
Protocol
Per Protocol
Isosorbide Mononitrate 30 mg 11/12/24 08:00 11/12/24 08:50
Isosorbide Mononitrate 30 Mg Extended Release Tablet PO 12/10/24 07:59 30 mg
DAILY JASMINE Administration
Levetiracetam 750 mg 11/12/24 08:00 11/12/24 08:50
Levetiracetam 250 Mg Regular Release Tablet PO 12/10/24 07:59 750 mg
DAILY JASMINE Administration
Mannitol 12.5 grams 11/12/24 08:00
Mannitol 25% (12.5 Grams/50 Ml) Vial IV 11/12/24 23:59
HD-Q1HPRN PRN
SBP < 90 mmHg
Melatonin 10 mg 11/11/24 22:00 11/11/24 23:43
Melatonin 5 Mg Tablet PO 12/09/24 21:59 10 mg
HS JASMINE Administration
Metoprolol Succinate 50 mg 11/11/24 20:00 11/12/24 09:08
Metoprolol 50 Mg Extended Release Tablet PO 12/09/24 19:59 50 mg
BID JASMINE Administration
Oxycodone HCl 5 mg 11/12/24 10:13
Oxycodone 5 Mg Regular Release Tablet PO 11/26/24 10:12
Q4HPRN PRN
mod pain
Ropinirole HCl 0.25 mg 11/11/24 22:00 11/11/24 23:43
Ropinirole 0.25 Mg Tablet PO 12/09/24 21:59 0.25 mg
HS JASMINE Administration
Sennosides 8.6 mg 11/11/24 22:00 11/11/24 23:44
Sennosides (Senokot) 8.6 Mg Tablet PO 12/09/24 21:59 8.6 mg
HS JASMINE Administration
Sodium Chloride 10 ml 11/12/24 08:00
Sodium Chloride (4 Meq/Ml) 30 Ml Vial *For Hemodialysis* IV 11/12/24 23:59
HD-Q1HPRN PRN
cramps
Sodium Chloride 0 flush 11/11/24 16:00
Sodium Chloride 0.9% (Flush) Syringe IV 12/09/24 15:59
PER PROTOCOL JASMINE
Tamsulosin HCl 0.4 mg 11/11/24 20:00 11/12/24 08:50
Tamsulosin 0.4 Mg Capsule PO 12/09/24 19:59 0.4 mg
BID JASMINE Administration
Review of Systems
-
History Source: Patient
Constitutional: Reports Weakness and Other (Pain)
EENT: Reports No Symptoms
Respiratory: Reports No Symptoms
Cardiac: Reports Chest Pain (Diaphragmatic near spleen)
GI: Reports Constipated
: Reports Hesitancy
Musculoskeletal: Reports No Symptoms
Skin: Reports No Symptoms
Neuro: Reports No Symptoms
Physical Exam
-
General: Appears in Distress, Conversant and Appears Chronically Ill
GI: Soft, Distended and Other (Significant pain when palpating left upper quadrant)
Musculoskeletal: No Clubbing, No Cyanosis and No Edema
Skin: Warm and Dry
Psych: Calm
Labs
Lab Results
WBC 15.1 10^3/uL (4.8-10.8) H 11/12/24 05:40
RBC 4.09 10^6/uL (4.70-6.10) L 11/12/24 05:40
Hgb 13.8 g/dL (13.0-18.0) 11/12/24 05:40
Hct 42.3 % (39.0-52.0) 11/12/24 05:40
MCV 103.4 fL (80.0-94.0) H 11/12/24 05:40
MCH 33.7 pg (27.0-31.0) H 11/12/24 05:40
MCHC 32.6 g/dL (33.0-37.0) L 11/12/24 05:40
RDW 15.7 % (11.5-14.5) H 11/12/24 05:40
Plt Count 288 10^3/uL (130-400) 11/12/24 05:40
MPV 9.3 fL (7.4-10.4) 11/12/24 05:40
Abs Immat Gran (auto) 0.1 10^3/uL (0-0.05) H 11/12/24 05:40
Absolute Neuts (auto) 11.6 10^3/uL (1.4-6.5) H 11/12/24 05:40
Absolute Lymphs (auto) 1.3 10^3/uL (1.2-3.4) 11/12/24 05:40
Absolute Monos (auto) 2.0 10^3/uL (0.1-0.6) H 11/12/24 05:40
Absolute Eos (auto) 0.1 10^3/uL (0-0.7) 11/12/24 05:40
Absolute Basos (auto) 0.1 10^3/uL (0-0.2) 11/12/24 05:40
Immature Gran % 0.3 % (0-0.5) 11/12/24 05:40
Neutrophils % 76.8 % (42.2-75.2) H 11/12/24 05:40
Lymphocytes % 8.4 % (20.5-51.1) L 11/12/24 05:40
Monocytes % 13.1 % (1.7-9.3) H 11/12/24 05:40
Eosinophils % 0.5 % (0-6) 11/12/24 05:40
Basophils % 0.9 % (0-2) 11/12/24 05:40
Creatinine 6.3 mg/dL (0.7-1.3) H* 11/12/24 05:40
Vital Signs
Vital Signs
Temp Pulse Resp BP Pulse Ox
98.1 F 82 20 131/88 96
11/12/24 07:00 11/12/24 09:08 11/12/24 07:00 11/12/24 09:08 11/12/24 07:00
[2024-11-12] MEDS: DILAUDID 0.5 MG IV ×2 (10:41→18:22)
[2024-11-12 11:00] VITALS: BP 161/64
[2024-11-12] MEDS: SENOKOT-S 1 TABLET PO ×2 (11:09→20:02)
[2024-11-12] MEDS: MIRALAX 17 GRAMS PO (11:09)
[2024-11-12] MEDS: HEPARIN 25000 UNITS/250 ML IV (12:28)
--- NOTE | 2024-11-12 12:40 | W.PN.HOSP.TC ---
Today's Communication/Plan
-
HD today
pain control
Heme recs
monitor BP
Bowel regimen
Assessment / Plan
Assessment / Plan
General: Chronically ill appearing, looks older than stated age
HEENT: Normocephalic, Atraumatic and Moist Mucous Membranes
Respiratory: Clear to Auscultation; Negative Wheezes, Rales or Rhonchi
Cardiac: Regular Rhythm and S1/S2
GI: Soft, Nontender and Nondistended
Musculoskeletal: No Clubbing, No Cyanosis and No Edema, LUE AVF +bruit
Neuro: Awake, Alert and Oriented, no neurological deficit
Psych: Calm
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
-Leukocytosis
-CT chest abdomen pelvis shows large wedge-shaped infarction in the central spleen, present in the basilar left lower lobe favored to represent atelectasis, lymphadenopathy in the prevascular mediastinum in the upper retroperitoneum be reactive or
neoplastic, small pericardial effusion
- Unclear etiology could be underlying myeloproliferative disease versus autoimmune condition versus embolic phenomena versus atypical infection
-Heparin drip, stop aspirin
- Oncology consulted
- No fever anymore or signs of infection at this time.
- Recent BILLIE was negative for endocarditis however, no cause of MSSA bacteremia found.
# Hypertensive urgency
#Primary HTN uncontrolled at baseline
- Continue losartan, amlodipine, Coreg, clonidine
- As needed hydralazine
# Hyperkalemia
#ESRD on hemodialysis
-No signs of volume overload
- Given dextrose, calcium gluconate,
- EKG shows normal sinus rhythm, peaked T waves
-Lokelma to be given
- Nephrology consulted and for dialysis today
# Constipation
- Continue bowel regimen
Recent MSSA bacteremia unclear source
- Was evaluated with echocardiogram/BILLIE which was largely unremarkable
- There was no suspicion for discitis
History of aortic stenosis
Diastolic CHF
- Continue isosorbide mononitrate
- Continue Coreg
Skin cancer status post chemotherapy/immunotherapy with metastases to lymph nodes and left upper lobe lung
- Took himself off of oral chemotherapy 3 months ago
Essential hypertension
- Continue amlodipine
Hyperlipidemia
- Continue statin
Anxiety/depression
- Continue mirtazapine
Chronic back pain with spinal stimulator
- Not MRI compatible
Anemia of chronic disease
- Continue iron supplement
BPH
- Continue tamsulosin, trospium,
Full code
DVT prophylaxis�heparin drip
Anticipated Discharge: > 48 hours
Subjective/Interval History
-
Date of Service: November 12, 2024
states of LUQ pain w/deep inspiration
Objective Data
-
Labs:
Laboratory Results
11/12/24 11/12/24
05:40 12:30
WBC 15.1 H
Hgb 13.8
Hct 42.3
Plt Count 288
APTT 45.3 H Pending
Sodium 132 L
Potassium 5.9 H
Chloride 95 L
Carbon Dioxide 20 L
BUN 72 H
Creatinine 6.3 H*
Glucose 91
Calcium 10.8 H
Total Bilirubin 0.7
AST 27
ALT 43
Alkaline Phosphatase 109
Vital Signs:
Vital Signs
Temp Pulse Resp BP Pulse Ox
98.5 F 81 20 161/64 96
11/12/24 11:00 11/12/24 11:00 11/12/24 11:00 11/12/24 11:00 11/12/24 11:00
I&O
11/11/24 11/12/24 11/13/24
06:59 06:59 06:59
Intake Total 240 / 240
Balance 240 / 240
Data Reviewed
-
Total Time Spent with Patient (in minutes): 55
--- NOTE | 2024-11-12 13:55 | W.PN.NEPH.HD ---
Addendum entered and electronically signed by Karolina Corona MD 11/12/24 14:12:
he reports blood in scant amount of urine while on AC
follow bladder scan and assess amount of hematuria
Original Note:
Assessment
-
pt seen during HD
vitals stable
UF as tolerates
low K bath
monitor emily , use low emily bath
AVF functions well
Progress Note - Hemodialysis
-
Date of Service: November 12, 2024
Duration: 30 minutes and 3 hours
Potassium Bath: 2
Calcium Bath: 2.5
Opti-Dialyzer: 160
Ultrafiltration: Other (2-3kg)
Blood Flow: 400
Dialysate Flow: 600
Heparin: no
EPO: no
[2024-11-12 14:00] LABS: APTT 46.7 Sec (23.4-35.0)
--- NOTE | 2024-11-12 14:48 | CM ---
Addendum entered by Katt Bender 11/12/24 16:14:
Patient seen bedside, provided with advance directive paperwork. Patient resides with a friend in a two story house, bedroom on second floor, two steps to enter. Patient denies use of DME, denies VN, reports history of [facility], has been
home about 3-4 weeks. Patient is current with [facility] in [place], [place], W, Fr. Patient has a PCP but unsure of who, pharmacy confirmed [facility].
Plan; return home with outpatient dialysis
Original Note:
CM reviewed chart, received with Nurse, patient currently receiving HD, asleep, CM will return to complete initial assessment at a later time.
Plan; pending medical evaluation
[2024-11-12 15:00] VITALS: BP 127/56
[2024-11-12] MEDS: CATAPRES PO (16:24)
[2024-11-12 19:00] VITALS: BP 165/68
[2024-11-12 19:08] LABS: Urine Albumin 3+ (Neg - Trace); Urine Bilirubin Negative (Negative); Urine Character Clear (Clear); Urine Color Yellow; Urine Glucose 1+ (Negative); Urine Ketone Negative (Negative); Urine Leukocyte Negative (Negative); Urine Nitrite Negative (Negative); Urine Occult Blood Negative (Negative); Urine Urobilinogen Negative (Neg - 1+)
[2024-11-12 20:32] LABS: Urine Bacteria Few (Negative)
[2024-11-12 20:52] LABS: APTT 82.1 Sec (23.4-35.0)
[2024-11-12] MEDS: MELATONIN 10 MG PO (23:20)
[2024-11-12] MEDS: SENOKOT 8.6 MG PO (23:21)
[2024-11-12] MEDS: REQUIP 0.25 MG PO (23:21)
[2024-11-12 23:24] VITALS: BP 168/61
[2024-11-13] MEDS: APRESOLINE 5 MG IV (02:57)
[2024-11-13] MEDS: DILAUDID 0.5 MG IV ×2 (02:58→21:23)
[2024-11-13 03:04] VITALS: BP 175/68
[2024-11-13] MEDS: HEPARIN 2400 UNITS IV (03:27)
[2024-11-13] MEDS: HEPARIN 25000 UNITS/250 ML IV (05:16)
--- NOTE | 2024-11-13 06:10 | PTCARENOTE ---
0300 pt unable to void; only a few bloody drops. pt reported a small clot. informed SENIOR AUTOMATION ENGINEER Amy.
0530 pt still unable to void. bladder distended. bladder scan and straight cath for 400ml yellow urine.
[2024-11-13 07:05] VITALS: BP 156/62
[2024-11-13] MEDS: ASPIR LOW (ENTERIC COATED) 81 MG PO (08:45)
[2024-11-13] MEDS: NORVASC 10 MG PO (08:45)
[2024-11-13] MEDS: LIPITOR 80 MG PO (08:45)
[2024-11-13] MEDS: CATAPRES 0.3 MG PO ×3 (08:45→22:52)
[2024-11-13] MEDS: ZETIA 10 MG PO (08:45)
[2024-11-13] MEDS: KEPPRA 750 MG PO (08:45)
[2024-11-13] MEDS: MIRALAX 17 GRAMS PO (08:45)
[2024-11-13] MEDS: IMDUR (EXTENDED RELEASE) 30 MG PO (08:46)
[2024-11-13] MEDS: PLAVIX 75 MG PO (08:46)
[2024-11-13] MEDS: SENOKOT-S 1 TABLET PO ×2 (08:46→20:52)
[2024-11-13] MEDS: FLOMAX 0.4 MG PO ×2 (08:46→20:52)
[2024-11-13] MEDS: TOPROL XL 50 MG PO ×2 (08:46→20:52)
[2024-11-13] MEDS: APRESOLINE 50 MG PO ×3 (08:46→23:01)
[2024-11-13] MEDS: ASPIR LOW (ENTERIC COATED) PO (08:58)
[2024-11-13 09:11] LABS: Hemoglobin 12.2 g/dL (13.0-18.0); Mean Corp Hgb Conc. 33.9 g/dL (33.0-37.0); Mean Corpuscular Hgb 34.9 pg (27.0-31.0); Mean Corpuscular Volume 102.9 fL (80.0-94.0); Mean Platelet Volume 9.4 fL (7.4-10.4); Platelet Count 244 10^3/uL (130-400); Red Cell Dist. Width 15.9 % (11.5-14.5); White Blood Cell Count 10.1 10^3/uL (4.8-10.8)
[2024-11-13 09:33] LABS: APTT > 200 Sec (23.4-35.0)
--- NOTE | 2024-11-13 09:34 | W.PN.ONC2 ---
Today's Communication / Plan
-
Transition to DOAC
Continue Dilaudid for pain
Impression
Impression
64-year-old male with past medical history of metastatic basal cell carcinoma currently being managed for splenic infarct
Plan
Plan
� Consider myeloproliferative disease versus autoimmune etiology versus infection for cause of infarct
� Consider CBC and peripheral smear, LAP score, PCR/FISH for workup of myeloproliferative disease
� Continue heparin drip and hold aspirin. Transition to DOAC at time of discharge.
� Continue Dilaudid for pain management
� Continue all other care per primary medical team
Subjective/Objective
Subjective
64-year-old male with past medical history of end-stage renal disease on hemodialysis, metastatic basal cell carcinoma currently being managed for splenic infarct.
Vital Signs:
Vital Signs
Temp Pulse Resp BP Pulse Ox
98.4 F 73 18 156/62 96
11/13/24 07:05 11/13/24 08:45 11/13/24 07:05 11/13/24 08:45 11/13/24 09:00
Lab Results:
Laboratory Data
WBC 10.1 10^3/uL (4.8-10.8) 11/13/24 09:00
Hgb 12.2 g/dL (13.0-18.0) L 11/13/24 09:00
Plt Count 244 10^3/uL (130-400) 11/13/24 09:00
APTT > 200 Sec (23.4-35.0) H* 11/13/24 09:00
eGFR 9.23 11/12/24 05:40
[2024-11-13 09:41] LABS: Blood Urea Nitrogen 37 mg/dl (9-20); Calcium 9.6 mg/dl (8.4-10.2); Carbon Dioxide 30 mmol/L (22-30); Chloride 94 mmol/L (98-107); Estimated Creatinine Clearance 14 ml/min; Glucose 94 mg/dl (70-99); Potassium 4.1 mmol/L (3.5-5.1); Sodium 133 mmol/L (135-145)
--- NOTE | 2024-11-13 10:15 | PN.CDI ---
CDI
- -
CDI:
Physician Documentation Request
Admit Date: 11/11/24 14:26
Dear Doctor Gurvinder,
Please review the following and provide your response in the progress notes.
Clinical Indicators:
Pt admitted with splenic infarct /ESRD on HD
Sodium labs are as below
Laboratory Tests
11/11/24 11/12/24 11/13/24
09:23 05:40 09:00
Sodium 132 L 132 L 133 L
Based on the above, could you clarify in the progress notes, the appropriate diagnosis, if significant, that supports the above abnormalities and additional evaluation, monitoring and/or treatment rendered:
Hyponatremia
Abnormal lab value
Other ( please specify)
Use of terms such as suspected, likely, concern for, or probable (associated with a specific diagnosis that is being evaluated, monitored, or treated as if it exists) are acceptable and can be coded in the inpatient setting, when documented at the
time of discharge.
Thank you,
Joseline Alvarez RN
CDI Specialist
[place] [facility]
Please use your independent medical judgment in providing your response.
--- NOTE | 2024-11-13 10:19 | PN.CDI ---
CDI
- -
CDI:
Physician Documentation Request
Admit Date: 11/11/24 14:26
Dear Doctor Gurvinder,
Please review the following and provide your response in the progress notes.
Clinical Indicators:
Pt admitted with splenic infarct /ESRD on HD
Documented per Nursing WO 11/11 notes present on admission sacrum pressure injury stage 1 ...silicone border foam...'
Physician documentation of the type and location of wounds is required for compliant documentation. Based on the above clinical findings and your assessment, please provide the following in your progress note:
1. Location of the ulcer/wound, including laterality.
2. Type (etiology) of ulcer/wound:
- Pressure (decubitus) ulcer
- Non-pressure injury
- Other ( please specify)
Use of terms such as suspected, likely, concern for, or probable (associated with a specific diagnosis that is being evaluated, monitored, or treated as if it exists) are acceptable and can be coded in the inpatient setting, when documented at the
time of discharge.
Thank you,
Joseline Alvarez RN
CDI Specialist
[place] [facility]
Please use your independent medical judgment in providing your response.
*Source: National Pressure Ulcer Advisory Panel (NPUAP)
[2024-11-13 11:05] VITALS: BP 127/50
--- NOTE | 2024-11-13 12:23 | W.PN.NEPH.PH ---
Today's Communication / Plan
-
HD tomorrow
Assessment/Plan
-
Impression:
Abdominal/Chest/Back pain with splenic infarct
ESRD MWF
Multidrug resistant hypertension
Hyperkalemia
Elevated LFTs
Anemia of chronic kidney disease
Basal cell carcinoma metastatic origin: last chemotherapy 2 weeks prior from [place]
Hx of Staph bacteremia (09/18)
Plan:
HD tomorrow
BP relatively stable on meds
monitor U retention, mild hematuria-monitor
-Maintain appropriate dietary restriction of sodium potassium and fluid restriction of 1200 cc/day
cont AC for splenic infarct
-
-
Date of Service: November 13, 2024
CC / HPI / ROS
-
Chief Complaint:
ESRD
History of Present Illness:
tolerated HD yesterday
SC once for 800cc, only micro hematuria
Bp stable , no fever
Review of Systems:
no cp or sob
constipated and mild abd distension with out pain
no n/v
Labs
-
Labs:
WBC 10.1 10^3/uL (4.8-10.8) 11/13/24 09:00
RBC 3.50 10^6/uL (4.70-6.10) L 11/13/24 09:00
Hgb 12.2 g/dL (13.0-18.0) L 11/13/24 09:00
Hct 36.0 % (39.0-52.0) L 11/13/24 09:00
Plt Count 244 10^3/uL (130-400) 11/13/24 09:00
Sodium 133 mmol/L (135-145) L 11/13/24 09:00
Potassium 4.1 mmol/L (3.5-5.1) D 11/13/24 09:00
Chloride 94 mmol/L (98-107) L 11/13/24 09:00
Carbon Dioxide 30 mmol/L (22-30) 11/13/24 09:00
BUN 37 mg/dl (9-20) H 11/13/24 09:00
Creatinine 4.4 mg/dL (0.7-1.3) H* 11/13/24 09:00
eGFR 14.20 11/13/24 09:00
Glucose 94 mg/dl (70-99) 11/13/24 09:00
Calcium 9.6 mg/dl (8.4-10.2) 11/13/24 09:00
Albumin 4.5 g/dl (3.5-5.0) 11/12/24 05:40
Physical Exam
-
Vital Signs:
Vital Signs
Temp Pulse Resp BP Pulse Ox
98.3 F 74 18 127/50 95
11/13/24 11:05 11/13/24 11:05 11/13/24 11:05 11/13/24 11:05 11/13/24 11:05
Cardiovascular:: Regular rate and rhythm
Respiratory:: Bilateral: CTA
Lung Excursion:: Normal
Abdomen:: Nontender and Soft
Bowel Sounds:: Normal
Extremity Edema:: None: Bilateral:
Sampson Catheter: No
--- NOTE | 2024-11-13 12:35 | W.PN.HOSP.TC ---
Today's Communication/Plan
-
Bowel regimen
Start Eliquis tonight
HD tomorrow
Monitor urine
Start disposition planning
Assessment / Plan
Assessment / Plan
General: Chronically ill appearing, looks older than stated age
HEENT: Normocephalic, Atraumatic and Moist Mucous Membranes
Respiratory: Clear to Auscultation; Negative Wheezes, Rales or Rhonchi
Cardiac: Regular Rhythm and S1/S2
GI: Soft, Nontender and Nondistended
Musculoskeletal: No Clubbing, No Cyanosis and No Edema, LUE AVF +bruit
Neuro: Awake, Alert and Oriented, no neurological deficit
Psych: Calm
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
-Leukocytosis
-CT chest abdomen pelvis shows large wedge-shaped infarction in the central spleen, present in the basilar left lower lobe favored to represent atelectasis, lymphadenopathy in the prevascular mediastinum in the upper retroperitoneum be reactive or
neoplastic, small pericardial effusion
- Unclear etiology could be underlying myeloproliferative disease versus embolic phenomena versus skin cancer w/hypercoagable status
-Heparin drip, stop aspirin-switch to Eliquis starting tonight
- Oncology consulted
- No fever anymore or signs of infection at this time.
- Recent BILLIE was negative for endocarditis however, no cause of MSSA bacteremia found.
#Severe BPH
#Urinary retention likely combination of decreased mobility and pain and BPH
- Continue tamsulosin, trospium,
- follows w/urologist at [place] -encourage patient to ambulate. Pain control. Monitor urine. Monitor for denise hematuria
# Hypertensive urgency
#Primary HTN uncontrolled at baseline
- Continue losartan, amlodipine, Coreg, clonidine
- As needed hydralazine
# Hyperkalemia
#ESRD on hemodialysis
Abnormal lab value of sodium in dialysis patient
-No signs of volume overload
- Given dextrose, calcium gluconate,
- EKG shows normal sinus rhythm, peaked T waves
-Lokelma to be given
- Nephrology consulted -HD MWF
# Constipation
- Continue bowel regimen
Recent MSSA bacteremia unclear source
- Was evaluated with echocardiogram/BILLIE which was largely unremarkable
- There was no suspicion for discitis
History of aortic stenosis
Diastolic CHF
- Continue isosorbide mononitrate
- Continue Coreg
Skin cancer status post chemotherapy/immunotherapy with metastases to lymph nodes and left upper lobe lung
- Took himself off of oral chemotherapy 3 months ago
Essential hypertension
- Continue amlodipine
Hyperlipidemia
- Continue statin
Anxiety/depression
- Continue mirtazapine
Chronic back pain with spinal stimulator
- Not MRI compatible
Anemia of chronic disease
- Continue iron supplement
Sacrum pressure injury stage I POA
Full code
DVT prophylaxis�heparin drip
Anticipated Discharge: Within 24 hours
Subjective/Interval History
-
Date of Service: November 13, 2024
states of mild blood in urine
states he has enlarge prostrate
Objective Data
-
Labs:
Laboratory Results
11/13/24 11/13/24 11/13/24
02:49 09:00 17:30
WBC 10.1
Hgb 12.2 L
Hct 36.0 L
Plt Count 244
APTT 66.0 H > 200 H* Pending
Sodium 133 L
Potassium 4.1 D
Chloride 94 L
Carbon Dioxide 30
BUN 37 H
Creatinine 4.4 H*
Glucose 94
Calcium 9.6
Vital Signs:
Vital Signs
Temp Pulse Resp BP Pulse Ox
98.3 F 74 18 127/50 95
11/13/24 11:05 11/13/24 11:05 11/13/24 11:05 11/13/24 11:05 11/13/24 11:05
I&O
11/12/24 11/13/24 11/14/24
06:59 06:59 06:59
Intake Total 240 / 240 480 / 480
Output Total 1200 / 1200
Balance 240 / 240 -720 / -720
Data Reviewed
-
Total Time Spent with Patient (in minutes): 55
[2024-11-13] MEDS: CITROMA 300 ML PO (13:05)
[2024-11-13 15:05] VITALS: BP 140/51
[2024-11-13 20:00] VITALS: BP 121/71
[2024-11-13] MEDS: ELIQUIS 10 MG PO (20:52)
[2024-11-13] MEDS: MELATONIN 10 MG PO (22:51)
[2024-11-13] MEDS: REQUIP 0.25 MG PO (22:51)
[2024-11-13] MEDS: SENOKOT PO (22:51)
[2024-11-13 23:00] VITALS: BP 112/65
[2024-11-14 02:48] VITALS: BP 130/54
[2024-11-14 05:27] VITALS: BMI 19.9
[2024-11-14 07:06] VITALS: BP 178/74
[2024-11-14] MEDS: FLOMAX 0.4 MG PO (08:46)
[2024-11-14] MEDS: KEPPRA 750 MG PO (08:46)
[2024-11-14] MEDS: ELIQUIS 10 MG PO (08:46)
[2024-11-14] MEDS: IMDUR (EXTENDED RELEASE) 30 MG PO (08:46)
[2024-11-14] MEDS: ZETIA 10 MG PO (08:46)
[2024-11-14] MEDS: PLAVIX 75 MG PO (08:46)
[2024-11-14] MEDS: LIPITOR 80 MG PO (08:46)
[2024-11-14] MEDS: TOPROL XL 50 MG PO (08:47)
[2024-11-14] MEDS: APRESOLINE 50 MG PO ×2 (08:47→16:30)
[2024-11-14] MEDS: CATAPRES 0.3 MG PO ×2 (08:47→16:31)
[2024-11-14] MEDS: NORVASC 10 MG PO (08:47)
[2024-11-14] MEDS: MIRALAX PO (10:23)
[2024-11-14] MEDS: SENOKOT-S PO (10:25)
[2024-11-14 10:55] VITALS: BP 160/52
--- NOTE | 2024-11-14 12:07 | W.PN.HOSP.TC ---
Addendum entered and electronically signed by Sarbjit Hollins MD 11/14/24 12:27:
Patient stated of carotid artery stent placement as outpatient. ? emboli causing splenic infarct post proceudre
Original Note:
Today's Communication/Plan
-
HD today
pain control po regimen
OP heme f/u
plan for tentative dc later today
Assessment / Plan
Assessment / Plan
General: Chronically ill appearing, looks older than stated age
HEENT: Normocephalic, Atraumatic and Moist Mucous Membranes
Respiratory: Clear to Auscultation; Negative Wheezes, Rales or Rhonchi
Cardiac: Regular Rhythm and S1/S2
GI: Soft, Nontender and Nondistended
Musculoskeletal: No Clubbing, No Cyanosis and No Edema, LUE AVF +bruit
Neuro: Awake, Alert and Oriented, no neurological deficit
Psych: Calm
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
-Leukocytosis
-CT chest abdomen pelvis shows large wedge-shaped infarction in the central spleen, present in the basilar left lower lobe favored to represent atelectasis, lymphadenopathy in the prevascular mediastinum in the upper retroperitoneum be reactive or
neoplastic, small pericardial effusion
- Unclear etiology could be underlying myeloproliferative disease versus embolic phenomena versus skin cancer w/hypercoagable status
-Heparin drip, stop aspirin-switched to Eliquis
- Oncology consulted
- No fever anymore or signs of infection at this time.
- Recent BILLIE was negative for endocarditis however, no cause of MSSA bacteremia found.
#Severe BPH
#Urinary retention likely combination of decreased mobility and pain and BPH
- Continue tamsulosin, Voiding now.
- follows w/urologist at [place] -encourage patient to ambulate. Pain control. Monitor urine. Monitor for denise hematuria
# Hypertensive urgency
#Primary HTN uncontrolled at baseline
- Continue losartan, amlodipine, Coreg, clonidine
- As needed hydralazine
# Hyperkalemia
#ESRD on hemodialysis
Abnormal lab value of sodium in dialysis patient
-No signs of volume overload
- Given dextrose, calcium gluconate,
- K stabilized.
- Nephrology consulted -HD MWF
# Constipation
- Continue bowel regimen-having bm
Recent MSSA bacteremia unclear source
- Was evaluated with echocardiogram/BILLIE which was largely unremarkable
- There was no suspicion for discitis
History of aortic stenosis
Diastolic CHF
- Continue isosorbide mononitrate
- Continue Coreg
Skin cancer status post chemotherapy/immunotherapy with metastases to lymph nodes and left upper lobe lung
- Took himself off of oral chemotherapy 3 months ago
Essential hypertension
- Continue amlodipine
Hyperlipidemia
- Continue statin
Anxiety/depression
- Continue mirtazapine
Chronic back pain with spinal stimulator
- Not MRI compatible
Anemia of chronic disease
- Continue iron supplement
Sacrum pressure injury stage I POA
Full code
DVT prophylaxis�heparin drip
Anticipated Discharge: Today
Subjective/Interval History
-
Date of Service: November 14, 2024
urinating without difficulty
having bowel movements
Objective Data
-
Vital Signs:
Vital Signs
Temp Pulse Resp BP Pulse Ox
97.5 F 66 17 160/52 96
11/14/24 10:55 11/14/24 10:55 11/14/24 10:55 11/14/24 10:55 11/14/24 10:55
I&O
11/13/24 11/14/24 11/15/24
06:59 06:59 06:59
Intake Total 480 / 480 1100 / 1100 180 / 180
Output Total 1200 / 1200
Balance -720 / -720 1100 / 1100 180 / 180
--- NOTE | 2024-11-14 12:18 | W.DCSUMMARY ---
Discharge Summary
Discharge Data
Date of Admission: 11/11/24
Date of Discharge: 11/14/24
-
Pending Results: No
Hospital Course
64-year-old male past medical history of skin cancer status post chemotherapy, immunotherapy with mets to the lymph nodes and left upper lobe of the lung, hypertension, hyperlipidemia, anxiety, depression, chronic back pain, anemia of chronic
disease, aortic stenosis chronic HFpEF, ESRD on hemodialysis, severe BPH was presented with left upper quadrant abdominal pain. Patient underwent CT abdomen pelvis on admission. CT chest abdomen pelvis shows large wedge-shaped infarction in the
central spleen, present in the basilar left lower lobe favored to represent atelectasis, lymphadenopathy in the prevascular mediastinum in the upper retroperitoneum be reactive or neoplastic, small pericardial effusion
Patient was started on heparin drip. Patient was eval by oncology. Patient stated of carotid artery stent placement as outpatient ? emboli causing splenic infarct post procedure. Patient underwent regular scheduled hemodialysis. Patient abdomen
pain was controlled. Patient had intermittent urinary retention was resolved with straight cath. Patient was voiding without difficulty. Patient hemoglobin was trended and remained stable. IV heparin was transitioned to p.o. Eliquis per oncology
recommendation. Patient was recommended to follow-up with the primary hematology oncology at [facility].
Discharge Plan
-
Patient Disposition: Home (Routine Discharge)
Discharge Diagnosis/Procedures: Splenic infarct
Severe BPH with urinary retention
Constipation
Hyperkalemia
ESRD status post hemodialysis
Condition: Fair
Diet: 2 Gram Sodium and Restrict fluids to 48 oz
Additional Diets: low potassium
Activity: As tolerated
Driving Restrictions: As prior to admission
Activity Restrictions/Additional Instructions:
Follow up with your livestock yard supervisor oncologist at [facility] in 1-2 weeks for splenic infarct.
Referrals:
Randa Cisneros MD [Active] - None (f/u for splenic infarct if you wish. )
UNKNOWN - PT DOES,NOT KNOW [Family Provider] - in less than 1 week
Prescriptions:
New
oxycodone 5 mg Tablet
5 mg PO TIDPRN PRN (Reason: severe pain) Qty: 15 0RF
Eliquis 5 mg Tablet
See Rx Instructions .ROUTE .COMPLEX Qty: 70 0RF
Rx Instructions:
Take 10mg (2tabs) BID for 6 days then 5mg (1tab) BID
Continued
atorvastatin 80 mg Tablet
80 mg PO DAILY
isosorbide mononitrate 30 mg Tablet Extended Release 24 Hr
30 mg PO DAILY
tamsulosin 0.4 mg Capsule
0.4 mg PO BID
ropinirole 0.25 mg Tablet
0.25 mg PO HS
amlodipine 10 mg Tablet
10 mg PO DAILY
valsartan 320 mg Tablet
320 mg PO DAILY
clonidine HCl 0.3 mg Tablet
0.3 mg PO TID
sennosides [senna] 8.6 mg Tablet
8.6 mg PO HS
metoprolol succinate 50 mg tablet extended release 24 hr
50 mg PO BID
clopidogrel 75 mg tablet
75 mg PO DAILY
hydralazine 50 mg tablet
50 mg PO Q8H
levetiracetam 750 mg tablet
750 mg PO DAILY
ezetimibe 10 mg tablet
10 mg PO DAILY
Changed
melatonin 10 mg Tablet
10 mg PO HS Qty: 0 0RF
Discontinued
aspirin 81 mg Tablet,Delayed Release (Dr/Ec)
81 mg PO BID
Discharge Orders:
Discharge Patient (As Directed); Ordered 11/14/24
Ordered By: Sarbjit Hollins
Discharge Date and Time
Discharge Date/Time: 11/14/24 18:07
Print Language: PALEST[place]
[2024-11-14] MEDS: ROXICODONE 5 MG PO (12:20)
[2024-11-14 15:02] VITALS: BP 120/51
--- NOTE | 2024-11-14 15:39 | CM ---
CM reviewed chart, clinicals faxed to [facility] location [phone]. Patient seen receiving dialysis, for discharge today. Patient reports he will transport himself home, confirmed he is comfortable to transport self home. IMM
verbally reviewed, patient declined copy, placed in chart. CM will continue to follow for all discharge planning needs.
Plan; return home, outpatient Dialysis
[facility]
--- NOTE | 2024-11-14 15:47 | W.PN.NEPH.HD ---
Assessment
-
Seen on HD. no complaints. VSS, acces ok
ramping on HD, UF reduced
Progress Note - Hemodialysis
-
Date of Service: November 14, 2024
Duration: 30 minutes and 3 hours
Potassium Bath: 3
Calcium Bath: 2
Opti-Dialyzer: 160
Ultrafiltration: Other (1.5)
Blood Flow: 400
Dialysate Flow: 600
Heparin: 0
EPO: 0
== END 2024-11-14 18:07 | disposition home or self-care (01) | DRG 814 ==
LOC: 4 WEST ACU 14:26
PROVIDERS: Emergency Medicine; Internal Medicine; Nurse Practitioner Family; Physician Assistant Medical; Specialist; ADMITTING PHYSICIAN Hospitalist; ATTENDING PHYSICIAN Hospitalist; CONSULT PHYSICIAN Specialist; EMERGENCY PHYSICIAN Emergency Medicine; OTHER PHYSICIAN Internal Medicine Hematology & Oncology
PROC: 5A1D70Z Performance of Urinary Filtration, Intermittent, Less than 6 Hours Per Day (ICD-10-PCS; 2024-11-12)
DX: D73.5 Infarction of spleen (principal); N18.6 End stage renal disease; I50.32 Chronic diastolic (congestive) heart failure; I13.2 Hypertensive heart and chronic kidney disease with heart failure and with stage 5 chronic kidney disease, or end stage renal disease; F17.290 Nicotine dependence, other tobacco product, uncomplicated; E87.5 Hyperkalemia; I1A.0 Resistant hypertension; Z79.82 Long term (current) use of aspirin; I16.0 Hypertensive urgency; E78.00 Pure hypercholesterolemia, unspecified; F41.9 Anxiety disorder, unspecified; F32.A Depression, unspecified; N20.0 Calculus of kidney; G89.29 Other chronic pain; K59.00 Constipation, unspecified; Z92.21 Personal history of antineoplastic chemotherapy; L89.151 Pressure ulcer of sacral region, stage 1
CPT/HCPCS: 71260; 74177; 80048; 80053; 81003; 81015; 82947; 82962; 83690; 84132; 84484; 85025; 85027; 85730; 87070; 93005; 96372; 96374; 96375; 99285; 99406; G0257; P9047; Q9967

== ENCOUNTER 2025-02-24 04:14 | Inpatient (IN) | payer MEDICARE, SELFPAY ==
[2025-02-24] VITALS (31 sets, daily range): BP systolic 127–185; BP diastolic 48–76; PULSE 70–76; BMI 21.8
[2025-02-24 02:56] LABS: Hematocrit 19.0 % (39.0-52.0); Hemoglobin 6.4 g/dL (13.0-18.0); Mean Corp Hgb Conc. 33.7 g/dL (33.0-37.0); Mean Corpuscular Volume 99.0 fL (80.0-94.0); Nucleated Red Blood Cells % 0 % (-); Platelet Count 274 10^3/uL (130-400); Red Cell Dist. Width 18.3 % (11.5-14.5)
[2025-02-24 03:16] LABS: ALT (SGPT) 35 U/L (0-50); AST (SGOT) 53 U/L (17-59); Albumin 3.4 g/dl (3.5-5.0); Alkaline Phosphatase 84 U/L (38-126); Blood Urea Nitrogen 62 mg/dl (9-20); Calcium 10.4 mg/dl (8.4-10.2); Carbon Dioxide 28 mmol/L (22-30); Chloride 92 mmol/L (98-107); Estimated Creatinine Clearance 19 ml/min; Glucose 101 mg/dl (70-99); Potassium 3.7 mmol/L (3.5-5.1); Sodium 128 mmol/L (135-145); Total Protein 5.6 g/dl (6.3-8.2); eGFR 18.69
[2025-02-24 03:28] LABS: Troponin I 0.025 ng/ml
--- NOTE | 2025-02-24 03:28 | ED.GENMED ---
History of Present Illness
General
Chief Complaint: Blood Pressure Problem
Source: patient and previous hospital records (Hospitalization October of this year)
Exam Limitations: none
Time Seen by Provider: 02/24/25 02:47
Nursing documentation reviewed up to this point in time: agreed with
History of Present Illness
History of Present Illness:
This is a 64-year-old gentleman with extensive past medical history. History of recurrent, metastatic basal cell carcinoma, follows with [facility] and currently receiving radiation treatments to left facial as well as forehead wounds over the past
5 weeks.
He has history of end-stage renal disease, dialysis dependent Tuesday/Tuesday/Fridays.
History of hypertension, hyperlipidemia, chronic back pain, aortic stenosis, CHF, BPH.
Last hospitalized here October of this year when he presented with left upper abdominal pain. Imaging revealed large central splenic infarct. He had recently undergone carotid artery stent placement and there was concern for emboli causing splenic
infarct postprocedure. He was started on Eliquis and is also maintained on Plavix and low-dose aspirin.
He notes somewhat chronic generalized weakness but much worse over the past several weeks as well as black stools for the past month or 2, decreased appetite as well as intermittent nausea.
He has had significantly low blood pressure, hypotension with systolic in the 60s to 80s over the past week with reported blood pressure in the 60s on Tuesday during radiation treatment at [facility]. Was given IV fluids with improvement in blood
pressure and discharged to home.
He has continued with low blood pressure, lightheadedness, shortness of breath and tachycardia with brief ambulation and has also noted some substernal chest pressure, burning sensation over the past day or 2.
He continues to smoke. Intermittent dry cough. He denies alcohol use. No NSAID use.
He reports remote history of gastric ulcers noted on upper endoscopy perhaps 20 years ago. Unremarkable colonoscopy at that time.
Past History
Past History
ED Past Medical History: CAD, Cancer (Metastatic basal cell carcinoma), CHF, HTN, Hypercholesterolemia, Renal failure (on dialysis), Valvular disease (Aortic stenosis) and Other (Chronic back pain)
ED Past Surgical History: Orthopedic (Lumbar surgery, spinal stimulator) and Other (AV fistula left upper extremity; multiple skin cancer excisions; carotid artery stent)
Social History
Tobacco: Smoker (cigars)
Alcohol: None
Personal: Single
Living: with roommate
Employment: Not employed
Family History
Family History: Other (Noncontributory)
Phy Exam
Physical Exam
Physical Exam:
GENERAL: 64-year-old gentleman appears older than stated age. He is awake and alert, appears mildly fatigued, easily communicative. Moderate odor of tobacco about the patient.
EYE: pupils equal and reactive. Moderately pale conjunctiva.
NECK: Supple, nontender, no meningismus, no significant adenopathy. Mild JVD.
ENT: posterior pharynx is clear, oral mucosa is moist. TM clear b/l, nares patent. Yellow crusted plaque left lateral face as well as several brown crusted lesions across the forehead.
CARDIAC: Regular rate and rhythm. 2/6 holosystolic murmur left sternal border.
LUNGS: Mildly decreased breath sounds at the bases, no acute respiratory distress
ABDOMEN: Soft, nondistended, without focal tenderness, no r/g, no cvat. normoactive BS. Rectal exam reveals scant black stool that is heme positive.
NEUROLOGICAL: Alert and oriented x3, no focal neuro deficits.
SKIN: Warm and dry, moderately pale/sallow in color, no rash.
MUSCULOSKELETAL: No clubbing or cyanosis. +1-2 pitting edema bilateral lower extremities left greater than right. peripheral pulses are full and equal b/l. AV fistula left upper arm. No palpable tenderness.
PSYCH: Normal and appropriate interaction.
Course
Orders/Labs/Results
Orders:
Orders
02/24/25 02:36
EKG [Electrocardiogram (*1)] Urgent
Reason for Study: Chest Pain
02/24/25 02:37
EKG- Treatment ONCE
02/24/25 02:46
CBC/With Diff [Complete Blood Count/With Diff] Urgent
CMP [Comprehensive Metabolic Panel] Urgent
Troponin I Urgent
02/24/25 02:59
Type And Crossmatch [Type+Screen] Urgent
02/24/25 03:12
Blood Bank Products [* Blood Bank Products] Urgent
Blood Bank Products: *Packed RBC Leuko(PRBC's)
Quantity: 2
Transfuse Today: Yes
Reason: Anemia
Patient will require pre-treatment for transfusion:: No
02/24/25 03:14
Pantoprazole [Protonix IV] 40 mg IV NOW STA
02/24/25 03:54
Admit/Transfer Patient As Directed
Co-Sign Provider:
Level of Care: Inpatient admission
Assign to:: Telemetry
Physician / Group: Ramez
Diagnosis: GI bleed
Reason for Telemetry: Other
Other Reason for Telemetry: GI bleed
Date to Stop Telemetry: 02/26/25
Time to Stop Telemetry: 11:00
Reason for Hospitalization: GI bleed
Expected length of stay greater than two midnights?: Yes
ELOS- Estimated Length of Stay in days: 2
I certify the patient meets the requirements for IP care: Yes
PRN Pain Medication Management As Directed
May give lesser potent ordered pain med per pt: Yes
preference::
Protocol:: Medication orders for pain may be administered in a
manner that supports deferring to patient preference
when the pt is:
- Requesting an ordered lesser potent pain medication.
Least to most potent pain medications are defined
as: acetaminophen < NSAID < tramadol < opioids
(morphine, oxycodone, hydromorphone).
- Requesting a lesser dose of the same medication IF
ORDERED.
- Requesting a less intrusive route of administration
if both routes are prescribed by the provider (PO <
IV).
02/24/25 03:55
Code Status As Directed
Resuscitation Status: Full Code
02/24/25 05:03
Acetaminophen [Tylenol] 650 mg PO Q6HPRN PRN
Ondansetron Injectable [Zofran] 4 mg IV Q6HPRN PRN
Pantoprazole 80 mg/100 ml Nss [Protonix] 80 mg in 100 ml IV Q10H
02/24/25 05:03
Consult Notification Routine
Specialty to Notify: Gastroenterology
GASTROINTESTINAL CONSULT Routine
Consulting Provider: Lukas Martinez
Was physician already notified: No
Reason for consult: suspect UGI bleed likey 2/2 antiplatet + apixaban
Activity As Directed
Activity Level: With Assistance
INT (Intravenous Needle Therapy) As Directed
Comment: Place 2 IV catheters of the largest bore possible until stable
Orthostatic Vital Signs As Directed
Orthostatic VS Frequency: Now
Comment: then every four hours for twenty-four hours
Pneumatic Compression Sleeves As Directed
Type: Knee high
Vital Signs As Directed
Frequency: Per unit guidelines
DX Deep Vein Thrombosis Video Routine
02/24/25 05:05
Basic Metabolic Panel IN AM
Complete Blood Count/No Diff IN AM
PTT IN AM
Prothrombin Time IN AM
02/24/25 Breakfast
NPO
Allow oral meds: Yes
Allow clear liquids: Sips of Clears
02/24/25 08:00
Levetiracetam [Keppra] 750 mg PO DAILY
Metoprolol Xl [Toprol Xl] 50 mg PO BID
Tamsulosin [Flomax] 0.8 mg PO DAILY
02/24/25 14:00
H&H Q6H
02/24/25 20:00
H&H Q6H
02/26/25 11:00
DC Protocol for Telemetry ONCE
Abnormal Lab Results
02/24/25 02/24/25
02:46 02:59
RBC 1.92 L 10^6/uL
(4.70-6.10)
Hgb 6.4 L* g/dL
(13.0-18.0)
Hct 19.0 L* %
(39.0-52.0)
MCV 99.0 H fL
(80.0-94.0)
MCH 33.3 H pg
(27.0-31.0)
RDW 18.3 H %
(11.5-14.5)
Absolute Monos (auto) 1.3 H 10^3/uL
(0.1-0.6)
Lymphocytes % 19.0 L %
(20.5-51.1)
Monocytes % 13.4 H %
(1.7-9.3)
Sodium 128 L mmol/L
(135-145)
Chloride 92 L mmol/L
(98-107)
BUN 62 H mg/dl
(9-20)
Creatinine 3.5 H mg/dL
(0.7-1.3)
Glucose 101 H mg/dl
(70-99)
Calcium 10.4 H mg/dl
(8.4-10.2)
Total Protein 5.6 L g/dl
(6.3-8.2)
Albumin 3.4 L g/dl
(3.5-5.0)
Crossmatch IS Only See Detail
02/24/25 02:46
02/24/25 02:46
Vital Signs
Initial and Last Documented VS:
Initial Vital Signs
Temp Pulse Resp BP Pulse Ox
97.1 F 82 28 128/48 100
02/24/25 02:29 02/24/25 02:29 02/24/25 02:29 02/24/25 02:29 02/24/25 02:29
Last Documented Vital Signs
Temp Pulse Resp BP Pulse Ox
98.4 F 83 20 127/55 96
02/24/25 05:07 02/24/25 05:30 02/24/25 05:30 02/24/25 05:30 02/24/25 05:30
MDM/Problems Addressed
Differential Diagnosis Includes:
The Differential Diagnosis includes, in no particular order and is not limited to:
1. Gastrointestinal bleeding.
2. Peptic ulcer disease.
3. Gastritis.
4. Radiation-induced enteritis.
5. Dyspnea related to chronic anemia.
6. Malnutrition.
7. Hypotension secondary to volume depletion or medication effect.
8. Chronic kidney disease-related erythropoietin deficiency.
9. Orthostatic hypotension.
10. Inadequate dialysis-related waste clearance.
MDM/Problems Addressed:
Patient presents with recent severe hypotension, black stools that are heme positive, significant concern for symptomatic anemia, concern for upper GI bleed.
Other consideration is CHF, electrolyte abnormality, unstable angina/ACS, sepsis, progression of metastatic disease.
Thus far critical results include hemoglobin of 6.4/hematocrit of 19. Hemoglobin was 12.2 November 13 of this year.
Will type and cross and transfuse for 2 units of packed red blood cells.
Will start IV Protonix for suspected upper GI bleed.
Will hold Eliquis, Plavix, aspirin.
Will admit to hospitalist service.
Chronic conditions affecting care:
Hypertension, CHF, end-stage renal disease/dialysis dependent, metastatic basal cell carcinoma, CAD, ASCVD, BPH with urinary obstruction
*Pulse Oximetry
SaO2: 100
Oxygen Mode of Delivery: Room air
Patient hypoxic: no
*EKG
Interpreted by ED Provider?: Yes
Interpretation: abnormal
Comparison EKG: changes noted (Lateral downsloping/ischemic changes are new compared to previous EKG October 2024)
Rate: normal
Rhythm: sinus
Elizabeth: normal axis
Interval: normal interval
QRS Pattern: left vent hypertrophy
Ischemia: ST depression
*Dredge Mate Interpretation
Rate: normal
Interpretation: normal
Rhythm: sinus
*Critical Care Note
Total Time (30-74mins, 75-104mins- exclusive of procedures): 30
comment:
Critical care statement: A total of 30 minutes of critical care time was provided for this patient. This includes management of unstable vital signs, evaluation of the patient at bedside, reviewing the patient's pertinent medical records, discussion
with consultants, review of old EKGs and review of pertinent medical records. This time with separate from time utilized to perform the aforementioned documented procedures
Data Reviewed
Review of Other/Old Records Reveals: Labs, Records (Previous hospitalization May of this year) and Radiology Studies
ED Attending Note
-
Portions of this chart may have been created with voice recognition software.� Occasional wrong word or��sound alike� substitutions may have occurred due to the inherent limitations of voice recognition software.
Discharge Plan
Departure
Patient Disposition: Admit
Date of Disposition: 02/24/25
Time of Disposition: 03:41
Admit to: Telemetry
Admit to doctor: Krish
Presentation/result/management discussed w/ accepting MD/DO: Hospitalist
Condition: Serious
Discharge Problem:
Acute severe symptomatic anemia, Upper gastrointestinal bleed
Interventions
Interventions:
*Risk Screen - Suicide Last Done: 02/24/25 02:29
*General Assessment Last Done: 02/24/25 02:39
*Neglect/Abuse Screening Last Done: 02/24/25 02:29
*ED- Fall Risk Assessment Last Done: 02/24/25 02:39
*ED COVID-19 Vaccine History Last Done: 02/24/25 02:39
ED- Cardiac Assessment Last Done: 02/24/25 03:11
ED- Neurological Assessment Last Done: 02/24/25 03:11
ED- Pulmonary Assessment Last Done: 02/24/25 03:11
[2025-02-24] MEDS: PROTONIX IV 40 MG IV (03:32)
--- NOTE | 2025-02-24 03:47 | HPS.HSE ---
Family Physician
-
Family Physician: NOT KNOW UNKNOWN - PT DOES
Chief Complaint
-
Low BP
History of Present Illness
Patient is a 64-year-old with past medical history significant for malignant metastatic basal cell cancer with mets to the lymph nodes, left upper lobe of the lung status post chemotherapy and on immunotherapy, end-stage renal disease on
hemodialysis, CHF with preserved EF, aortic stenosis, hypertension and hyperlipidemia who presents to the emergency department with low blood pressures.
He was recently diagnosed with a splenic infarct which was thought possibly secondary to carotid stenosis stenting that he had recently. He was started on anticoagulation and ultimately was discharged on apixaban. Patient is now on triple
anticoagulation with aspirin apixaban and Plavix.
He reported that he has been having black stools for several weeks. He said he has been having increasing weakness and difficulty getting up. On Tuesday while he was at [facility] he was noted to be very weak and had a blood pressure
in the 60s systolic. When he stood up he said he actually collapsed. He was given IV fluids. He said that he checked his blood count and said he did not require blood transfusion at that time. He has some improvement but he has remained weak
since then. Denies diarrhea but reports epigastric discomfort. Patient states that he has had a remote EGD and colonoscopy showing numerous stomach ulcers and 2 noncancerous polyps but he has not been able to have follow-up scopes since then.
Patient has a history of malignant basal cell cancer for which she has been on immunotherapy which was not effective, chemotherapy which resulted in sepsis and now discontinued and is now currently on routine radiation. He received radiation to the
lesion on his head last.
Patient's last dialysis was on Tuesday and apparently was uneventful. He reports compliance with his medication and his last dose of Eliquis was around 2 AM today.
In the emergency department his blood pressure was 150/50 with a pulse of 82 and he was satting 100% on room air. He was afebrile. His ECG shows sinus rhythm at 78. CBC notable for hemoglobin of 6.4 which is down from 12 a few months ago. His
platelet count was normal. His electrolytes were in the normal range and consistent with ESRD with a sodium of 128. BUN and creatinine were 61 and 3.5 with a glucose of 101. He had a heme positive rectal exam in the ED.
Medical History
Past Medical History
Past Medical History: Reports Other (ESRD on hemodialysis, diastolic CHF, skin cancer status post chemotherapy/immunotherapy, hypertension, hyperlipidemia)
Past Surgical History: Reports None
Social History
Tobacco: Non-smoker
Alcohol: None
Drug: None
Family History
Family History: Not pertinent
Allergies / Home Medications
Allergies reflects when Allergies were last updated in [facility].
Home Medications with original date entered in [facility]
Allergy/Medication List:
Allergies
Allergy/AdvReac Type Severity Reaction Status Date / Time
No Known Allergies Allergy Verified 04/10/22 07:05
Home Medications
clonidine HCl 0.2 mg tablet 0.2 mg PO TID #90 tabs 01/25/22
amlodipine 10 mg tablet 10 mg PO DAILY Blood Pressure 09/20/24
aspirin 81 mg tablet,delayed release 81 mg PO BID Blood Clot Prevention/Tx 09/20/24
atorvastatin 80 mg tablet 80 mg PO DAILY High Cholesterol 09/20/24
epoetin raina-epbx 4,000 unit/mL injection solution (Retacrit) 4,000 unit SC MOWEFR Kidney Disease 09/20/24
ferric citrate 210 mg iron tablet (Auryxia) 210 mg PO BID Supplement 09/20/24
isosorbide mononitrate 30 mg tablet,extended release 24 hr 30 mg PO DAILY Blood Pressure 09/20/24
magnesium oxide 400 mg PO HS Electrolyte Repletion 09/20/24
mirtazapine 15 mg tablet 15 mg PO HS Mental Health/Anxiety 09/20/24
ropinirole 0.25 mg tablet 0.25 mg PO HS Mental Health/Anxiety 09/20/24
tamsulosin 0.4 mg capsule 0.4 mg PO BID Urinary Issue 09/20/24
trospium 20 mg tablet 20 mg PO BID Urinary Issue 09/20/24
valsartan 320 mg tablet 320 mg PO DAILY Blood Pressure 09/20/24
vibegron 75 mg tablet (Gemtesa) 75 mg PO DAILY Urinary Issue 09/20/24
carvedilol 25 mg tablet 25 mg PO BID 30 days #60 tabs 10/01/24
pantoprazole 40 mg tablet,delayed release 40 mg PO BID 30 days #60 tabs 10/01/24
polyethylene glycol 3350 17 gram oral powder packet 17 g PO DAILY 15 days #15 ea 10/01/24
Review of Systems
-
History Source: Patient
A 12 point ROS was completed and negative except as noted: Yes
Constitutional: Reports No Symptoms
EENT: Reports No Symptoms
Respiratory: Reports No Symptoms
Cardiac: Reports Syncope
Abdomen/GI: Reports No Symptoms
: Reports No Symptoms
Musculoskeletal: Reports No Symptoms
Skin: Reports No Symptoms
Neurological: Reports No Symptoms
Endocrine: Reports No Symptoms
Hematologic/Lymphatic: Reports No Symptoms
Psych: Reports No Symptoms
Physical Exam
Vital Signs
Vital Signs
Temp Pulse Resp BP Pulse Ox
97.1 F 82 31 148/55 100
02/24/25 02:29 02/24/25 02:36 02/24/25 02:45 02/24/25 02:36 02/24/25 03:41
Physical Exam
General: Well Developed, Well Nourished and No Apparent Distress
HEENT: NormoCephalic, Moist mucous membranes and Atraumatic
Respiratory: Clear
Cardiac: S1/S2 and Regular Rhythm; No Murmur or Rub
GI: Soft, Non Tender, Non Distended and Normal Bowel Sounds; No Organomegaly
Rectal: Black and Hem Positive
Genito-urinary: Deferred by me
Musculoskeletal: No Clubbing, No Cyanosis and No Edema
Skin: No Rash
Neuro: AO x 3 and Nonfocal/grossly intact
Psych: Calm
Laboratory Results
-
02/24/25 02:46
02/24/25 02:46
Laboratory Results
Total Bilirubin 0.4 mg/dl (0.2-1.3) 02/24/25 02:46
AST 53 U/L (17-59) 02/24/25 02:46
ALT 35 U/L (0-50) 02/24/25 02:46
Alkaline Phosphatase 84 U/L (38-126) 02/24/25 02:46
Troponin I 0.025 ng/ml 02/24/25 02:46
Data Reviewed
-
Medical Tests (Nuc Med, Echo, EKG etc): Image Personally Visualized and interpreted
Lab Data: Labs Reviewed by me
Old Records: Reviewed
Impression/Plan
-
IMPRESSION:
64 male with h/o ESRD on HD, HTN, HLD, HFpEF, carotid stenosis s/p stenting on DAPT and recent splenic infarction started on AC with apixaban presenting with low BP at home, dark stools and anemia with Hgb of 6.4 down from 12. Heme + rectal exam in
ED.
PLAN:
GI Bleed - Suspect upper GI bleed but cannot rule out LGIB. Likely on the basis of DAPT + anticoagulation. Has been HD stable in ED. Clearly symptomatic based on bp history
- admit to telemetry
- last apixaban dose was 2 hours ago, HD stable, hold off on Kcentra as SBP in the 140s and HD stable.
- holding further AC, holding plavix and aspirin temporarily
- PPI IV gtt
- type and screen, transfusion of 2 units prbc now
- trend H&H q6
- npo for now
- d5NS at 40ml/hr maintenance
- GI consultation
ESRD - HD m/w/f
- no acute indication for HD
- nephrology consultation
- npo for now
HTN
- holding valsartan, hydralazine and imdur
- holding clonidine but can give if rebound hypertension, restart when no further evidence of bleeding
- continue metoprolol with hold parameters
BPH
- continue tamsulosin
RLL
- continue ropinirole
- check iron sats
DVT PPX - SCD
Code status - Full Code
--- NOTE | 2025-02-24 04:08 | EDRN ---
Dr. Matias at bedside working on admission.
[2025-02-24] MEDS: PROTONIX 100 IV ×2 (05:17→14:34)
[2025-02-24 05:30] LABS: INR 1.12; PT 14.7 Sec (11.4-14.6)
[2025-02-24 05:31] LABS: APTT 39.1 Sec (23.4-35.0)
[2025-02-24 05:48] LABS: Blood Urea Nitrogen 64 mg/dl (9-20); Calcium 10.3 mg/dl (8.4-10.2); Carbon Dioxide 28 mmol/L (22-30); Chloride 94 mmol/L (98-107); Estimated Creatinine Clearance 19 ml/min; Glucose 98 mg/dl (70-99); Iron 63 ug/dl (49-181); Potassium 3.7 mmol/L (3.5-5.1); Sodium 128 mmol/L (135-145); eGFR 18.69
[2025-02-24 05:57] LABS: Total Iron Binding Capacity 221 ug/dl (261-462)
[2025-02-24 06:14] LABS: Ferritin 401.0 ng/ml (17.9-464.0)
[2025-02-24 06:24] LABS: Hematocrit 19.5 % (39.0-52.0); Hemoglobin 6.5 g/dL (13.0-18.0); Mean Corp Hgb Conc. 33.3 g/dL (33.0-37.0); Mean Corpuscular Volume 100.5 fL (80.0-94.0); Platelet Count 269 10^3/uL (130-400); Red Cell Dist. Width 18.2 % (11.5-14.5); Reticulocyte Count 3.2 % (0.4-2.8)
--- NOTE | 2025-02-24 07:58 | W.CON.NEPH ---
Consultation
-
Date/Time Consultation Requested: 02/24/2025 7:30 AM
Date/Time Consultation Performed: 02/24/2025 8:00 AM
Requesting Provider: Dr. Valentino
Performing Provider: Dr. Mace
Reason for Consultation: End-stage renal disease
Medical History
-
Chief Complaint: End-stage renal disease
History of Present Illness:
The patient is a 64-year-old male with a past medical history of end-stage renal disease every Tuesday and Tuesday in [place]. He has a history of multidrug resistant hypertension maintained on amlodipine clonidine, metoprolol, and
valsartan. He is maintained on statin therapy beta-brent therapy and Imdur in the setting of coronary artery disease. The patient previously presented in 11/18 to the emergency room with abdominal pain. CT scan of the abdomen pelvis and chest
noted a large wedge shaped splenic infarct small pericardial effusion. The patient has been treated with chemotherapy at [facility] for metastatic basal cell carcinoma.
He reported that he has been having black stools for several weeks. He said he has been having increasing weakness and difficulty getting up. On Tuesday while he was at [facility] he was noted to be very weak and had a blood pressure
in the 60s systolic. When he stood up he said he actually collapsed. He was given IV fluids. He said that he checked his blood count and said he did not require blood transfusion at that time. He has some improvement but he has remained weak
since then. Denies diarrhea but reports epigastric discomfort. Patient states that he has had a remote EGD and colonoscopy showing numerous stomach ulcers and 2 noncancerous polyps but he has not been able to have follow-up scopes since then.
Patient has a history of malignant basal cell cancer for which she has been on immunotherapy which was not effective, chemotherapy which resulted in sepsis and now discontinued and is now currently on routine radiation. He received radiation to the
lesion on his head last.
Patient's last dialysis was on Tuesday and apparently was uneventful. On presentation last evening his hemoglobin was 6.4. He was heme positive. Nephrology was consulted for ESRD management.
Past Medical History
ESRD MWF
Multidrug-resistant hypertension
Anemia
Nephrolithiasis
Has history of spinal cord
Left upper extremity AV
Bilateral wrist ORIF
History of lumbar surgery
Multiple skin cancer excision
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
History of metastatic basal cell carcinoma
Social History
No current tobacco or alcohol abuse
Family History
Family History: Not Pertinent
Allergies / Home Medications
Allergy/AdvReac Type Severity Reaction Status Date / Time
No Known Allergies Allergy Verified 02/24/25 02:32
�Medication �Instructions �Recorded �Confirmed �Type
atorvastatin 80 mg tablet 80 mg PO DAILY High Cholesterol 09/20/24 02/24/25 History
isosorbide mononitrate 30 mg 30 mg PO DAILY Blood Pressure 09/20/24 02/24/25 History
tablet,extended release 24 hr
ropinirole 0.25 mg tablet 0.25 mg PO HS PRN Mental 09/20/24 02/24/25 History
Health/Anxiety
tamsulosin 0.4 mg capsule 0.8 mg PO DAILY Urinary Issue 09/20/24 02/24/25 History
valsartan 320 mg tablet 320 mg PO DAILY Blood Pressure 09/20/24 02/24/25 History
clonidine HCl 0.3 mg tablet 0.3 mg PO TID Blood Pressure 11/11/24 02/24/25 History
clopidogrel 75 mg tablet 75 mg PO DAILY Blood Clot 11/11/24 02/24/25 History
Prevention/Tx
hydralazine 50 mg tablet 50 mg PO Q8H Blood Pressure 11/11/24 02/24/25 History
levetiracetam 750 mg tablet 750 mg PO DAILY Neurological 11/11/24 02/24/25 History
Condition
metoprolol succinate 50 mg 50 mg PO BID Heart 11/11/24 02/24/25 History
tablet,extended release 24 hr Disease/Condition
sennosides 8.6 mg tablet (senna) 8.6 mg PO HS 11/11/24 02/24/25 History
apixaban 5 mg tablet 5 mg PO Q12 02/24/25 02/24/25 History
aspirin 81 mg capsule 81 mg PO DAILY 02/24/25 02/24/25 History
ezetimibe 10 mg tablet 10 mg PO DAILY 02/24/25 02/24/25 History
Review of Systems
-
History Source: Patient
All other systems: Negative unless noted
Constitutional: Fatigue
Respiratory: Cough and Trouble Breathing
Abdomen/GI: Black Stools
: Other (Patient does make some urine)
Physical Exam
Vital Signs
Vital Signs
Temp Pulse Resp BP Pulse Ox
98.4 F 76 14 178/63 97
02/24/25 05:07 02/24/25 06:45 02/24/25 06:45 02/24/25 06:30 02/24/25 06:45
Lab Results
02/24/25 05:05
WBC 10.2 10^3/uL (4.8-10.8) 02/24/25 05:05
RBC 1.94 10^6/uL (4.70-6.10) L 02/24/25 05:05
Plt Count 269 10^3/uL (130-400) 02/24/25 05:05
Sodium 128 mmol/L (135-145) L 02/24/25 05:05
Potassium 3.7 mmol/L (3.5-5.1) 02/24/25 05:05
Chloride 94 mmol/L (98-107) L 02/24/25 05:05
Carbon Dioxide 28 mmol/L (22-30) 02/24/25 05:05
BUN 64 mg/dl (9-20) H 02/24/25 05:05
Creatinine 3.5 mg/dL (0.7-1.3) H 02/24/25 05:05
eGFR 18.69 02/24/25 05:05
Glucose 98 mg/dl (70-99) 02/24/25 05:05
Calcium 10.3 mg/dl (8.4-10.2) H 02/24/25 05:05
Albumin 3.4 g/dl (3.5-5.0) L 02/24/25 02:46
Physical Exam
General: AOx3, Nontoxic , distressed secondary to pain, appears chronically ill and cachectic
HEENT: PERRL, EOMI, Anicteric, Conjunctivae pale Ear/Nose Intact, Hearing Normal, Oropharynx Clear/dry, Dentition Intact, Facial Symmetry, Neck Supple, Neck: Trachea Midline, No JVD and No Thyromegaly, no Bruits
Respiratory: Coarse to auscultation bilaterally with normal lung excursion
Cardiac: S1/S2 and Regular Rate/Rhythm
Breast: Deferred by me
Abdomen: Soft, Nontender, Nondistended, Normal Bowel Sounds and No Hepatosplenomegaly
Rectal: Deferred by Provider
Genito-urinary: No Costovertebral Tenderness
Extremities: No Clubbing, No Cyanosis and No Edema
Skin: Lesions encompassing face arms and hands
Neuro: Nonfocal/Grossly Intact, CN II-XII (Intact) and Strength (Musculoskeletal exam 5 out of 5 both upper and lower extremities)
Hematologic/Lymphatic: No Cervical Lymphadenopathy, No Submandibular Lymphadenopathy and No Supraclavicular Lymphadenopathy
Psych: Mood/afflect flat , Insight/judgement good and Appropriate
Vascular: plus 1 pedal and radial pulses
Vascular Access: AVF (Left upper extremity with thrill and bruit)
Data Reviewed
-
Medical Tests (Nuc Med, Echo etc): Other (EKG report reviewed 02/24/2025 sinus rhythm with PACs nonspecific ST abnormality at 78 beats per minute)
Labs: Labs Reviewed by me (BMP CBC)
Old Records: Reviewed (Reviewed previous nephrology consult from 11/11/2024 for ESRD)
Assessment/Plan
-
Impression:
Anemia with suspected underlying GI bleed
Hx of splenic infarct
ESRD MWF
Multidrug resistant hypertension
Hyponatremia
Elevated LFTs
Anemia of chronic kidney disease
Basal cell carcinoma metastatic origin: last chemotherapy 2 weeks prior from [facility]
Hx of Staph bacteremia (09/18)
Plan:
HD tomorrow, orders provided
BP relatively stable on meds
KAYLA on dialysis with IV iron
Can transfuse on dialysis
Hold heparin on dialysis due to ongoing GI bleeding
Fluid restriction for hyponatremia
Receiving blood products at this time
--- NOTE | 2025-02-24 09:09 | CON.GI ---
Consultation
-
Date/Time Consultation Performed: 02/24/25
Performing Provider: Trent Martinez MD
Reason for Consultation: anemia, melena
Medical History
Chief Complaint / HPI
Chief Complaint: weakness
History of Present Illness:
The patient is a 64-year-old male with past medical history as noted presents with weakness and anemia. He has been having dark stools for the past couple of months, and having increasing fatigue and weakness. While at radiation at [place] he
was hypotensive and near syncopal. He now presents with increasing fatigue and weakness, and on admission was found to have hemoglobin of 6.4, with MCV of 99. Rectal exam was Hemoccult positive dark stool per ER. He has been having some early
satiety and some nausea, though no vomiting. He has some mild epigastric discomfort though no severe pain. He states that he had an endoscopy and colonoscopy around 25 years ago with ulcers by report. He has been on aspirin, Plavix and Eliquis
since splenic infarct in October. He has not been on PPI outpatient. Currently he is feeling better after blood transfusion, and has been hemodynamically stable here. He denies any chest pain or shortness of breath. He has a history of metastatic
basal cell, treated in the past with chemotherapy and immunotherapy, though now just receiving radiation.
Past Medical History
Past Medical History: Other (ESRD MWF Multidrug-resistant hypertension Anemia Nephrolithiasis Has history of spinal cord Left upper extremity AV Bilateral wrist ORIF History of lumbar surgery Multiple skin cancer excision History of splenic infarct
on anticoagulation History of metastatic basal cell carcinoma, MSSA bacteremia)
Past Surgical History: None
Social History
Tobacco: Non-Smoker
Alcohol: None
Family History
Family History: Reviewed & Not Pertinent
Allergies / Home Medications
Allergy/AdvReac Type Severity Reaction Status Date / Time
No Known Allergies Allergy Verified 02/24/25 02:32
�Medication �Instructions �Recorded
atorvastatin 80 mg tablet 80 mg PO DAILY High Cholesterol 09/20/24
isosorbide mononitrate 30 mg 30 mg PO DAILY Blood Pressure 09/20/24
tablet,extended release 24 hr
ropinirole 0.25 mg tablet 0.25 mg PO HS PRN Mental 09/20/24
Health/Anxiety
tamsulosin 0.4 mg capsule 0.8 mg PO DAILY Urinary Issue 09/20/24
valsartan 320 mg tablet 320 mg PO DAILY Blood Pressure 09/20/24
clonidine HCl 0.3 mg tablet 0.3 mg PO TID Blood Pressure 11/11/24
clopidogrel 75 mg tablet 75 mg PO DAILY Blood Clot 11/11/24
Prevention/Tx
hydralazine 50 mg tablet 50 mg PO Q8H Blood Pressure 11/11/24
levetiracetam 750 mg tablet 750 mg PO DAILY Neurological 11/11/24
Condition
metoprolol succinate 50 mg 50 mg PO BID Heart 11/11/24
tablet,extended release 24 hr Disease/Condition
sennosides 8.6 mg tablet (senna) 8.6 mg PO HS 11/11/24
apixaban 5 mg tablet 5 mg PO Q12 02/24/25
aspirin 81 mg capsule 81 mg PO DAILY 02/24/25
ezetimibe 10 mg tablet 10 mg PO DAILY 02/24/25
Review of Systems
-
All other systems: A 12 pt ROS was Negative except as stated above in HPI
Vital Signs
Temp Pulse Resp BP Pulse Ox
98.6 F 78 16 156/53 97
02/24/25 08:21 02/24/25 08:21 02/24/25 08:21 02/24/25 08:21 02/24/25 06:45
Physical Exam
Exam
General: NAD
HEENT: MMM, anicteric, no lymphadenopathy
Heart: Regular, 3/6 systolic murmur
Lungs: CTA bilaterally
Abdomen: normal bowel sounds, soft, no tenderness, no rebound or guarding, no masses, bruits or ascites
Extremeties: no edema
Skin: Multiple scars
Results
WBC 10.2 10^3/uL (4.8-10.8) 02/24/25 05:05
Hgb 6.5 g/dL (13.0-18.0) L* 02/24/25 05:05
Hct 19.5 % (39.0-52.0) L* 02/24/25 05:05
MCV 100.5 fL (80.0-94.0) H 02/24/25 05:05
Plt Count 269 10^3/uL (130-400) 02/24/25 05:05
Absolute Neuts (auto) 6.1 10^3/uL (1.4-6.5) 02/24/25 02:46
PT 14.7 Sec (11.4-14.6) H 02/24/25 05:05
INR 1.12 02/24/25 05:05
APTT 39.1 Sec (23.4-35.0) H 02/24/25 05:05
Sodium 128 mmol/L (135-145) L 02/24/25 05:05
Potassium 3.7 mmol/L (3.5-5.1) 02/24/25 05:05
Chloride 94 mmol/L (98-107) L 02/24/25 05:05
Carbon Dioxide 28 mmol/L (22-30) 02/24/25 05:05
BUN 64 mg/dl (9-20) H 02/24/25 05:05
Creatinine 3.5 mg/dL (0.7-1.3) H 02/24/25 05:05
Calcium 10.3 mg/dl (8.4-10.2) H 02/24/25 05:05
Total Bilirubin 0.4 mg/dl (0.2-1.3) 02/24/25 02:46
AST 53 U/L (17-59) 02/24/25 02:46
ALT 35 U/L (0-50) 02/24/25 02:46
Alkaline Phosphatase 84 U/L (38-126) 02/24/25 02:46
Diagnostic Image Results:
Prior GI Procedures:
EGD:
Colonoscopy:
Assessment / Plan
-
1. Anemia: With likely underlying multifactorial anemia and macrocytosis, though now with likely acute blood loss anemia with dark stools in the setting of aspirin, Plavix and Eliquis, significant lower than October of this year. Most likely etiology
be peptic ulcer disease, other etiologies including angiectasia or malignancy are not excluded though seem less likely. At this point he is hemodynamically stable, feeling better after receiving 1 unit of PRBCs. Would continue clear liquids for
now, PPI twice daily and close monitoring. Would continue to hold Eliquis and Plavix for now. Will plan endoscopy on Tuesday after 48-hour Eliquis washout, sooner if signs of brisk active bleeding.
-
-
Thank you for consultation and allowing me to participate in the patient's care. Please call the [facility] physician during the after hours with any questions or concerns.
[2025-02-24] MEDS: KEPPRA 750 MG PO (09:23)
[2025-02-24] MEDS: FLOMAX 0.8 MG PO (09:24)
[2025-02-24] MEDS: TOPROL XL 50 MG PO ×2 (09:24→20:46)
--- NOTE | 2025-02-24 16:22 | W.PN.HOSP.TC ---
Today's Communication/Plan
-
see bold
Assessment / Plan
Assessment / Plan
GI Bleed exacerbated by Eliquis use
- suspect upper GI bleed but cannot rule out LGIB. Likely on the basis of DAPT + anticoagulation. Has been HD stable in ED. Clearly symptomatic based on bp history
- last apixaban dose was 8/30 PM. Last bloody BM on
- hold eliquis/aspirin/Plavix
- appreciate GI input, plan for endoscopy on Tuesday after Eliquis washout
- continue clear liquid diet, PPI IV gtt
Acute blood loss anemia
-Status post 2 units packed red blood cells 02/24
-Nephrology ordered patient IV iron
-Trend hemoglobin, transfuse for hemoglobin less than 7.0
ESRD - HD m/w/f
- Nephrology following for dialysis needs
HTN
- Last bloody BM on
- Resume clonidine, valsartan as blood pressure is elevated today
- Continue to hold hydralazine and imdur
BPH
- continue tamsulosin
RLL
- continue ropinirole
DVT PPX - SCD
Code status - Full Code
Physical Exam
General: No acute distress
HEENT: Normocephalic, Atraumatic, EOMI, MMM
Respiratory: Clear to Auscultation bilaterally
Cardiac: Normal S1/S2, Regular Rate and Rhythm
GI: Soft, Nontender, Nondistended, Normal Bowel Sounds
Extremities: No Clubbing, Cyanosis
Bilateral lower extremity edema noted
Neuro: Nonfocal/Grossly Intact
Psych: Calm, Cooperative
Derm: No Visible lesions
Anticipated Discharge: > 48 hours
Subjective/Interval History
-
Date of Service: February 24, 2025
Patient feels much better after his blood transfusion. No fever, no vomiting.
Objective Data
-
Labs:
Laboratory Results
02/24/25 02/24/25 02/24/25
05:05 14:00 20:00
WBC 10.2
Hgb 6.5 L* Pending Pending
Hct 19.5 L* Pending Pending
Plt Count 269
PT 14.7 H
INR 1.12
APTT 39.1 H
Sodium 128 L
Potassium 3.7
Chloride 94 L
Carbon Dioxide 28
BUN 64 H
Creatinine 3.5 H
Glucose 98
Calcium 10.3 H
Vital Signs:
Vital Signs
Temp Pulse Resp BP Pulse Ox
98.4 F 79 18 166/66 98
02/24/25 12:55 02/24/25 12:55 02/24/25 12:26 02/24/25 12:55 02/24/25 12:55
I&O
02/23/25 02/24/25 02/25/25
06:59 06:59 06:59
Intake Total 0 / 0 500 / 500
Balance 0 / 0 500 / 500
[2025-02-24 17:35] LABS: Hematocrit 23.1 % (39.0-52.0); Hemoglobin 8.0 g/dL (13.0-18.0)
[2025-02-24] MEDS: CATAPRES 0.3 MG PO (22:12)
[2025-02-25] MEDS: PROTONIX 100 IV ×3 (00:09→18:03)
[2025-02-25 00:17] LABS: Hematocrit 24.5 % (39.0-52.0); Hemoglobin 8.5 g/dL (13.0-18.0)
[2025-02-25 03:05] VITALS: BP 188/77
[2025-02-25 06:00] VITALS: BMI 20.4
[2025-02-25 07:53] VITALS: BP 179/70
--- NOTE | 2025-02-25 07:56 | W.PN.GI.CBS2 ---
Today's Communication / Plan
-
Please see assessment and plan for details.
Assessment / Plan
-
1. Anemia: With likely underlying multifactorial anemia and macrocytosis, though now with likely acute blood loss anemia with dark stools in the setting of aspirin, Plavix and Eliquis, significant lower than October of this year. Most likely etiology
be peptic ulcer disease, other etiologies including angiectasia, malignancy or other lower source are not excluded though seem less likely. His hemoglobin has responded appropriately and overall feeling well without signs of brisk active bleeding.
Will plan EGD tomorrow after Eliquis washout, sooner if signs of brisk bleeding. Continue clears for today and PPI with observation.
Subjective
Subjective
Date of Service: February 25, 2025
Patient feeling okay, 2 very small dark stools overnight, no lightheadedness or dizziness, abdominal pain, nausea or vomiting. He responded appropriately to transfusion.
Objective
Data Reviewed
Laboratory Data:
Laboratory Results
PT 14.7 Sec (11.4-14.6) H 02/24/25 05:05
INR 1.12 02/24/25 05:05
APTT 39.1 Sec (23.4-35.0) H 02/24/25 05:05
Total Bilirubin 0.4 mg/dl (0.2-1.3) 02/24/25 02:46
AST 53 U/L (17-59) 02/24/25 02:46
ALT 35 U/L (0-50) 02/24/25 02:46
Alkaline Phosphatase 84 U/L (38-126) 02/24/25 02:46
Vital Signs and I&O:
Vital Signs
Temp Pulse Resp BP Pulse Ox
98.1 F 74 18 179/70 100
02/25/25 07:53 02/25/25 07:53 02/25/25 07:53 02/25/25 07:53 02/25/25 07:53
I&O
02/24/25 02/25/25 02/26/25
06:59 06:59 06:59
Intake Total 0 / 0 600 / 600
Balance 0 / 0 600 / 600
Physical Exam
Physical Exam
General: NAD
Abdomen: normal bowel sounds, soft, no tenderness, no masses or bruits, no ascites
[2025-02-25 08:54] LABS: Hematocrit 22.0 % (39.0-52.0); Hemoglobin 7.6 g/dL (13.0-18.0); Mean Corp Hgb Conc. 34.5 g/dL (33.0-37.0); Mean Corpuscular Volume 96.1 fL (80.0-94.0); Platelet Count 269 10^3/uL (130-400); Red Cell Dist. Width 18.1 % (11.5-14.5)
[2025-02-25 09:01] LABS: Blood Urea Nitrogen 82 mg/dl (9-20); Calcium 10.3 mg/dl (8.4-10.2); Carbon Dioxide 26 mmol/L (22-30); Chloride 94 mmol/L (98-107); Estimated Creatinine Clearance 13 ml/min; Glucose 86 mg/dl (70-99); Potassium 4.8 mmol/L (3.5-5.1); Sodium 127 mmol/L (135-145); eGFR 12.48
--- NOTE | 2025-02-25 09:41 | W.PN.NEPH.HD ---
Assessment
-
Patient seen on dialysis
Systolic blood pressure initially escalated now down to 138
UF goal will be 1 to 1.5 kg
Iron provided on dialysis
Patient received 2 units of blood yesterday and hemoglobin continues to drop below 8
For EGD tomorrow
Progress Note - Hemodialysis
-
Date of Service: February 25, 2025
Duration: 30 minutes and 3 hours
Potassium Bath: 2
Opti-Dialyzer: 160
Ultrafiltration: Other (1 to 1.5 kg)
Blood Flow: 400
Dialysate Flow: 600
Heparin: None (GI bleeding)
EPO: 10,000+ IV iron
[2025-02-25] MEDS: FERRLECIT 125 MG IV (09:50)
[2025-02-25] MEDS: RETACRIT 10000 UNITS IV (09:51)
--- NOTE | 2025-02-25 10:38 | W.PN.HOSP.TC ---
Today's Communication/Plan
-
resume aspirin 81mg PO QD
appreciate GI
NPO after MN for EGD
Assessment / Plan
Assessment / Plan
Mr. Bryon Koehler is a 64 yo man with hx skin cancer status post chemotherapy, immunotherapy with mets to the lymph nodes and left upper lobe of the lung, hypertension, hyperlipidemia, anxiety, depression, chronic back pain, anemia of chronic
disease, aortic stenosis chronic HFpEF, ESRD on hemodialysis, severe BPH, admission 11/18 for splenic infarction (concern recent carotid stent resulted in emboli - discharged on Eliquis) presents to the ER with black stools.
GI Bleed exacerbated by Eliquis use
- suspect upper GI bleed but cannot rule out LGIB. Likely on the basis of DAPT + anticoagulation. Has been HD stable in ED. Clearly symptomatic based on bp history
- last apixaban dose was 02/23 PM. Last bloody BM on
- Hold Eliquis and Plavix - will resume aspirin 81mg daily today (Ok'd by GI)
- appreciate GI input, plan for endoscopy on Tuesday after Eliquis washout
- continue clear liquid diet, PPI IV gtt
Acute blood loss anemia
-Status post 2 units packed red blood cells 02/24
-Nephrology ordered patient IV iron
-Trend hemoglobin, transfuse for hemoglobin less than 7.0
ESRD - HD m/w/f
- Nephrology following for dialysis needs
HTN
- Last bloody BM on
- Resume clonidine, valsartan as blood pressure is elevated today
- Continue to hold hydralazine and imdur
BPH
- continue tamsulosin
RLL
- continue ropinirole
DVT PPX - SCD
Code status - Full Code
Physical Exam
General: No acute distress
HEENT: Normocephalic, Atraumatic, EOMI, MMM
Respiratory: Clear to Auscultation bilaterally
Cardiac: Normal S1/S2, Regular Rate and Rhythm
GI: Soft, Nontender, Nondistended, Normal Bowel Sounds
Extremities: No Clubbing, Cyanosis
Bilateral lower extremity edema noted
Neuro: Nonfocal/Grossly Intact
Psych: Calm, Cooperative
Derm: No Visible lesions
Anticipated Discharge: 24 - 48 hours
Subjective/Interval History
-
Date of Service: February 25, 2025
feels a lot better post transfusions
ambulated yesterday
now seen on HD
2 black BM overnight
Objective Data
-
Labs:
Laboratory Results
02/24/25 02/25/25
23:58 07:51
WBC 8.2
Hgb 8.5 L 7.6 L
Hct 24.5 L 22.0 L
Plt Count 269
Sodium 127 L
Potassium 4.8 D
Chloride 94 L
Carbon Dioxide 26
BUN 82 H
Creatinine 4.9 H*
Glucose 86
Calcium 10.3 H
Vital Signs:
Vital Signs
Temp Pulse Resp BP Pulse Ox
98.1 F 74 18 179/70 100
02/25/25 07:53 02/25/25 07:53 02/25/25 07:53 02/25/25 07:53 02/25/25 07:53
I&O
02/24/25 02/25/25 02/26/25
06:59 06:59 06:59
Intake Total 0 / 0 600 / 600
Balance 0 / 0 600 / 600
Review of Systems
-
History Source: Patient
All other systems: Reviewed and negative
Physical Exam
-
General: Well Developed, Well Nourished, No Apparent Distress and Comfortable
HEENT: Nose Appears Normal and Ears Appear Normal
Respiratory: Clear to Auscultation
Cardiac: Regular Rhythm, S1/S2 and Murmur
GI: Soft, Nontender and Nondistended
Musculoskeletal: No Clubbing, No Cyanosis and No Edema
Skin: Warm and Dry
Neuro: Awake, Alert and Oriented
Psych: Calm
Data Reviewed
-
Diagnostic Radiology: Report Reviewed by me
Labs: Labs Reviewed by me
--- NOTE | 2025-02-25 10:59 | CM ---
CM reviewed chart. Met with pt at bedside. Explained role and discussed anticipated dc plan/options.
Pt from home w/room mate. Iw/AMB and ADLS at baseline. Uses cane intermittently when needed.
Lives in 2story home w/2nd fl BB.
[facility] MWF; 4p chair. Transports self.
Correct Home Address: [address]
[place] [id number]
PCP unknown.
Hard scripts at dc.
Pt has no skilled needs and is declining need for home care services at this time.
CM/SW will continue to follow to ensure a safe and timely discharge.
[2025-02-25 11:45] VITALS: BP 165/65
[2025-02-25 13:44] VITALS: BMI 20.4
[2025-02-25 15:45] VITALS: BP 179/64
[2025-02-25] MEDS: CATAPRES PO (15:48)
[2025-02-25] MEDS: CATAPRES 0.3 MG PO ×2 (15:49→22:35)
[2025-02-25] MEDS: KEPPRA 750 MG PO (15:49)
[2025-02-25] MEDS: DIOVAN 320 MG PO (15:49)
[2025-02-25] MEDS: FLOMAX 0.8 MG PO (15:49)
[2025-02-25] MEDS: TOPROL XL 50 MG PO ×2 (15:49→20:44)
[2025-02-25] MEDS: LOW STRENGTH ASPIRIN 81 MG PO (15:53)
[2025-02-25 19:18] VITALS: BP 142/61
[2025-02-25 23:17] VITALS: BP 166/66
[2025-02-26] VITALS (10 sets, daily range): BP systolic 12–177; BP diastolic 40–83; BMI 20.3
[2025-02-26] MEDS: PROTONIX 100 IV ×2 (03:35→08:56)
[2025-02-26 06:44] LABS: Hematocrit 21.8 % (39.0-52.0); Hemoglobin 7.4 g/dL (13.0-18.0); Mean Corp Hgb Conc. 33.9 g/dL (33.0-37.0); Mean Corpuscular Volume 97.8 fL (80.0-94.0); Platelet Count 231 10^3/uL (130-400); Red Cell Dist. Width 17.2 % (11.5-14.5)
[2025-02-26 07:10] LABS: Blood Urea Nitrogen 35 mg/dl (9-20); Calcium 9.7 mg/dl (8.4-10.2); Carbon Dioxide 30 mmol/L (22-30); Chloride 94 mmol/L (98-107); Estimated Creatinine Clearance 19 ml/min; Glucose 86 mg/dl (70-99); Magnesium 2.2 mg/dl (1.6-2.3); Potassium 4.1 mmol/L (3.5-5.1); Sodium 128 mmol/L (135-145); eGFR 20.06
[2025-02-26] MEDS: LOW STRENGTH ASPIRIN 81 MG PO (08:17)
[2025-02-26] MEDS: FLOMAX 0.8 MG PO (08:17)
[2025-02-26] MEDS: KEPPRA 750 MG PO (08:17)
[2025-02-26] MEDS: DIOVAN 320 MG PO (08:18)
[2025-02-26] MEDS: CATAPRES 0.3 MG PO ×3 (08:19→21:49)
[2025-02-26] MEDS: TOPROL XL 50 MG PO ×2 (08:19→20:19)
--- NOTE | 2025-02-26 11:36 | W.PN.HOSP.TC ---
Today's Communication/Plan
-
prep for colonoscopy tomorrow
Assessment / Plan
Assessment / Plan
Mr. Bryon Koehler is a 64 yo man with hx skin cancer status post chemotherapy, immunotherapy with mets to the lymph nodes and left upper lobe of the lung, hypertension, hyperlipidemia, anxiety, depression, chronic back pain, anemia of chronic
disease, aortic stenosis, chronic HFpEF, ESRD on hemodialysis, severe BPH, admission 11/18 for splenic infarction (concern recent carotid stent resulted in emboli - discharged on Eliquis) presents to the ER with black stools.
GI Bleed exacerbated by Eliquis use
- suspect upper GI bleed but cannot rule out LGIB. Likely on the basis of DAPT + anticoagulation. Has been HD stable in ED.
- last apixaban dose was 8 PM. Last bloody BM on
- Hold Eliquis and Plavix - resumed aspirin 81mg daily (Ok'd by GI)
- s/p EGD this AM without source of bleeding, plan for colonoscopy tomorrow
- continue clear liquid diet, PPI IV gtt
Acute blood loss anemia
-Status post 2 units packed red blood cells 02/24
-Nephrology ordered patient IV iron
-Trend hemoglobin, transfuse for hemoglobin less than 7.0
ESRD - HD m/w/f
- Nephrology following for dialysis needs
HTN
- Last bloody BM on
- Resume Clonidine, Valsartan as blood pressure is elevated today
- Resume Imdur
- Hold Hydral
BPH
- continue tamsulosin
RLL
- continue ropinirole
DVT PPX - SCD
Code status - Full Code
Physical Exam
General: No acute distress
HEENT: Normocephalic, Atraumatic, EOMI, MMM
Respiratory: Clear to Auscultation bilaterally
Cardiac: Normal S1/S2, Regular Rate and Rhythm
GI: Soft, Nontender, Nondistended, Normal Bowel Sounds
Extremities: No Clubbing, Cyanosis
Bilateral lower extremity edema noted
Neuro: Nonfocal/Grossly Intact
Psych: Calm, Cooperative
Derm: No Visible lesions
Anticipated Discharge: 24 - 48 hours
Subjective/Interval History
-
Date of Service: February 26, 2025
seen post EGD
feeling tired
had some bloody BM yesterday
Objective Data
-
Labs:
Laboratory Results
02/26/25
05:42
WBC 6.9
Hgb 7.4 L
Hct 21.8 L
Plt Count 231
Sodium 128 L
Potassium 4.1
Chloride 94 L
Carbon Dioxide 30
BUN 35 H
Creatinine 3.3 H
Glucose 86
Calcium 9.7
Vital Signs:
Vital Signs
Temp Pulse Resp BP Pulse Ox
97.6 F 63 11 142/52 93
02/26/25 10:50 02/26/25 11:15 02/26/25 11:15 02/26/25 11:15 02/26/25 11:15
I&O
02/25/25 02/26/25 02/27/25
06:59 06:59 06:59
Intake Total 600 / 600 1200 / 1200 100 / 100
Balance 600 / 600 1200 / 1200 100 / 100
Review of Systems
-
History Source: Patient
All other systems: Reviewed and negative
Physical Exam
-
General: Well Developed, Well Nourished, No Apparent Distress and Comfortable
HEENT: Nose Appears Normal and Ears Appear Normal
Respiratory: Clear to Auscultation
Cardiac: Regular Rhythm, S1/S2 and Murmur
GI: Soft, Nontender and Nondistended
Musculoskeletal: No Clubbing, No Cyanosis and No Edema
Skin: Warm and Dry
Neuro: Awake, Alert and Oriented
Psych: Calm
Data Reviewed
-
Diagnostic Radiology: Report Reviewed by me
Labs: Labs Reviewed by me
--- NOTE | 2025-02-26 12:50 | CM ---
Reviewed the chart notes. Patient for colonoscopy tomorrow. CM continues to be available to patient/family and is monitoring medical plan for needs at discharge.
Plan: Discharge to home when medically stable. No needs anticipated at this time.
--- NOTE | 2025-02-26 12:51 | W.PN.NEPH.PH ---
Today's Communication / Plan
-
HD tomorrow
Assessment/Plan
-
Impression:
Anemia with suspected underlying GI bleed
Hx of splenic infarct
ESRD MWF
Multidrug resistant hypertension
Hyponatremia
Elevated LFTs
Anemia of chronic kidney disease
Basal cell carcinoma metastatic origin: last chemotherapy 2 weeks prior from [place]
Hx of Staph bacteremia (09/18)
Plan:
HD tomorrow post C scope per GI
BP relatively stable on meds
KAYLA on dialysis with IV iron
prn trasnfusion
Holding heparin on dialysis due to ongoing GI bleeding
Fluid restriction for hyponatremia
-
-
Date of Service: February 26, 2025
CC / HPI / ROS
-
Chief Complaint:
ESRD
History of Present Illness:
hb decreasing to 7.4
BP stable, s/p EGD today and no active bleeding
sodium low 128
Review of Systems:
no cp or osb
asking to eat
Labs
-
Labs:
WBC 6.9 10^3/uL (4.8-10.8) 02/26/25 05:42
RBC 2.23 10^6/uL (4.70-6.10) L 02/26/25 05:42
Hct 21.8 % (39.0-52.0) L 02/26/25 05:42
Plt Count 231 10^3/uL (130-400) 02/26/25 05:42
Sodium 128 mmol/L (135-145) L 02/26/25 05:42
Potassium 4.1 mmol/L (3.5-5.1) 02/26/25 05:42
Chloride 94 mmol/L (98-107) L 02/26/25 05:42
Carbon Dioxide 30 mmol/L (22-30) 02/26/25 05:42
BUN 35 mg/dl (9-20) H 02/26/25 05:42
Creatinine 3.3 mg/dL (0.7-1.3) H 02/26/25 05:42
eGFR 20.06 02/26/25 05:42
Glucose 86 mg/dl (70-99) 02/26/25 05:42
Calcium 9.7 mg/dl (8.4-10.2) 02/26/25 05:42
Albumin 3.4 g/dl (3.5-5.0) L 02/24/25 02:46
Physical Exam
-
Vital Signs:
Vital Signs
Temp Pulse Resp BP Pulse Ox
97.8 F 65 16 147/58 94
02/26/25 11:42 02/26/25 11:42 02/26/25 11:42 02/26/25 11:42 02/26/25 11:42
Cardiovascular:: Regular rate and rhythm
Respiratory:: Bilateral: CTA
Lung Excursion:: Normal
Abdomen:: Nontender and Soft
Bowel Sounds:: Normal
Extremity Edema:: None: Bilateral:
Sampson Catheter: No
[2025-02-26] MEDS: IMDUR (EXTENDED RELEASE) 30 MG PO (13:35)
[2025-02-26 16:28] LABS: Hemoglobin 7.4 g/dL (13.0-18.0)
[2025-02-26] MEDS: NULYTELY SOLUTION 2 LITERS PO (18:20)
[2025-02-26] MEDS: NSS (PRESERVATIVE FREE) 10 ML IV (20:17)
[2025-02-26] MEDS: PROTONIX IV 40 MG IV (20:18)
[2025-02-27] VITALS (9 sets, daily range): BP systolic 151–197; BP diastolic 63–81; BMI 20.9
[2025-02-27] MEDS: NULYTELY SOLUTION 2 LITERS PO ×2 (03:07→17:48)
--- NOTE | 2025-02-27 08:47 | W.PN.HOSP.TC ---
Today's Communication/Plan
-
NPO for colonoscopy
plan for HD today
Assessment / Plan
Assessment / Plan
Mr. Bryon Koehler is a 64 yo man with hx skin cancer status post chemotherapy, immunotherapy with mets to the lymph nodes and left upper lobe of the lung, hypertension, hyperlipidemia, anxiety, depression, chronic back pain, anemia of chronic
disease, aortic stenosis, chronic HFpEF, ESRD on hemodialysis, severe BPH, admission 11/18 for splenic infarction (concern recent carotid stent resulted in emboli - discharged on Eliquis) presents to the ER with black stools.
GI Bleed exacerbated by Eliquis use
- suspect upper GI bleed but cannot rule out LGIB. Likely on the basis of DAPT + anticoagulation. Has been HD stable in ED.
- last apixaban dose was 8/30 PM. Last bloody BM on
- Hold Eliquis and Plavix - resumed aspirin 81mg daily (Ok'd by GI)
- s/p EGD morning of 02/26 without source of bleeding, plan for colonoscopy today
- IV PPI
- NPO for colonoscopy
Acute blood loss anemia
-Status post 2 units packed red blood cells 02/24
-Nephrology ordered patient IV iron
-Trend hemoglobin, transfuse for hemoglobin less than 7.0
Hx Splenic Infarct 10/2024
-resume Eliquis when OK by GI
Hx Carotid Artery Stent September 2024
-He was started on Plavix post stent placement (+ aspirin). Aspirin was discontinued the following month when Eliquis started but was back on medication list this admission.
-resume PLavix when OK by GI - will speak to Vascular surgery about antiPLT regimen
ESRD - HD m/w/f
- Nephrology following for dialysis needs
HTN
- Last bloody BM on
- Resume Clonidine, Valsartan as blood pressure is elevated today
- Resume Imdur
- Hold Hydral - can likely resume tomorrow post procedure
BPH
- continue tamsulosin
RLL
- continue ropinirole
DVT PPX - SCD
Code status - Full Code
Physical Exam
General: No acute distress
HEENT: Normocephalic, Atraumatic, EOMI, MMM
Respiratory: Clear to Auscultation bilaterally
Cardiac: Normal S1/S2, Regular Rate and Rhythm
GI: Soft, Nontender, Nondistended, Normal Bowel Sounds
Extremities: No Clubbing, Cyanosis
Bilateral lower extremity edema noted
Neuro: Nonfocal/Grossly Intact
Psych: Calm, Cooperative
Derm: No Visible lesions
Anticipated Discharge: 24 - 48 hours
Subjective/Interval History
-
Date of Service: February 27, 2025
awoken from sleep
had a BM this morning but not ready for colonoscopy
Objective Data
-
Labs:
Laboratory Results
02/27/25
06:00
WBC Pending
Hgb Pending
Hct Pending
Plt Count Pending
Sodium Pending
Potassium Pending
Chloride Pending
Carbon Dioxide Pending
BUN Pending
Creatinine Pending
Glucose Pending
Calcium Pending
Vital Signs:
Vital Signs
Temp Pulse Resp BP Pulse Ox
98.2 F 66 18 168/64 98
02/27/25 07:35 02/27/25 07:35 02/27/25 07:35 02/27/25 07:35 02/27/25 07:35
I&O
02/26/25 02/27/25 02/28/25
06:59 06:59 06:59
Intake Total 1200 / 1200 1460 / 1460
Balance 1200 / 1200 1460 / 1460
Review of Systems
-
History Source: Patient
All other systems: Reviewed and negative
Physical Exam
-
General: Well Developed, Well Nourished, No Apparent Distress and Comfortable
HEENT: Nose Appears Normal and Ears Appear Normal
Respiratory: Clear to Auscultation
Cardiac: Regular Rhythm, S1/S2 and Murmur
GI: Soft, Nontender and Nondistended
Musculoskeletal: No Clubbing, No Cyanosis and No Edema
Skin: Warm and Dry
Neuro: Awake, Alert and Oriented
Psych: Calm
Data Reviewed
-
Diagnostic Radiology: Report Reviewed by me
Labs: Labs Reviewed by me
--- NOTE | 2025-02-27 09:27 | CM ---
Reviewed the chart notes. Patient for colonoscopy and HD today. CM continues to be available to patient/family and is monitoring medical plan for needs at discharge.
Plan: Discharge to home. No needs anticipated at this time.
[2025-02-27] MEDS: FLOMAX 0.8 MG PO (09:37)
[2025-02-27] MEDS: IMDUR (EXTENDED RELEASE) 30 MG PO (09:38)
[2025-02-27] MEDS: KEPPRA 750 MG PO (09:38)
[2025-02-27] MEDS: LOW STRENGTH ASPIRIN 81 MG PO (09:38)
[2025-02-27] MEDS: PROTONIX IV 40 MG IV ×2 (09:39→20:16)
[2025-02-27] MEDS: NSS (PRESERVATIVE FREE) 10 ML IV ×2 (09:39→20:15)
[2025-02-27] MEDS: CATAPRES PO (09:40)
[2025-02-27] MEDS: TOPROL XL PO (09:40)
[2025-02-27] MEDS: DIOVAN PO (09:41)
[2025-02-27] MEDS: EMLA CREAM 1 GRAM TOPICAL (10:20)
--- NOTE | 2025-02-27 10:22 | W.PN.GI.CBS2 ---
Today's Communication / Plan
-
cscope tomorrow
Assessment / Plan
-
64 yo M pmh ERSD on dialysis, metastatic basal cell cancer, splenic infarct on ASA/Plavix/Eliquis last dose Tuesday night p/w dark stool and drop in Hb.
EGD done yesterday unrevealing.
Plan was cscope today pt did not receive bowel prep.
Will re-prep tonight.
D/w nursing again today.
Getting HD today.
Trend Hb.
Continue ASA 81.
D/w pt if no source found plan capsule outpatient.
Subjective
Subjective
Date of Service: February 27, 2025
Staff did not give pt full bowel prep only 3 bm this am so far took 4 cups of golytely
Objective
Data Reviewed
Laboratory Data:
Laboratory Results
PT 14.7 Sec (11.4-14.6) H 02/24/25 05:05
INR 1.12 02/24/25 05:05
APTT 39.1 Sec (23.4-35.0) H 02/24/25 05:05
Magnesium 2.2 mg/dl (1.6-2.3) 02/26/25 05:42
Total Bilirubin 0.4 mg/dl (0.2-1.3) 02/24/25 02:46
AST 53 U/L (17-59) 02/24/25 02:46
ALT 35 U/L (0-50) 02/24/25 02:46
Alkaline Phosphatase 84 U/L (38-126) 02/24/25 02:46
Vital Signs and I&O:
Vital Signs
Temp Pulse Resp BP Pulse Ox
98.2 F 66 18 168/64 98
02/27/25 07:35 02/27/25 07:35 02/27/25 07:35 02/27/25 07:35 02/27/25 07:35
I&O
02/26/25 02/27/25 02/28/25
06:59 06:59 06:59
Intake Total 1200 / 1200 1460 / 1460
Balance 1200 / 1200 1460 / 1460
Physical Exam
Physical Exam
GI: Non Distended and Non Tender
[2025-02-27] MEDS: RETACRIT 10000 UNITS IV (12:17)
--- NOTE | 2025-02-27 12:44 | W.PN.NEPH.HD ---
Assessment
-
Patient seen on dialysis
Access flows with good function via AV fistula
Systolic blood pressure 162 at current UF
Anemia persists
Colonoscopy tomorrow per GI
Progress Note - Hemodialysis
-
Date of Service: February 27, 2025
Duration: 30 minutes and 3 hours
Potassium Bath: 3
Calcium Bath: 2.5
Opti-Dialyzer: 160
Ultrafiltration: Other (1 kg)
Blood Flow: 400
Dialysate Flow: 600
Heparin: None
EPO: 10,000
[2025-02-27 13:56] LABS: Blood Urea Nitrogen 37 mg/dl (9-20); Calcium 8.9 mg/dl (8.4-10.2); Carbon Dioxide 26 mmol/L (22-30); Chloride 94 mmol/L (98-107); Estimated Creatinine Clearance 15 ml/min; Glucose 153 mg/dl (70-99); Magnesium 2.0 mg/dl (1.6-2.3); Potassium 4.7 mmol/L (3.5-5.1); Sodium 124 mmol/L (135-145); eGFR 14.60
[2025-02-27 13:58] LABS: Hematocrit 20.6 % (39.0-52.0); Hemoglobin 6.9 g/dL (13.0-18.0); Mean Corp Hgb Conc. 33.5 g/dL (33.0-37.0); Mean Corpuscular Volume 98.6 fL (80.0-94.0); Platelet Count 236 10^3/uL (130-400); Red Cell Dist. Width 16.8 % (11.5-14.5)
[2025-02-27] MEDS: CATAPRES 0.3 MG PO ×2 (15:08→22:03)
[2025-02-27] MEDS: DIOVAN 320 MG PO (15:09)
[2025-02-27] MEDS: TOPROL XL 50 MG PO ×2 (15:11→20:16)
--- NOTE | 2025-02-27 15:49 | W.PN.UPDATE ---
Update Note
Progress Note Update
I spoke to patient's Vascular Surgery team (Dr. Rivera at [facility]) who states that ideally patient would stay on Plavix until follow up imaging of carotid artery stent obtained through their office which is done at 6 months
post-op. I spoke to patient's Oncologist, Dr. Wooten ([facility]) who states that on his end Eliquis may be able to be stopped after 3 months of treatment post splenic infarct but given he did not prescribe medication, recommends
discussing with our Oncology team here. I will consult Oncology tomorrow to help navigate whether patient can come off of Eliquis given risk of bleeding.
[2025-02-27 22:24] LABS: Hemoglobin 8.7 g/dL (13.0-18.0)
[2025-02-28 03:25] VITALS: BP 194/63
[2025-02-28] MEDS: NULYTELY SOLUTION 2 LITERS PO (04:21)
[2025-02-28 06:00] VITALS: BMI 21.6
[2025-02-28 07:00] VITALS: BP 193/69
[2025-02-28 07:12] LABS: Blood Urea Nitrogen 18 mg/dl (9-20); Calcium 10.0 mg/dl (8.4-10.2); Carbon Dioxide 28 mmol/L (22-30); Chloride 98 mmol/L (98-107); Estimated Creatinine Clearance 21 ml/min; Glucose 87 mg/dl (70-99); Magnesium 2.0 mg/dl (1.6-2.3); Potassium 4.7 mmol/L (3.5-5.1); Sodium 132 mmol/L (135-145); eGFR 20.81
[2025-02-28 07:28] LABS: Hematocrit 28.5 % (39.0-52.0); Hemoglobin 9.5 g/dL (13.0-18.0); Mean Corp Hgb Conc. 33.3 g/dL (33.0-37.0); Mean Corpuscular Volume 98.6 fL (80.0-94.0); Platelet Count 260 10^3/uL (130-400); Red Cell Dist. Width 17.2 % (11.5-14.5)
[2025-02-28] MEDS: DIOVAN 320 MG PO (08:23)
[2025-02-28] MEDS: FLOMAX 0.8 MG PO (08:24)
[2025-02-28] MEDS: LOW STRENGTH ASPIRIN 81 MG PO (08:24)
[2025-02-28] MEDS: KEPPRA 750 MG PO (08:24)
[2025-02-28] MEDS: CATAPRES 0.3 MG PO (08:24)
[2025-02-28] MEDS: TOPROL XL 50 MG PO (08:24)
[2025-02-28] MEDS: IMDUR (EXTENDED RELEASE) 30 MG PO (08:24)
[2025-02-28] MEDS: PROTONIX IV 40 MG IV (08:24)
[2025-02-28] MEDS: NSS (PRESERVATIVE FREE) 10 ML IV (08:25)
--- NOTE | 2025-02-28 08:30 | W.PN.HOSP.TC ---
Today's Communication/Plan
-
NPO for colonoscopy today
Assessment / Plan
Assessment / Plan
Mr. Bryon Koehler is a 64 yo man with hx skin cancer status post chemotherapy, immunotherapy with mets to the lymph nodes and left upper lobe of the lung, hypertension, hyperlipidemia, anxiety, depression, chronic back pain, anemia of chronic
disease, aortic stenosis, chronic HFpEF, ESRD on hemodialysis, severe BPH, admission 11/18 for splenic infarction (concern recent carotid stent resulted in emboli - discharged on Eliquis) presents to the ER with black stools.
GI Bleed exacerbated by Eliquis use
- report of melena
- patient states he never stopped Aspirin after admission in October, he was on Aspirin, Plavix, Eliquis prior to admission
- last apixaban dose was 02/23 PM. Last bloody BM on
- Hold Eliquis and Plavix - resumed aspirin 81mg daily (Ok'd by GI)
- s/p EGD morning of 02/26 without source of bleeding, plan for colonoscopy today
- IV PPI
- NPO for colonoscopy
Acute blood loss anemia
-Status post 2 units packed red blood cells 02/24; s/p additional unit 02/27 with appropriate rise
-Nephrology ordered patient IV iron
Hx Splenic Infarct 10/2024
-I reached out to Dr. Wooten at [place] yesterday to discuss length of time for treatment; recommended I consult our Oncologists here who prescribed Eliquis in October
-I will place form Hematology consult today
Hx Carotid Artery Stent September 2024
-He was started on Plavix post stent placement (+ aspirin). Aspirin was discontinued the following month when Eliquis started but was back on medication list this admission - patient states he never stopped taking it.
-I spoke to patient's vascular surgery team who states patient hasn't yet followed up. They recommend continuing Plavix for at least 6 months until follow up US performed as outpatient
-resume Plavix when OK with GI
-will stop aspirin (unless Eliquis is stopped)
ESRD - HD m/w/f
- Nephrology following for dialysis needs
HTN
- Resume Clonidine, Valsartan as blood pressure is elevated today
- Resume Imdur
- Resume Hydral post procedure or earlier if hypertensive
BPH
- continue tamsulosin
RLL
- continue ropinirole
DVT PPX - SCD
Code status - Full Code
Physical Exam
General: No acute distress
HEENT: Normocephalic, Atraumatic, EOMI, MMM
Respiratory: Clear to Auscultation bilaterally
Cardiac: Normal S1/S2, Regular Rate and Rhythm
GI: Soft, Nontender, Nondistended, Normal Bowel Sounds
Extremities: No Clubbing, Cyanosis
Bilateral lower extremity edema noted
Neuro: Nonfocal/Grossly Intact
Psych: Calm, Cooperative
Derm: No Visible lesions
Anticipated Discharge: Within 24 hours
Subjective/Interval History
-
Date of Service: February 28, 2025
prepped for colonoscopy, waiting to have procedure done
hoping to leave soon
Objective Data
-
Labs:
Laboratory Results
02/27/25 02/27/25 02/28/25
20:00 22:16 06:38
WBC 6.4
Hgb Cancelled 8.7 L D 9.5 L
Hct 28.5 L
Plt Count 260
Sodium 132 L D
Potassium 4.7
Chloride 98
Carbon Dioxide 28
BUN 18
Creatinine 3.2 H
Glucose 87
Calcium 10.0
Vital Signs:
Vital Signs
Temp Pulse Resp BP Pulse Ox
98.1 F 67 20 193/69 99
02/28/25 07:00 02/28/25 07:00 02/28/25 07:00 02/28/25 07:00 02/28/25 07:00
I&O
02/27/25 02/28/25 03/01/25
06:59 06:59 06:59
Intake Total 1460 / 1460 1450 / 1450
Balance 1460 / 1460 1450 / 1450
Review of Systems
-
History Source: Patient
All other systems: Reviewed and negative
Physical Exam
-
General: Well Developed, Well Nourished, No Apparent Distress and Comfortable
HEENT: Nose Appears Normal and Ears Appear Normal
Respiratory: Clear to Auscultation
Cardiac: Regular Rhythm, S1/S2 and Murmur
GI: Soft, Nontender and Nondistended
Musculoskeletal: No Clubbing, No Cyanosis and No Edema
Skin: Warm and Dry
Neuro: Awake, Alert and Oriented
Psych: Calm
Data Reviewed
-
Diagnostic Radiology: Report Reviewed by me
Labs: Labs Reviewed by me
--- NOTE | 2025-02-28 08:36 | CON.ONC ---
Documented by User: BRANDIN Sherman 02/28/25 12:10
Consultation
-
Date Consultation Requested: 02/28/25
Date Consultation Performed: 02/28/25
Requesting Provider: Dr. Kasia Johnson
Performing Provider: Dr. Lukas Sky
Reason for Consultation: anemia, hx splenic infarct
Impression
Impression
64-year-old male with past medical history of metastatic basal cell carcinoma a/w melena/ABLA while on DAPT and DOAC
ABLA, melena exacerbated by Eliquis -EGD 02/26 without source of bleeding
Hx Splenic Infarct 10/2024 possibly provided by carotid stenosis stenting
Carotid Artery Stent September 2024
ESRD on HD
Metastatic basal cell CA, follow at [facility].
Plan
Plan
colonoscopy today
no role of iron repletion with a ferritin 400, transfuse Hgb <7 or as needed for sxs anemia
He completed 3 months of DOAC for his splenic infarct. He is no longer having symptoms. If no intermediate card tender provoking factors were determined in OP [facility] follow up, such as MPN or autoimmune etiology then no role for continued DOAC for his splenic
infarct in October 2024. I would defer to vascular/cardiology if he needs continued doac or antiplatlet from that perspective
Patient History
History of Present Illness
64-year-old male who presented to [facility] with hypotension and black stools. He is on DAPT for his vascular disease. He was started on apixaban in October 2024 for a splenic infarct that was possibly provided by recent carotid stenting,
however, further work up was TBD at [facility] in out patient follow up. He sees [facility] for management of metastatic basal cell, previouly on immunotherapy and chemotherpy and stopped due to toxicities/intolerance and is now treated with XRT. I do not have
OP [facility] records for review. He reported progressive weakness with ongoing black stool. He tells me that he has a history of peptic ulcer disease and colon polyps. CBC notable for hemoglobin of 6.4 with a normal WBC and platelet count. Renal function
reflects ESRD on HD. He was admitted, DAPT and DOAC were held, and he was transfused with 3U prbc with improvement of Hgb to >9g/dL. He underwent an EGD 02/26 without source of bleeding. He is planned for colonoscopy today.
Clinically, denies fever, chills, cough, SOB, chest pain, palpitations, n/v/d/c or abdominal pain.
Afebrile, no hypoxia or hypotension
Past-Medical/Surgical History
PMH ESRD on hemodialysis, diastolic CHF, basal cell cancer metastasized to left neck lymph nodes and left upper lung per patient status post chemotherapy and immunotherapy at [place], hypertension, hyperlipidemia, CVA, splenic infarct, Aortic
steneosis, HFpEF, PUD, colon polyps
PS LUE AV, b/l wrist ORIF, lumbar surgery, multiple skin cancer excisions
Social denies tobacco, etoh or recreational drug use.
Family non-contributory
Patient Medication
�Medication �Instructions �Recorded �Confirmed �Last Taken �Type
atorvastatin 80 mg tablet 80 mg PO DAILY High Cholesterol 09/20/24 02/24/25 02/23/25 08:00 History
isosorbide mononitrate 30 mg 30 mg PO DAILY Blood Pressure 09/20/24 02/24/25 02/23/25 08:00 History
tablet,extended release 24 hr
ropinirole 0.25 mg tablet 0.25 mg PO HS PRN Mental 09/20/24 02/24/25 02/22/25 22:00 History
Health/Anxiety
tamsulosin 0.4 mg capsule 0.8 mg PO DAILY Urinary Issue 09/20/24 02/24/25 02/23/25 08:00 History
valsartan 320 mg tablet 320 mg PO DAILY Blood Pressure 09/20/24 02/24/25 02/23/25 08:00 History
clonidine HCl 0.3 mg tablet 0.3 mg PO TID Blood Pressure 11/11/24 02/24/25 02/24/25 22:00 History
clopidogrel 75 mg tablet 75 mg PO DAILY Blood Clot 11/11/24 02/24/25 02/23/25 08:00 History
Prevention/Tx
hydralazine 50 mg tablet 50 mg PO Q8H Blood Pressure 11/11/24 02/24/25 02/23/25 20:00 History
levetiracetam 750 mg tablet 750 mg PO DAILY Neurological 11/11/24 02/24/25 02/23/25 08:00 History
Condition
metoprolol succinate 50 mg 50 mg PO BID Heart 11/11/24 02/24/25 02/24/25 20:00 History
tablet,extended release 24 hr Disease/Condition
sennosides 8.6 mg tablet (senna) 8.6 mg PO HS 11/11/24 02/24/25 11/10/24 History
apixaban 5 mg tablet 5 mg PO Q12 02/24/25 02/24/25 Unknown History
aspirin 81 mg capsule 81 mg PO DAILY 02/24/25 02/24/25 02/23/25 05:00 History
ezetimibe 10 mg tablet 10 mg PO DAILY 02/24/25 02/24/25 02/23/25 08:00 History
Active Medications
Generic Name Dose Route Start Last Admin
Trade Name Freq PRN Reason Stop Dose Admin
Acetaminophen 650 mg 02/24/25 05:03
Acetaminophen 325 Mg Tablet PO 03/24/25 05:02
Q6HPRN PRN
mild pain/ fever>100.5F
Aspirin 81 mg 02/25/25 11:00 02/28/25 08:24
Aspirin 81 Mg Chewable Tablet PO 03/25/25 10:59 81 mg
DAILY JASMINE Administration
Clonidine HCl 0.3 mg 02/24/25 22:00 02/28/25 08:24
Clonidine 0.3 Mg Tablet PO 03/24/25 21:59 0.3 mg
TID JASMINE Administration
Isosorbide Mononitrate 30 mg 02/26/25 12:00 02/28/25 08:24
Isosorbide Mononitrate 30 Mg Extended Release Tablet PO 03/26/25 11:59 30 mg
DAILY JASMINE Administration
Levetiracetam 750 mg 02/24/25 08:00 02/28/25 08:24
Levetiracetam 250 Mg Regular Release Tablet PO 03/24/25 07:59 750 mg
DAILY JASMINE Administration
Lidocaine/Prilocaine 1 gram 02/27/25 07:38 02/27/25 10:20
Lidocaine 2.5%/Prilocaine 2.5% (Cream) 5 Gram Tube TOPICAL 03/27/25 07:37 1 gram
PRN PRN Administration
fistula prior to HD
Metoprolol Succinate 50 mg 02/24/25 08:00 02/28/25 08:24
Metoprolol 50 Mg Extended Release Tablet PO 03/24/25 07:59 50 mg
BID JASMINE Administration
Ondansetron HCl 4 mg 02/24/25 05:03
Ondansetron 4 Mg/2 Ml Vial IV 03/24/25 05:02
Q6HPRN PRN
NAUSEA/VOMITING
Pantoprazole Sodium 40 mg 02/26/25 20:00 02/28/25 08:24
Pantoprazole Sodium 40 Mg/10 Ml Vial IV 03/26/25 19:59 40 mg
BID JASMINE Administration
Ropinirole HCl 0.25 mg 02/24/25 05:03
Ropinirole 0.25 Mg Tablet PO 03/24/25 05:02
HS PRN
Mental Health/Anxiety
Sodium Chloride 0 flush 02/25/25 11:00
Sodium Chloride 0.9% (Flush) Syringe IV 03/25/25 10:59
PER PROTOCOL JASMINE
Sodium Chloride 10 ml 02/26/25 20:00 02/28/25 08:25
Sodium Chloride 0.9% (Preservative Free) 10 Ml Vial IV 03/26/25 19:59 10 ml
BID JASMINE Administration
Tamsulosin HCl 0.8 mg 02/24/25 08:00 02/28/25 08:24
Tamsulosin 0.4 Mg Capsule PO 03/24/25 07:59 0.8 mg
DAILY JASMINE Administration
Valsartan 320 mg 02/25/25 08:00 02/28/25 08:23
Valsartan 160 Mg Tablet PO 03/25/25 07:59 320 mg
DAILY JASMINE Administration
Review of Systems
-
ROS is notable for HPI, otherwise negative
Physical Exam
-
General: No Apparent Distress
HEENT: Moist Mucous Membranes; Negative Jaundice
Pulmonary: Other (unlabored)
Extremities: Pulses Present; Negative Edema
Skin: Warm
Psych: Calm
Labs
Lab Results
WBC 6.4 10^3/uL (4.8-10.8) 02/28/25 06:38
RBC 2.89 10^6/uL (4.70-6.10) L 02/28/25 06:38
Hgb 9.5 g/dL (13.0-18.0) L 02/28/25 06:38
Hct 28.5 % (39.0-52.0) L 02/28/25 06:38
MCV 98.6 fL (80.0-94.0) H 02/28/25 06:38
MCH 32.9 pg (27.0-31.0) H 02/28/25 06:38
MCHC 33.3 g/dL (33.0-37.0) 02/28/25 06:38
RDW 17.2 % (11.5-14.5) H 02/28/25 06:38
Plt Count 260 10^3/uL (130-400) 02/28/25 06:38
MPV 9.8 fL (7.4-10.4) 02/28/25 06:38
Abs Immat Gran (auto) 0.0 10^3/uL (0-0.05) 02/24/25 02:46
Absolute Neuts (auto) 6.1 10^3/uL (1.4-6.5) 02/24/25 02:46
Absolute Lymphs (auto) 1.8 10^3/uL (1.2-3.4) 02/24/25 02:46
Absolute Monos (auto) 1.3 10^3/uL (0.1-0.6) H 02/24/25 02:46
Absolute Eos (auto) 0.2 10^3/uL (0-0.7) 02/24/25 02:46
Absolute Basos (auto) 0.1 10^3/uL (0-0.2) 02/24/25 02:46
Immature Gran % 0.4 % (0-0.5) 02/24/25 02:46
Neutrophils % 64.7 % (42.2-75.2) 02/24/25 02:46
Lymphocytes % 19.0 % (20.5-51.1) L 02/24/25 02:46
Monocytes % 13.4 % (1.7-9.3) H 02/24/25 02:46
Eosinophils % 1.6 % (0-6) 02/24/25 02:46
Basophils % 0.9 % (0-2) 02/24/25 02:46
Creatinine 3.2 mg/dL (0.7-1.3) H 02/28/25 06:38
Vital Signs
Vital Signs
Temp Pulse Resp BP Pulse Ox
98.1 F 67 20 193/69 99
02/28/25 07:00 02/28/25 07:00 02/28/25 07:00 02/28/25 07:00 02/28/25 07:00

Documented by User: Lukas Sky MD 02/28/25 16:17
Plan
Plan
colonoscopy today
no role of iron repletion with a ferritin 400, transfuse Hgb <7 or as needed for sxs anemia
He completed 3 months of DOAC for his splenic infarct. He is no longer having symptoms. If no intermediate card tender provoking factors were determined in OP [facility] follow up, such as MPN or autoimmune etiology then no role for continued DOAC for his splenic
infarct in October 2024. I would defer to vascular/cardiology if he needs continued doac or antiplatlet from that perspective
--- NOTE | 2025-02-28 11:14 | CM ---
Addendum entered by Jessi Torrez RN 02/28/25 13:46:
IMM reviewed.
Original Note:
Reviewed the chart notes. Colonoscopy today. CM continues to be available to patient/family and is monitoring medical plan for needs at discharge.
Plan: Discharge to home when medically stable. No needs anticipated at this time.
--- NOTE | 2025-02-28 11:47 | W.PN.NEPH.PH ---
Today's Communication / Plan
-
HD orders provided
colonscopy today
Assessment/Plan
-
Impression:
Anemia with suspected underlying GI bleed
Hx of splenic infarct
ESRD MWF
Multidrug resistant hypertension
Hyponatremia
Elevated LFTs
Anemia of chronic kidney disease
Basal cell carcinoma metastatic origin: last chemotherapy 2 weeks prior from [place]
Hx of Staph bacteremia (09/18)
Plan:
HD tomorrow colonoscopy
BP relatively stable on meds
KAYLA on dialysis with IV iron
prn trasnfusion
Holding heparin on dialysis due to ongoing GI bleeding
Fluid restriction for hyponatremia
-
-
Date of Service: February 28, 2025
CC / HPI / ROS
-
Chief Complaint:
ESRD
History of Present Illness:
hb decreasing to 7.4
BP stable, s/p EGD today and no active bleeding
sodium low 128
Review of Systems:
no cp or osb
asking to eat
Labs
-
Labs:
WBC 6.4 10^3/uL (4.8-10.8) 02/28/25 06:38
RBC 2.89 10^6/uL (4.70-6.10) L 02/28/25 06:38
Hgb 9.5 g/dL (13.0-18.0) L 02/28/25 06:38
Hct 28.5 % (39.0-52.0) L 02/28/25 06:38
Plt Count 260 10^3/uL (130-400) 02/28/25 06:38
Sodium 132 mmol/L (135-145) L D 02/28/25 06:38
Potassium 4.7 mmol/L (3.5-5.1) 02/28/25 06:38
Chloride 98 mmol/L (98-107) 02/28/25 06:38
Carbon Dioxide 28 mmol/L (22-30) 02/28/25 06:38
BUN 18 mg/dl (9-20) 02/28/25 06:38
Creatinine 3.2 mg/dL (0.7-1.3) H 02/28/25 06:38
eGFR 20.81 02/28/25 06:38
Glucose 87 mg/dl (70-99) 02/28/25 06:38
Calcium 10.0 mg/dl (8.4-10.2) 02/28/25 06:38
Albumin 3.4 g/dl (3.5-5.0) L 02/24/25 02:46
Physical Exam
-
Vital Signs:
Vital Signs
Temp Pulse Resp BP Pulse Ox
98.1 F 67 20 193/69 99
02/28/25 07:00 02/28/25 07:00 02/28/25 07:00 02/28/25 07:00 02/28/25 07:00
Cardiovascular:: Regular rate and rhythm
Respiratory:: Bilateral: CTA
Lung Excursion:: Normal
Abdomen:: Nontender and Soft
Bowel Sounds:: Normal
Extremity Edema:: None: Bilateral:
Asmpson Catheter: No
[2025-02-28 11:50] VITALS: BP 167/55
[2025-02-28 12:00] VITALS: BP 173/56
--- NOTE | 2025-02-28 12:10 | W.PN.UPDATE ---
Update Note
Progress Note Update
pt off the floor for colonoscopy today
no role of iron repletion with a ferritin 400, transfuse Hgb <7 or as needed for sxs anemia
He completed 3 months of DOAC for his splenic infarct. If no halfway provoking factors were determined in OP [facility] follow up, such as MPN or autoimmune etiology then would consider stopping DOAC for his splenic infarct in October 2024. I would defer to
vascular/cardiology if he needs continued doac or antiplatlet from at vascular perspective
Full consult to follow 03/01/2025
--- NOTE | 2025-02-28 12:24 | W.PN.UPDATE ---
Update Note
Progress Note Update
D/w Dr. Johnson
Likely pt does not need Eliquis - onc to evaluate
If this is case ok to resume plavix today
Continue ASA
recheck Hb early next week
I sent a msg to office about VCE and follow up with GI after
GI to sign off, ok discharge gi pov today
--- NOTE | 2025-02-28 12:54 | W.PN.UPDATE ---
Update Note
Progress Note Update
I spoke to patient's Oncologist, Dr. Wooten, again. He is OK with stopping Eliquis.
[2025-02-28 12:57] VITALS: BP 172/60
[2025-02-28] MEDS: APRESOLINE 50 MG PO (13:04)
--- NOTE | 2025-02-28 13:05 | W.DS.TRANS ---
DC Summary - [employer]
-
Discharge Instructions:
Discharge Diagnosis/Procedures gastrointestinal bleeding, unclear source
Diet 2 Gram Sodium,Restrict fluids to 48 oz
Activity As tolerated
Driving Restrictions As prior to admission
Bathing Restrictions None
Blood Work CBC in one week
Instructions:
Stand-Alone Forms:
Changes to Home Medications: Yes
Discharge Medications:
DC Medications w/original date entered in [employer]
isosorbide mononitrate 30 mg tablet,extended release 24 hr 30 mg PO DAILY Blood Pressure 09/20/24
ropinirole 0.25 mg tablet 0.25 mg PO HS PRN Mental Health/Anxiety 09/20/24
tamsulosin 0.4 mg capsule 0.8 mg PO DAILY Urinary Issue 09/20/24
valsartan 320 mg tablet 320 mg PO DAILY Blood Pressure 09/20/24
clonidine HCl 0.3 mg tablet 0.3 mg PO TID Blood Pressure 11/11/24
clopidogrel 75 mg tablet 75 mg PO DAILY Blood Clot Prevention/Tx 11/11/24
hydralazine 50 mg tablet 50 mg PO Q8H Blood Pressure 11/11/24
levetiracetam 750 mg tablet 750 mg PO DAILY Neurological Condition 11/11/24
metoprolol succinate 50 mg tablet,extended release 24 hr 50 mg PO BID Heart Disease/Condition 11/11/24
sennosides 8.6 mg tablet (senna) 8.6 mg PO HS 11/11/24
aspirin 81 mg capsule 81 mg PO DAILY 02/24/25
ezetimibe 10 mg tablet 10 mg PO DAILY 02/24/25
atorvastatin 80 mg tablet 80 mg PO QPM High Cholesterol #0 tabs 02/28/25
pantoprazole 40 mg tablet,delayed release (Protonix) 40 mg PO DAILY #30 tabs 02/28/25
Home Medication Changes
STOP ELIQUIS
Continue Aspirin 81mg daily and Plavix 75mg daily
Start Protonix 40mg daily
Pending Results: Yes
Additional Pending Results:
pathology from GI
--- NOTE | 2025-02-28 13:06 | W.DCSUMMARY ---
Discharge Summary
Discharge Data
Date of Admission: 02/24/25
Date of Discharge: 02/28/25
-
Pending Results: No
Hospital Course
Discharging Physician : Dr. Kasia Johnson
Disposition : Home
Principal Discharge diagnosis : GI Bleed, Acute Blood Loss Anemia
Hospital Course :
Mr. Bryon Koehler is a 64 yo man with hx ESRD on HD, basal skin cancer status post chemotherapy, immunotherapy with mets to the lymph nodes and left upper lobe of the lung, hypertension, hyperlipidemia, anxiety, depression, chronic back pain, anemia
of chronic disease, aortic stenosis chronic HFpEF, severe BPH, carotid artery stenosis s/p stent placement at [facility] (10/19), admission 11/18 for splenic infarctiondischarged on Eliquis) presents to the ER with black stools.
In the emergency department his blood pressure was 150/50 with a pulse of 82 and he was satting 100% on room air. He was afebrile. His ECG shows sinus rhythm at 78. CBC notable for hemoglobin of 6.4 which is down from 12 a few months ago. His
platelet count was normal. His electrolytes were in the normal range and consistent with ESRD with a sodium of 128. BUN and creatinine were 61 and 3.5 with a glucose of 101. He had a heme positive rectal exam in the ED.
Patient was admitted to medicine with GI consulting. His Plavix and Eliquis were held. He underwent EGD and Colonoscopy which did not find source of bleed (reports below). He received a total of 3 units PRBC in the hospital with stable Hg prior
to discharge, no further bloody BM. Plan is for a capsule endoscopy as outpatient.
I spoke to patient's Vascular Surgery team (Dr. Rivera at [facility]) who states that ideally patient would stay on Plavix until follow up imaging of carotid artery stent obtained through their office which is done at 6 months
post-op. I spoke to patient's Oncologist, Dr. Wooten ([facility]), who is OK with patient coming off of Eliquis as it has been over 3 months. He will follow up with both providers as outpatient (listed in his [facility]).
Patient is told to stop Eliquis. He is prescribed Protonix.
Plan is for repeat CBC early next week.
Nephrology was consulted and patient received his usual HD here in the hospital.
Time spent on discharge was 45 minutes.
Important imaging findings :
Procedure findings :
EGD 02/26/25
Impression:
- Normal esophagus.
- Z-line irregular, 38 cm from the incisors. Biopsied.
- 1 cm hiatal hernia.
- Erythematous mucosa in the stomach. Biopsied.
- Mucosal changes in the duodenum. Biopsied.
Colonoscopy 02/28/25
Impression:
- The examined portion of the ileum was normal.
- Diverticulosis in the sigmoid colon.
- Two 2 mm polyps in the ascending colon and in the transverse
colon, removed with a jumbo cold forceps. Resected and retrieved.
- One 6 mm polyp at the hepatic flexure, removed with a cold snare.
Resected and retrieved.
- Hemorrhoids.
Discharge Plan
-
Patient Disposition: Home (Routine Discharge)
Discharge Diagnosis/Procedures: gastrointestinal bleeding, unclear source
Diet: 2 Gram Sodium and Restrict fluids to 48 oz
Activity: As tolerated
Driving Restrictions: As prior to admission
Bathing Restrictions: None
Blood Work: CBC in one week
Referrals:
Esteban Ruiz MD [Active, Gastroenterology]
Referral Note: Office will call you to schedule video capsule endoscopy
UNKNOWN - PT DOES,NOT KNOW [Family Provider] - in less than 1 week
Additional Discharge Medication Instructions: Please follow up with Dr. Vianca Rivera (Vascular Surgeon). Call office: [phone]. You need a follow up ultrasound post carotid stent to help determine when OK to come off of Plavix.
Please follow up with Dr. Mandeep Wooten (Qualitative Field Coordinator/Oncologist). Call office .
STOP ELIQUIS
Continue Aspirin 81mg daily and Plavix 75mg daily
Start Protonix 40mg daily
You will follow up with Gastroenterology to determine next steps in work up (capsule endoscopy)
Prescriptions:
New
pantoprazole [Protonix] 40 mg tablet,delayed release (DR/EC)
40 mg PO DAILY Qty: 30 1RF
Continued
isosorbide mononitrate 30 mg Tablet Extended Release 24 Hr
30 mg PO DAILY
tamsulosin 0.4 mg Capsule
0.8 mg PO DAILY
ropinirole 0.25 mg Tablet
0.25 mg PO HS PRN (Reason: Mental Health/Anxiety)
valsartan 320 mg Tablet
320 mg PO DAILY
clonidine HCl 0.3 mg Tablet
0.3 mg PO TID
sennosides [senna] 8.6 mg Tablet
8.6 mg PO HS
metoprolol succinate 50 mg tablet extended release 24 hr
50 mg PO BID
clopidogrel 75 mg tablet
75 mg PO DAILY
hydralazine 50 mg tablet
50 mg PO Q8H
levetiracetam 750 mg tablet
750 mg PO DAILY
ezetimibe 10 mg Tablet
10 mg PO DAILY
aspirin 81 mg Capsule
81 mg PO DAILY
Changed
atorvastatin 80 mg Tablet
80 mg PO QPM Qty: 0 0RF
Discontinued
apixaban 5 mg Tablet
5 mg PO Q12
Discharge Orders:
Discharge Patient (As Directed); Ordered 02/28/25
Ordered By: Kasia Johnson
Discharge Date and Time
Print Language: HAITIAN
[2025-02-28 15:00] VITALS: BP 137/54
== END 2025-02-28 16:51 | disposition home or self-care (01) | DRG 377 ==
LOC: 2 NORTH 04:14
PROVIDERS: Family Medicine; Internal Medicine Gastroenterology; Registered Nurse; ADMITTING PHYSICIAN Internal Medicine; ATTENDING PHYSICIAN Student in an Organized Health Care Education/Training Program; CONSULT PHYSICIAN Internal Medicine Gastroenterology; CONSULT PHYSICIAN Internal Medicine Hematology & Oncology; CONSULT PHYSICIAN Specialist; EMERGENCY PHYSICIAN Emergency Medicine
PROC: 30233N1 Transfusion of Nonautologous Red Blood Cells into Peripheral Vein, Percutaneous Approach (ICD-10-PCS; 2025-02-24)
PROC: 5A1D70Z Performance of Urinary Filtration, Intermittent, Less than 6 Hours Per Day (ICD-10-PCS; 2025-02-25)
PROC: 0DB98ZX Excision of Duodenum, Via Natural or Artificial Opening Endoscopic, Diagnostic (ICD-10-PCS; 2025-02-26)
PROC: 0DB58ZX Excision of Esophagus, Via Natural or Artificial Opening Endoscopic, Diagnostic (ICD-10-PCS; 2025-02-26)
PROC: 0DB78ZX Excision of Stomach, Pylorus, Via Natural or Artificial Opening Endoscopic, Diagnostic (ICD-10-PCS; 2025-02-26)
PROC: 0DBL8ZZ Excision of Transverse Colon, Via Natural or Artificial Opening Endoscopic (ICD-10-PCS; 2025-02-28)
PROC: 0DBK8ZZ Excision of Ascending Colon, Via Natural or Artificial Opening Endoscopic (ICD-10-PCS; 2025-02-28)
DX: K57.31 Diverticulosis of large intestine without perforation or abscess with bleeding (principal); N18.6 End stage renal disease; I50.32 Chronic diastolic (congestive) heart failure; I13.2 Hypertensive heart and chronic kidney disease with heart failure and with stage 5 chronic kidney disease, or end stage renal disease; N13.8 Other obstructive and reflux uropathy; C78.02 Secondary malignant neoplasm of left lung; C77.9 Secondary and unspecified malignant neoplasm of lymph node, unspecified; E87.1 Hypo-osmolality and hyponatremia; D62 Acute posthemorrhagic anemia; D68.32 Hemorrhagic disorder due to extrinsic circulating anticoagulants; R64 Cachexia; K29.71 Gastritis, unspecified, with bleeding; K64.8 Other hemorrhoids; C44.319 Basal cell carcinoma of skin of other parts of face; I25.10 Atherosclerotic heart disease of native coronary artery without angina pectoris; N40.1 Benign prostatic hyperplasia with lower urinary tract symptoms; I1A.0 Resistant hypertension; E78.00 Pure hypercholesterolemia, unspecified; D63.1 Anemia in chronic kidney disease; F41.9 Anxiety disorder, unspecified; F32.A Depression, unspecified; I35.0 Nonrheumatic aortic (valve) stenosis; K44.9 Diaphragmatic hernia without obstruction or gangrene; D12.2 Benign neoplasm of ascending colon; D12.3 Benign neoplasm of transverse colon; K22.89 Other specified disease of esophagus; K31.89 Other diseases of stomach and duodenum; T45.515A Adverse effect of anticoagulants, initial encounter; I95.9 Hypotension, unspecified; F17.290 Nicotine dependence, other tobacco product, uncomplicated; G89.29 Other chronic pain; K62.1 Rectal polyp; Z99.2 Dependence on renal dialysis; Z92.21 Personal history of antineoplastic chemotherapy; Z92.3 Personal history of irradiation; Z86.73 Personal history of transient ischemic attack (TIA), and cerebral infarction without residual deficits; Z79.82 Long term (current) use of aspirin; Z79.02 Long term (current) use of antithrombotics/antiplatelets; Z79.01 Long term (current) use of anticoagulants; Z79.899 Other long term (current) drug therapy; Z95.828 Presence of other vascular implants and grafts; Z87.11 Personal history of peptic ulcer disease; Z68.20 Body mass index [BMI] 20.0-20.9, adult
CPT/HCPCS: 36430; 80048; 80053; 82728; 83540; 83550; 83735; 84484; 85014; 85018; 85025; 85027; 85045; 85610; 85730; 86850; 86900; 86901; 86920; 87070; 88305; 88342; 93005; 99291; G0257; J2916; P9016; P9047; Q5106